=== PATIENT | female | born 1935 | race Caucasian/White ===

== ENCOUNTER 2016-05-24 08:44 | Inpatient (IN) | payer MEDICARE, BC ==
[~2016-05-24] VITALS: Ht 154.9 cm; Wt 96.0 kg
[~2016-05-24 08:44] MED LIST: ALPR0.5T PO; MAXZ25 PO; METF750T2 PO; PANT40TA3 PO; PARO10TA26 PO; POTA20TA96 PO; PRAV20TA63 PO
[2016-05-24] MEDS ORDERED: ONDANSETRON 4 MG INJ IV STA (08:47)
[2016-05-24] MEDS ORDERED: morphine 2 MG INJ IV STA (08:47)
[2016-05-24] MEDS ORDERED: SOD CHLORIDE 0.9% 1,000 ML IV STA (08:47)
--- NOTE | 2016-05-24 09:18 | ERA ---
ER Documentation Chief Complaint Date/Time DATE: 05/24/16 TIME: 09:16 Chief Complaint HPI Pleasant 80-year-old female who presents with nausea and vomiting, single episode of loose stool. She states that she was well yesterday today she woke up with nonbloody nonbilious emesis, diffuse cramping abdominal pain that is moderate with associated loose stool. No recent travel, sick contacts, antibiotics. ROS All systems reviewed and are negative except as per history of present illness. Medications Home Meds Reported Medications Valsartan-Hydrochlorothiazide (Valsartan-HCTZ) 160-25 Mg Tablet, 1 TAB PO DAILY , #30 TAB 05/24/16 Paroxetine Hcl* (Paxil*) 10 Mg Tablet, 10 MG PO DAILY, TAB 03/18/14 Potassium Chloride* (Potassium Chloride*) 20 Meq Tablet.er, 20 MEQ PO DAILY, TAB.SA 03/18/14 Metformin Hcl* (Metformin Hcl* ER) 750 Mg Tab.sr.24h, 850 MG PO BID, TAB 03/18/14 Pantoprazole* (Protonix*) 40 Mg Tablet.dr, 40 MG PO BID, TAB 03/18/14 Alprazolam* (Xanax*) 0.5 Mg Tab, 0.5 MG PO Q8H Y for ANXIETY, TAB 03/18/14 Pravastatin Sodium* (Pravastatin Sodium*) 20 Mg Tablet, 20 MG PO HS, TAB 03/18/14 Discontinued Reported Medications Triamterene/Hctz* (Maxzide (37.5-25)*) 1 Each Tablet, 1 EACH PO DAILY, TAB 03/18/14 Allergies Allergies: Coded Allergies: No Known Drug Allergies (Unverified Allergy, Unknown, 04/29/14) PMhx/Soc History of Surgery: No (R TKA 04/29/14) Anesthesia Reaction: No Hx Neurological Disorder: No Hx Respiratory Disorders: No Hx Psychiatric Problems: No Hx Miscellaneous Medical Probl: Yes (None listed in medical chart at time of OT eval.) Hx Alcohol Use: No Hx Substance Use: No Hx Tobacco Use: No FmHx Family History: No diabetes Physical Exam Vitals Vital Signs Date Time Temp Pulse Resp B/P Pulse Ox O2 Delivery O2 Flow Rate FiO2 05/24/16 12:01 95 05/24/16 10:44 98.6 78 16 159/86 99 05/24/16 09:10 98.4 110 16 151/81 99 Physical Exam General: Well developed, well nourished, no acute distress Head: Normocephalic, atraumatic. Eyes: Pupils equally reactive, EOM intact ENT: Moist mucous membranes Neck: Supple, no lymphadenopathy Respiratory: Lungs clear bilaterally, no distress Cardiovascular: RRR, no murmurs, rubs, or gallops Abdominal: Soft, mild diffuse tenderness without rebound or guarding, no pulsatile mass. : Deferred MSK: No edema, no unilateral swelling, 5/5 strength Neurologic: Alert and oriented, moving all extremities, normal speech, no focal weakness, no cerebellar signs Skin: No rash Psych: Normal mood Result Diagram: 05/24/1691405/24/16914 Results 24 hrs Laboratory Tests Test 05/24/16 09:15 05/24/16 10:05 05/24/16 11:00 Activated Partial Thromboplast Time 23.4Sec Alanine Aminotransferase (ALT/SGPT) 15IU/L Albumin 4.1g/dl Albumin/Globulin Ratio 1.28 Alkaline Phosphatase 84IU/L Anion Gap 19 Aspartate Amino Transf (AST/SGOT) 22IU/L Band Neutrophils % 5.0% Basophils # 10^3/ul Basophils % % Blood Morphology Comment Blood Urea Nitrogen 15mg/dl Calcium Level 9.1mg/dl Carbon Dioxide Level 27mmol/L Chloride Level 99mmol/L Creatinine 0.66mg/dl Differential Comment MANUAL DIFF Direct Bilirubin 0.00mg/dl Eosinophils # 10^3/ul Eosinophils % % Globulin 3.20g/dl Glucose Level 166mg/dl Hematocrit 39.8% Hemoglobin 13.3g/dl INR International Normalized Ratio 0.91 Indirect Bilirubin 0.4mg/dl Lipase 188U/L Lymphocytes # 1.810^3/ul Lymphocytes % 8.0% Mean Corpuscular Hemoglobin 28.6pg Mean Corpuscular Hemoglobin Concent 33.5g/dl Mean Corpuscular Volume 85.3fl Mean Platelet Volume 7.5fl Monocytes # 1.610^3/ul Monocytes % 7.0% Neutrophils # 18.110^3/ul Neutrophils % 80.0% Nucleated Red Blood Cells # 10^3/ul Nucleated Red Blood Cells % /100WBC Platelet Count 86130^3/UL Potassium Level 2.9mmol/L Prothrombin Time 12.2Sec Prothrombin Time Ratio 1.0 Red Blood Count 4.6610^6/ul Red Cell Distribution Width 14.7% Sodium Level 142mmol/L Total Bilirubin 0.4mg/dl Total Protein 7.3g/dl Troponin I < 0.012ng/ml White Blood Count 22.610^3/ul Lactic Acid Level 3.3mmol/L Urine Bacteria MODERATE Urine Bilirubin NEGATIVE Urine Clarity CLOUDY Urine Color LT. YELLOW Urine Epithelial Cells MODERATE Urine Glucose NEGATIVE% Urine Hemoglobin 3+ Urine Ketones NEGATIVE Urine Leukocyte Esterase 2+ Urine Microscopic RBC 5-10/HPF Urine Microscopic WBC 5-10/HPF Urine Nitrite NEGATIVE Urine Specific [place] 1.025 Urine Total Protein TRACE Urine Urobilinogen 0.2 E.U./dL Urine Yeast FEW Urine pH 5.5 Current Medications Medications (Trade) Dose Ordered Sig/Hugo Route PRN Reason Start Time Stop Time Status Last Admin Dose Admin Sodium Chloride (NS) 1,000 ml @ 1,000 mls/hr Q1H STAT IV 05/24/16 08:47 05/24/16 09:46 DC 05/24/16 09:37 Morphine Sulfate (morphine) 2 mg ONCE STAT IV 05/24/16 08:47 05/24/16 08:48 DC Ondansetron HCl (Zofran Inj) 4 mg ONCE STAT IV 05/24/16 08:47 05/24/16 08:48 DC 05/24/16 12:55 Sodium Chloride 2820 ml 2,820 ml BOLUS OVER 2 HOURS STAT IV* 05/24/16 09:53 05/24/16 09:55 DC 05/24/16 10:22 Cefepime HCl 50 ml @ 100 mls/hr ONCE STAT IVPB 05/24/16 09:53 05/24/16 10:22 DC 05/24/16 10:16 Vancomycin HCl 250 ml @ 125 mls/hr ONCE ONCE IVPB 05/24/16 10:00 05/24/16 11:59 DC 05/24/16 11:16 Potassium Chloride (KCl 10 MEQ/50 ML SW) 50 ml @ 50 mls/hr Q1H IVPB 05/24/16 11:00 05/24/16 13:59 05/24/16 12:50 Acetaminophen (Tylenol Tab) 1,000 mg ONCE STAT PO 05/24/16 11:55 2/14/17 11:56 DC Procedures/MDM EKG, MONITORS, & DIAGNOSTIC IMAGING: EKG: I reviewed and interpreted a 12-lead EKG. Rhythm: Normal sinus rhythm Ectopy: None Intervals: No abnormalities ST segments: No elevations or depressions T waves: No contiguous inversions Chest x-ray: I reviewed and interpreted a 1 view of the chest Mediastinum: No enlargement Cardiac silhouette: No cardiomegaly Airspace: Clear lung renner bilaterally without evidence of pneumothorax Bones: No evidence of fracture CT abdomen and pelvis: IMPRESSION: 1. Mild circumferential wall thickening of the distal rectum with surrounding fatty stranding suggestive of proctitis. 2. Fat containing left inguinal hernia. 3. Marked hepatomegaly. 4. Aortoiliac atherosclerosis. 5. Sequela of prior granulomatous disease in the lungs. LAB INTERPRETATION: Leukocytosis with lactic acidosis MEDICAL DECISION MAKING: The patient describes nausea vomiting diarrhea and abdominal pain. Given her age this represents a broad differential, low clinical concern for cardiac etiology. However cannot rule out acute intra-abdominal process. While this most likely is a viral process the patient will benefit from laboratory testing and diagnostic imaging to rule out more serious etiology. ER COURSE: The patient was identified to have evidence of possible sepsis. Source was identified at 9:[address] showed evidence of proctitis. The patient has been written for 30 cc/kg bolus of saline. She was given antipyretics, I avoided rectal temperature given evidence of proctitis. The patient's heart rate improved. The patient was given broad-spectrum antibiotics in the form of vancomycin and cefepime. A C. difficile toxin was sent but the patient did not have diarrhea here. She has no evidence of perforation. The patient will benefit from inpatient hospitalization but currently she does not require central line or pressors or intubation. Initially the patient's power of disability attorney did not want her admitted to this hospital. She requested transfer to [facility]. A phone call was made but they are unable to accept transfer at this time. The patient's power of disability attorney is acceptable to hospitalization at this facility. The patient's primary care physician, Dr. Chaparro would like Dr. Justin to admit the patient I kept the patient and/or family informed of laboratory and diagnostic imaging results throughout the emergency room course. DISPOSITION PLAN: Medical surgical admission is fine given stability of the patient CONSULTATION: Accepting care team and consultations: I discussed the current laboratory data, diagnostic imaging and emergency care provided. Admitting team: Dr. Justin, primary care physician requested this provider to admit Admitting team indication: Insurance directed Sepsis Documentation: Patient's infectious symptoms have not stabilized and the patient is at risk of rapid decompensation. The patient will be admitted for careful hydration, antibiotic therapy, and infectious source control. SEVERE SEPSIS CRITERIA: Infectious source: Proctitis End organ damage indicated by: [Lactate > 2.0 mmol/L SEPSIS MANAGEMENT Time of recognition of severe sepsis/septic shock: 9:59 AM 3 HOUR BUNDLE Blood cultures x 2 before broad-spectrum antibiotics: Yes 30 ml/kg NS bolus Completed Initial lactate 3.3 Repeat lactate pending SEPTIC SHOCK ASSESSMENT: No lactic acid > 4.0 No persistent hypotension (SBP < 90 or 40 mmHg drop, MAP < 65) despite 30 mL/kg IV fluid bolus VOLUME REASSESSMENT FOR SEPTIC SHOCK: Reevaluation Time: 12:15 PM Temp of 98.6, pulse is 78, respirations 16, blood pressure 159/86, pulse of 99 Heart Regular rate & rhythm Lungs No crackles Skin Warm & dry Cap Refill Less than 2 seconds Peripheral pulses Radially present PERSISTENT HYPOTENSION TREATMENT: Comfort care No Central line Not Required Vasopressor started Not required I considered further perfusion assessment with CVP measurement, SCVO2, bedside ultrasound volume assessment, passive leg raise, trial of further fluid bolus. And proceeded with 30 ml/kg fluid bolus of NSS, broad spectrum antbiotics, and admission. CRITICAL CARE Critical care time 35 minutes Emergent fluid management while maintaining close respiratory support. Provision of immediate and broad-spectrum antibiotic therapy. Simultaneous assessment for possible sources in order to direct targeted therapy. Consideration for invasive and chemical support to prevent cardiopulmonary collapse. Critical care time is independent of procedures performed. Departure Diagnosis: Primary Impression: Severe sepsis Additional Impressions: Proctitis Leukocytosis Qualified Code: D72.829 - Leukocytosis, unspecified type Lactic acidosis Condition: Stable HARMEET BOB MD May 24, 2016 09:18
--- NOTE | 2016-05-24 09:29 | RADRPT ---
PROCEDURE: XR Chest. CLINICAL INDICATION: chest pain, abdominal pain TECHNIQUE: Single frontal view of the chest was obtained COMPARISON: None FINDINGS: The heart and mediastinum are within normal limits. There are mild left lower lobe linear atelectatic changes. The lungs are otherwise clear. There is no pleural effusion or pneumothorax. RPTAT: AA IMPRESSION: Mild left lower lobe linear atelectatic changes. .Eder Wells MD, MD Date Time Electronically viewed and signed by .Eder Wells MD, MD on 05/24/2016 09:29 .S/
[2016-05-24 09:32] LABS: HEMATOCRIT 39.8 % (37.0-47.0); HEMOGLOBIN 13.3 g/dl (12.0-16.0); MEAN CORPUSCULAR HEMOGLOBIN 28.6 pg (29.0-33.0); MEAN CORPUSCULAR HGB CONC 33.5 g/dl (32.0-37.0); MEAN CORPUSCULAR VOLUME 85.3 fl (82.0-101.0); MEAN PLATELET VOLUME 7.5 fl (7.4-10.4); PLATELET COUNT 268 10^3/UL (140-440); RED BLOOD COUNT 4.66 10^6/ul (4.20-5.40); RED CELL DISTRIBUTION WIDTH 14.7 % (11.5-14.5); UNCORRECTED WBC 22.6 10^3/ul (4.8-10.8); WHITE BLOOD COUNT 22.6 10^3/ul (4.8-10.8)
[2016-05-24 09:37] LABS: CONDITION 1; LH ANALYZER COMMENTS 1; SUSPECT 1
[2016-05-24 09:48] LABS: ALBUMIN 4.1 g/dl (3.3-4.9); CHLORIDE 99 mmol/L (97-110); SODIUM 142 mmol/L (135-144)
[2016-05-24 09:49] LABS: INR 0.91; PARTIAL THROMBOPLASTIN TIME 23.4 Sec (25.0-35.0); PROTIME 12.2 Sec (12.2-14.2)
[2016-05-24 09:50] LABS: CREATININE 0.66 mg/dl (0.44-1.00)
[2016-05-24 09:51] LABS: ALBUMIN/GLOBULIN RATIO 1.28; ALKALINE PHOSPHATASE 84 IU/L (42-121); ANION GAP 19 (8-16); ASPARTATE AMINO TRANSFERASE 22 IU/L (15-46); BILIRUBIN,INDIRECT 0.4 mg/dl (0-1.1); BILIRUBIN,TOTAL 0.4 mg/dl (0.2-1.3); BLOOD UREA NITROGEN 15 mg/dl (7-20); CALCIUM 9.1 mg/dl (8.4-10.2); CARBON DIOXIDE 27 mmol/L (21-31); GLUCOSE 166 mg/dl (70-220); TOTAL PROTEIN 7.3 g/dl (6.1-8.1)
[2016-05-24 09:52] LABS: ALANINE AMINOTRANSFERASE 15 IU/L (13-69)
[2016-05-24 09:53] LABS: POTASSIUM 2.9 mmol/L (3.5-5.1)
[2016-05-24] MEDS ORDERED: SODIUM CHLORIDE 0.9% 1L BAG IV* STA (09:53)
[2016-05-24] MEDS ORDERED: CEFEPIME 2GM/50 ML (PMX) 50 ML IVPB STA (09:53)
--- NOTE | 2016-05-24 09:59 | RADRPT ---
PROCEDURE: CT Abdomen and Pelvis without contrast. CLINICAL INDICATION: Abdominal pain with nausea , vomiting and diarrhea. TECHNIQUE: CT scan of the abdomen and pelvis without contrast was performed on a multidetector hig h-resolution CT scanner. The patient was scanned without intravenous contrast. Coronal and sagittal reformatted images were obtained from the axial source images. Images were reviewed on a high-resol [employer] PACS workstation. The total exam CTDI equals 23.14 mGy and the total exam DLP equals 1388.52 m Gy-cm. One or more of the following dose reduction techniques were used: Automated exposure control. Adjustment of the mA and/or kV according to patient size. Use of iterative reconstruction technique. COMPARISON: None FINDINGS: CT abdomen: The lung bases are remarkable for mild bibasilar scarring and calcified granuloma in the posterior r ight middle lobe. Calcified right hilar and intrapulmonary lymph nodes are present. The heart size i s normal, without pericardial thickening or effusion. There is marked hepatomegaly . The spleen is normal in size and homogeneous in density. The stomac h is partially collapsed, but is grossly unremarkable. The pancreas as visualized is normal. The g allbladder and biliary tree are unremarkable and there is no evidence for biliary dilatation. The a drenal glands are symmetric and normal. The kidneys are symmetrically unremarkable as well. No loretta al calculus or obstructive uropathy or mass lesion is seen. The aorta is of normal caliber. Aortic vascular calcifications are present. There is no retroperit zuñiga lymphadenopathy. The fabien hepatis region is clear. The bowel and mesentery, as visualized, are equally unremarkable. CT pelvis: The small bowel loops situated within the pelvis are unremarkable. There is a fat-containing left i nguinal hernia. The pelvic organs are normal. The pelvic sidewalls and inguinal regions are clear. The sigmoid colon and rectum are remarkable for mild circumferential wall thickening of the distal rectum with surrounding fatty stranding suggesting proctitis. No mass, lymphadenopathy, or free fl uid is seen. No acute inflammation is seen. There is age indeterminate moderate compression fractu re of T12 approximately 50% height loss with minimal retropulsion. The surrounding osseous structure s are remarkable for degenerative spondylosis of the spine. No osteolytic or osteoblastic lesion is detected. IMPRESSION: 1. Mild circumferential wall thickening of the distal rectum with surrounding fatty stranding sugge stive of proctitis. 2. Fat containing left inguinal hernia. 3. Marked hepatomegaly. 4. Aortoiliac atherosclerosis. 5. Sequela of prior granulomatous disease in the lungs. RPTAT: BB .Alton Evans MD, MD Date Time Electronically viewed and signed by .Alton Evans MD, on 05/24/2016 09:59 .O/
[2016-05-24 10:00] LABS: TROPONIN-I < 0.012 ng/ml (0.00-0.12)
[2016-05-24] MEDS ORDERED: VANCOMYCIN 1 GM (PMX) 250 ML IVPB ONE (10:00)
[2016-05-24] MEDS ORDERED: VALS1TAB78 PO (10:09)
[2016-05-24 10:34] LABS: LYMPHOCYTES # 1.8 10^3/ul (0.8-2.9); MONOCYTE # 1.6 10^3/ul (0.3-0.9); NEUTROPHIL # 18.1 10^3/ul (1.6-7.5)
[2016-05-24 11:26] LABS: ADD UMIC YES; URINE BILIRUBIN (Dip) NEGATIVE (NEGATIVE); URINE BLOOD (Dip) 3+ (NEGATIVE); URINE COLOR LT. YELLOW (YELLOW); URINE GLUCOSE (Dip) NEGATIVE (NEGATIVE); URINE KETONES (Dip) NEGATIVE (NEGATIVE); URINE LEUKOCYTE ESTERASE (Dip) 2+ (NEGATIVE); URINE NITRITE (Dip) NEGATIVE (NEGATIVE); URINE TOTAL PROTEIN (Dip) TRACE (NEGATIVE); URINE UROBILINOGEN (Dip) 0.2 E.U./dL (0.1-1.0)
[2016-05-24 11:42] LABS: BACTERIA,URINE MODERATE
[2016-05-24] MEDS: POTASSIUM CHLORIDE 50 ML IVPB SCH ×3 (11:45→13:53)
[2016-05-24] MEDS ORDERED: ACETAMINOPHEN 500 MG TAB PO STA (11:55)
[2016-05-24] MEDS ORDERED: ACETAMINOPHEN 325 MG TAB PO PRN ×2 (13:30→21:00)
[2016-05-24] MEDS ORDERED: ONDANSETRON 4 MG INJ IV PRN ×2 (13:30→21:00)
[2016-05-24 18:07] VITALS: TEMP 96.6
[2016-05-24 20:30] VITALS: Ht 154.9 cm; Wt 96.0 kg
[2016-05-24] MEDS: INSULIN ASPART [NOVOLOG] 3 ML PEN SC SCH (21:00)
[2016-05-24] MEDS ORDERED: GLUCOSE GEL 15 GRAM TUBE BUCCAL PRN (21:30)
[2016-05-24] MEDS ORDERED: GLUCAGON 1 MG INJ IM PRN (21:30)
[2016-05-24] MEDS ORDERED: DEXTROSE 50% 50 ML SYRINGE IV PRN ×2 (21:30)
[2016-05-24] MEDS ORDERED: GLUCOSE GEL 15 GRAM TUBE PO PRN ×2 (21:30)
[2016-05-24] MEDS: LEVOFLOXACIN 500MG/D5W (PMX) 100 ML IVPB SCH (22:42)
[2016-05-24] MEDS: PANTOPRAZOLE (EC) 40 MG TAB PO SCH (22:46)
[2016-05-24] MEDS: VALSARTAN 160 MG TAB PO SCH (22:47)
[2016-05-24] MEDS: PAROXETINE 10 MG TAB PO SCH (22:48)
[2016-05-24] MEDS: HYDROCHLOROTHIAZIDE 25 MG TAB PO SCH (22:48)
[2016-05-24] MEDS: POTASSIUM CHLORIDE (SR) 20 MEQ TAB PO SCH (22:48)
[2016-05-24] MEDS: POTASSIUM CHLORIDE 30 MEQ in SOD CHLORIDE 0.45% 1,000 ML IV SCH (22:51)
[2016-05-24 22:55] VITALS: BP 142/63; RESP 16
[2016-05-24] MEDS: ATORVASTATIN 10 MG TAB PO SCH (23:18)
--- NOTE | 2016-05-24 23:58 | HP ---
DATE OF ADMISSION: 05/24/2016 CHIEF COMPLAINT: Vomiting, abdominal pain, and chills. HISTORY OF PRESENT ILLNESS: The patient is an 80-year-old female with history of hypertension, diab etes, hyperlipidemia, anxiety and depression, came to the ER with multiple episodes of nausea, vomit ing, and abdominal discomfort, mainly in the lower abdomen 1 day. The patient reported that she was in her usual state of health and developed sudden onset of chills, nausea, vomiting, and lower abdo alo discomfort. The patient did have 1 slightly loose bowel movement. No reported rectal bleed. The patient does have history of external hemorrhoids. The patient did not have any hematemesis. No history of chest pain, shortness of breath. No history of headache, dizziness, syncope. No hist ory of diaphoresis. No history of joint swelling or any acute skin rash. No history of cough, sore throat. REVIEW OF SYSTEMS: A total of 10 systems were reviewed and all pertinent positive and negative find ings have been described in HPI. The rest of review of systems unremarkable. The patient was seen in the ER and was noted to have a white count of 22.6. The patient also underw ent CT of the abdomen and pelvis which revealed mild concentric circumferential wall thickening of t he distal rectum with surrounding fatty stranding suggestive of proctitis, ____, aortoiliac atherosc lerotic, sequelae of prior granulomatous disease in the lung. Chest x-ray was clear. EKG revealed normal sinus rhythm. The patient is being admitted for further evaluation and management. PAST SURGICAL HISTORY: The patient is status post right total knee replacement done by Dr. Ruiz. ALLERGIES: NONE. SOCIAL HISTORY: No smoking, no alcohol. FAMILY HISTORY: Mother of chronic leukemia in her 70s. Father at 66 of unknown cause. PHYSICAL EXAMINATION: GENERAL: The patient is conscious, awake. VITAL SIGNS: Upon arrival, temperature 98.4, pulse 110, respirations 16, blood pressure 150/81. HEENT: Atraumatic, normocephalic. Conjunctivae and lids normal. Oropharynx clear. Nose and ears normal. NECK: Supple. No mass, no thyromegaly. LUNGS: Clear bilaterally. No use of accessory muscles. CARDIOVASCULAR: Regular rate and rhythm. No murmur, gallop, or rub. ABDOMEN: Soft. Mild lower abdominal tenderness present. No guarding or rigidity. Bowel sounds pl us. MUSCULOSKELETAL: No acute joint swelling. NEUROLOGIC: The patient is awake, alert, fairly oriented with no gross focal deficit. SKIN: Without acute rash or ulcer. PSYCHIATRIC: The patient's anxiety and depression are well controlled. Currently, the patient's mo od and affect are normal. LABORATORY DATA: This morning, WBC 22.6, hemoglobin 13.6, platelets 268. Sodium 142, potassium 2.9 , BUN 15, creatinine 0.6, glucose 166. CT of the abdomen as above. IMPRESSION: 1. Acute proctitis, etiology possibly viral versus nonspecific proctitis. 2. Dyslipidemia. 3. Hyperkalemia. 4. Hepatomegaly on CT of the abdomen, although patient's liver functions revealed normal bilirubin and normal coagulation profile with INR 0.9. Lipase of 28. The patient will be monitored as an out patient for hepatomegaly. 5. Hypertension. We will ____. 6. Anxiety/depression. Continue Xanax and Paxil. 7. Diabetes mellitus. Will continue metformin and sliding scale insulin. Further recommendations will depend on patient's course. A GI consult from Dr. Newman has been obta ined. The patient's amylase and lipase are within normal limits. Coagulation profile normal. Live r enzymes unremarkable. Albumin 4.1. The patient will be empirically started on IV Levaquin and Fl agyl. Further recommendation depends on hospital course and recommendations by Dr. Newman. We will continue her home medications. Plan of care discussed with the patient's sister. Dictated By: ANGELA DICKINSON/EVIE Conf#: [id number] DID#: [id number]
[2016-05-25] MEDS: metroNIDAZOLE 500 MG/NS (PMX) 100 ML IVPB SCH ×4 (00:17→23:55)
[2016-05-25] MEDS: ALPRAZOLAM 0.5 MG TAB PO PRN ×2 (02:00→22:24)
[2016-05-25] MEDS: ACCUCHECK XX SCH (02:00)
[2016-05-25 05:30] LABS: BASOPHILS % 0.3 % (0.0-2.0); EOSINOPHILS # 0.2 10^3/ul (0.0-0.5); EOSINOPHILS % 1.5 % (0.0-7.0); HEMATOCRIT 29.9 % (37.0-47.0); HEMOGLOBIN 10.1 g/dl (12.0-16.0); LYMPHOCYTES # 2.7 10^3/ul (0.8-2.9); MEAN CORPUSCULAR HEMOGLOBIN 29.3 pg (29.0-33.0); MEAN CORPUSCULAR HGB CONC 33.9 g/dl (32.0-37.0); MEAN CORPUSCULAR VOLUME 86.3 fl (82.0-101.0); MEAN PLATELET VOLUME 7.3 fl (7.4-10.4); MONOCYTE # 0.7 10^3/ul (0.3-0.9); MONOCYTES % 6.3 % (0.0-11.0); NEUTROPHIL # 7.7 10^3/ul (1.6-7.5); NEUTROPHILS % 67.9 % (39.0-77.0); PLATELET COUNT 207 10^3/UL (140-440); RED BLOOD COUNT 3.46 10^6/ul (4.20-5.40); RED CELL DISTRIBUTION WIDTH 14.9 % (11.5-14.5); UNCORRECTED WBC 11.3 10^3/ul (4.8-10.8); WHITE BLOOD COUNT 11.3 10^3/ul (4.8-10.8)
[2016-05-25 05:39] LABS: CONDITION 1; LH ANALYZER COMMENTS 1
[2016-05-25 06:03] LABS: ALBUMIN 2.8 g/dl (3.3-4.9); POTASSIUM 3.3 mmol/L (3.5-5.1)
[2016-05-25 06:06] LABS: ALBUMIN/GLOBULIN RATIO 1.12; BILIRUBIN,INDIRECT 0.7 mg/dl (0-1.1); BILIRUBIN,TOTAL 0.7 mg/dl (0.2-1.3); CREATININE 0.63 mg/dl (0.44-1.00); TOTAL PROTEIN 5.3 g/dl (6.1-8.1)
[2016-05-25 06:07] LABS: CALCIUM 7.7 mg/dl (8.4-10.2)
--- NOTE | 2016-05-25 06:55 | CONS ---
DATE OF ADMISSION: 05/24/2016 DATE OF CONSULTATION: 05/24/2016 TYPE OF CONSULTATION: Gastroenterology. Dear Dr. Munoz: Thank you for asking me to see Mrs. Hensley in GI consultation. HISTORY OF PRESENT ILLNESS: As you know, the patient is an 80-year-old white female who was reporte d to the emergency room because of the history of vomiting which she had yesterday and today vomitin g nonbloody material, probably food. She also had shaking chills today which lasted all day long an d hence she came to the hospital. She had loose bowel movements yesterday and today she took laxati ves in the past for a few days because of constipation. She has no history of having rectal bleedin g. She did not have any diarrhea prior to this admission. She did not have similar problems in the past. REVIEW OF SYSTEM: Positive for hypertension and diabetes. MEDICATIONS: Multiple medications are reported from the past. 1. Valsartan. 2. Paxil. 3. Potassium chloride. 4. Metformin. 5. Protonix. 6. Xanax. 7. Pravastatin. 8. Maxzide. PAST MEDICAL HISTORY: Right total knee surgery. REVIEW OF SYSTEMS: Again unremarkable other than diabetes and hypertension. SOCIAL HISTORY: The patient does not smoke or drink. 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 PHYSICAL EXAMINATION: GENERAL: The patient is an 80-year-old white female who at this time, she is alert, she is well ramirez lt. VITAL SIGNS: She is afebrile. CARDIOVASCULAR: Normal heart sounds. RESPIRATORY: Normal breath sounds. ABDOMEN: Showed evidence of a soft abdomen with no palpable masses, no tenderness, no distention. LABORATORY WORKUP: Temperature is 98.6. Laboratory workup: Potassium 2.9, sodium 142, BUN 15, cre atinine 0.6. Lactic acid 3.3, came down to 1.9, albumin 4.1, lipase is 188, alkaline phosphatase 84 . The WBC count is high at 22,600, hemoglobin 13.3. The CAT scan of the abdomen shows evidence of mild circumferential wall thickening of the distal rec lorie with surrounding fatty stranding suggesting proctitis, fat containing left inguinal hernia, cintia ed hepatomegaly. The chest x-ray shows mild left lower lobe linear atelectatic changes. CLINICAL IMPRESSION: 1. The patient presenting with history of vomiting, abdominal pain and diarrhea. It seems to be po ssible that it could be gastroenteritis on a bacterial etiology basis. 2. Mild rectal thickening, although could be suggestive of proctitis, colorectal neoplasm should be ruled out. 3. Diabetes and hypertension. PLAN: At this time, recommend colonoscopy when the patient settles down. Continue antibiotic thera py at this time, recommend stool for bacteria and other pathogens. Once again, doctor, thank you for this consultation. Dictated By: TIFFANIE MARTELL MD NC/NTS Conf#: [id number] DID#: [id number] CC: ANGELA MUNOZ MD; CONCEPCION ALVAREZ;*EndCC*
[2016-05-25] MEDS: INSULIN ASPART [NOVOLOG] 3 ML PEN SC SCH ×4 (07:51→21:00)
[2016-05-25 08:21] VITALS: BP 160/68; RESP 20
[2016-05-25] MEDS: POTASSIUM CHLORIDE (SR) 20 MEQ TAB PO SCH (08:49)
[2016-05-25] MEDS: PAROXETINE 10 MG TAB PO SCH (08:49)
[2016-05-25] MEDS: VALSARTAN 160 MG TAB PO SCH (08:50)
[2016-05-25] MEDS: PANTOPRAZOLE (EC) 40 MG TAB PO SCH ×2 (08:50→22:24)
[2016-05-25] MEDS: HYDROCHLOROTHIAZIDE 25 MG TAB PO SCH (08:50)
[2016-05-25 10:10] VITALS: BP 140/66; PULSE 80; RESP 16
[2016-05-25] MEDS: POTASSIUM CHLORIDE 30 MEQ in SOD CHLORIDE 0.45% 1,000 ML IV SCH ×2 (10:32→22:23)
[2016-05-25] MEDS ORDERED: PEG/ELECTROLYTES 4L BTL PO ONE (13:00)
--- NOTE | 2016-05-25 18:17 | PN ---
DATE: CHIEF COMPLAINT: Patient at this time is feeling a little comfortable. She has no diarrhea today. No nausea, no vomiting. No significant abdominal pain. PHYSICAL EXAMINATION: GENERAL: The patient at this time is well built, alert. She is not in distress. VITAL SIGNS: The pulse is 80, blood pressure is 140/66. CARDIOVASCULAR: Normal heart sounds. RESPIRATORY: Normal breath sounds. ABDOMEN: Shows soft abdomen with no palpable masses. LABORATORY WORKUP: WBC count is 11,300, hemoglobin is down to 10.1. Prothrombin time 12.2. Chemistry: Potassium 3.3. The CAT scan of the abdomen is reviewed with radiologist, which shows evidence of a thickening of th e rectum. CLINICAL IMPRESSION: The patient presenting with history of vomiting, abdominal pain, and diarrhea. CAT scan of the abdomen shows thickening of the rectum. The etiology for this is not very clear. In view of the fact that the patient has anemia, that means there is a drop in hemoglobin, and abno rmal rectum, one should rule out the possibility of neoplastic process. Hence, at this time I have recommended followup colonoscopy to the patient and the patient agreed. Also discussed with the pat milli's niece. Colonoscopy will be performed. Dictated By: TIFFANIE JERNIGAN/EVIE Conf#: [id number] DID#: [id number] CC: ANGELA MUNOZ MD;*EndCC*
[2016-05-25] MEDS ORDERED: POTASSIUM CHLORIDE 20 MEQ in SOD CHLORIDE 0.9% 100 ML IVPB ONE (18:30)
--- NOTE | 2016-05-25 18:47 | PN ---
Date/Time of Note Date/Time of Note DATE: 05/25/16 TIME: 18:39 Assessment/Plan VTE Prophylaxis VTE Prophylaxis Intervention: SCD's Lines/Catheters IV Catheter Type (from Nrs): Peripheral IV Urinary Cath still in place: No Assessment/Plan Assessment/Plan - Acute proctitis, etiology possibly viral versus nonspecific proctitis. Continue Levaquin and Flagyl. Dr. Rice is following in gastroenterology consultation. Pending colonoscopy tomorrow. - Possible sepsis secondary to proctitis. - UTI per UA. - Hypertension, continue hydrochlorothiazide and Diovan. - Dyslipidemia. Continue Lipitor - Diabetes mellitus. Will continue metformin and sliding scale insulin - Anxiety/depression. Continue Xanax and Paxil. - Obesity - Hypokalemia, potassium replaced, monitor electrolytes closely. Further recommendations based on clinical course. Plan of care discussed with Dr. Justin. Subjective 24 Hr Interval Summary Free Text/Dictation Patient is sitting at the bedside eating dinner, denies nausea vomiting, febrile , denies pain. Exam/Review of Systems Vital Signs Vitals Vital Signs Date Time Temp Pulse Resp B/P Pulse Ox O2 Delivery O2 Flow Rate FiO2 05/25/16 10:10 80 16 140/66 92 Room Air 05/25/16 08:21 98.3 Intake and Output 05/24/16 05/24/16 05/25/16 15:00 23:00 07:00 Intake Total 4270 ml 1450 ml Balance 4270 ml 1450 ml Exam Constitutional: alert, oriented, other (Obese) Psych: nl mood/affect, no complaints Head: normocephalic Eyes: nl conjunctiva ENMT: nl external ears & nose Neck: non-tender, supple Respiratory: clear to auscultation Cardiovascular: regular rate and rhythm Gastrointestinal: soft, tender Musculoskeletal: nl extremities to inspection Extremities: normal pulses Neurological: [employer] II-XII intact Results Result Diagram: 05/25/16 0511 05/25/16 0511 Results 24 hrs Laboratory Tests Test 05/24/16 22:41 05/25/16 05:11 05/25/16 07:46 05/25/16 11:29 Bedside Glucose 103 120 110 Alanine Aminotransferase (ALT/SGPT) 21 Albumin 2.8 #L Albumin/Globulin Ratio 1.12 Alkaline Phosphatase 47 Anion Gap 12 # Aspartate Amino Transf (AST/SGOT) 17 Basophils # 0.0 Basophils % 0.3 Blood Morphology Comment Blood Urea Nitrogen 11 Calcium Level 7.7 L Carbon Dioxide Level 28 Chloride Level 105 Creatinine 0.63 Direct Bilirubin 0.00 Eosinophils # 0.2 Eosinophils % 1.5 Globulin 2.50 Glucose Level 105 # Hematocrit 29.9 #L Hemoglobin 10.1 #L Indirect Bilirubin 0.7 Lymphocytes # 2.7 Lymphocytes % 24.0 Mean Corpuscular Hemoglobin 29.3 Mean Corpuscular Hemoglobin Concent 33.9 Mean Corpuscular Volume 86.3 Mean Platelet Volume 7.3 L Monocytes # 0.7 Monocytes % 6.3 Neutrophils # 7.7 H Neutrophils % 67.9 Nucleated Red Blood Cells # 0.0 Nucleated Red Blood Cells % 0.0 Platelet Count 207 # Potassium Level 3.3 L Red Blood Count 3.46 #L Red Cell Distribution Width 14.9 H Sodium Level 142 Total Bilirubin 0.7 Total Protein 5.3 #L White Blood Count 11.3 #H Test 05/25/16 16:44 Bedside Glucose 90 Medications Medications Current Medications Alprazolam (Xanax) 0.5 mg Q8H PRN PO ANXIETY Last administered on 05/25/16 02: 00; Admin Dose 0.5 MG; Start 05/24/16 at 21:00 Pantoprazole (Protonix Tab) 40 mg BID PO Last administered on 05/25/16 08:50; Admin Dose 40 MG; Start 05/24/16 at 21:00 Paroxetine HCl (Paxil) 10 mg DAILY PO Last administered on 05/25/16 08:49; Admin Dose 10 MG; Start 05/24/16 at 21:00 Potassium Chloride (Klor-Con 20) 20 meq DAILY PO Last administered on 08:49; Admin Dose 20 MEQ; Start 05/24/16 at 21:00 Atorvastatin Calcium (Lipitor) 10 mg DAILY@21 PO Last administered on 23:18; Admin Dose 10 MG; Start 05/24/16 at 21:22 Valsartan 160 mg 160 mg DAILY PO Last administered on 05/25/16 08:50; Admin Dose 160 MG; Start 05/24/16 at 21:30 Levofloxacin/ Dextrose 100 ml @ 100 mls/hr Q24H IVPB Last administered on 05/24 22:42; Admin Dose 100 MLS/HR; Start 05/24/16 at 21:00 Metronidazole (Flagyl 500 Mg (Pmx)) 100 ml @ 100 mls/hr Q8 IVPB Last administered on 05/25/16 14:09; Admin Dose 100 MLS/HR; Start 05/24/16 at 22:00 Acetaminophen (Tylenol Tab) 650 mg Q4H PRN PO PAIN AND OR ELEVATED TEMP; Start 05/24/16 at 21:00 Ondansetron HCl (Zofran Inj) 4 mg Q4H PRN IV NAUSEA AND/OR VOMITING; Start at 21:00 Hydralazine HCl 10 mg 10 mg Q4H PRN IV ELEVATED BLOOD PRESSURE; Start 05/24/16 at 21:00 Potassium Chloride/Sodium Chloride (KCl/1/2 NS) 1,015 ml @ 75 mls/hr [id number] IV Last administered on 05/24/16 22:51; Admin Dose 75 MLS/HR; Start 05/24/16 at 21:00 Diagnostic Test (Pha) (Accucheck) 1 ea 02 XX ; Start 05/25/16 at 02:00 Miscellaneous Information 1 ea NOTE XX ; Start 05/24/16 at 21:30 Glucose (Glutose) 15 gm Q15M PRN PO DECREASED GLUCOSE; Start 05/24/16 at 21:30 Glucose (Glutose) 22.5 gm Q15M PRN PO DECREASED GLUCOSE; Start 05/24/16 at 21: 30 Dextrose (D50w Syringe) 25 ml Q15M PRN IV DECREASED GLUCOSE; Start 05/24/16 at 21:30 Dextrose (D50w Syringe) 50 ml Q15M PRN IV DECREASED GLUCOSE; Start 05/24/16 at 21:30 Glucagon (Glucagen) 1 mg Q15M PRN IM DECREASED GLUCOSE; Start 05/24/16 at 21:30 Glucose (Glutose) 15 gm Q15M PRN BUCCAL DECREASED GLUCOSE; Start 05/24/16 at 21 :30 Hydrochlorothiazide 25 mg 25 mg DAILY PO Last administered on 05/25/16 08:50; Admin Dose 25 MG; Start 05/24/16 at 21:30 Potassium Chloride/Sodium Chloride (KCl/NS) 110 ml @ 55 mls/hr ONCE ONCE IVPB ; Start 05/25/16 at 18:30; Stop 05/25/16 at 20:29 THAI DELACRUZ May 25, 2016 18:47
[2016-05-25 20:05] VITALS: BP 146/67; RESP 19
[2016-05-25] MEDS: ATORVASTATIN 10 MG TAB PO SCH (22:24)
[2016-05-25] MEDS: LEVOFLOXACIN 500MG/D5W (PMX) 100 ML IVPB SCH (22:24)
[2016-05-26] VITALS (10 sets, daily range): BP systolic 127–171; BP diastolic 59–81; PULSE 78–91; RESP 14–18
[2016-05-26] MEDS: ACCUCHECK XX SCH (02:00)
[2016-05-26] MEDS: metroNIDAZOLE 500 MG/NS (PMX) 100 ML IVPB SCH ×3 (05:43→23:09)
[2016-05-26 06:52] LABS: BASOPHILS % 0.2 % (0.0-2.0); EOSINOPHILS # 0.2 10^3/ul (0.0-0.5); EOSINOPHILS % 2.3 % (0.0-7.0); HEMATOCRIT 31.4 % (37.0-47.0); HEMOGLOBIN 10.8 g/dl (12.0-16.0); LYMPHOCYTES # 2.2 10^3/ul (0.8-2.9); LYMPHOCYTES % 23.6 % (15.0-51.0); MEAN CORPUSCULAR HEMOGLOBIN 29.4 pg (29.0-33.0); MEAN CORPUSCULAR HGB CONC 34.3 g/dl (32.0-37.0); MEAN CORPUSCULAR VOLUME 85.7 fl (82.0-101.0); MEAN PLATELET VOLUME 7.4 fl (7.4-10.4); MONOCYTE # 0.6 10^3/ul (0.3-0.9); MONOCYTES % 6.4 % (0.0-11.0); NEUTROPHIL # 6.3 10^3/ul (1.6-7.5); NEUTROPHILS % 67.5 % (39.0-77.0); PLATELET COUNT 229 10^3/UL (140-440); RED BLOOD COUNT 3.66 10^6/ul (4.20-5.40); RED CELL DISTRIBUTION WIDTH 14.8 % (11.5-14.5); UNCORRECTED WBC 9.3 10^3/ul (4.8-10.8); WHITE BLOOD COUNT 9.3 10^3/ul (4.8-10.8)
[2016-05-26 06:59] LABS: CONDITION 1; LH ANALYZER COMMENTS 1
[2016-05-26 07:06] LABS: POTASSIUM 3.2 mmol/L (3.5-5.1)
[2016-05-26 07:08] LABS: CREATININE 0.64 mg/dl (0.44-1.00)
[2016-05-26 07:09] LABS: CALCIUM 8.4 mg/dl (8.4-10.2)
[2016-05-26] MEDS: INSULIN ASPART [NOVOLOG] 3 ML PEN SC SCH ×4 (08:00→21:00)
[2016-05-26] MEDS: VALSARTAN 160 MG TAB PO SCH (08:48)
[2016-05-26] MEDS: PANTOPRAZOLE (EC) 40 MG TAB PO SCH ×2 (08:49→20:44)
[2016-05-26] MEDS: HYDROCHLOROTHIAZIDE 25 MG TAB PO SCH (08:49)
[2016-05-26] MEDS: PAROXETINE 10 MG TAB PO SCH (08:49)
[2016-05-26] MEDS: POTASSIUM CHLORIDE (SR) 20 MEQ TAB PO SCH (08:49)
[2016-05-26] MEDS: POTASSIUM CHLORIDE 30 MEQ in SOD CHLORIDE 0.45% 1,000 ML IV SCH (13:00)
[2016-05-26] MEDS ORDERED: PROPOFOL 20 ML ONE (15:48)
--- NOTE | 2016-05-26 16:01 | PN ---
Date/Time of Note Date/Time of Note DATE: 05/26/16 TIME: 16:00 Assessment/Plan VTE Prophylaxis VTE Prophylaxis Intervention: other Lines/Catheters IV [facility] Type (from [facility]): Peripheral IV Urinary Cath still in place: No Assessment/Plan Assessment/Plan - Acute proctitis, etiology possibly viral versus nonspecific proctitis. Continue Levaquin and Flagyl. - per gastroenterology consultation. - colonoscopy today - Possible sepsis secondary to proctitis. - UTI per UA. - Hypertension, continue hydrochlorothiazide and Diovan. - Dyslipidemia. Continue Lipitor - Diabetes mellitus. - glycemic control - Anxiety/depression. Continue Xanax and Paxil. - Obesity - Hypokalemia, potassium replaced, monitor electrolytes closely. Further recommendations based on clinical course. Plan of care discussed with Dr. Justin. Subjective 24 Hr Interval Summary Constitutional: requiring IVF Eyes: no complaints ENT: no complaints Respiratory: no complaints Cardiovascular: no complaints Gastrointestinal: no complaints Genitourinary: no complaints Musculoskeletal: no complaints Skin: no complaints Neurologic: no complaints Endocrine: no complaints Lymphatic: no complaints Psychological: no complaints Immunologic: no complaints Exam/Review of Systems Vital Signs Vitals Vital Signs Date Time Temp Pulse Resp B/P Pulse Ox O2 Delivery O2 Flow Rate FiO2 05/26/16 08:16 98.1 83 16 171/71 94 05/25/16 10:10 Room Air Intake and Output 05/25/16 05/25/16 05/26/16 15:00 23:00 07:00 Intake Total 100 ml 2250 ml 680 ml Output Total 800 ml Balance 100 ml 1450 ml 680 ml Exam Constitutional: alert, obese, oriented, well developed Psych: nl mood/affect Head: atraumatic Eyes: EOMI, PERRL, nl sclera ENMT: nl external ears & nose Neck: non-tender Respiratory: clear to auscultation Cardiovascular: nl pulses Gastrointestinal: non-tender, other (obese), soft Musculoskeletal: nl extremities to inspection Extremities: normal pulses Neurological: nl mental status, nl speech Skin: nl turgor Lymph: nontender Results Result Diagram: 05/26/16 0525 05/26/16 0525 Results 24 hrs Laboratory Tests Test 05/25/16 16:44 05/25/16 20:19 05/26/16 05:25 05/26/16 07:52 Bedside Glucose 90 102 122 Anion Gap 14 Basophils # 0.0 Basophils % 0.2 Blood Morphology Comment Blood Urea Nitrogen 5 L Calcium Level 8.4 Carbon Dioxide Level 31 Chloride Level 101 Creatinine 0.64 Eosinophils # 0.2 Eosinophils % 2.3 Glucose Level 105 Hematocrit 31.4 L Hemoglobin 10.8 L Lymphocytes # 2.2 Lymphocytes % 23.6 Mean Corpuscular Hemoglobin 29.4 Mean Corpuscular Hemoglobin Concent 34.3 Mean Corpuscular Volume 85.7 Mean Platelet Volume 7.4 Monocytes # 0.6 Monocytes % 6.4 Neutrophils # 6.3 Neutrophils % 67.5 Nucleated Red Blood Cells # 0.0 Nucleated Red Blood Cells % 0.0 Platelet Count 229 Potassium Level 3.2 L Red Blood Count 3.66 L Red Cell Distribution Width 14.8 H Sodium Level 143 White Blood Count 9.3 Test 05/26/16 12:05 05/26/16 15:50 Bedside Glucose 110 98 Medications Medications Current Medications Alprazolam (Xanax) 0.5 mg Q8H PRN PO ANXIETY Last administered on 05/25/16 22: 24; Admin Dose 0.5 MG; Start 05/24/16 at 21:00 Pantoprazole (Protonix Tab) 40 mg BID PO Last administered on 05/25/16 22:24; Admin Dose 40 MG; Start 05/24/16 at 21:00 Paroxetine HCl (Paxil) 10 mg DAILY PO Last administered on 05/25/16 08:49; Admin Dose 10 MG; Start 05/24/16 at 21:00 Potassium Chloride (Klor-Con 20) 20 meq DAILY PO Last administered on 08:49; Admin Dose 20 MEQ; Start 05/24/16 at 21:00 Atorvastatin Calcium (Lipitor) 10 mg DAILY@21 PO Last administered on 22:24; Admin Dose 10 MG; Start 05/24/16 at 21:22 Valsartan 160 mg 160 mg DAILY PO Last administered on 05/25/16 08:50; Admin Dose 160 MG; Start 05/24/16 at 21:30 Levofloxacin/ Dextrose 100 ml @ 100 mls/hr Q24H IVPB Last administered on 05/25 22:24; Admin Dose 100 MLS/HR; Start 05/24/16 at 21:00 Metronidazole (Flagyl 500 Mg (Pmx)) 100 ml @ 100 mls/hr Q8 IVPB Last administered on 05/26/16 13:08; Admin Dose 100 MLS/HR; Start 05/24/16 at 22:00 Acetaminophen (Tylenol Tab) 650 mg Q4H PRN PO PAIN AND OR ELEVATED TEMP; Start 05/24/16 at 21:00 Ondansetron HCl (Zofran Inj) 4 mg Q4H PRN IV NAUSEA AND/OR VOMITING; Start at 21:00 Hydralazine HCl 10 mg 10 mg Q4H PRN IV ELEVATED BLOOD PRESSURE; Start 05/24/16 at 21:00 Potassium Chloride/Sodium Chloride (KCl/1/2 NS) 1,015 ml @ 75 mls/hr [id number] IV Last administered on 05/26/16 13:00; Admin Dose 75 MLS/HR; Start 05/24/16 at 21:00 Diagnostic Test (Pha) (Accucheck) 1 ea 02 XX ; Start 05/25/16 at 02:00 Miscellaneous Information 1 ea NOTE XX ; Start 05/24/16 at 21:30 Glucose (Glutose) 15 gm Q15M PRN PO DECREASED GLUCOSE; Start 05/24/16 at 21:30 Glucose (Glutose) 22.5 gm Q15M PRN PO DECREASED GLUCOSE; Start 05/24/16 at 21: 30 Dextrose (D50w Syringe) 25 ml Q15M PRN IV DECREASED GLUCOSE; Start 05/24/16 at 21:30 Dextrose (D50w Syringe) 50 ml Q15M PRN IV DECREASED GLUCOSE; Start 05/24/16 at 21:30 Glucagon (Glucagen) 1 mg Q15M PRN IM DECREASED GLUCOSE; Start 05/24/16 at 21:30 Glucose (Glutose) 15 gm Q15M PRN BUCCAL DECREASED GLUCOSE; Start 05/24/16 at 21 :30 Hydrochlorothiazide (Hydrochlorothiazide) 25 mg DAILY PO Last administered on 08:50; Admin Dose 25 MG; Start 05/24/16 at 21:30 AHMET BOURNE May 26, 2016 16:01
--- NOTE | 2016-05-26 17:03 | GILP ---
DATE OF PROCEDURE: 05/26/2016 PROCEDURE: Colonoscopy. PREOPERATIVE DIAGNOSIS: Patient presenting with history of diarrhea, history of CAT scan showing ab normal rectum. The patient had drop in hemoglobin to 10.1 from 13.3, rule out colorectal neoplasm a nd inflammatory bowel disease, etc. POSTOPERATIVE DIAGNOSES: Thickening of the fold noted in the rectum at about 10 cm from the anus. Biopsies were done. Rest of the colon appeared normal. Minimal internal and external hemorrhoids w ere noted. DESCRIPTION OF PROCEDURE: After informed written consent was obtained, the patient was asked to lie on the left lateral side. Intravenous anesthesia was given by anesthesiologist. When the patient became somnolent, the Olympus video colonoscope was introduced into the rectum. The folds of the re ctum showed evidence of a thickening and edema and friability. Scope at this time was advanced all the way to the cecum. The rest of the colon appeared normal with no additional abnormalities. No c olorectal neoplasm noted, however, on the way out, there are multiple folds which were biopsied to r ule out possible malignancy. I doubt amyloidosis, but certainly needs to be ruled out. Retroflexion was performed. Internal hem orrhoids as well as external hemorrhoids were noted and the procedure was terminated. PLAN: Recommend wait for the pathology report. Dictated By: TIFFANIE JERNIGAN/EVIE Conf#: [id number] DID#: [id number] CC: ANGELA MUNOZ MD;*EndCC*
[2016-05-26 18:14] LABS: BASOPHILS % 0.4 % (0.0-2.0); CONDITION 1; EOSINOPHILS # 0.2 10^3/ul (0.0-0.5); EOSINOPHILS % 1.6 % (0.0-7.0); HEMATOCRIT 34.4 % (37.0-47.0); HEMOGLOBIN 11.5 g/dl (12.0-16.0); LYMPHOCYTES # 2.2 10^3/ul (0.8-2.9); LYMPHOCYTES % 21.3 % (15.0-51.0); MEAN CORPUSCULAR HEMOGLOBIN 28.9 pg (29.0-33.0); MEAN CORPUSCULAR HGB CONC 33.5 g/dl (32.0-37.0); MEAN CORPUSCULAR VOLUME 86.2 fl (82.0-101.0); MEAN PLATELET VOLUME 7.1 fl (7.4-10.4); MONOCYTE # 0.5 10^3/ul (0.3-0.9); MONOCYTES % 4.6 % (0.0-11.0); NEUTROPHIL # 7.3 10^3/ul (1.6-7.5); NEUTROPHILS % 72.1 % (39.0-77.0); PLATELET COUNT 260 10^3/UL (140-440); RED BLOOD COUNT 3.99 10^6/ul (4.20-5.40); RED CELL DISTRIBUTION WIDTH 14.3 % (11.5-14.5); UNCORRECTED WBC 10.1 10^3/ul (4.8-10.8); WHITE BLOOD COUNT 10.1 10^3/ul (4.8-10.8)
[2016-05-26] MEDS ORDERED: POTASSIUM CHLORIDE 20 MEQ in SOD CHLORIDE 0.9% 100 ML IVPB ONE (19:00)
[2016-05-26] MEDS: LEVOFLOXACIN 500MG/D5W (PMX) 100 ML IVPB SCH (20:44)
[2016-05-26] MEDS: ATORVASTATIN 10 MG TAB PO SCH (20:44)
[2016-05-26] MEDS: hydrALAzine 20 MG INJ IV PRN (20:46)
[2016-05-26] MEDS: ALPRAZOLAM 0.5 MG TAB PO PRN (20:59)
[2016-05-27] MEDS: ACCUCHECK XX SCH (02:00)
[2016-05-27] MEDS: POTASSIUM CHLORIDE 30 MEQ in SOD CHLORIDE 0.45% 1,000 ML IV SCH ×2 (03:46→16:40)
[2016-05-27 06:12] LABS: POTASSIUM 3.5 mmol/L (3.5-5.1)
[2016-05-27 06:14] LABS: CREATININE 0.61 mg/dl (0.44-1.00)
[2016-05-27 06:15] LABS: CALCIUM 8.2 mg/dl (8.4-10.2)
[2016-05-27 07:38] VITALS: RESP 18
[2016-05-27] MEDS: INSULIN ASPART [NOVOLOG] 3 ML PEN SC SCH ×4 (08:00→21:00)
[2016-05-27] MEDS: metroNIDAZOLE 500 MG/NS (PMX) 100 ML IVPB SCH ×2 (09:04→13:25)
[2016-05-27] MEDS: PAROXETINE 10 MG TAB PO SCH (09:05)
[2016-05-27] MEDS: PANTOPRAZOLE (EC) 40 MG TAB PO SCH ×2 (09:05→20:33)
[2016-05-27] MEDS: VALSARTAN 160 MG TAB PO SCH (09:05)
[2016-05-27] MEDS: POTASSIUM CHLORIDE (SR) 20 MEQ TAB PO SCH (09:05)
[2016-05-27] MEDS: HYDROCHLOROTHIAZIDE 25 MG TAB PO SCH (09:05)
[2016-05-27] MEDS: GUAIFENESIN/DM 5ML CUP PO PRN ×2 (14:54→22:42)
--- NOTE | 2016-05-27 15:38 | PN ---
Date/Time of Note Date/Time of Note DATE: 05/27/16 TIME: 15:32 Assessment/Plan VTE Prophylaxis VTE Prophylaxis Intervention: SCD's Lines/Catheters IV [facility]ter Type (from [facility]): Peripheral IV Urinary Cath still in place: No Assessment/Plan Chief Complaint/Hosp Course Assessment/Plan - Acute proctitis, etiology possibly viral versus nonspecific proctitis. Continue Levaquin and Flagyl. Dr. Rice is following in gastroenterology consultation. S/p colonoscopy. - Possible sepsis secondary to proctitis. - UTI per UA. - Hypertension, continue hydrochlorothiazide and Diovan. - Dyslipidemia. Continue Lipitor - Diabetes mellitus. Continue metformin and sliding scale insulin - Anxiety/depression. Continue Xanax and Paxil. - Obesity - Hypokalemia, potassium replaced, monitor electrolytes closely. PT evaluation Anticipate discharge tomorrow if cleared by physical therapy, and patient has a caregiver available at home. Further recommendations based on clinical course. Plan of care discussed with Dr. Justin. Problems: Subjective 24 Hr Interval Summary Free Text/Dictation Patient denies any fever nausea and vomiting, complains of mild generalized weakness, pain is well controlled. Exam/Review of Systems Vital Signs Vitals Vital Signs Date Time Temp Pulse Resp B/P Pulse Ox O2 Delivery O2 Flow Rate FiO2 05/27/16 07:38 98.9 81 18 92 05/26/16 22:00 Room Air Intake and Output 05/26/16 05/26/16 05/27/16 15:00 23:00 07:00 Intake Total 100 ml 1325 ml 925 ml Balance 100 ml 1325 ml 925 ml Exam Constitutional: alert, oriented, other (Obese) Psych: nl mood/affect, no complaints Head: normocephalic Eyes: nl conjunctiva ENMT: nl external ears & nose Neck: non-tender, supple Respiratory: clear to auscultation Cardiovascular: regular rate and rhythm Gastrointestinal: soft, tender Musculoskeletal: nl extremities to inspection Extremities: normal pulses Neurological: [employer] II-XII intact Results Result Diagram: 05/26/16 1755 05/27/16 0454 Results 24 hrs Laboratory Tests Test 05/26/16 15:50 05/26/16 17:06 05/26/16 17:51 05/26/16 20:42 Bedside Glucose 98 93 98 Basophils # 0.0 Basophils % 0.4 Blood Morphology Comment Eosinophils # 0.2 Eosinophils % 1.6 Hematocrit 34.4 L Hemoglobin 11.5 L Lymphocytes # 2.2 Lymphocytes % 21.3 Mean Corpuscular Hemoglobin 28.9 L Mean Corpuscular Hemoglobin Concent 33.5 Mean Corpuscular Volume 86.2 Mean Platelet Volume 7.1 L Monocytes # 0.5 Monocytes % 4.6 Neutrophils # 7.3 Neutrophils % 72.1 Nucleated Red Blood Cells # 0.0 Nucleated Red Blood Cells % 0.0 Platelet Count 260 Red Blood Count 3.99 L Red Cell Distribution Width 14.3 White Blood Count 10.1 Test 05/27/16 04:54 05/27/16 07:19 05/27/16 11:25 Anion Gap 15 Blood Urea Nitrogen 6 L Calcium Level 8.2 L Carbon Dioxide Level 28 Chloride Level 104 Creatinine 0.61 Glucose Level 105 Hemoglobin A1c 6.4 H Potassium Level 3.5 Sodium Level 143 Bedside Glucose 105 97 Medications Medications Current Medications Alprazolam (Xanax) 0.5 mg Q8H PRN PO ANXIETY Last administered on 05/26/16 20: 59; Admin Dose 0.5 MG; Start 05/24/16 at 21:00 Pantoprazole (Protonix Tab) 40 mg BID PO Last administered on 05/27/16 09:05; Admin Dose 40 MG; Start 05/24/16 at 21:00 Paroxetine HCl (Paxil) 10 mg DAILY PO Last administered on 05/27/16 09:05; Admin Dose 10 MG; Start 05/24/16 at 21:00 Potassium Chloride (Klor-Con 20) 20 meq DAILY PO Last administered on 09:05; Admin Dose 20 MEQ; Start 05/24/16 at 21:00 Atorvastatin Calcium (Lipitor) 10 mg DAILY@21 PO Last administered on 20:44; Admin Dose 10 MG; Start 05/24/16 at 21:22 Valsartan 160 mg 160 mg DAILY PO Last administered on 05/27/16 09:05; Admin Dose 160 MG; Start 05/24/16 at 21:30 Levofloxacin/ Dextrose 100 ml @ 100 mls/hr Q24H IVPB Last administered on 05/26 20:44; Admin Dose 100 MLS/HR; Start 05/24/16 at 21:00 Metronidazole (Flagyl 500 Mg (Pmx)) 100 ml @ 100 mls/hr Q8 IVPB Last administered on 05/27/16 13:25; Admin Dose 100 MLS/HR; Start 05/24/16 at 22:00 Acetaminophen (Tylenol Tab) 650 mg Q4H PRN PO PAIN AND OR ELEVATED TEMP; Start 05/24/16 at 21:00 Ondansetron HCl (Zofran Inj) 4 mg Q4H PRN IV NAUSEA AND/OR VOMITING; Start at 21:00 Hydralazine HCl 10 mg 10 mg Q4H PRN IV ELEVATED BLOOD PRESSURE Last administered on 05/26/16 20:46; Admin Dose 10 MG; Start 05/24/16 at 21:00 Potassium Chloride/Sodium Chloride (KCl/1/2 NS) 1,015 ml @ 75 mls/hr [id number] IV Last administered on 05/27/16 03:46; Admin Dose 75 MLS/HR; Start 05/24/16 at 21:00 Diagnostic Test (Pha) (Accucheck) 1 ea 02 XX ; Start 05/25/16 at 02:00 Miscellaneous Information 1 ea NOTE XX ; Start 05/24/16 at 21:30 Glucose (Glutose) 15 gm Q15M PRN PO DECREASED GLUCOSE; Start 05/24/16 at 21:30 Glucose (Glutose) 22.5 gm Q15M PRN PO DECREASED GLUCOSE; Start 05/24/16 at 21: 30 Dextrose (D50w Syringe) 25 ml Q15M PRN IV DECREASED GLUCOSE; Start 05/24/16 at 21:30 Dextrose (D50w Syringe) 50 ml Q15M PRN IV DECREASED GLUCOSE; Start 05/24/16 at 21:30 Glucagon (Glucagen) 1 mg Q15M PRN IM DECREASED GLUCOSE; Start 05/24/16 at 21:30 Glucose (Glutose) 15 gm Q15M PRN BUCCAL DECREASED GLUCOSE; Start 05/24/16 at 21 :30 Hydrochlorothiazide (Hydrochlorothiazide) 25 mg DAILY PO Last administered on 09:05; Admin Dose 25 MG; Start 05/24/16 at 21:30 Guaifenesin/ Dextromethorphan (Robitussin Dm Liquid Cup) 10 ml Q6H PRN PO cough Last administered on 2/17/17at 14:54; Admin Dose 10 ML; Start 05/27/16 at 13:00 THAI DELACRUZ May 27, 2016 15:38
[2016-05-27] MEDS: LEVOFLOXACIN 500 MG TAB PO SCH (17:24)
[2016-05-27] MEDS: ATORVASTATIN 10 MG TAB PO SCH (20:33)
[2016-05-27] MEDS: metroNIDAZOLE 500 MG TAB PO SCH (20:33)
[2016-05-27 21:15] VITALS: BP 143/90; RESP 18
[2016-05-27] MEDS: ALPRAZOLAM 0.5 MG TAB PO PRN (22:42)
[2016-05-28] MEDS: POTASSIUM CHLORIDE 30 MEQ in SOD CHLORIDE 0.45% 1,000 ML IV SCH ×2 (00:45→14:42)
[2016-05-28] MEDS: ACCUCHECK XX SCH (02:00)
[2016-05-28] MEDS: LEVOFLOXACIN 500 MG TAB PO SCH (05:16)
[2016-05-28 06:26] LABS: BASOPHILS % 0.3 % (0.0-2.0); EOSINOPHILS # 0.1 10^3/ul (0.0-0.5); EOSINOPHILS % 1.7 % (0.0-7.0); HEMATOCRIT 33.6 % (37.0-47.0); HEMOGLOBIN 11.3 g/dl (12.0-16.0); LYMPHOCYTES # 2.2 10^3/ul (0.8-2.9); LYMPHOCYTES % 26.6 % (15.0-51.0); MEAN CORPUSCULAR HEMOGLOBIN 29.3 pg (29.0-33.0); MEAN CORPUSCULAR HGB CONC 33.7 g/dl (32.0-37.0); MEAN CORPUSCULAR VOLUME 86.9 fl (82.0-101.0); MEAN PLATELET VOLUME 7.3 fl (7.4-10.4); MONOCYTE # 0.8 10^3/ul (0.3-0.9); MONOCYTES % 9.3 % (0.0-11.0); NEUTROPHIL # 5.2 10^3/ul (1.6-7.5); NEUTROPHILS % 62.1 % (39.0-77.0); PLATELET COUNT 238 10^3/UL (140-440); RED BLOOD COUNT 3.86 10^6/ul (4.20-5.40); UNCORRECTED WBC 8.4 10^3/ul (4.8-10.8); WHITE BLOOD COUNT 8.4 10^3/ul (4.8-10.8)
[2016-05-28 06:33] LABS: CONDITION 1; LH ANALYZER COMMENTS 1
[2016-05-28 06:59] LABS: POTASSIUM 3.7 mmol/L (3.5-5.1)
[2016-05-28 07:02] LABS: CREATININE 0.7 mg/dl (0.44-1.00)
[2016-05-28 07:03] LABS: CALCIUM 8.7 mg/dl (8.4-10.2)
[2016-05-28 08:00] VITALS: BP 196/93; RESP 18
[2016-05-28] MEDS: INSULIN ASPART [NOVOLOG] 3 ML PEN SC SCH ×4 (08:00→20:52)
[2016-05-28] MEDS: GUAIFENESIN/DM 5ML CUP PO PRN ×2 (08:31→21:26)
[2016-05-28] MEDS: VALSARTAN 160 MG TAB PO SCH (08:32)
[2016-05-28] MEDS: POTASSIUM CHLORIDE (SR) 20 MEQ TAB PO SCH (08:33)
[2016-05-28] MEDS: HYDROCHLOROTHIAZIDE 25 MG TAB PO SCH (08:33)
[2016-05-28] MEDS: PAROXETINE 10 MG TAB PO SCH (08:33)
[2016-05-28] MEDS: PANTOPRAZOLE (EC) 40 MG TAB PO SCH ×2 (08:33→20:38)
[2016-05-28] MEDS: metroNIDAZOLE 500 MG TAB PO SCH ×3 (08:33→20:38)
--- NOTE | 2016-05-28 10:49 | PN ---
Date/Time of Note Date/Time of Note DATE: 05/28/16 TIME: 10:48 Assessment/Plan VTE Prophylaxis VTE Prophylaxis Intervention: other Lines/Catheters IV C[facility]ter Type (from [facility] Peripheral IV Urinary Cath still in place: No Assessment/Plan Chief Complaint/Hosp Course - Acute proctitis, etiology possibly viral versus nonspecific proctitis. Continue Levaquin and Flagyl. Dr. Rice is following in gastroenterology consultation. S/p colonoscopy. - Possible sepsis secondary to proctitis. - UTI per UA. - Hypertension, continue hydrochlorothiazide and Diovan. - Dyslipidemia. Continue Lipitor - Diabetes mellitus. Continue metformin and sliding scale insulin - Anxiety/depression. Continue Xanax and Paxil. - Obesity - Hypokalemia, potassium replaced, monitor electrolytes closely. Problems: Subjective 24 Hr Interval Summary Free Text/Dictation Patient is doing ok Exam/Review of Systems Vital Signs Vitals Vital Signs Date Time Temp Pulse Resp B/P Pulse Ox O2 Delivery O2 Flow Rate FiO2 05/28/16 08:00 98.3 80 18 196/93 95 05/26/16 22:00 Room Air Intake and Output 05/27/16 05/27/16 05/28/16 15:00 23:00 07:00 Intake Total 200 ml 1630 ml 690 ml Balance 200 ml 1630 ml 690 ml Exam Constitutional: well developed Head: atraumatic, normocephalic Neck: supple Respiratory: clear to auscultation Cardiovascular: regular rate and rhythm Gastrointestinal: non-tender, soft Results Result Diagram: 05/28/16 0510 05/28/16 0510 Results 24 hrs Laboratory Tests Test 05/27/16 11:25 05/27/16 16:43 05/27/16 20:30 05/28/16 05:10 Bedside Glucose 97 100 97 Anion Gap 18 H Basophils # 0.0 Basophils % 0.3 Blood Morphology Comment Blood Urea Nitrogen 8 Calcium Level 8.7 Carbon Dioxide Level 24 Chloride Level 106 Creatinine 0.70 Eosinophils # 0.1 Eosinophils % 1.7 Glucose Level 103 Hematocrit 33.6 L Hemoglobin 11.3 L Lymphocytes # 2.2 Lymphocytes % 26.6 Mean Corpuscular Hemoglobin 29.3 Mean Corpuscular Hemoglobin Concent 33.7 Mean Corpuscular Volume 86.9 Mean Platelet Volume 7.3 L Monocytes # 0.8 Monocytes % 9.3 Neutrophils # 5.2 Neutrophils % 62.1 Nucleated Red Blood Cells # 0.0 Nucleated Red Blood Cells % 0.0 Platelet Count 238 Potassium Level 3.7 Red Blood Count 3.86 L Red Cell Distribution Width 15.0 H Sodium Level 144 White Blood Count 8.4 Test 05/28/16 07:37 Bedside Glucose 104 Medications Medications Current Medications Alprazolam (Xanax) 0.5 mg Q8H PRN PO ANXIETY Last administered on 05/27/16 22: 42; Admin Dose 0.5 MG; Start 05/24/16 at 21:00 Pantoprazole (Protonix Tab) 40 mg BID PO Last administered on 05/28/16 08:33; Admin Dose 40 MG; Start 05/24/16 at 21:00 Paroxetine HCl (Paxil) 10 mg DAILY PO Last administered on 05/28/16 08:33; Admin Dose 10 MG; Start 05/24/16 at 21:00 Potassium Chloride (Klor-Con 20) 20 meq DAILY PO Last administered on 08:33; Admin Dose 20 MEQ; Start 05/24/16 at 21:00 Atorvastatin Calcium (Lipitor) 10 mg DAILY@21 PO Last administered on 20:33; Admin Dose 10 MG; Start 05/24/16 at 21:22 Valsartan (Diovan) 160 mg DAILY PO Last administered on 05/28/16 08:32; Admin Dose 160 MG; Start 05/24/16 at 21:30 Acetaminophen (Tylenol Tab) 650 mg Q4H PRN PO PAIN AND OR ELEVATED TEMP; Start 05/24/16 at 21:00 Ondansetron HCl (Zofran Inj) 4 mg Q4H PRN IV NAUSEA AND/OR VOMITING; Start at 21:00 Hydralazine HCl 10 mg 10 mg Q4H PRN IV ELEVATED BLOOD PRESSURE Last administered on 05/26/16 20:46; Admin Dose 10 MG; Start 05/24/16 at 21:00 Potassium Chloride/Sodium Chloride (KCl/1/2 NS) 1,015 ml @ 75 mls/hr [id number] IV Last administered on 05/28/16 00:45; Admin Dose 75 MLS/HR; Start 05/24/16 at 21:00 Diagnostic Test (Pha) (Accucheck) 1 ea 02 XX ; Start 05/25/16 at 02:00 Miscellaneous Information 1 ea NOTE XX ; Start 05/24/16 at 21:30 Glucose (Glutose) 15 gm Q15M PRN PO DECREASED GLUCOSE; Start 05/24/16 at 21:30 Glucose (Glutose) 22.5 gm Q15M PRN PO DECREASED GLUCOSE; Start 05/24/16 at 21: 30 Dextrose (D50w Syringe) 25 ml Q15M PRN IV DECREASED GLUCOSE; Start 05/24/16 at 21:30 Dextrose (D50w Syringe) 50 ml Q15M PRN IV DECREASED GLUCOSE; Start 05/24/16 at 21:30 Glucagon (Glucagen) 1 mg Q15M PRN IM DECREASED GLUCOSE; Start 05/24/16 at 21:30 Glucose (Glutose) 15 gm Q15M PRN BUCCAL DECREASED GLUCOSE; Start 05/24/16 at 21 :30 Hydrochlorothiazide (Hydrochlorothiazide) 25 mg DAILY PO Last administered on 08:33; Admin Dose 25 MG; Start 05/24/16 at 21:30 Guaifenesin/ Dextromethorphan (Robitussin Dm Liquid Cup) 10 ml Q6H PRN PO cough Last administered on 05/28/16 08:31; Admin Dose 10 ML; Start 05/27/16 at 13:00 Levofloxacin (Levaquin) 500 mg DAILY@06 PO Last administered on 05/28/16 05:16 ; Admin Dose 500 MG; Start 05/27/16 at 18:00 Metronidazole (Flagyl) 500 mg TID PO Last administered on 05/28/16 08:33; Admin Dose 500 MG; Start 05/27/16 at 21:00 MAHENDRA RUVALCABA May 28, 2016 10:48
[2016-05-28 20:00] VITALS: BP 200/88; PULSE 82; RESP 18
[2016-05-28] MEDS: ATORVASTATIN 10 MG TAB PO SCH (20:38)
[2016-05-28 20:47] VITALS: BP 200/88; PULSE 82; RESP 18
[2016-05-28] MEDS: ALPRAZOLAM 0.5 MG TAB PO PRN (20:47)
[2016-05-28 21:45] VITALS: BP 195/80; PULSE 86
[2016-05-28] MEDS: hydrALAzine 20 MG INJ IV PRN (21:45)
[2016-05-28 22:47] VITALS: BP 174/74
[2016-05-28 23:22] VITALS: BP 129/63; PULSE 78
[2016-05-29] MEDS: ACCUCHECK XX SCH (02:00)
[2016-05-29] MEDS: LEVOFLOXACIN 500 MG TAB PO SCH (05:14)
[2016-05-29] MEDS: POTASSIUM CHLORIDE 30 MEQ in SOD CHLORIDE 0.45% 1,000 ML IV SCH ×2 (05:17→19:56)
[2016-05-29 08:00] VITALS: BP 131/61; RESP 18
[2016-05-29] MEDS: INSULIN ASPART [NOVOLOG] 3 ML PEN SC SCH ×4 (08:00→21:00)
[2016-05-29] MEDS: PANTOPRAZOLE (EC) 40 MG TAB PO SCH ×2 (09:45→20:46)
[2016-05-29] MEDS: POTASSIUM CHLORIDE (SR) 20 MEQ TAB PO SCH (09:46)
[2016-05-29] MEDS: PAROXETINE 10 MG TAB PO SCH (09:46)
[2016-05-29] MEDS: metroNIDAZOLE 500 MG TAB PO SCH ×3 (09:46→20:46)
[2016-05-29] MEDS: VALSARTAN 160 MG TAB PO SCH (09:46)
[2016-05-29] MEDS: HYDROCHLOROTHIAZIDE 25 MG TAB PO SCH (09:47)
--- NOTE | 2016-05-29 12:17 | PN ---
Date/Time of Note Date/Time of Note DATE: 05/29/16 TIME: 12:16 Assessment/Plan VTE Prophylaxis VTE Prophylaxis Intervention: other Lines/Catheters IV C[facility]ter Type (from [facility] Peripheral IV Urinary Cath still in place: No Assessment/Plan Chief Complaint/Hosp Course - Acute proctitis, etiology possibly viral versus nonspecific proctitis. Continue Levaquin and Flagyl. Dr. Rice is following in gastroenterology consultation. S/p colonoscopy. - Possible sepsis secondary to proctitis. - UTI per UA. - Hypertension, continue hydrochlorothiazide and Diovan. - Dyslipidemia. Continue Lipitor - Diabetes mellitus. Continue metformin and sliding scale insulin - Anxiety/depression. Continue Xanax and Paxil. - Obesity - Hypokalemia, potassium replaced, monitor electrolytes closely. Problems: Subjective 24 Hr Interval Summary Free Text/Dictation Patient feels better Exam/Review of Systems Vital Signs Vitals Vital Signs Date Time Temp Pulse Resp B/P Pulse Ox O2 Delivery O2 Flow Rate FiO2 05/29/16 08:00 98.5 89 18 131/61 95 05/28/16 20:47 Room Air Intake and Output 05/28/16 05/28/16 05/29/16 15:00 23:00 07:00 Intake Total 1680 ml 1380 ml Balance 1680 ml 1380 ml Exam Constitutional: well developed Head: atraumatic, normocephalic Neck: supple Cardiovascular: regular rate and rhythm Gastrointestinal: non-tender, soft Extremities: normal pulses Results Result Diagram: 05/28/16 0510 05/28/16 0510 Results 24 hrs Laboratory Tests Test 05/28/16 16:11 05/28/16 20:51 05/29/16 08:06 05/29/16 12:06 Bedside Glucose 89 127 114 99 Medications Medications Current Medications Alprazolam (Xanax) 0.5 mg Q8H PRN PO ANXIETY Last administered on 05/28/16 20: 47; Admin Dose 0.5 MG; Start 05/24/16 at 21:00 Pantoprazole (Protonix Tab) 40 mg BID PO Last administered on 05/29/16 09:45; Admin Dose 40 MG; Start 05/24/16 at 21:00 Paroxetine HCl (Paxil) 10 mg DAILY PO Last administered on 05/29/16 09:46; Admin Dose 10 MG; Start 05/24/16 at 21:00 Potassium Chloride (Klor-Con 20) 20 meq DAILY PO Last administered on 09:46; Admin Dose 20 MEQ; Start 05/24/16 at 21:00 Atorvastatin Calcium (Lipitor) 10 mg DAILY@21 PO Last administered on 20:38; Admin Dose 10 MG; Start 05/24/16 at 21:22 Valsartan (Diovan) 160 mg DAILY PO Last administered on 05/29/16 09:46; Admin Dose 160 MG; Start 05/24/16 at 21:30 Acetaminophen (Tylenol Tab) 650 mg Q4H PRN PO PAIN AND OR ELEVATED TEMP; Start 05/24/16 at 21:00 Ondansetron HCl (Zofran Inj) 4 mg Q4H PRN IV NAUSEA AND/OR VOMITING; Start at 21:00 Hydralazine HCl 10 mg 10 mg Q4H PRN IV ELEVATED BLOOD PRESSURE Last administered on 05/28/16 21:45; Admin Dose 10 MG; Start 05/24/16 at 21:00 Potassium Chloride/Sodium Chloride (KCl/1/2 NS) 1,015 ml @ 75 mls/hr [id number] IV Last administered on 05/29/16 05:17; Admin Dose 75 MLS/HR; Start 05/24/16 at 21:00 Diagnostic Test (Pha) (Accucheck) 1 ea 02 XX ; Start 05/25/16 at 02:00 Miscellaneous Information 1 ea NOTE XX ; Start 05/24/16 at 21:30 Glucose (Glutose) 15 gm Q15M PRN PO DECREASED GLUCOSE; Start 05/24/16 at 21:30 Glucose (Glutose) 22.5 gm Q15M PRN PO DECREASED GLUCOSE; Start 05/24/16 at 21: 30 Dextrose (D50w Syringe) 25 ml Q15M PRN IV DECREASED GLUCOSE; Start 05/24/16 at 21:30 Dextrose (D50w Syringe) 50 ml Q15M PRN IV DECREASED GLUCOSE; Start 05/24/16 at 21:30 Glucagon (Glucagen) 1 mg Q15M PRN IM DECREASED GLUCOSE; Start 05/24/16 at 21:30 Glucose (Glutose) 15 gm Q15M PRN BUCCAL DECREASED GLUCOSE; Start 05/24/16 at 21 :30 Hydrochlorothiazide (Hydrochlorothiazide) 25 mg DAILY PO Last administered on 09:47; Admin Dose 25 MG; Start 05/24/16 at 21:30 Guaifenesin/ Dextromethorphan (Robitussin Dm Liquid Cup) 10 ml Q6H PRN PO cough Last administered on 05/28/16 21:26; Admin Dose 10 ML; Start 05/27/16 at 13:00 Levofloxacin (Levaquin) 500 mg DAILY@06 PO Last administered on 05/29/16 05:14 ; Admin Dose 500 MG; Start 05/27/16 at 18:00 Metronidazole (Flagyl) 500 mg TID PO Last administered on 05/29/16 09:46; Admin Dose 500 MG; Start 05/27/16 at 21:00 Clonidine (Catapres) 0.1 mg Q6H PRN PO ELEVATED BLOOD PRESSURE; Start 05/28/16 at 23:00 MAHENDRA RUVALCABA May 29, 2016 12:16
[2016-05-29] MEDS: GUAIFENESIN/DM 5ML CUP PO PRN (19:47)
[2016-05-29 20:28] VITALS: BP 146/69; RESP 20
[2016-05-29] MEDS: ATORVASTATIN 10 MG TAB PO SCH (20:46)
[2016-05-29] MEDS: ALPRAZOLAM 0.5 MG TAB PO PRN (22:34)
[2016-05-30] MEDS: ACCUCHECK XX SCH (01:28)
[2016-05-30] MEDS: LEVOFLOXACIN 500 MG TAB PO SCH (05:10)
[2016-05-30 07:43] VITALS: BP 165/69; RESP 18
[2016-05-30] MEDS: INSULIN ASPART [NOVOLOG] 3 ML PEN SC SCH ×4 (07:47→20:33)
[2016-05-30] MEDS: VALSARTAN 160 MG TAB PO SCH (08:16)
[2016-05-30] MEDS: PANTOPRAZOLE (EC) 40 MG TAB PO SCH ×2 (08:17→20:26)
[2016-05-30] MEDS: HYDROCHLOROTHIAZIDE 25 MG TAB PO SCH (08:17)
[2016-05-30] MEDS: metroNIDAZOLE 500 MG TAB PO SCH ×3 (08:17→20:26)
[2016-05-30] MEDS: PAROXETINE 10 MG TAB PO SCH (08:17)
[2016-05-30] MEDS: POTASSIUM CHLORIDE (SR) 20 MEQ TAB PO SCH (08:17)
[2016-05-30 09:00] VITALS: BP 148/84; PULSE 76
[2016-05-30] MEDS: POTASSIUM CHLORIDE 30 MEQ in SOD CHLORIDE 0.45% 1,000 ML IV SCH ×2 (12:07→14:17)
--- NOTE | 2016-05-30 14:12 | CONS ---
DATE OF ADMISSION: 05/24/2016 DATE OF CONSULTATION: CHIEF COMPLAINT: At this time, she is not complaining of any significant abdominal pain, diarrhea. She seems to be resolving, but she complains of increased micturition. The patient admitted with abdominal pain, vomiting, and diarrhea. Colonoscopy showed thickening of the rectal fold and biopsies showed lymphoid follicles which is probably unremarkable. She may have had an episode of gastroenteritis, and at this time, I also must mention the stool is negative for C difficile toxin. PHYSICAL EXAMINATION: GENERAL: The patient is an 80-year-old white female who at this time is obese. She is not in distr ess. VITAL SIGNS: The pulse is 76, blood pressure is 148/84, temperature is 98.6. LABORATORY WORKUP: The WBC count is down to 8400 from 22,600. Potassium is 3.7. She also has a marked hepatomegaly on the scan. However, the liver tests are unremarkable. This he patomegaly is probably due to fatty liver. The ALT is 21 and the alkaline phosphatase is 47. CLINICAL IMPRESSION: Recovering from the gastroenteritis, normal rectal biopsy. PLAN: Recommend continue to follow the patient from her hepatomegaly standpoint. Liver functions a re normal; however, I will order alpha fetoprotein. Dictated By: TIFFANIE JERNIGAN/EVIE Conf#: [id number] DID#: [id number]
--- NOTE | 2016-05-30 19:37 | PN ---
Date/Time of Note Date/Time of Note DATE: 05/30/16 TIME: 19:36 Assessment/Plan VTE Prophylaxis VTE Prophylaxis Intervention: SCD's Lines/Catheters IV C[facility]ter Type (from [facility]): Peripheral IV Urinary Cath still in place: No Assessment/Plan Chief Complaint/Hosp Course Assessment/Plan - Acute proctitis, etiology possibly viral versus nonspecific proctitis. Continue Levaquin and Flagyl. Dr. Rice is following in gastroenterology consultation. S/p colonoscopy. - Possible sepsis secondary to proctitis. - UTI per UA. - Hypertension, continue hydrochlorothiazide and Diovan. - Dyslipidemia. Continue Lipitor - Diabetes mellitus. Continue metformin and sliding scale insulin - Anxiety/depression. Continue Xanax and Paxil. - Obesity - Hypokalemia, potassium replaced, monitor electrolytes closely. Anticipate discharge to [facility] when arranged by case management Anticipate discharge tomorrow if cleared by physical therapy, and patient has a caregiver available at home. Further recommendations based on clinical course. Plan of care discussed with Dr. Justin. Problems: Subjective 24 Hr Interval Summary Free Text/Dictation Patient stated that she feels better, denies any pain, able to work with physical therapy. Exam/Review of Systems Vital Signs Vitals Vital Signs Date Time Temp Pulse Resp B/P Pulse Ox O2 Delivery O2 Flow Rate FiO2 05/30/16 09:00 76 148/84 05/30/16 07:43 98.6 18 92 05/28/16 20:47 Room Air Intake and Output 05/29/16 05/29/16 05/30/16 15:00 23:00 07:00 Intake Total 1415 ml 675 ml Balance 1415 ml 675 ml Exam Constitutional: alert, oriented, other (Obese) Psych: nl mood/affect, no complaints Head: normocephalic Eyes: nl conjunctiva ENMT: nl external ears & nose Neck: non-tender, supple Respiratory: clear to auscultation Cardiovascular: regular rate and rhythm Gastrointestinal: soft, tender Musculoskeletal: nl extremities to inspection Extremities: normal pulses Neurological: DIRECTOR HEALTH II-XII intact Results Result Diagram: 05/28/16 0510 05/28/16 0510 Results 24 hrs Laboratory Tests Test 05/29/16 19:45 05/30/16 07:37 05/30/16 11:18 05/30/16 12:22 Bedside Glucose 163 112 114 Alpha Fetoprotein 3.15 CA 19-9 Antigen 5.9 Test 05/30/16 16:51 Bedside Glucose 104 Medications Medications Current Medications Alprazolam (Xanax) 0.5 mg Q8H PRN PO ANXIETY Last administered on 05/29/16 22: 34; Admin Dose 0.5 MG; Start 05/24/16 at 21:00 Pantoprazole (Protonix Tab) 40 mg BID PO Last administered on 05/30/16 08:17; Admin Dose 40 MG; Start 05/24/16 at 21:00 Paroxetine HCl (Paxil) 10 mg DAILY PO Last administered on 05/30/16 08:17; Admin Dose 10 MG; Start 05/24/16 at 21:00 Potassium Chloride (Klor-Con 20) 20 meq DAILY PO Last administered on 08:17; Admin Dose 20 MEQ; Start 05/24/16 at 21:00 Atorvastatin Calcium (Lipitor) 10 mg DAILY@21 PO Last administered on 20:46; Admin Dose 10 MG; Start 05/24/16 at 21:22 Valsartan (Diovan) 160 mg DAILY PO Last administered on 05/30/16 08:16; Admin Dose 160 MG; Start 05/24/16 at 21:30 Acetaminophen (Tylenol Tab) 650 mg Q4H PRN PO PAIN AND OR ELEVATED TEMP; Start 05/24/16 at 21:00 Ondansetron HCl (Zofran Inj) 4 mg Q4H PRN IV NAUSEA AND/OR VOMITING; Start at 21:00 Hydralazine HCl (Apresoline) 10 mg Q4H PRN IV ELEVATED BLOOD PRESSURE Last administered on 05/28/16 21:45; Admin Dose 10 MG; Start 05/24/16 at 21:00 Diagnostic Test (Pha) (Accucheck) 1 ea 02 XX ; Start 05/25/16 at 02:00 Miscellaneous Information 1 ea NOTE XX ; Start 05/24/16 at 21:30 Glucose (Glutose) 15 gm Q15M PRN PO DECREASED GLUCOSE; Start 05/24/16 at 21:30 Glucose (Glutose) 22.5 gm Q15M PRN PO DECREASED GLUCOSE; Start 05/24/16 at 21: 30 Dextrose (D50w Syringe) 25 ml Q15M PRN IV DECREASED GLUCOSE; Start 05/24/16 at 21:30 Dextrose (D50w Syringe) 50 ml Q15M PRN IV DECREASED GLUCOSE; Start 05/24/16 at 21:30 Glucagon (Glucagen) 1 mg Q15M PRN IM DECREASED GLUCOSE; Start 05/24/16 at 21:30 Glucose (Glutose) 15 gm Q15M PRN BUCCAL DECREASED GLUCOSE; Start 05/24/16 at 21 :30 Hydrochlorothiazide (Hydrochlorothiazide) 25 mg DAILY PO Last administered on 08:17; Admin Dose 25 MG; Start 05/24/16 at 21:30 Guaifenesin/ Dextromethorphan (Robitussin Dm Liquid Cup) 10 ml Q6H PRN PO cough Last administered on 05/29/16 19:47; Admin Dose 10 ML; Start 05/27/16 at 13:00 Levofloxacin (Levaquin) 500 mg DAILY@06 PO Last administered on 05/30/16 05:10 ; Admin Dose 500 MG; Start 05/27/16 at 18:00 Metronidazole (Flagyl) 500 mg TID PO Last administered on 05/30/16 12:07; Admin Dose 500 MG; Start 05/27/16 at 21:00 Clonidine (Catapres) 0.1 mg Q6H PRN PO ELEVATED BLOOD PRESSURE; Start 05/28/16 at 23:00 THAI DELACRUZ May 30, 2016 19:37
[2016-05-30 20:08] VITALS: BP 174/77; RESP 16
[2016-05-30] MEDS: ALPRAZOLAM 0.5 MG TAB PO PRN (20:26)
[2016-05-30] MEDS: ATORVASTATIN 10 MG TAB PO SCH (20:26)
[2016-05-30] MEDS: GUAIFENESIN/DM 5ML CUP PO PRN (20:27)
[2016-05-30 20:30] VITALS: BP 140/68; PULSE 81
[2016-05-31] MEDS: ACCUCHECK XX SCH (01:18)
[2016-05-31] MEDS: LEVOFLOXACIN 500 MG TAB PO SCH (05:14)
[2016-05-31 07:48] VITALS: BP 134/66; RESP 18
[2016-05-31] MEDS: INSULIN ASPART [NOVOLOG] 3 ML PEN SC SCH ×3 (07:59→16:42)
[2016-05-31] MEDS: PANTOPRAZOLE (EC) 40 MG TAB PO SCH (08:33)
[2016-05-31] MEDS: metroNIDAZOLE 500 MG TAB PO SCH ×2 (08:33→12:49)
[2016-05-31] MEDS: POTASSIUM CHLORIDE (SR) 20 MEQ TAB PO SCH (08:33)
[2016-05-31] MEDS: HYDROCHLOROTHIAZIDE 25 MG TAB PO SCH (08:33)
[2016-05-31] MEDS: VALSARTAN 160 MG TAB PO SCH (08:33)
[2016-05-31] MEDS: PAROXETINE 10 MG TAB PO SCH (08:33)
--- NOTE | 2016-05-31 14:36 | DS ---
DATE OF ADMISSION: 05/24/2016 DATE OF DISCHARGE: 05/31/2016 FINAL DIAGNOSES: 1. Acute proctitis. 2. Possible sepsis secondary to acute proctitis. 3. Urinary tract infection per UA. 4. Hypertension. 5. Dyslipidemia. 6. Diabetes mellitus. 7. Anxiety and depression. 8. Obesity. 9. Hypokalemia, resolved, status post colonoscopy with no thickening of the fold, status post biops y. BRIEF HISTORY: The patient is an 80-year-old female with obesity, hypertension, diabetes, hyperlipi demia, anxiety and depression, who came to the emergency room with complaints of multiple episodes o f nausea, vomiting and abdominal discomfort. HOSPITAL COURSE: The patient underwent a CT scan of the abdomen and pelvis with notion of mild circ umferential wall thickening of the distal rectum with surrounding ____stranding suggestive of procti tis. The patient was started on antibiotics and admitted for further evaluation and management. Th e patient was given pain medication and IV fluids. The patient was evaluated by Dr. Newman in gastr oenterology consultation. The patient underwent a colonoscopy on 05/26/2016 with ____ of thickenin g of the folds in the rectum and biopsies done which came back with no significant histopathological features, showed colonic mucosa with small nodular lymphoid aggregate. Patient also had leukocytos is on admission, which resolved. The patient's condition improved. The patient did not have any na usea, vomiting with diet, progressed to 1800 ADA 2 g sodium, low fat, low cholesterol diet. The pat ient tolerated it well. Patient was evaluated by physical therapy. The patient has a risk for fall ; however, recommended acute rehabilitation. The patient for continuation of treatment and strength and balance will be discharged to [facility]. CONDITION ON DISCHARGE: Hemodynamically stable. ACTIVITY: As patient tolerates. DISCHARGE DIET: 1800 ADA diet, 2 gram sodium, low fat, low cholesterol diet. DISCHARGE MEDICATIONS: 1. Tylenol. 2. Xanax p.r.n. for anxiety. 3. Patient continued on Protonix 40 mg p.o. b.i.d. 4. Hydrochlorothiazide 25 mg p.o. daily. 5. NovoLog per moderate algorithm sliding scale. 6. Hypoglycemia protocol. 7. Levaquin 500 mg p.o. daily for 3 more days. 8. Flagyl 500 mg p.o. t.i.d. for 3 more days. 9. Paxil 10 mg p.o. daily. 10. Klor-Con 20 mEq p.o. daily. 11. Valsartan/hydrochlorothiazide 160/25 one tablet p.o. daily. 12. Metformin 850 mg p.o. b.i.d. Interdisciplinary plan of care was established for this patient. Plan of care was discussed with Dr Gurwinder Justin. Dictated By: THAI DELACRUZ CUSTOMER TRAINING SPECIALIST for ANGELA JUSTIN MD SR/NTS Conf#: [id number] DID#: [id number]
== END 2016-05-31 19:58 | DRG 872 ==
LOC: E/R 08:44 → PP2 13:08
PROVIDERS: ADMIT Internal Medicine; ATTEND Internal Medicine
PROC: 0DBP8ZX Excision of Rectum, Via Natural or Artificial Opening Endoscopic, Diagnostic (ICD-10-PCS; principal; 2016-05-26 16:30)
DX: A41.9 Sepsis, unspecified organism (principal); N39.0 Urinary tract infection, site not specified; E11.9 Type 2 diabetes mellitus without complications; Z68.41 Body mass index [BMI] 40.0-44.9, adult; I10 Essential (primary) hypertension; D64.9 Anemia, unspecified; K62.89 Other specified diseases of anus and rectum; E78.5 Hyperlipidemia, unspecified; E66.9 Obesity, unspecified; E87.6 Hypokalemia; K52.9 Noninfective gastroenteritis and colitis, unspecified; K64.4 Residual hemorrhoidal skin tags; K64.8 Other hemorrhoids; R16.0 Hepatomegaly, not elsewhere classified; F41.8 Other specified anxiety disorders
CPT/HCPCS: 36415; 71010; 74176; 80048; 80053; 81001; 81003; 82105; 82962; 83036; 83605; 83690; 84484; 85025; 85610; 85730; 86301; 87040; 87075; 88305; 88312; 88313; 93005; 96361; 96365; 96366; 96375; 97110; 97116; 97162; 97530; J0360; J1815; J1956; J2405; J3370; J3480; J7030

== ENCOUNTER 2016-08-22 14:58 | Inpatient (IN) | payer MEDICARE, BC ==
[~2016-08-22] VITALS: Ht 154.9 cm; Wt 83.9 kg
[~2016-08-22 14:58] MED LIST changes: -MAXZ25 PO; +VALS1TAB78 PO
--- NOTE | 2016-08-22 15:07 | ERA ---
ER Documentation Chief Complaint Date/Time DATE: 08/22/16 TIME: 15:07 Chief Complaint Fainted HPI The patient is a 81-year-old female, presenting to the ER because she fainted yesterday, unable to walk today. She was [facility]. She is feeling great, unable to care for herself. She normally walks but now she is unable to cooperate because of the weakness. She has frequent fall, denies headache, neck pain, chest pain, abdominal pain, vomiting, dysuria, diarrhea. She does not smoke or drink Past medical history: Hypertension, diabetes mellitus, dyslipidemia, anxiety, depression Past surgical history: Right knee replacement ROS All systems reviewed and are negative except as per history of present illness. Medications Home Meds Reported Medications Valsartan* (Diovan*) 160 Mg Tablet, 160 MG PO DAILY, TAB 08/22/16 Atorvastatin Calcium* (Atorvastatin Calcium*) 20 Mg Tablet, 20 MG PO QHS, #30 TAB 08/22/16 Hydrochlorothiazide* (Hydrochlorothiazide*) 25 Mg Tab, 25 MG PO DAILY, #30 TAB 08/22/16 Potassium Chloride* (K-Dur*) 10 Meq Tab.prt.sr, 20 MEQ PO BID, TAB 08/22/16 Metformin Hcl* (Metformin Hcl*) 850 Mg Tablet, 850 MG PO WITH BREAKFAST DINNE, # 30 TAB 08/22/16 Alprazolam* (Xanax*) 1 Mg Tab, 1 MG PO QHS Y for SLEEP, TAB 08/22/16 Paroxetine Hcl* (Paxil*) 10 Mg Tablet, 10 MG PO DAILY, TAB 03/18/14 Pantoprazole* (Protonix*) 40 Mg Tablet.dr, 40 MG PO BID, TAB 03/18/14 Discontinued Reported Medications Valsartan-Hydrochlorothiazide (Valsartan-HCTZ) 160-25 Mg Tablet, 1 TAB PO DAILY , #30 TAB 05/24/16 Potassium Chloride* (Potassium Chloride*) 20 Meq Tablet.er, 20 MEQ PO DAILY, TAB.SA 03/18/14 Metformin Hcl* (Metformin Hcl* ER) 750 Mg Tab.sr.24h, 850 MG PO BID, TAB 03/18/14 Alprazolam* (Xanax*) 0.5 Mg Tab, 0.5 MG PO Q8H Y for ANXIETY, TAB 03/18/14 Pravastatin Sodium* (Pravastatin Sodium*) 20 Mg Tablet, 20 MG PO HS, TAB 03/18/14 Allergies Allergies: Coded Allergies: No Known Drug Allergies (Unverified Allergy, Unknown, 08/22/16) PMhx/Soc History of Surgery: Yes (RIGHT KNEE REPLACEMENT) Anesthesia Reaction: No Hx Neurological Disorder: Yes Hx Respiratory Disorders: No Hx Cardiac Disorders: Yes (HTN) Hx Psychiatric Problems: Yes Hx Miscellaneous Medical Probl: Yes (htn,DM,hyperlipidemia,anxiety,depression, obesity) Hx Alcohol Use: No Hx Substance Use: No Hx Tobacco Use: No Physical Exam Vitals Vital Signs Date Time Temp Pulse Resp B/P Pulse Ox O2 Delivery O2 Flow Rate FiO2 08/22/16 17:00 98.0 87 20 122/70 98 Room Air 08/22/16 15:02 98.3 95 20 117/74 96 Physical Exam Const: No acute distress. Dehydrated Head: Atraumatic. Eyes: Normal Conjunctiva. ENT: Normal External Ears, Nose and Mouth. Neck: Full range of motion. No meningismus. Resp: Clear to auscultation bilaterally. Cardio: Regular rate and rhythm, no murmurs. Abd: Soft, non distended, normal bowel sounds, non tender. Skin: No petechiae or rashes. Back: No midline or flank tenderness. Ext: No cyanosis, or edema. Neur: Awake and alert. No focal deficit Psych: Normal Mood and Affect. Result Diagram: 08/22/16 1542 08/22/16 1542 Results 24 hrs Laboratory Tests Test 08/22/16 15:42 08/22/16 15:44 White Blood Count 10.810^3/ul Red Blood Count 4.9210^6/ul Hemoglobin 13.4g/dl Hematocrit 42.8% Mean Corpuscular Volume 87.0fl Mean Corpuscular Hemoglobin 27.2pg Mean Corpuscular Hemoglobin Concent 31.3g/dl Red Cell Distribution Width 15.3% Platelet Count 59604^3/UL Mean Platelet Volume 9.7fl Neutrophils % 55.3% Lymphocytes % 33.5% Monocytes % 7.7% Eosinophils % 2.3% Basophils % 0.6% Nucleated Red Blood Cells % 0.0/100WBC Neutrophils # 6.010^3/ul Lymphocytes # 3.610^3/ul Monocytes # 0.810^3/ul Eosinophils # 0.310^3/ul Basophils # 0.110^3/ul Nucleated Red Blood Cells # 0.010^3/ul Prothrombin Time 12.7Sec Prothrombin Time Ratio 1.0 INR International Normalized Ratio 0.95 Activated Partial Thromboplast Time 27.1Sec Sodium Level 141mmol/L Potassium Level 4.2mmol/L Chloride Level 98mmol/L Carbon Dioxide Level 29mmol/L Anion Gap 18 Blood Urea Nitrogen 18mg/dl Creatinine 0.77mg/dl Glucose Level 86mg/dl Calcium Level 9.6mg/dl Total Bilirubin 0.5mg/dl Direct Bilirubin 0.00mg/dl Indirect Bilirubin 0.5mg/dl Aspartate Amino Transf (AST/SGOT) 18IU/L Alanine Aminotransferase (ALT/SGPT) 27IU/L Alkaline Phosphatase 76IU/L Troponin I < 0.012ng/ml Total Protein 7.6g/dl Albumin 4.0g/dl Globulin 3.60g/dl Albumin/Globulin Ratio 1.11 Bedside Glucose 79mg/dL Current Medications Medications (Trade) Dose Ordered Sig/Hugo Route PRN Reason Start Time Stop Time Status Last Admin Dose Admin Sodium Chloride (NS) 500 ml @ 500 mls/hr Q1H ONCE IV 08/22/16 15:30 08/22/16 16:29 DC 08/22/16 15:42 Procedures/[place] [id number] Radiology Main Line: [phone] DIAGNOSTIC IMAGING REPORT Patient: MARU OTT : 1935 Age: 81 Sex: F [id number] DOS: 08/22/16 1522 Ordering MD: ASHLIE MANNING MD Location: E/R Room/Bed: PROCEDURE: US bilateral lower extremity veins. CLINICAL INDICATION: Bilateral leg pain and swelling. TECHNIQUE: Multiple longitudinal and transverse images of the bilateral lower extremity veins were obtained with paul scale and color Doppler imaging. The common femoral vein, femoral vein, and popliteal vein were evaluated. 2D grayscale measurements with compression sonography, color Doppler, and pulsed Doppler with augmentation. COMPARISON: No prior studies are available for comparison. FINDINGS: The bilateral common femoral, femoral and popliteal veins are normally compressible throughout. Color flow demonstrates normal filling of the vessels. Normal waveforms are visualized and there is normal response to augmentation. There is a left popliteal fossa Christian's cyst measuring 4.0 x 1.0 x 3.1 cm. IMPRESSION: 1. No evidence of deep vein thrombosis involving either lower extremity. 2. Left popliteal fossa Christian's cyst measuring 4.0 x 1.0 x 3.1 cm. RPTAT: QQ .Brenden Lehman MD, MD Date Time Electronically viewed and signed by .Brenden Lehman MD, MD on 08/22/2016 16:28 .R/ CC: ASHLIE MANNING MD [place] [id number] Radiology Main Line: [phone] DIAGNOSTIC IMAGING REPORT Patient: MARU OTT : 1935 Age: 81 Sex: F MR #: [id number] DOS: 08/22/16 1522 Ordering MD: ASHLIE MANNING MD Location: E/R Room/Bed: PROCEDURE: XR Chest. CLINICAL INDICATION: Syncope. TECHNIQUE: Single frontal view. COMPARISON: 05/24/2016. FINDINGS: There is mild linear atelectasis at the left lung base. The lungs are otherwise clear. The heart size is normal. There is no pleural effusion. There is no pneumothorax. IMPRESSION: 1. Mild linear atelectasis at the left lung base. 2. Otherwise normal chest radiograph. RPTAT: QQ .Brenden Lehman MD, MD Date Time Electronically viewed and signed by .Brenden Lehman MD, MD on 08/22/2016 16:14 .R/ CC: ASHLIE MANNING MD [place] [id number] Radiology Main Line: [phone] DIAGNOSTIC IMAGING REPORT Patient: MARU TOT : 1935 Age: 81 Sex: F MR #: [id number] DOS: 08/22/16 1721 Ordering MD: ASHLIE MANNING MD Location: E/R Room/Bed: PROCEDURE: CT Brain without contrast. CLINICAL INDICATION: Syncope TECHNIQUE: A multiplanar CT of the brain was performed on a CT scanner utilizing axial imaging from the skull base through the vertex without IV contrast. The CTDIvol is 44.95 mGy and the DLP is 630.20 mGycm. One or more of the following dose reduction techniques were utilized: Automated exposure control, adjustment of the mA and/or kV according to patient size, use of iterative reconstruction technique. COMPARISON: None FINDINGS: No evidence of intracranial hemorrhage or abnormal extra-axial fluid collection. Patchy periventricular and subcortical white matter low attenuation compatible with sequelae of chronic microvascular ischemic change. Mild prominence of the ventricles and subarachnoid spaces compatible with age- related cerebral volume loss. The basal cisterns, posterior fossa contents, brainstem, craniocervical junction , orbits, pituitary axis, paranasal sinuses, mastoid air cells, and calvarium are unremarkable. IMPRESSION: 1. No intracranial hemorrhage or acute intracranial abnormality. 2. Moderate chronic microvascular ischemic change and age related cerebral volume loss. 3. Early ischemic injury may be occult to CT imaging and diffusion weighted MRI may be considered as clinically warranted. RPTAT:AAJJ Physician Shavon Date Time Electronically viewed and signed by Physician Shavon on 08/22/2016 18:20 GURPREET/ CC: ASHLIE MANNING MD EKG: Read by emergency physician Rate/Rhythm: Normal Sinus Rhythm versus junctional rhythm at 93 beats/ min QRS, ST, T-waves: No ST elevation, no T inversion Impression: Abnormal EKG MEDICAL MAKING DECISION: The patient is a 81-year-old female, presenting with acute syncope of unclear etiology, acute dehydration. She was treated with 500 mL normal saline for acute dehydration with good response. The differential diagnoses considered include but are not limited to bradyarrhythmia, tachyarrhythmias, aortic outflow obstruction, neurogenic including subarachnoid hemorrhage, orthostatic hypotension and all of its causes , hypoglycemia, dysautonomia, medications. Departure Diagnosis: Primary Impression: Syncope Additional Impression: Dehydration Condition: Stable Comments I discussed the findings with the patient. I discussed the patient with her physician Dr. Justin who was made aware of the lab, the treatment, the patient condition. The patient is admitted to telemetry at 5:40 PM ASHLIE MANNING MD August 22, 2016 15:07
[2016-08-22] MEDS ORDERED: SOD CHLORIDE 0.9% 500 ML IV ONE (15:30)
[2016-08-22] MEDS ORDERED: ALPR1TAB2 PO (15:36)
[2016-08-22] MEDS ORDERED: METF850T PO (15:37)
[2016-08-22] MEDS ORDERED: ATOR20TA38 PO (15:38)
[2016-08-22] MEDS ORDERED: POTA10TA37 PO (15:38)
[2016-08-22] MEDS ORDERED: HYD25 PO (15:38)
[2016-08-22] MEDS ORDERED: VALS160T20 PO (15:39)
[2016-08-22 15:49] LABS: ADD SCAN DIFF NO
[2016-08-22 15:51] LABS: BASOPHIL # 0.1 10^3/ul (0.0-0.1); BASOPHILS % 0.6 % (0.0-2.0); EOSINOPHILS # 0.3 10^3/ul (0.0-0.5); EOSINOPHILS % 2.3 % (0.0-7.0); HEMATOCRIT 42.8 % (37.0-47.0); HEMOGLOBIN 13.4 g/dl (12.0-16.0); LYMPHOCYTES # 3.6 10^3/ul (0.8-2.9); LYMPHOCYTES % 33.5 % (15.0-51.0); MEAN CORPUSCULAR HEMOGLOBIN 27.2 pg (29.0-33.0); MEAN CORPUSCULAR HGB CONC 31.3 g/dl (32.0-37.0); MEAN PLATELET VOLUME 9.7 fl (7.4-10.4); MONOCYTE # 0.8 10^3/ul (0.3-0.9); MONOCYTES % 7.7 % (0.0-11.0); NEUTROPHILS % 55.3 % (39.0-77.0); PLATELET COUNT 320 10^3/UL (140-415); RED BLOOD COUNT 4.92 10^6/ul (4.20-5.40); RED CELL DISTRIBUTION WIDTH 15.3 % (11.5-14.5); WHITE BLOOD COUNT 10.8 10^3/ul (4.8-10.8)
[2016-08-22 16:10] LABS: INR 0.95; PROTIME 12.7 Sec (12.2-14.2)
[2016-08-22 16:11] LABS: PARTIAL THROMBOPLASTIN TIME 27.1 Sec (25.0-35.0)
--- NOTE | 2016-08-22 16:14 | RADRPT ---
PROCEDURE: XR Chest. CLINICAL INDICATION: Syncope. TECHNIQUE: Single frontal view. COMPARISON: 05/24/2016. FINDINGS: There is mild linear atelectasis at the left lung base. The lungs are otherwise clear. The heart size is normal. There is no pleural effusion. There is no pneumothorax. IMPRESSION: 1. Mild linear atelectasis at the left lung base. 2. Otherwise normal chest radiograph. RPTAT: QQ .Brenden Lehman MD, MD Date Time Electronically viewed and signed by .Brenden Lehman MD, on 08/22/2016 16:14 .R/
[2016-08-22 16:23] LABS: CHLORIDE 98 mmol/L (97-110); POTASSIUM 4.2 mmol/L (3.5-5.1); SODIUM 141 mmol/L (135-144)
[2016-08-22 16:25] LABS: ANION GAP 18 (8-16); ASPARTATE AMINO TRANSFERASE 18 IU/L (15-46); BILIRUBIN,INDIRECT 0.5 mg/dl (0-1.1); BILIRUBIN,TOTAL 0.5 mg/dl (0.2-1.3); CARBON DIOXIDE 29 mmol/L (21-31); CREATININE 0.77 mg/dl (0.44-1.00)
[2016-08-22 16:26] LABS: ALANINE AMINOTRANSFERASE 27 IU/L (13-69); ALBUMIN/GLOBULIN RATIO 1.11; ALKALINE PHOSPHATASE 76 IU/L (42-121); BLOOD UREA NITROGEN 18 mg/dl (7-20); CALCIUM 9.6 mg/dl (8.4-10.2); GLUCOSE 86 mg/dl (70-220); TOTAL PROTEIN 7.6 g/dl (6.1-8.1)
--- NOTE | 2016-08-22 16:28 | RADRPT ---
PROCEDURE: US bilateral lower extremity veins. CLINICAL INDICATION: Bilateral leg pain and swelling. TECHNIQUE: Multiple longitudinal and transverse images of the bilateral lower extremity veins were obtained with paul scale and color Doppler imaging. The common femoral vein, femoral vein, and popl iteal vein were evaluated. 2D grayscale measurements with compression sonography, color Doppler, and pulsed Doppler with augmentation. COMPARISON: No prior studies are available for comparison. FINDINGS: The bilateral common femoral, femoral and popliteal veins are normally compressible throughout. Col or flow demonstrates normal filling of the vessels. Normal waveforms are visualized and there is no rmal response to augmentation. There is a left popliteal fossa Christian's cyst measuring 4.0 x 1.0 x 3.1 cm. IMPRESSION: 1. No evidence of deep vein thrombosis involving either lower extremity. 2. Left popliteal fossa Christian's cyst measuring 4.0 x 1.0 x 3.1 cm. RPTAT: QQ .Brenden Lehman MD, MD Date Time Electronically viewed and signed by .Brenden Lehman MD, on 08/22/2016 16:28 .R/
[2016-08-22 16:39] LABS: TROPONIN-I < 0.012 ng/ml (0.00-0.12)
[2016-08-22 17:00] VITALS: TEMP 98
--- NOTE | 2016-08-22 18:21 | RADRPT ---
PROCEDURE: CT Brain without contrast. CLINICAL INDICATION: Syncope TECHNIQUE: A multiplanar CT of the brain was performed on a CT scanner utilizing axial imaging fro m the skull base through the vertex without IV contrast. The CTDIvol is 44.95 mGy and the DLP is 63 0.20 mGycm. One or more of the following dose reduction techniques were utilized: Automated exposu re control, adjustment of the mA and/or kV according to patient size, use of iterative reconstructio n technique. COMPARISON: None FINDINGS: No evidence of intracranial hemorrhage or abnormal extra-axial fluid collection. 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 Mild prominence of the ventricles and subarachnoid spaces compatible with age-related cerebral volum e loss. The basal cisterns, posterior fossa contents, brainstem, craniocervical junction, orbits, pituitary axis, paranasal sinuses, mastoid air cells, and calvarium are unremarkable. IMPRESSION: 1. No intracranial hemorrhage or acute intracranial abnormality. 2. Moderate chronic microvascular ischemic change and age related cerebral volume loss. 3. Early ischemic injury may be occult to CT imaging and diffusion weighted MRI may be considered a s clinically warranted. RPTAT:AAJJ Physician Shavon Date Time Electronically viewed and signed by Physician Shavon on 08/22/2016 18:20 GURPREET/
[2016-08-22 20:06] VITALS: PULSE 85
[2016-08-22 20:36] VITALS: Ht 154.9 cm; Wt 83.9 kg
[2016-08-22 21:50] VITALS: BP 100/53; RESP 17
[2016-08-22] MEDS ORDERED: ALPRAZOLAM 0.5 MG TAB PO PRN (22:30)
[2016-08-22] MEDS ORDERED: HYDROCODONE/APAP (5/325) TAB PO PRN (22:30)
[2016-08-22] MEDS ORDERED: DEXTROSE 50% 50 ML SYRINGE IV PRN ×2 (23:00)
[2016-08-22] MEDS ORDERED: GLUCOSE GEL 15 GRAM TUBE BUCCAL PRN (23:00)
[2016-08-22] MEDS ORDERED: GLUCAGON 1 MG INJ IM PRN (23:00)
[2016-08-22] MEDS ORDERED: GLUCOSE GEL 15 GRAM TUBE PO PRN ×2 (23:00)
[2016-08-22] MEDS: CEFAZOLIN 1 GM/50 ML (PMX) 50 ML IVPB SCH (23:13)
[2016-08-22] MEDS: ENOXAPARIN 40 MG/0.4 ML SYG SC SCH (23:14)
[2016-08-23] VITALS (12 sets, daily range): BP systolic 112–140; BP diastolic 54–77; PULSE 78–87; RESP 17–20
[2016-08-23] MEDS: ACCU-CHEK XX SCH (02:00)
--- NOTE | 2016-08-23 04:18 | HP ---
DATE OF ADMISSION: 08/22/2016 CHIEF COMPLAINT: Fall and left knee redness. HISTORY OF PRESENT ILLNESS: The patient is an 81-year-old female well known to me from previous adm ission. The patient has history of hypertension, diabetes, dyslipidemia, anxiety and depression and also osteoarthritis status post right total knee replacement and left total knee replacement. Jaymie ent was admitted back in May 2016 for acute proctitis and subsequently was sent to the care home [facility] from where she went home; however, the patient got sick again and was taken to [facility]. The patient subsequently got discharged to [facility] and from there she was discharged a few days ago. The patient yesterday was in the kitchen and sustained a fall leading to left knee redness. The patient did not have any syncope prior to fa ll. No reported recent fever or chills. Denies any abdominal pain. The patient does have arthriti c pain in the left knee. No history of fever or chills. No history of dysuria or hematuria. No hi story of headache or dizziness. No history of cough, sore throat, anginal chest pain. No history o f shortness of breath. The patient has been using walker for ambulation due to deconditioning and o steoarthritis. The patient also is obese. The patient was seen in the ER and was noted to have sta ble vital signs and was afebrile. Labs reviewed WBC of 10.8, hemoglobin was 13.4. Chemistry was un remarkable with normal liver enzymes. The patient underwent multiple imaging studies including CT o f the brain which revealed no evidence of intracranial hemorrhage. The patient did have chronic julio rovascular ischemic changes, otherwise unremarkable CT of the head. Chest x-ray revealed mild atele ctasis at left lung base. Venous Doppler lower extremity negative for DVT. The patient was inciden tally noted to have left popliteal fossa . The patient is being admitted for further evaluatio n and management. REVIEW OF SYSTEMS: A total of 10 systems were reviewed and all pertinent negative and positive find ings have been described in HPI. The rest of the review of systems was unremarkable. PAST MEDICAL HISTORY: As stated above, patient has history of proctitis and underwent colonoscopy [facility] in May 2016, which revealed thickening of the rectal fold. Otherwise, unremarkable colonos copy. ALLERGIES: NONE. SOCIAL HISTORY: The patient denies any history of smoking or alcohol abuse. FAMILY HISTORY: Mother of chronic leukemia in her 70s. Father at age 66 of unknown cause . PAST SURGICAL HISTORY: Patient is status post right total knee replacement done by Dr. Ruiz. PHYSICAL EXAMINATION: GENERAL: The patient is conscious, awake, alert, fairly oriented. VITAL SIGNS: In the ER, temperature 98.3, pulse 95, respirations 20, blood pressure 117/74, O2 satu ration 97% on room air. HEENT: Atraumatic, normocephalic. Conjunctivae and lids normal. Oropharynx clear. NECK: No mass, no thyromegaly. CHEST: Fairly clear. No use of accessory muscles. CARDIOVASCULAR: S1, S2 normal. No murmur, gallop, or rub. ABDOMEN: Soft, nondistended, nontender. No palpable mass. EXTREMITIES: The left knee has localized erythema and tenderness. Trace edema present in both legs . No clubbing or cyanosis. NEUROLOGIC: The patient is awake, alert, fairly oriented with no gross focal deficit. IMPRESSION: 1. Left knee cellulitis. 2. Status post fall. 3. Hypertension. 4. Diabetes mellitus. 5. Dyslipidemia. 6. Obesity. 7. Osteoarthritis. 8. Anxiety and depression. PLAN: 1. The patient was admitted on telemetry floor as the patient gave history of syncope while she was interviewed by ER physician, Dr. Beth. However, she declined any syncopal episode when I was takin g her history. The patient will be monitored on telemetry for 24 hours. We will also obtain echoca rdiogram to assess LV function and valvular function. 2. Left knee cellulitis. Will start IV Ancef 1 gram q.8. 3. Diabetes mellitus. Will continue metformin and will put patient on sliding scale insulin. 4. Hypertension. We will continue Diovan and HCTZ. 5. Dyslipidemia. Continue Lipitor. 6. Anxiety and depression. Continue Paxil and Xanax on p.r.n. basis. We will also obtain hemoglobin A1c, TSH and followup labs in the morning. We will have PT evaluatio n. If patient's telemetry reveals normal sinus rhythm and echo is unremarkable, will discontinue te le and will continue IV antibiotic for left knee cellulitis. The patient lives alone and her DPOA i s in [facility]. The patient will be kept under observation and will initiate discharge pl anning. Further recommendations will depend on patient's hospital course. We will continue Lovenox for DVT prophylaxis and Protonix for GI prophylaxis. Dictated By: ANGELA DICKINSON/EVIE Conf#: [id number] DID#: [id number]
[2016-08-23] MEDS: CEFAZOLIN 1 GM/50 ML (PMX) 50 ML IVPB SCH ×3 (06:27→22:16)
[2016-08-23] MEDS: PANTOPRAZOLE (EC) 40 MG TAB PO SCH (06:27)
[2016-08-23 06:49] LABS: ADD SCAN DIFF NO
[2016-08-23 06:56] LABS: BASOPHIL # 0.1 10^3/ul (0.0-0.1); BASOPHILS % 0.7 % (0.0-2.0); EOSINOPHILS # 0.2 10^3/ul (0.0-0.5); EOSINOPHILS % 2.5 % (0.0-7.0); HEMATOCRIT 36.9 % (37.0-47.0); LYMPHOCYTES # 3.3 10^3/ul (0.8-2.9); LYMPHOCYTES % 38.4 % (15.0-51.0); MEAN CORPUSCULAR HGB CONC 32.5 g/dl (32.0-37.0); MEAN PLATELET VOLUME 10.1 fl (7.4-10.4); MONOCYTE # 0.6 10^3/ul (0.3-0.9); NEUTROPHIL # 4.4 10^3/ul (1.6-7.5); NEUTROPHILS % 50.6 % (39.0-77.0); PLATELET COUNT 250 10^3/UL (140-415); RED BLOOD COUNT 4.29 10^6/ul (4.20-5.40); RED CELL DISTRIBUTION WIDTH 15.1 % (11.5-14.5); WHITE BLOOD COUNT 8.7 10^3/ul (4.8-10.8)
[2016-08-23 07:26] LABS: CALCIUM 8.9 mg/dl (8.4-10.2); CREATININE 0.67 mg/dl (0.44-1.00); POTASSIUM 3.2 mmol/L (3.5-5.1)
[2016-08-23] MEDS: INSULIN ASPART [NOVOLOG] 3 ML PEN SC SCH ×4 (07:46→20:25)
[2016-08-23 07:51] LABS: THYROID STIMULATING HORMONE 2.25 MIU/L (0.465-4.680)
[2016-08-23] MEDS: VALSARTAN 160 MG TAB PO SCH (08:51)
[2016-08-23] MEDS: POTASSIUM CHLORIDE (SR) 20 MEQ TAB PO SCH ×2 (08:51→20:17)
[2016-08-23] MEDS: PAROXETINE 10 MG TAB PO SCH (08:51)
[2016-08-23] MEDS: metFORMIN 850 MG TAB PO SCH ×2 (08:51→18:01)
[2016-08-23] MEDS: HYDROCHLOROTHIAZIDE 25 MG TAB PO SCH (08:51)
[2016-08-23] MEDS: ENOXAPARIN 40 MG/0.4 ML SYG SC SCH (08:57)
[2016-08-23] MEDS ORDERED: POTASSIUM CHLORIDE (SR) 10 MEQ TAB PO SCH (09:00)
[2016-08-23] MEDS: ACETAMINOPHEN 325 MG TAB PO PRN (15:35)
--- NOTE | 2016-08-23 16:33 | PN ---
Date/Time of Note Date/Time of Note DATE: 08/23/16 TIME: 16:27 Assessment/Plan VTE Prophylaxis VTE Prophylaxis Intervention: SCD's Lines/Catheters IV Catheter Type (from Nrsg): Saline Lock Assessment/Plan Assessment/Plan 1. Left knee cellulitis. Continue cefazolin. 2. Status post fall. Continue physical therapy. Pending acute rehabilitation evaluation. 3. Hypertension. Continue Diovan. 4. Diabetes mellitus with hemoglobin A1c 6. Continue metformin and NovoLog per mild algorithm sliding scale. 5. Dyslipidemia. Continue statin. 6. Obesity. 7. Osteoarthritis. 8. Anxiety and depression. Continue Paxil. Further recommendations based on clinical course. Plan of care discussed with Dr. Justin. Subjective 24 Hr Interval Summary Free Text/Dictation Patient is awake alert, was placed to the chair with physical therapy help, patient denies any shortness of breath denies chest pain, complains of the left knee pain. Exam/Review of Systems Vital Signs Vitals Vital Signs Date Time Temp Pulse Resp B/P Pulse Ox O2 Delivery O2 Flow Rate FiO2 08/23/16 16:05 81 08/23/16 15:25 97.9 17 116/56 96 08/22/16 17:00 Room Air Intake and Output 08/22/16 08/22/16 08/23/16 15:00 23:00 07:00 Intake Total 350 ml Balance 350 ml Exam Constitutional: alert, oriented Psych: no complaints Head: atraumatic, normocephalic Eyes: nl conjunctiva ENMT: nl external ears & nose Neck: non-tender, supple Respiratory: clear to auscultation Cardiovascular: nl pulses, regular rate and rhythm Gastrointestinal: non-tender, soft Musculoskeletal: other (Bilateral lower extremity with weakness) Extremities: normal pulses Skin: nl turgor Results Result Diagram: 08/23/1625 08/23/16 0625 Results 24 hrs Laboratory Tests Test 08/22/16 23:31 08/23/16 06:25 08/23/16 07:45 08/23/16 11:48 Bedside Glucose 146 105 102 White Blood Count 8.7 Red Blood Count 4.29 Hemoglobin 12.0 Hematocrit 36.9 L Mean Corpuscular Volume 86.0 Mean Corpuscular Hemoglobin 28.0 L Mean Corpuscular Hemoglobin Concent 32.5 Red Cell Distribution Width 15.1 H Platelet Count 250 # Mean Platelet Volume 10.1 Neutrophils % 50.6 Lymphocytes % 38.4 Monocytes % 7.0 Eosinophils % 2.5 Basophils % 0.7 Nucleated Red Blood Cells % 0.0 Neutrophils # 4.4 Lymphocytes # 3.3 H Monocytes # 0.6 Eosinophils # 0.2 Basophils # 0.1 Nucleated Red Blood Cells # 0.0 Sodium Level 140 Potassium Level 3.2 L Chloride Level 104 Carbon Dioxide Level 29 Anion Gap 10 # Blood Urea Nitrogen 14 Creatinine 0.67 Glucose Level 99 Hemoglobin A1c 6.0 H Calcium Level 8.9 Thyroid Stimulating Hormone (TSH) 2.250 Medications Medications Current Medications Acetaminophen 650 mg 650 mg Q6H PRN PO PAIN AND OR ELEVATED TEMP Last administered on 08/23/16 15:35; Admin Dose 650 MG; Start 08/22/16 at 22:30 Cefazolin Sodium (Ancef 1 Gm/50 ml (Pmx)) 50 ml @ 100 mls/hr Q8 IVPB Last administered on 08/23/16 14:25; Admin Dose 100 MLS/HR; Start 08/22/16 at 22:30 Acetaminophen/ Hydrocodone Bitart ([place] (5/325)) 1 tab Q4H PRN PO PAIN; Start 08/22/16 at 22:30 Enoxaparin Sodium (Lovenox) 40 mg DAILY SC Last administered on 08/23/16 08:57 ; Admin Dose 40 MG; Start 08/22/16 at 22:30 Alprazolam (Xanax) 0.5 mg Q8H PRN PO ANXIETY Last administered on 08/22/16 23: 32; Admin Dose 0.5 MG; Start 08/22/16 at 22:30 Diagnostic Test (Pha) (Accu-Chek) 1 ea 02 XX ; Start 08/23/16 at 02:00 Alprazolam (Xanax) 1 mg QHS PRN PO SLEEP; Start 08/22/16 at 22:30 Atorvastatin Calcium (Lipitor) 20 mg QHS PO ; Start 08/23/16 at 21:00 Hydrochlorothiazide (Hydrochlorothiazide) 25 mg DAILY PO Last administered on 08:51; Admin Dose 25 MG; Start 08/23/16 at 09:00 Pantoprazole (Protonix Tab) 40 mg DAILY@06 PO Last administered on 08/23/16 06 :27; Admin Dose 40 MG; Start 08/23/16 at 06:00 Paroxetine HCl (Paxil) 10 mg DAILY PO Last administered on 08/23/16 08:51; Admin Dose 10 MG; Start 08/23/16 at 09:00 Valsartan (Diovan) 160 mg DAILY PO Last administered on 08/23/16 08:51; Admin Dose 160 MG; Start 08/23/16 at 09:00 Potassium Chloride (Klor-Con 20) 20 meq BID PO Last administered on 08/23/16 08:51; Admin Dose 20 MEQ; Start 08/23/16 at 09:00 Miscellaneous Information 1 ea NOTE XX ; Start 08/22/16 at 23:00 Glucose (Glutose) 15 gm Q15M PRN PO DECREASED GLUCOSE; Start 08/22/16 at 23:00 Glucose (Glutose) 22.5 gm Q15M PRN PO DECREASED GLUCOSE; Start 08/22/16 at 23: 00 Dextrose (D50w Syringe) 25 ml Q15M PRN IV DECREASED GLUCOSE; Start 08/22/16 at 23:00 Dextrose (D50w Syringe) 50 ml Q15M PRN IV DECREASED GLUCOSE; Start 08/22/16 at 23:00 Glucagon (Glucagen) 1 mg Q15M PRN IM DECREASED GLUCOSE; Start 08/22/16 at 23:00 Glucose (Glutose) 15 gm Q15M PRN BUCCAL DECREASED GLUCOSE; Start 08/22/16 at 23 :00 Aspirin (Aspirin) 81 mg DAILY PO ; Start 08/24/16 at 09:00 THAI DELACRUZ August 23, 2016 16:33
[2016-08-23] MEDS: ATORVASTATIN 20 MG TAB PO SCH (20:17)
[2016-08-23] MEDS: ALPRAZOLAM 1 MG TAB PO PRN (22:30)
[2016-08-24] MEDS: ACCU-CHEK XX SCH (02:00)
[2016-08-24] MEDS: CEFAZOLIN 1 GM/50 ML (PMX) 50 ML IVPB SCH ×3 (05:14→21:15)
[2016-08-24] MEDS: PANTOPRAZOLE (EC) 40 MG TAB PO SCH (05:14)
[2016-08-24 05:32] LABS: ADD SCAN DIFF NO
[2016-08-24 05:37] LABS: BASOPHIL # 0.1 10^3/ul (0.0-0.1); BASOPHILS % 0.6 % (0.0-2.0); EOSINOPHILS # 0.3 10^3/ul (0.0-0.5); EOSINOPHILS % 3.7 % (0.0-7.0); HEMATOCRIT 35.4 % (37.0-47.0); HEMOGLOBIN 11.5 g/dl (12.0-16.0); LYMPHOCYTES # 3.1 10^3/ul (0.8-2.9); LYMPHOCYTES % 39.7 % (15.0-51.0); MEAN CORPUSCULAR HEMOGLOBIN 27.8 pg (29.0-33.0); MEAN CORPUSCULAR HGB CONC 32.5 g/dl (32.0-37.0); MEAN CORPUSCULAR VOLUME 85.5 fl (82.0-101.0); MEAN PLATELET VOLUME 9.7 fl (7.4-10.4); MONOCYTE # 0.7 10^3/ul (0.3-0.9); MONOCYTES % 8.4 % (0.0-11.0); NEUTROPHIL # 3.7 10^3/ul (1.6-7.5); PLATELET COUNT 250 10^3/UL (140-415); RED BLOOD COUNT 4.14 10^6/ul (4.20-5.40); RED CELL DISTRIBUTION WIDTH 14.8 % (11.5-14.5); WHITE BLOOD COUNT 7.9 10^3/ul (4.8-10.8)
[2016-08-24 06:09] LABS: POTASSIUM 3.2 mmol/L (3.5-5.1)
[2016-08-24 06:12] LABS: CREATININE 0.76 mg/dl (0.44-1.00)
[2016-08-24 06:13] LABS: CALCIUM 8.8 mg/dl (8.4-10.2)
[2016-08-24 07:51] VITALS: BP 133/64; RESP 16
[2016-08-24] MEDS: INSULIN ASPART [NOVOLOG] 3 ML PEN SC SCH ×4 (08:05→21:00)
[2016-08-24] MEDS: ASPIRIN 81 MG TAB PO SCH (08:53)
[2016-08-24] MEDS: PAROXETINE 10 MG TAB PO SCH (08:53)
[2016-08-24] MEDS: POTASSIUM CHLORIDE (SR) 20 MEQ TAB PO SCH ×2 (08:53→21:15)
[2016-08-24] MEDS: HYDROCHLOROTHIAZIDE 25 MG TAB PO SCH (08:54)
[2016-08-24] MEDS: metFORMIN 850 MG TAB PO SCH ×2 (08:54→18:26)
[2016-08-24] MEDS: VALSARTAN 160 MG TAB PO SCH (08:55)
[2016-08-24] MEDS: ENOXAPARIN 40 MG/0.4 ML SYG SC SCH (09:06)
[2016-08-24] MEDS ORDERED: POTASSIUM CHLORIDE 20 MEQ POWDER FOR ORAL SOLN PO ONE (13:30)
--- NOTE | 2016-08-24 17:23 | PN ---
Date/Time of Note Date/Time of Note DATE: 08/24/16 TIME: 17:21 Assessment/Plan VTE Prophylaxis VTE Prophylaxis Intervention: LMWH Lines/Catheters IV C[facility]ter Type (from [facility]): Saline Lock Urinary Cath still in place: No Assessment/Plan Chief Complaint/Hosp Course Assessment/Plan 1. Left knee cellulitis. Continue cefazolin. 2. Status post fall. Continue physical therapy. 3. Hypertension. Continue Diovan. 4. Diabetes mellitus with hemoglobin A1c 6. Continue metformin and NovoLog per mild algorithm sliding scale. 5. Dyslipidemia. Continue statin. 6. Obesity. 7. Osteoarthritis. 8. Anxiety and depression. Continue Paxil. 9. Hypokalemia, potassium replaced, continue to monitor electrolytes. Case management meant for DC planning Further recommendations based on clinical course. Plan of care discussed with Dr. Justin. Problems: Subjective 24 Hr Interval Summary Free Text/Dictation Patient's complains of left knee pain, left knee with some improvement in erythema and swelling, patient was able to get out of bed with physical therapy. Exam/Review of Systems Vital Signs Vitals Vital Signs Date Time Temp Pulse Resp B/P Pulse Ox O2 Delivery O2 Flow Rate FiO2 08/24/16 07:51 98.5 82 16 133/64 93 08/22/16 17:00 Room Air Intake and Output 08/23/16 08/23/16 08/24/16 15:00 23:00 07:00 Intake Total 50 ml 50 ml Balance 50 ml 50 ml Exam Constitutional: alert, oriented Psych: no complaints Head: atraumatic, normocephalic Eyes: nl conjunctiva ENMT: nl external ears & nose Neck: non-tender, supple Respiratory: clear to auscultation Cardiovascular: nl pulses, regular rate and rhythm Gastrointestinal: non-tender, soft Musculoskeletal: other (Bilateral lower extremity with weakness) Extremities: normal pulses Skin: nl turgor Results Result Diagram: 08/24/16 0510 08/24/16 0510 Results 24 hrs Laboratory Tests Test 08/23/16 20:23 08/24/16 05:10 08/24/16 08:04 08/24/16 12:03 Bedside Glucose 100 110 82 White Blood Count 7.9 Red Blood Count 4.14 L Hemoglobin 11.5 L Hematocrit 35.4 L Mean Corpuscular Volume 85.5 Mean Corpuscular Hemoglobin 27.8 L Mean Corpuscular Hemoglobin Concent 32.5 Red Cell Distribution Width 14.8 H Platelet Count 250 Mean Platelet Volume 9.7 Neutrophils % 47.0 Lymphocytes % 39.7 Monocytes % 8.4 Eosinophils % 3.7 Basophils % 0.6 Nucleated Red Blood Cells % 0.0 Neutrophils # 3.7 Lymphocytes # 3.1 H Monocytes # 0.7 Eosinophils # 0.3 Basophils # 0.1 Nucleated Red Blood Cells # 0.0 Sodium Level 141 Potassium Level 3.2 L Chloride Level 100 Carbon Dioxide Level 29 Anion Gap 15 Blood Urea Nitrogen 14 Creatinine 0.76 Glucose Level 98 Calcium Level 8.8 Medications Medications Current Medications Acetaminophen 650 mg 650 mg Q6H PRN PO PAIN AND OR ELEVATED TEMP Last administered on 08/23/16 15:35; Admin Dose 650 MG; Start 08/22/16 at 22:30 Cefazolin Sodium (Ancef 1 Gm/50 ml (Pmx)) 50 ml @ 100 mls/hr Q8 IVPB Last administered on 08/24/16 13:48; Admin Dose 100 MLS/HR; Start 08/22/16 at 22:30 Acetaminophen/ Hydrocodone Bitart ([place] (5/325)) 1 tab Q4H PRN PO PAIN; Start 08/22/16 at 22:30 Enoxaparin Sodium (Lovenox) 40 mg DAILY SC Last administered on 08/24/16 09:06 ; Admin Dose 40 MG; Start 08/22/16 at 22:30 Alprazolam (Xanax) 0.5 mg Q8H PRN PO ANXIETY Last administered on 08/22/16 23: 32; Admin Dose 0.5 MG; Start 08/22/16 at 22:30 Diagnostic Test (Pha) (Accu-Chek) 1 ea 02 XX ; Start 08/23/16 at 02:00 Alprazolam (Xanax) 1 mg QHS PRN PO SLEEP Last administered on 08/23/16 22:30; Admin Dose 1 MG; Start 08/22/16 at 22:30 Atorvastatin Calcium (Lipitor) 20 mg QHS PO Last administered on 08/23/16 20: 17; Admin Dose 20 MG; Start 08/23/16 at 21:00 Hydrochlorothiazide (Hydrochlorothiazide) 25 mg DAILY PO Last administered on 08:54; Admin Dose 25 MG; Start 08/23/16 at 09:00 Pantoprazole (Protonix Tab) 40 mg DAILY@06 PO Last administered on 08/24/16 05 :14; Admin Dose 40 MG; Start 08/23/16 at 06:00 Paroxetine HCl (Paxil) 10 mg DAILY PO Last administered on 08/24/16 08:53; Admin Dose 10 MG; Start 08/23/16 at 09:00 Valsartan (Diovan) 160 mg DAILY PO Last administered on 08/24/16 08:55; Admin Dose 160 MG; Start 08/23/16 at 09:00 Potassium Chloride (Klor-Con 20) 20 meq BID PO Last administered on 08/24/16 08:53; Admin Dose 20 MEQ; Start 08/23/16 at 09:00 Miscellaneous Information 1 ea NOTE XX ; Start 08/22/16 at 23:00 Glucose (Glutose) 15 gm Q15M PRN PO DECREASED GLUCOSE; Start 08/22/16 at 23:00 Glucose (Glutose) 22.5 gm Q15M PRN PO DECREASED GLUCOSE; Start 08/22/16 at 23: 00 Dextrose (D50w Syringe) 25 ml Q15M PRN IV DECREASED GLUCOSE; Start 08/22/16 at 23:00 Dextrose (D50w Syringe) 50 ml Q15M PRN IV DECREASED GLUCOSE; Start 08/22/16 at 23:00 Glucagon (Glucagen) 1 mg Q15M PRN IM DECREASED GLUCOSE; Start 08/22/16 at 23:00 Glucose (Glutose) 15 gm Q15M PRN BUCCAL DECREASED GLUCOSE; Start 08/22/16 at 23 :00 Aspirin (Aspirin) 81 mg DAILY PO Last administered on 08/24/16 08:53; Admin Dose 81 MG; Start 08/24/16 at 09:00 THAI DELACRUZ August 24, 2016 17:23
[2016-08-24 19:14] VITALS: BP 144/60; RESP 20
--- NOTE | 2016-08-24 20:28 | RADRPT ---
Echocardiogram Report Patient Name: MARU OTT Gender: Female Date: 1935 Study Date: 23-Aug-2016 Teacher Of The Visually Impaired: [facility] Location: [id number] Ref. Physician: ANGELA MUNOZ Quality: Technically Difficult Study Procedures: Transthoracic echocardiogram with complete 2D, M-Mode, and doppler examination. Indications: Syncope. 2D/M Mode Doppler Measurement Value Normal Ranges Measurement Value Normal Ranges LVIDd 2D 4.2 3.5 - 5.6 cm AV [place] 1.0 m/sec LVIDs 2D 2.9 2.1 - 4.1 cm AV Peak PG 3.8 mmHg LVPWd 2D 1.0 0.6 - 1.1 cm LVOT [place] 0.9 m/sec IVSd 2D 1.1 0.6 - 1.1 cm LVOT Peak PG 3.0 mmHg AoR Diam 2D 2.3 2.0 - 3.7 cm MV E [place] 0.7 m/sec EDV 2D 77.9 cm3 MV A [place] 0.9 m/sec ESV 2D 24.1 cm3 MV E/A 0.7 LA Dimen 2D 3.4 2.3 - 4.0 cm MV Decel Time 190 msec MV Decel [place] 3 MV E/A 0.7 Findings Left Ventricle: Normal left ventricular systolic function. Normal left ventricular cavity size. Normal left ventricular wall thickness. Ejection fraction is visually estimated at 55 %. Tissue Doppler/Mitral Doppler indices are consistent with impaired relaxation (Stage I diastolic dysfunction). Right Ventricle: Normal right ventricular systolic function. Left Atrium: The left atrium is normal in size. Right Atrium: There is mild enlargement of right atrium. Mitral Valve: Mild mitral annular calcification. Trace mitral regurgitation. Aortic Valve: Aortic cusps appear mildly calcified. Trace aortic valve regurgitation. Tricuspid Valve: Tricuspid valve not well visualized. There is trace tricuspid regurgitation. Pulmonic Valve: Pulmonic valve not well visualized. There is trace pulmonic regurgitation. Pericardium: Normal pericardium with no significant pericardial effusion. Aorta: Normal aortic root. IVC: Normal size and normal respiratory collapse consistent with normal right atrial pressure. Conclusions 1.Normal left ventricular systolic function. Normal left ventricular cavity size. Normal left ventricular wall thickness. Ejection fraction is visually estimated at 55 %. Tissue Doppler/Mitral Doppler indices are consistent with impaired relaxation (Stage I diastolic dysfunction). 2.Normal right ventricular systolic function. 3.There is mild enlargement of right atrium. 4.Trace mitral regurgitation. 5.Aortic cusps appear mildly calcified. Trace aortic valve regurgitation. 6.There is trace tricuspid regurgitation. 7.There is trace pulmonic regurgitation. Electronically Signed By: Ruddy Sheikh 24-Aug-2016 20:27:28 -0700 Patient Name: MARU OTT Study Date: 23-Aug-2016 [id number]
[2016-08-24] MEDS: ATORVASTATIN 20 MG TAB PO SCH (21:14)
[2016-08-24] MEDS: ALPRAZOLAM 1 MG TAB PO PRN (22:40)
[2016-08-25] MEDS: ACCU-CHEK XX SCH ×2 (01:54→21:45)
[2016-08-25] MEDS: PANTOPRAZOLE (EC) 40 MG TAB PO SCH (05:51)
[2016-08-25] MEDS: CEFAZOLIN 1 GM/50 ML (PMX) 50 ML IVPB SCH ×3 (05:51→21:39)
[2016-08-25 07:04] LABS: ADD SCAN DIFF NO
[2016-08-25 07:11] LABS: BASOPHIL # 0.1 10^3/ul (0.0-0.1); EOSINOPHILS # 0.3 10^3/ul (0.0-0.5); EOSINOPHILS % 4.1 % (0.0-7.0); HEMATOCRIT 35.5 % (37.0-47.0); HEMOGLOBIN 11.6 g/dl (12.0-16.0); LYMPHOCYTES % 40.4 % (15.0-51.0); MEAN CORPUSCULAR HGB CONC 32.7 g/dl (32.0-37.0); MEAN CORPUSCULAR VOLUME 85.5 fl (82.0-101.0); MEAN PLATELET VOLUME 10.1 fl (7.4-10.4); MONOCYTE # 0.6 10^3/ul (0.3-0.9); MONOCYTES % 7.8 % (0.0-11.0); NEUTROPHIL # 3.4 10^3/ul (1.6-7.5); PLATELET COUNT 263 10^3/UL (140-415); RED BLOOD COUNT 4.15 10^6/ul (4.20-5.40); RED CELL DISTRIBUTION WIDTH 14.6 % (11.5-14.5); WHITE BLOOD COUNT 7.4 10^3/ul (4.8-10.8)
[2016-08-25 07:39] VITALS: BP 134/72; RESP 19
[2016-08-25 07:39] LABS: CALCIUM 8.9 mg/dl (8.4-10.2); CREATININE 0.62 mg/dl (0.44-1.00); POTASSIUM 3.3 mmol/L (3.5-5.1)
[2016-08-25] MEDS: INSULIN ASPART [NOVOLOG] 3 ML PEN SC SCH ×4 (08:15→20:26)
[2016-08-25] MEDS: ASPIRIN 81 MG TAB PO SCH (08:21)
[2016-08-25] MEDS: POTASSIUM CHLORIDE (SR) 20 MEQ TAB PO SCH ×2 (08:21→20:26)
[2016-08-25] MEDS: metFORMIN 850 MG TAB PO SCH ×2 (08:21→17:39)
[2016-08-25] MEDS: PAROXETINE 10 MG TAB PO SCH (08:21)
[2016-08-25] MEDS: VALSARTAN 160 MG TAB PO SCH (08:22)
[2016-08-25] MEDS: ENOXAPARIN 40 MG/0.4 ML SYG SC SCH (08:23)
[2016-08-25] MEDS: HYDROCHLOROTHIAZIDE 25 MG TAB PO SCH (08:25)
--- NOTE | 2016-08-25 12:40 | PN ---
Date/Time of Note Date/Time of Note DATE: 08/25/16 TIME: 12:36 Assessment/Plan VTE Prophylaxis VTE Prophylaxis Intervention: other Lines/Catheters IV Catheter Type (from Nrs): Saline Lock Urinary Cath still in place: No Assessment/Plan Assessment/Plan 1. Left knee cellulitis. Continue cefazolin. 2. Status post fall. Continue physical therapy. 3. Hypertension. Continue Diovan. 4. Diabetes mellitus with hemoglobin A1c 6. Continue metformin and NovoLog per mild algorithm sliding scale. 5. Dyslipidemia. Continue statin. 6. Obesity. 7. Osteoarthritis. 8. Anxiety and depression. Continue Paxil. 9. Hypokalemia, potassium replaced, continue to monitor electrolytes. Case management meant for DC planning Further recommendations based on clinical course. Plan of care discussed with Dr. Justin. Subjective 24 Hr Interval Summary Eyes: no complaints ENT: no complaints Respiratory: no complaints Cardiovascular: no complaints Gastrointestinal: no complaints Genitourinary: no complaints Musculoskeletal: bone/joint pain Skin: erythema, other (LEFT KNEE) Endocrine: no complaints Lymphatic: no complaints Psychological: nl mood/affect Exam/Review of Systems Vital Signs Vitals Vital Signs Date Time Temp Pulse Resp B/P Pulse Ox O2 Delivery O2 Flow Rate FiO2 08/25/16 07:39 98.4 72 19 134/72 92 08/22/16 17:00 Room Air Intake and Output 08/24/16 08/24/16 08/25/16 15:00 23:00 07:00 Intake Total 770 ml 1520 ml 600 ml Balance 770 ml 1520 ml 600 ml Exam Constitutional: alert, well developed Psych: nl mood/affect Head: atraumatic Eyes: EOMI, nl sclera ENMT: nl external ears & nose Neck: non-tender Respiratory: clear to auscultation Gastrointestinal: non-tender, soft Musculoskeletal: other (Left knee cellulitis, erythema, edema noted, to need physical therapy. Family at the bedside all questions answered), swelling Extremities: normal pulses Skin: other Lymph: nontender Results Result Diagram: 08/25/16 0600 08/25/16 0600 Results 24 hrs Laboratory Tests Test 08/24/16 17:27 08/24/16 21:13 08/25/16 06:00 08/25/16 08:15 Bedside Glucose 87 108 99 White Blood Count 7.4 Red Blood Count 4.15 L Hemoglobin 11.6 L Hematocrit 35.5 L Mean Corpuscular Volume 85.5 Mean Corpuscular Hemoglobin 28.0 L Mean Corpuscular Hemoglobin Concent 32.7 Red Cell Distribution Width 14.6 H Platelet Count 263 Mean Platelet Volume 10.1 Neutrophils % 46.0 Lymphocytes % 40.4 Monocytes % 7.8 Eosinophils % 4.1 Basophils % 1.0 Nucleated Red Blood Cells % 0.0 Neutrophils # 3.4 Lymphocytes # 3.0 H Monocytes # 0.6 Eosinophils # 0.3 Basophils # 0.1 Nucleated Red Blood Cells # 0.0 Sodium Level 140 Potassium Level 3.3 L Chloride Level 103 Carbon Dioxide Level 29 Anion Gap 11 Blood Urea Nitrogen 11 Creatinine 0.62 Glucose Level 95 Calcium Level 8.9 Test 08/25/16 11:53 Bedside Glucose 117 Medications Medications Current Medications Acetaminophen 650 mg 650 mg Q6H PRN PO PAIN AND OR ELEVATED TEMP Last administered on 08/23/16 15:35; Admin Dose 650 MG; Start 08/22/16 at 22:30 Cefazolin Sodium (Ancef 1 Gm/50 ml (Pmx)) 50 ml @ 100 mls/hr Q8 IVPB Last administered on 08/25/16 05:51; Admin Dose 100 MLS/HR; Start 08/22/16 at 22:30 Acetaminophen/ Hydrocodone Bitart ([place] (5/325)) 1 tab Q4H PRN PO PAIN; Start 08/22/16 at 22:30 Enoxaparin Sodium (Lovenox) 40 mg DAILY SC Last administered on 08/25/16 08:23 ; Admin Dose 40 MG; Start 08/22/16 at 22:30 Alprazolam (Xanax) 0.5 mg Q8H PRN PO ANXIETY Last administered on 08/22/16 23: 32; Admin Dose 0.5 MG; Start 08/22/16 at 22:30 Diagnostic Test (Pha) (Accu-Chek) 1 ea 02 XX ; Start 08/23/16 at 02:00 Alprazolam (Xanax) 1 mg QHS PRN PO SLEEP Last administered on 08/24/16 22:40; Admin Dose 1 MG; Start 08/22/16 at 22:30 Atorvastatin Calcium (Lipitor) 20 mg QHS PO Last administered on 08/24/16 21: 14; Admin Dose 20 MG; Start 08/23/16 at 21:00 Hydrochlorothiazide (Hydrochlorothiazide) 25 mg DAILY PO Last administered on 08:25; Admin Dose 25 MG; Start 08/23/16 at 09:00 Pantoprazole (Protonix Tab) 40 mg DAILY@06 PO Last administered on 08/25/16 05 :51; Admin Dose 40 MG; Start 08/23/16 at 06:00 Paroxetine HCl (Paxil) 10 mg DAILY PO Last administered on 08/25/16 08:21; Admin Dose 10 MG; Start 08/23/16 at 09:00 Valsartan (Diovan) 160 mg DAILY PO Last administered on 08/25/16 08:22; Admin Dose 160 MG; Start 08/23/16 at 09:00 Potassium Chloride (Klor-Con 20) 20 meq BID PO Last administered on 08/25/16 08:21; Admin Dose 20 MEQ; Start 08/23/16 at 09:00 Miscellaneous Information 1 ea NOTE XX ; Start 08/22/16 at 23:00 Glucose (Glutose) 15 gm Q15M PRN PO DECREASED GLUCOSE; Start 08/22/16 at 23:00 Glucose (Glutose) 22.5 gm Q15M PRN PO DECREASED GLUCOSE; Start 08/22/16 at 23: 00 Dextrose (D50w Syringe) 25 ml Q15M PRN IV DECREASED GLUCOSE; Start 08/22/16 at 23:00 Dextrose (D50w Syringe) 50 ml Q15M PRN IV DECREASED GLUCOSE; Start 08/22/16 at 23:00 Glucagon (Glucagen) 1 mg Q15M PRN IM DECREASED GLUCOSE; Start 08/22/16 at 23:00 Glucose (Glutose) 15 gm Q15M PRN BUCCAL DECREASED GLUCOSE; Start 08/22/16 at 23 :00 Aspirin (Aspirin) 81 mg DAILY PO Last administered on 08/25/16 08:21; Admin Dose 81 MG; Start 08/24/16 at 09:00 AHMET BOURNE August 25, 2016 12:40
[2016-08-25 19:16] VITALS: BP 145/64; RESP 20
[2016-08-25] MEDS: ATORVASTATIN 20 MG TAB PO SCH (20:26)
[2016-08-25] MEDS: ALPRAZOLAM 1 MG TAB PO PRN (21:45)
[2016-08-26] MEDS: CEFAZOLIN 1 GM/50 ML (PMX) 50 ML IVPB SCH ×3 (06:03→22:20)
[2016-08-26] MEDS: PANTOPRAZOLE (EC) 40 MG TAB PO SCH (06:03)
[2016-08-26 06:16] LABS: ADD SCAN DIFF NO
[2016-08-26 06:40] LABS: BASOPHIL # 0.1 10^3/ul (0.0-0.1); BASOPHILS % 0.7 % (0.0-2.0); EOSINOPHILS # 0.3 10^3/ul (0.0-0.5); EOSINOPHILS % 3.5 % (0.0-7.0); HEMATOCRIT 36.4 % (37.0-47.0); HEMOGLOBIN 11.6 g/dl (12.0-16.0); LYMPHOCYTES # 3.3 10^3/ul (0.8-2.9); LYMPHOCYTES % 39.9 % (15.0-51.0); MEAN CORPUSCULAR HEMOGLOBIN 27.4 pg (29.0-33.0); MEAN CORPUSCULAR HGB CONC 31.9 g/dl (32.0-37.0); MEAN CORPUSCULAR VOLUME 85.8 fl (82.0-101.0); MEAN PLATELET VOLUME 10.2 fl (7.4-10.4); MONOCYTE # 0.6 10^3/ul (0.3-0.9); MONOCYTES % 6.9 % (0.0-11.0); NEUTROPHILS % 48.3 % (39.0-77.0); PLATELET COUNT 248 10^3/UL (140-415); RED BLOOD COUNT 4.24 10^6/ul (4.20-5.40); RED CELL DISTRIBUTION WIDTH 14.8 % (11.5-14.5); WHITE BLOOD COUNT 8.4 10^3/ul (4.8-10.8)
[2016-08-26 06:59] LABS: CALCIUM 9.1 mg/dl (8.4-10.2); CREATININE 0.6 mg/dl (0.44-1.00); POTASSIUM 3.5 mmol/L (3.5-5.1)
[2016-08-26 07:52] VITALS: BP 161/73; RESP 18
[2016-08-26] MEDS: VALSARTAN 160 MG TAB PO SCH (08:06)
[2016-08-26] MEDS: ENOXAPARIN 40 MG/0.4 ML SYG SC SCH (08:07)
[2016-08-26] MEDS: ASPIRIN 81 MG TAB PO SCH (08:07)
[2016-08-26] MEDS: POTASSIUM CHLORIDE (SR) 20 MEQ TAB PO SCH ×2 (08:08→20:24)
[2016-08-26] MEDS: PAROXETINE 10 MG TAB PO SCH (08:08)
[2016-08-26] MEDS: HYDROCHLOROTHIAZIDE 25 MG TAB PO SCH (08:08)
[2016-08-26] MEDS: metFORMIN 850 MG TAB PO SCH ×2 (08:14→17:45)
[2016-08-26] MEDS: INSULIN ASPART [NOVOLOG] 3 ML PEN SC SCH ×4 (08:15→20:24)
[2016-08-26] MEDS: ACETAMINOPHEN 325 MG TAB PO PRN (14:10)
--- NOTE | 2016-08-26 17:22 | PN ---
Date/Time of Note Date/Time of Note DATE: 08/26/16 TIME: 17:20 Assessment/Plan VTE Prophylaxis VTE Prophylaxis Intervention: SCD's Lines/Catheters IV C[facility] Type (from [facility] Saline Lock Urinary Cath still in place: No Assessment/Plan Chief Complaint/Hosp Course Assessment/Plan 1. Left knee cellulitis. Continue cefazolin. 2. Status post fall. Continue physical therapy. 3. Hypertension. Continue Diovan. 4. Diabetes mellitus with hemoglobin A1c 6. Continue metformin and NovoLog per mild algorithm sliding scale. 5. Dyslipidemia. Continue statin. 6. Obesity. 7. Osteoarthritis. 8. Anxiety and depression. Continue Paxil. 9. Hypokalemia, potassium replaced, continue to monitor electrolytes. Case management for DC planning Further recommendations based on clinical course. Plan of care discussed with Dr. Justin. Problems: Subjective 24 Hr Interval Summary Free Text/Dictation Patient remains afebrile, decrease in left knee redness. Exam/Review of Systems Vital Signs Vitals Vital Signs Date Time Temp Pulse Resp B/P Pulse Ox O2 Delivery O2 Flow Rate FiO2 08/26/16 07:52 98.7 81 18 161/73 92 08/22/16 17:00 Room Air Intake and Output 08/25/16 08/25/16 08/26/16 15:00 23:00 07:00 Intake Total 50 ml 930 ml 250 ml Balance 50 ml 930 ml 250 ml Exam Constitutional: alert, oriented Psych: no complaints Head: atraumatic, normocephalic Eyes: nl conjunctiva ENMT: nl external ears & nose Neck: non-tender, supple Respiratory: clear to auscultation Cardiovascular: nl pulses, regular rate and rhythm Gastrointestinal: non-tender, soft Musculoskeletal: other (Bilateral lower extremity with weakness) Extremities: normal pulses Skin: nl turgor Results Result Diagram: 08/26/16 0446 08/26/16 0450 Results 24 hrs Laboratory Tests Test 08/25/16 17:34 08/25/16 20:25 08/26/16 04:46 08/26/16 04:50 Bedside Glucose 99 105 White Blood Count 8.4 Red Blood Count 4.24 Hemoglobin 11.6 L Hematocrit 36.4 L Mean Corpuscular Volume 85.8 Mean Corpuscular Hemoglobin 27.4 L Mean Corpuscular Hemoglobin Concent 31.9 L Red Cell Distribution Width 14.8 H Platelet Count 248 Mean Platelet Volume 10.2 Neutrophils % 48.3 Lymphocytes % 39.9 Monocytes % 6.9 Eosinophils % 3.5 Basophils % 0.7 Nucleated Red Blood Cells % 0.0 Neutrophils # 4.0 Lymphocytes # 3.3 H Monocytes # 0.6 Eosinophils # 0.3 Basophils # 0.1 Nucleated Red Blood Cells # 0.0 Sodium Level 140 Potassium Level 3.5 Chloride Level 103 Carbon Dioxide Level 29 Anion Gap 12 Blood Urea Nitrogen 14 Creatinine 0.60 Glucose Level 95 Calcium Level 9.1 Test 08/26/16 08:12 08/26/16 11:54 Bedside Glucose 95 118 Medications Medications Current Medications Acetaminophen 650 mg 650 mg Q6H PRN PO PAIN AND OR ELEVATED TEMP Last administered on 08/26/16 14:10; Admin Dose 650 MG; Start 08/22/16 at 22:30 Cefazolin Sodium (Ancef 1 Gm/50 ml (Pmx)) 50 ml @ 100 mls/hr Q8 IVPB Last administered on 08/26/16 14:00; Admin Dose 100 MLS/HR; Start 08/22/16 at 22:30 Acetaminophen/ Hydrocodone Bitart ([place] (5/325)) 1 tab Q4H PRN PO PAIN; Start 08/22/16 at 22:30 Enoxaparin Sodium (Lovenox) 40 mg DAILY SC Last administered on 08/26/16 08:07 ; Admin Dose 40 MG; Start 08/22/16 at 22:30 Alprazolam (Xanax) 0.5 mg Q8H PRN PO ANXIETY Last administered on 08/22/16 23: 32; Admin Dose 0.5 MG; Start 08/22/16 at 22:30 Diagnostic Test (Pha) (Accu-Chek) 1 ea 02 XX ; Start 08/23/16 at 02:00 Alprazolam (Xanax) 1 mg QHS PRN PO SLEEP Last administered on 08/25/16 21:45; Admin Dose 1 MG; Start 08/22/16 at 22:30 Atorvastatin Calcium (Lipitor) 20 mg QHS PO Last administered on 08/25/16 20: 26; Admin Dose 20 MG; Start 08/23/16 at 21:00 Hydrochlorothiazide (Hydrochlorothiazide) 25 mg DAILY PO Last administered on 08:08; Admin Dose 25 MG; Start 08/23/16 at 09:00 Pantoprazole (Protonix Tab) 40 mg DAILY@06 PO Last administered on 08/26/16 06 :03; Admin Dose 40 MG; Start 08/23/16 at 06:00 Paroxetine HCl (Paxil) 10 mg DAILY PO Last administered on 08/26/16 08:08; Admin Dose 10 MG; Start 08/23/16 at 09:00 Valsartan (Diovan) 160 mg DAILY PO Last administered on 08/26/16 08:06; Admin Dose 160 MG; Start 08/23/16 at 09:00 Potassium Chloride (Klor-Con 20) 20 meq BID PO Last administered on 08/26/16 08:08; Admin Dose 20 MEQ; Start 08/23/16 at 09:00 Miscellaneous Information 1 ea NOTE XX ; Start 08/22/16 at 23:00 Glucose (Glutose) 15 gm Q15M PRN PO DECREASED GLUCOSE; Start 08/22/16 at 23:00 Glucose (Glutose) 22.5 gm Q15M PRN PO DECREASED GLUCOSE; Start 08/22/16 at 23: 00 Dextrose (D50w Syringe) 25 ml Q15M PRN IV DECREASED GLUCOSE; Start 08/22/16 at 23:00 Dextrose (D50w Syringe) 50 ml Q15M PRN IV DECREASED GLUCOSE; Start 08/22/16 at 23:00 Glucagon (Glucagen) 1 mg Q15M PRN IM DECREASED GLUCOSE; Start 08/22/16 at 23:00 Glucose (Glutose) 15 gm Q15M PRN BUCCAL DECREASED GLUCOSE; Start 08/22/16 at 23 :00 Aspirin (Aspirin) 81 mg DAILY PO Last administered on 08/26/16 08:07; Admin Dose 81 MG; Start 08/24/16 at 09:00 THAI DELACRUZ August 26, 2016 17:22
[2016-08-26] MEDS: ATORVASTATIN 20 MG TAB PO SCH (20:24)
[2016-08-26 20:26] VITALS: BP 143/68; PULSE 72; RESP 19
[2016-08-26] MEDS: ACCU-CHEK XX SCH (22:18)
[2016-08-26] MEDS: ALPRAZOLAM 1 MG TAB PO PRN (22:22)
[2016-08-27] MEDS: CEFAZOLIN 1 GM/50 ML (PMX) 50 ML IVPB SCH ×3 (05:53→22:06)
[2016-08-27] MEDS: PANTOPRAZOLE (EC) 40 MG TAB PO SCH (05:54)
[2016-08-27 06:55] LABS: ADD SCAN DIFF NO
[2016-08-27 07:01] LABS: BASOPHIL # 0.1 10^3/ul (0.0-0.1); BASOPHILS % 0.8 % (0.0-2.0); EOSINOPHILS # 0.3 10^3/ul (0.0-0.5); EOSINOPHILS % 3.9 % (0.0-7.0); HEMATOCRIT 36.5 % (37.0-47.0); HEMOGLOBIN 11.6 g/dl (12.0-16.0); LYMPHOCYTES # 2.4 10^3/ul (0.8-2.9); LYMPHOCYTES % 33.1 % (15.0-51.0); MEAN CORPUSCULAR HEMOGLOBIN 27.6 pg (29.0-33.0); MEAN CORPUSCULAR HGB CONC 31.8 g/dl (32.0-37.0); MEAN CORPUSCULAR VOLUME 86.9 fl (82.0-101.0); MONOCYTE # 0.5 10^3/ul (0.3-0.9); MONOCYTES % 6.9 % (0.0-11.0); NEUTROPHILS % 54.6 % (39.0-77.0); PLATELET COUNT 234 10^3/UL (140-415); RED CELL DISTRIBUTION WIDTH 14.7 % (11.5-14.5); WHITE BLOOD COUNT 7.4 10^3/ul (4.8-10.8)
[2016-08-27 07:36] LABS: CALCIUM 8.9 mg/dl (8.4-10.2); CREATININE 0.6 mg/dl (0.44-1.00); POTASSIUM 3.4 mmol/L (3.5-5.1)
[2016-08-27 07:50] VITALS: BP 161/72; RESP 18
[2016-08-27] MEDS: ASPIRIN 81 MG TAB PO SCH (08:04)
[2016-08-27] MEDS: PAROXETINE 10 MG TAB PO SCH (08:05)
[2016-08-27] MEDS: VALSARTAN 160 MG TAB PO SCH (08:05)
[2016-08-27] MEDS: HYDROCHLOROTHIAZIDE 25 MG TAB PO SCH (08:05)
[2016-08-27] MEDS: POTASSIUM CHLORIDE (SR) 20 MEQ TAB PO SCH ×2 (08:07→20:45)
[2016-08-27] MEDS: metFORMIN 850 MG TAB PO SCH ×2 (08:07→17:37)
[2016-08-27] MEDS: INSULIN ASPART [NOVOLOG] 3 ML PEN SC SCH ×4 (08:15→20:51)
[2016-08-27] MEDS: ENOXAPARIN 40 MG/0.4 ML SYG SC SCH (08:22)
[2016-08-27] MEDS ORDERED: POTASSIUM CHLORIDE (SR) 20 MEQ TAB PO STA (12:06)
--- NOTE | 2016-08-27 12:09 | PN ---
Date/Time of Note Date/Time of Note DATE: 08/27/16 TIME: 12:07 Assessment/Plan Lines/Catheters IV Catheter Type (from Nrs): Saline Lock Urinary Cath still in place: No Assessment/Plan Assessment/Plan 1. Left knee cellulitis. Continue cefazolin. 2. Status post fall. Continue physical therapy. 3. Hypertension. Continue Diovan. 4. Diabetes mellitus with hemoglobin A1c 6. Continue metformin and NovoLog per mild algorithm sliding scale. 5. Dyslipidemia. Continue statin. 6. Obesity. 7. Osteoarthritis. 8. Anxiety and depression. Continue Paxil. 9. Hypokalemia, potassium replaced, continue to monitor electrolytes. Case management for DC planning Further recommendations based on clinical course. Plan of care discussed with Dr. Justin. Subjective 24 Hr Interval Summary Free Text/Dictation Resting in bed, complaining of bilateral knee pain but is better than before, decrease in left knee redness, afebrile discussed with staff no new issues reported Eyes: no complaints ENT: no complaints Respiratory: no complaints Cardiovascular: no complaints Gastrointestinal: no complaints Genitourinary: no complaints Musculoskeletal: bone/joint pain Skin: no complaints Neurologic: no complaints Exam/Review of Systems Vital Signs Vitals Vital Signs Date Time Temp Pulse Resp B/P Pulse Ox O2 Delivery O2 Flow Rate FiO2 08/27/16 07:50 98.9 80 18 161/72 91 08/26/16 20:26 Room Air Intake and Output 08/26/16 08/26/16 08/27/16 15:00 23:00 07:00 Intake Total 50 ml 990 ml 220 ml Balance 50 ml 990 ml 220 ml Exam Constitutional: alert, oriented, well developed Psych: nl mood/affect Head: normocephalic Eyes: EOMI, nl sclera ENMT: nl external ears & nose Neck: non-tender Respiratory: clear to auscultation Cardiovascular: nl pulses Gastrointestinal: non-tender, soft Musculoskeletal: swelling Extremities: normal pulses Neurological: nl mental status, nl speech Skin: other Results Result Diagram: 08/27/16 0606 08/27/16 0606 Results 24 hrs Laboratory Tests Test 08/26/16 17:35 08/26/16 20:20 08/27/16 06:06 08/27/16 08:12 Bedside Glucose 91 141 93 White Blood Count 7.4 Red Blood Count 4.20 Hemoglobin 11.6 L Hematocrit 36.5 L Mean Corpuscular Volume 86.9 Mean Corpuscular Hemoglobin 27.6 L Mean Corpuscular Hemoglobin Concent 31.8 L Red Cell Distribution Width 14.7 H Platelet Count 234 Mean Platelet Volume 10.0 Neutrophils % 54.6 Lymphocytes % 33.1 Monocytes % 6.9 Eosinophils % 3.9 Basophils % 0.8 Nucleated Red Blood Cells % 0.0 Neutrophils # 4.0 Lymphocytes # 2.4 Monocytes # 0.5 Eosinophils # 0.3 Basophils # 0.1 Nucleated Red Blood Cells # 0.0 Sodium Level 141 Potassium Level 3.4 L Chloride Level 104 Carbon Dioxide Level 29 Anion Gap 11 Blood Urea Nitrogen 16 Creatinine 0.60 Glucose Level 92 Calcium Level 8.9 Test 08/27/16 12:01 Bedside Glucose 79 Medications Medications Current Medications Acetaminophen 650 mg 650 mg Q6H PRN PO PAIN AND OR ELEVATED TEMP Last administered on 08/26/16 14:10; Admin Dose 650 MG; Start 08/22/16 at 22:30 Cefazolin Sodium (Ancef 1 Gm/50 ml (Pmx)) 50 ml @ 100 mls/hr Q8 IVPB Last administered on 08/27/16 05:53; Admin Dose 100 MLS/HR; Start 08/22/16 at 22:30 Acetaminophen/ Hydrocodone Bitart ([place] (5/325)) 1 tab Q4H PRN PO PAIN; Start 08/22/16 at 22:30 Enoxaparin Sodium (Lovenox) 40 mg DAILY SC Last administered on 08/27/16 08:22 ; Admin Dose 40 MG; Start 08/22/16 at 22:30 Alprazolam (Xanax) 0.5 mg Q8H PRN PO ANXIETY Last administered on 08/22/16 23: 32; Admin Dose 0.5 MG; Start 08/22/16 at 22:30 Diagnostic Test (Pha) (Accu-Chek) 1 ea 02 XX ; Start 08/23/16 at 02:00 Alprazolam (Xanax) 1 mg QHS PRN PO SLEEP Last administered on 08/26/16 22:22; Admin Dose 1 MG; Start 08/22/16 at 22:30 Atorvastatin Calcium (Lipitor) 20 mg QHS PO Last administered on 08/26/16 20: 24; Admin Dose 20 MG; Start 08/23/16 at 21:00 Hydrochlorothiazide (Hydrochlorothiazide) 25 mg DAILY PO Last administered on 08:05; Admin Dose 25 MG; Start 08/23/16 at 09:00 Pantoprazole (Protonix Tab) 40 mg DAILY@06 PO Last administered on 08/27/16 05 :54; Admin Dose 40 MG; Start 08/23/16 at 06:00 Paroxetine HCl (Paxil) 10 mg DAILY PO Last administered on 08/27/16 08:05; Admin Dose 10 MG; Start 08/23/16 at 09:00 Valsartan (Diovan) 160 mg DAILY PO Last administered on 08/27/16 08:05; Admin Dose 160 MG; Start 08/23/16 at 09:00 Potassium Chloride (Klor-Con 20) 20 meq BID PO Last administered on 08/27/16 08:07; Admin Dose 20 MEQ; Start 08/23/16 at 09:00 Miscellaneous Information 1 ea NOTE XX ; Start 08/22/16 at 23:00 Glucose (Glutose) 15 gm Q15M PRN PO DECREASED GLUCOSE; Start 08/22/16 at 23:00 Glucose (Glutose) 22.5 gm Q15M PRN PO DECREASED GLUCOSE; Start 08/22/16 at 23: 00 Dextrose (D50w Syringe) 25 ml Q15M PRN IV DECREASED GLUCOSE; Start 08/22/16 at 23:00 Dextrose (D50w Syringe) 50 ml Q15M PRN IV DECREASED GLUCOSE; Start 08/22/16 at 23:00 Glucagon (Glucagen) 1 mg Q15M PRN IM DECREASED GLUCOSE; Start 08/22/16 at 23:00 Glucose (Glutose) 15 gm Q15M PRN BUCCAL DECREASED GLUCOSE; Start 08/22/16 at 23 :00 Aspirin (Aspirin) 81 mg DAILY PO Last administered on 08/27/16 08:04; Admin Dose 81 MG; Start 08/24/16 at 09:00 AHMET BOURNE August 27, 2016 12:09
[2016-08-27 19:27] VITALS: BP 141/61; RESP 20
[2016-08-27] MEDS: ATORVASTATIN 20 MG TAB PO SCH (20:45)
[2016-08-27] MEDS: ALPRAZOLAM 1 MG TAB PO PRN (22:06)
[2016-08-28] MEDS: ACCU-CHEK XX SCH (02:00)
[2016-08-28 05:26] LABS: ADD SCAN DIFF NO
[2016-08-28 05:35] LABS: BASOPHIL # 0.1 10^3/ul (0.0-0.1); BASOPHILS % 0.6 % (0.0-2.0); EOSINOPHILS # 0.3 10^3/ul (0.0-0.5); EOSINOPHILS % 3.3 % (0.0-7.0); HEMATOCRIT 37.2 % (37.0-47.0); HEMOGLOBIN 12.1 g/dl (12.0-16.0); LYMPHOCYTES # 2.9 10^3/ul (0.8-2.9); LYMPHOCYTES % 35.7 % (15.0-51.0); MEAN CORPUSCULAR HEMOGLOBIN 27.8 pg (29.0-33.0); MEAN CORPUSCULAR HGB CONC 32.5 g/dl (32.0-37.0); MEAN CORPUSCULAR VOLUME 85.3 fl (82.0-101.0); MEAN PLATELET VOLUME 9.9 fl (7.4-10.4); MONOCYTE # 0.6 10^3/ul (0.3-0.9); NEUTROPHIL # 4.3 10^3/ul (1.6-7.5); NEUTROPHILS % 52.5 % (39.0-77.0); PLATELET COUNT 228 10^3/UL (140-415); RED BLOOD COUNT 4.36 10^6/ul (4.20-5.40); RED CELL DISTRIBUTION WIDTH 14.6 % (11.5-14.5); WHITE BLOOD COUNT 8.1 10^3/ul (4.8-10.8)
[2016-08-28] MEDS: CEFAZOLIN 1 GM/50 ML (PMX) 50 ML IVPB SCH (05:40)
[2016-08-28] MEDS: PANTOPRAZOLE (EC) 40 MG TAB PO SCH (05:40)
[2016-08-28 05:53] LABS: CALCIUM 8.9 mg/dl (8.4-10.2); CREATININE 0.6 mg/dl (0.44-1.00); POTASSIUM 3.6 mmol/L (3.5-5.1)
[2016-08-28] MEDS: INSULIN ASPART [NOVOLOG] 3 ML PEN SC SCH ×2 (07:46→12:13)
[2016-08-28 08:02] VITALS: BP 152/70; RESP 16
[2016-08-28] MEDS: VALSARTAN 160 MG TAB PO SCH (08:35)
[2016-08-28] MEDS: ASPIRIN 81 MG TAB PO SCH (08:35)
[2016-08-28] MEDS: POTASSIUM CHLORIDE (SR) 20 MEQ TAB PO SCH (08:36)
[2016-08-28] MEDS: metFORMIN 850 MG TAB PO SCH (08:36)
[2016-08-28] MEDS: HYDROCHLOROTHIAZIDE 25 MG TAB PO SCH (08:36)
[2016-08-28] MEDS: PAROXETINE 10 MG TAB PO SCH (08:36)
[2016-08-28] MEDS: ENOXAPARIN 40 MG/0.4 ML SYG SC SCH (08:40)
[2016-08-28] MEDS ORDERED: CEPHALEXIN 500 MG CAP PO SCH (14:00)
--- NOTE | 2016-08-28 14:41 | PDOCDIS ---
Discharge Instructions CONDITION Patient Condition: Stable HOME CARE INSTRUCTIONS: Special Diet: 1800 DIMITRY ACTIVITY: Activity Restrictions: Slowly Increase Activity Rest between Activity Avoid heavy lifting Do not operate Machinery Do not operate Power Tool Avoid Heavy Housework AHMET BOURNE August 28, 2016 14:41
--- NOTE | 2016-08-28 14:42 | DS ---
Date/Time of Note Date/Time of Note DATE: 08/28/16 TIME: 14:42 Discharge Summary Admission/Discharge Info Admit Date/Time August 24, 2016 at 15:13 Discharge Date/Time Hospital Course Assessment/Plan 1. Left knee cellulitis. Continue cefazolin. 2. Status post fall. Continue physical therapy. 3. Hypertension. Continue Diovan. 4. Diabetes mellitus with hemoglobin A1c 6. Continue metformin and NovoLog per mild algorithm sliding scale. 5. Dyslipidemia. Continue statin. 6. Obesity. 7. Osteoarthritis. 8. Anxiety and depression. Continue Paxil. 9. Hypokalemia, potassium replaced, continue to monitor electrolytes. Case management for DC planning Further recommendations based on clinical course. Plan of care discussed with Dr. Justin. Home Meds Reported Medications Valsartan* (Diovan*) 160 Mg Tablet, 160 MG PO DAILY, TAB 08/22/16 Atorvastatin Calcium* (Atorvastatin Calcium*) 20 Mg Tablet, 20 MG PO QHS, #30 TAB 08/22/16 Hydrochlorothiazide* (Hydrochlorothiazide*) 25 Mg Tab, 25 MG PO DAILY, #30 TAB 08/22/16 Potassium Chloride* (K-Dur*) 10 Meq Tab.prt.sr, 20 MEQ PO BID, TAB 08/22/16 Metformin Hcl* (Metformin Hcl*) 850 Mg Tablet, 850 MG PO WITH BREAKFAST DINNE, # 30 TAB 08/22/16 Alprazolam* (Xanax*) 1 Mg Tab, 1 MG PO QHS Y for SLEEP, TAB 08/22/16 Paroxetine Hcl* (Paxil*) 10 Mg Tablet, 10 MG PO DAILY, TAB 03/18/14 Pantoprazole* (Protonix*) 40 Mg Tablet.dr, 40 MG PO BID, TAB 03/18/14 Discontinued Reported Medications Valsartan-Hydrochlorothiazide (Valsartan-HCTZ) 160-25 Mg Tablet, 1 TAB PO DAILY , #30 TAB 05/24/16 Potassium Chloride* (Potassium Chloride*) 20 Meq Tablet.er, 20 MEQ PO DAILY, TAB.SA 03/18/14 Metformin Hcl* (Metformin Hcl* ER) 750 Mg Tab.sr.24h, 850 MG PO BID, TAB 03/18/14 Alprazolam* (Xanax*) 0.5 Mg Tab, 0.5 MG PO Q8H Y for ANXIETY, TAB 03/18/14 Pravastatin Sodium* (Pravastatin Sodium*) 20 Mg Tablet, 20 MG PO HS, TAB 03/18/14 Primary Care Provider Jermaine Justin MD Pending Labs Laboratory Tests Test 08/27/16 17:36 08/27/16 20:51 08/28/16 05:15 08/28/16 07:45 Bedside Glucose 110mg/dL (70-220) 95mg/dL (70-220) 93mg/dL (70-220) White Blood Count 8.110^3/ul (4.8-10.8) Red Blood Count 4.3610^6/ul (4.20-5.40) Hemoglobin 12.1g/dl (12.0-16.0) Hematocrit 37.2% (37.0-47.0) Mean Corpuscular Volume 85.3fl (82.0-101.0) Mean Corpuscular Hemoglobin 27.8pg (29.0-33.0) Mean Corpuscular Hemoglobin Concent 32.5g/dl (32.0-37.0) Red Cell Distribution Width 14.6% (11.5-14.5) Platelet Count 22532^3/UL (140-415) Mean Platelet Volume 9.9fl (7.4-10.4) Neutrophils % 52.5% (39.0-77.0) Lymphocytes % 35.7% (15.0-51.0) Monocytes % 7.0% (0.0-11.0) Eosinophils % 3.3% (0.0-7.0) Basophils % 0.6% (0.0-2.0) Nucleated Red Blood Cells % 0.0/100WBC (0.0-0.0) Neutrophils # 4.310^3/ul (1.6-7.5) Lymphocytes # 2.910^3/ul (0.8-2.9) Monocytes # 0.610^3/ul (0.3-0.9) Eosinophils # 0.310^3/ul (0.0-0.5) Basophils # 0.110^3/ul (0.0-0.1) Nucleated Red Blood Cells # 0.010^3/ul (0.0-0.0) Sodium Level 140mmol/L (135-144) Potassium Level 3.6mmol/L (3.5-5.1) Chloride Level 104mmol/L (97-110) Carbon Dioxide Level 30mmol/L (21-31) Anion Gap 10 (8-16) Blood Urea Nitrogen 17mg/dl (7-20) Creatinine 0.60mg/dl (0.44-1.00) Glucose Level 96mg/dl (70-220) Calcium Level 8.9mg/dl (8.4-10.2) Test 08/28/16 11:58 Bedside Glucose 78mg/dL (70-220) AHMET BOURNE August 28, 2016 14:42
== END 2016-08-28 16:35 | DRG 603 ==
LOC: E/R 14:58 → UNDOADMOB 18:58 → TEL 18:58 → UNDOADMOB 19:50 → TEL 08-23 16:50 → MS2 08-23 16:50 → OBSVTOIN 08-24 15:13
PROVIDERS: ADMIT Internal Medicine; ATTEND Internal Medicine
DX: L03.116 Cellulitis of left lower limb (principal); E11.9 Type 2 diabetes mellitus without complications; I10 Essential (primary) hypertension; E78.5 Hyperlipidemia, unspecified; E66.9 Obesity, unspecified; Z68.34 Body mass index [BMI] 34.0-34.9, adult; F41.9 Anxiety disorder, unspecified; F32.9 Major depressive disorder, single episode, unspecified; E87.6 Hypokalemia; M19.90 Unspecified osteoarthritis, unspecified site; Z96.651 Presence of right artificial knee joint
CPT/HCPCS: 36415; 70450; 71010; 80048; 80053; 82962; 83036; 84443; 84484; 85025; 85610; 85730; 87081; 93005; 93306; 93970; 97110; 97116; 97162; 97530; G0378; J0690; J1650; J1815; J7040

== ENCOUNTER 2016-11-13 18:23 | Emergency (ER) | payer MEDICARE, BC ==
[~2016-11-13] VITALS: Ht 154.9 cm; Wt 83.2 kg
[~2016-11-13 18:23] MED LIST changes: -ALPR0.5T PO; +ALPR1TAB2 PO; +ATOR20TA38 PO; +HYD25 PO; -METF750T2 PO; +METF850T PO; +POTA10TA37 PO; -POTA20TA96 PO; -PRAV20TA63 PO; +VALS160T20 PO; -VALS1TAB78 PO
[2016-11-13 18:28] VITALS: Ht 154.9 cm; Wt 83.2 kg
[2016-11-13] MEDS ORDERED: SOD CHLORIDE 0.9% 1,000 ML IV STA (18:29)
[2016-11-13 19:05] LABS: BASOPHIL # 0.1 10^3/ul (0.0-0.1); BASOPHILS % 0.4 % (0.0-2.0); EOSINOPHILS # 0.2 10^3/ul (0.0-0.5); EOSINOPHILS % 1.5 % (0.0-7.0); HEMATOCRIT 37.7 % (37.0-47.0); HEMOGLOBIN 12.6 g/dl (12.0-16.0); LYMPHOCYTES # 3.3 10^3/ul (0.8-2.9); LYMPHOCYTES % 23.1 % (15.0-51.0); MEAN CORPUSCULAR HEMOGLOBIN 27.9 pg (29.0-33.0); MEAN CORPUSCULAR HGB CONC 33.4 g/dl (32.0-37.0); MEAN CORPUSCULAR VOLUME 83.4 fl (82.0-101.0); MEAN PLATELET VOLUME 9.4 fl (7.4-10.4); MONOCYTE # 0.8 10^3/ul (0.3-0.9); MONOCYTES % 5.5 % (0.0-11.0); NEUTROPHIL # 9.7 10^3/ul (1.6-7.5); NEUTROPHILS % 68.8 % (39.0-77.0); PLATELET COUNT 296 10^3/UL (140-415); RED BLOOD COUNT 4.52 10^6/ul (4.20-5.40); RED CELL DISTRIBUTION WIDTH 14.2 % (11.5-14.5); WHITE BLOOD COUNT 14.1 10^3/ul (4.8-10.8)
[2016-11-13 19:23] LABS: ANION GAP 17 (8-16); BLOOD UREA NITROGEN 18 mg/dl (7-20); CALCIUM 9.4 mg/dl (8.4-10.2); CARBON DIOXIDE 31 mmol/L (21-31); CHLORIDE 98 mmol/L (97-110); CREATININE 0.71 mg/dl (0.44-1.00); GLUCOSE 90 mg/dl (70-220); POTASSIUM 4.1 mmol/L (3.5-5.1); SODIUM 142 mmol/L (135-144)
[2016-11-13 19:33] LABS: INR 0.91; PROTIME 12.2 Sec (12.2-14.2)
[2016-11-13 19:34] LABS: PARTIAL THROMBOPLASTIN TIME 25.4 Sec (25.0-35.0)
[2016-11-13 19:40] LABS: TROPONIN-I < 0.012 ng/ml (0.00-0.12)
--- NOTE | 2016-11-13 19:45 | RADRPT ---
PROCEDURE: CT Brain without contrast. CLINICAL INDICATION: Neurologic deficits. Possible stroke. TECHNIQUE: A CT of the brain was performed on a multidetector CT scanner utilizing axial sections from the skull base through the vertex without contrast. Images were reviewed on a high-resolution [employer] workstation. Exam CTDI = 44.46 mGy and the DLP = 630.20 mGy-cm. One or more of the following dose reduction techniques were used: Automated exposure control Adjustment of the mA and/or kV according to patient size. Use of iterative reconstruction technique. COMPARISON: Head CT 08/22/2016 FINDINGS: Mild to moderate diffuse cerebral and cerebellar atrophy is present. There is proportionate dilatat ion of the ventricular system and sulci in a symmetric fashion. There is prominence of the extraaxia l spaces secondary to atrophy. There is no evidence of intracranial hemorrhage, mass effect or midli ne shift. No abnormal intra-axial or extra-axial fluid collections are seen. The density of the br ain is normal and the paul/white matter differentiation is well preserved. Mild to moderate patchy diffuse deep white matter microangiopathic ischemic change is seen. there is thinning of the lens es. The osseous structures are unremarkable. Paranasal sinuses are clear. Vascular calcifications a re identified. There are metallic radiopacity is around the right TMJ joint. IMPRESSION: 1. No intracranial hemorrhage, mass effect or midline shift. 2. Mild to moderate generalized atrophy. Mild to moderate microangiopathic ischemic change. 3. Intracranial atherosclerosis. RPTAT: [facility] .Alton Evans MD, MD Date Time Electronically viewed and signed by .Alton Evans MD, on 11/13/2016 19:44 .O/
--- NOTE | 2016-11-13 19:47 | RADRPT ---
PROCEDURE: XR Chest. CLINICAL INDICATION: Possible stroke. TECHNIQUE: Single frontal view of the chest was obtained COMPARISON: 05/24/2016. FINDINGS: Cardiomegaly. Left lung base atelectasis versus airspace disease is new over interval. Hypoinflated lungs accentu ate pulmonary vascular markings. There is no pleural effusion or pneumothorax. IMPRESSION: Mild left lung base atelectasis versus airspace disease is new over the interval. RPTAT: [facility] Physician Sachin Date Time Electronically viewed and signed by Physician Sachin on 11/13/2016 19:46 RS/
--- NOTE | 2016-11-13 19:49 | RADRPT ---
PROCEDURE: Left knee x-ray CLINICAL INDICATION: Multiple falls. TECHNIQUE: AP, lateral and oblique views of the left knee were obtained. COMPARISON: Right knee plain film series dated 09/29/2014. FINDINGS: Right knee arthroplasty without evident hardware complication. Likely bone on bone or near bone on bone articulation in the left knee compatible with degenerative changes. This is greater in the late ral joint compartment. No acute fracture dislocation. No evident soft tissue swelling. IMPRESSION: 1. No evident hardware complication or acute fracture. 2. Degenerative changes in the left knee with bone on bone versus near bone on bone articulation. RPTAT: [facility] Physician Sachin Date Time Electronically viewed and signed by Physician Sachin on 11/13/2016 19:49 RS/
[2016-11-13] MEDS ORDERED: IBUP-1542 PO (20:04)
--- NOTE | 2016-11-13 20:07 | ERD ---
ER Documentation Chief Complaint Date/Time DATE: 11/13/16 TIME: 20:07 Chief Complaint DIZZINESS WITH FALL X 2 TODAY. HIT HEAD WITH NO LOC ROS All systems reviewed and are negative except as per history of present illness. Medications Home Meds Active Scripts Ibuprofen* (Motrin*) 600 Mg Tab, 600 MG PO Q8, #30 TAB Prov:FLORECITA FOSTER MD 11/13/16 Reported Medications Valsartan* (Diovan*) 160 Mg Tablet, 160 MG PO DAILY, TAB 08/22/16 Atorvastatin Calcium* (Atorvastatin Calcium*) 20 Mg Tablet, 20 MG PO QHS, #30 TAB 08/22/16 Hydrochlorothiazide* (Hydrochlorothiazide*) 25 Mg Tab, 25 MG PO DAILY, #30 TAB 08/22/16 Potassium Chloride* (K-Dur*) 10 Meq Tab.prt.sr, 20 MEQ PO BID, TAB 08/22/16 Metformin Hcl* (Metformin Hcl*) 850 Mg Tablet, 850 MG PO WITH BREAKFAST DINNE, # 30 TAB 08/22/16 Alprazolam* (Xanax*) 1 Mg Tab, 1 MG PO QHS Y for SLEEP, TAB 08/22/16 Paroxetine Hcl* (Paxil*) 10 Mg Tablet, 10 MG PO DAILY, TAB 03/18/14 Pantoprazole* (Protonix*) 40 Mg Tablet.dr, 40 MG PO BID, TAB 03/18/14 Allergies Allergies: Coded Allergies: No Known Drug Allergies (Unverified Allergy, Unknown, 08/22/16) PMhx/Soc History of Surgery: Yes (R Knee) Anesthesia Reaction: No Hx Neurological Disorder: No Hx Respiratory Disorders: No Hx Cardiac Disorders: Yes (HTN) Hx Psychiatric Problems: No Hx Miscellaneous Medical Probl: Yes (DM) Hx Alcohol Use: No Hx Substance Use: No Hx Tobacco Use: No Smoking Status: Never smoker Physical Exam Vitals Vital Signs Date Time Temp Pulse Resp B/P Pulse Ox O2 Delivery O2 Flow Rate FiO2 11/13/16 19:53 81 20 138/71 97 Room Air 11/13/16 18:57 84 17 126/63 96 Room Air 11/13/16 18:28 98.2 87 18 151/80 96 Physical Exam Const: [] Head: Atraumatic Eyes: Normal Conjunctiva ENT: Normal External Ears, Nose and Mouth. Neck: Full range of motion..~ No meningismus. Resp: Clear to auscultation bilaterally Cardio: Regular rate and rhythm, no murmurs Abd: Soft, non tender, non distended. Normal bowel sounds Skin: No petechiae or rashes Back: No midline or flank tenderness Ext: No cyanosis, or edema Neur: Awake and alert Psych: Normal Mood and Affect Result Diagram: 11/13/162 11/13/16 1852 Results 24 hrs Laboratory Tests Test 11/13/16 18:47 11/13/16 18:52 Bedside Glucose 91mg/dL White Blood Count 14.110^3/ul Red Blood Count 4.5210^6/ul Hemoglobin 12.6g/dl Hematocrit 37.7% Mean Corpuscular Volume 83.4fl Mean Corpuscular Hemoglobin 27.9pg Mean Corpuscular Hemoglobin Concent 33.4g/dl Red Cell Distribution Width 14.2% Platelet Count 32822^3/UL Mean Platelet Volume 9.4fl Neutrophils % 68.8% Lymphocytes % 23.1% Monocytes % 5.5% Eosinophils % 1.5% Basophils % 0.4% Nucleated Red Blood Cells % 0.0/100WBC Neutrophils # 9.710^3/ul Lymphocytes # 3.310^3/ul Monocytes # 0.810^3/ul Eosinophils # 0.210^3/ul Basophils # 0.110^3/ul Nucleated Red Blood Cells # 0.010^3/ul Prothrombin Time 12.2Sec Prothrombin Time Ratio 1.0 INR International Normalized Ratio 0.91 Activated Partial Thromboplast Time 25.4Sec Sodium Level 142mmol/L Potassium Level 4.1mmol/L Chloride Level 98mmol/L Carbon Dioxide Level 31mmol/L Anion Gap 17 Blood Urea Nitrogen 18mg/dl Creatinine 0.71mg/dl Glucose Level 90mg/dl Hemoglobin A1c 5.6% Calcium Level 9.4mg/dl Troponin I < 0.012ng/ml Current Medications Medications (Trade) Dose Ordered Sig/Hugo Route PRN Reason Start Time Stop Time Status Last Admin Dose Admin Sodium Chloride (NS) 1,000 ml @ 1,000 mls/hr Q1H STAT IV 11/13/16 18:29 11/13/16 19:28 DC 11/13/16 18:57 Procedures/MDM EKG read by me: Rate/Rhythm: Regular rate and rhythm at a rate of 85 Intervals: Normal Impression: No evidence of ischemia or arrhythmia Departure Diagnosis: Primary Impression: Concussion Encounter type: initial encounter Loss of consciousness presence/duration: without LOC Qualified Code: S06.0X0A - Concussion, without LOC, initial encounter Additional Impression: Fall Encounter type: initial encounter Qualified Code: W19.XXXA - Fall, initial encounter Condition: Fair Patient Instructions: After a Concussion, Fall, Uncertain Cause Additional Instructions: Call your primary care doctor TOMORROW for an appointment during the next 1-2 days.See the doctor sooner or return here if your condition worsens before your appointment time. FLORECITA FOSTER MD Nov 13, 2016 20:07
[2016-11-13 20:21] LABS: URINE BLOOD (Dip) POC Trace-intact (NEGATIVE)
[2016-11-13 20:54] LABS: ADD UMIC NO; UR ASCORBIC ACID NEGATIVE (NEGATIVE); UR BILIRUBIN (Dip) NEGATIVE (NEGATIVE); UR BLOOD (Dip) NEGATIVE (NEGATIVE); UR CLARITY CLEAR (CLEAR); UR COLOR YELLOW (YELLOW); UR GLUCOSE (Dip) NEGATIVE (NEGATIVE); UR KETONES (Dip) NEGATIVE (NEGATIVE); UR LEUKOCYTE ESTERASE (Dip) NEGATIVE Leu/ul (NEGATIVE); UR NITRITE (Dip) NEGATIVE (NEGATIVE); UR SPECIFIC GRAVITY (Dip) 1.014 (1.003-1.030); UR TOTAL PROTEIN (Dip) NEGATIVE (NEGATIVE); UR UROBILINOGEN (Dip) NEGATIVE (NEGATIVE)
[2016-11-13 21:10] LABS: BARBITURATES Negative (NEGATIVE); COCAINE Negative (NEGATIVE); OPIATES Negative (NEGATIVE)
[2016-11-13 21:19] VITALS: BP 144/98; PULSE 86; RESP 21
[2016-11-13 21:37] LABS: BENZODIAZEPINES POSITIVE (NEGATIVE); CANNABINOIDS NEGATIVE (NEGATIVE)
== END 2016-11-13 21:10 | disposition home or self-care (01) ==
LOC: E/R 18:23
DX: S06.0X0A Concussion without loss of consciousness, initial encounter (principal); I10 Essential (primary) hypertension; E11.9 Type 2 diabetes mellitus without complications; R07.9 Chest pain, unspecified; W18.09XA Striking against other object with subsequent fall, initial encounter; Y92.9 Unspecified place or not applicable; Z79.84 Long term (current) use of oral hypoglycemic drugs
CPT/HCPCS: 36415; 70450; 71010; 73562; 80048; 80307; 81003; 82962; 83036; 84484; 85025; 85610; 85730; 93005; 99285; J7030

== ENCOUNTER 2016-11-15 10:39 | Inpatient (IN) | payer MEDICARE, BC ==
[~2016-11-15] VITALS: Ht 154.9 cm; Wt 85.3 kg
[~2016-11-15 10:39] MED LIST changes: +IBUP-1542 PO
[2016-11-15] MEDS ORDERED: ACETAMINOPHEN 325 MG TAB PO PRN (11:00)
[2016-11-15] MEDS ORDERED: LORAZEPAM 2 MG INJ IV ONE (11:00)
[2016-11-15] MEDS ORDERED: ONDANSETRON 4 MG INJ IV PRN (11:00)
[2016-11-15] MEDS ORDERED: ASPI81TA3 PO (11:24)
--- NOTE | 2016-11-15 11:38 | RADRPT ---
PROCEDURE: Chest x-ray CLINICAL INDICATION: Stroke TECHNIQUE: Chest single view COMPARISON: 11/13/2016 FINDINGS: There is mild cardiomegaly and an sclerotic aortic calcification. The pulmonary vessels are normal in caliber. There is mild persistent left lower lobe atelectasis. Lungs otherwise clear. No new in filtrates are seen. Costophrenic angles are sharp. IMPRESSION: No acute cardiopulmonary disease. Stable left lower lobe atelectasis RPTAT: HH .Chepe Llamas MD, Date Time Electronically viewed and signed by .Chepe Llamas MD, on 11/15/2016 11:37 .W/
--- NOTE | 2016-11-15 12:04 | RADRPT ---
PROCEDURE: CT Brain without. CLINICAL INDICATION: Possible stroke. Severe dizziness. TECHNIQUE: A CT of the brain was performed on multidetector high-resolution CT scanner utilizing a xial sections from the skull base through the vertex without contrast. The scan was reviewed in sof t tissue brain and high frequency resolution bone algorithm windows. Images were reviewed on a high -resolution PACS workstation. One or more the following does reduction techniques were utilized: Aut omated exposure control, adjustment of the mA/ or kV according to patient's size, or use of iterativ e reconstruction technique. The exam CTDI = 44.26 mGy and the DLP = 630.2 mGy-cm. COMPARISON: Brain CT 11/13/2016. FINDINGS: The ventricles and sulci are mildly to moderately prominent indicative of volume loss. There is no i ntracranial hemorrhage, mass effect or midline shift. No abnormal intra-axial or extra-axial fluid collections are seen. The paul/white matter differentiation is preserved. There are mild to moderate scattered foci of hypoattenuation in the white matter, which are nonspeci fic in etiology but likely reflect chronic small vessel ischemic changes. There are mild to moderat e intracranial vascular calcifications consistent with atherosclerosis. The visualized paranasal sin uses are essentially clear. IMPRESSION: 1. No acute intracranial hemorrhage, transcortical infarction or mass effect. Please note MRI is mo re sensitive for detection of acute ischemia and can be obtained as clinically warranted. 2. Mild to moderate intracranial atherosclerosis and chronic small vessel ischemic changes. 3. Mild to moderate generalized cerebral volume loss. RPTAT: AA .Adri Sheets MD, MD Date Time Electronically viewed and signed by .Adri Sheets MD, MD on 11/15/2016 12:04 .N/
[2016-11-15 12:28] LABS: INR 0.91; PROTIME 12.2 Sec (12.2-14.2)
[2016-11-15 12:29] LABS: PARTIAL THROMBOPLASTIN TIME 22.4 Sec (25.0-35.0)
[2016-11-15 12:33] LABS: ANION GAP 18 (8-16); BLOOD UREA NITROGEN 16 mg/dl (7-20); CALCIUM 9.2 mg/dl (8.4-10.2); CARBON DIOXIDE 29 mmol/L (21-31); CHLORIDE 101 mmol/L (97-110); CREATININE 0.67 mg/dl (0.44-1.00); GLUCOSE 91 mg/dl (70-220); POTASSIUM 4.1 mmol/L (3.5-5.1); SODIUM 144 mmol/L (135-144)
[2016-11-15 12:43] LABS: TROPONIN-I < 0.012 ng/ml (0.00-0.12)
[2016-11-15 12:51] LABS: BASOPHIL # 0.1 10^3/ul (0.0-0.1); BASOPHILS % 0.7 % (0.0-2.0); EOSINOPHILS # 0.1 10^3/ul (0.0-0.5); EOSINOPHILS % 1.6 % (0.0-7.0); HEMATOCRIT 35.7 % (37.0-47.0); HEMOGLOBIN 11.8 g/dl (12.0-16.0); LYMPHOCYTES # 2.6 10^3/ul (0.8-2.9); LYMPHOCYTES % 29.1 % (15.0-51.0); MEAN CORPUSCULAR HEMOGLOBIN 27.5 pg (29.0-33.0); MEAN CORPUSCULAR HGB CONC 33.1 g/dl (32.0-37.0); MEAN CORPUSCULAR VOLUME 83.2 fl (82.0-101.0); MEAN PLATELET VOLUME 9.2 fl (7.4-10.4); MONOCYTE # 0.6 10^3/ul (0.3-0.9); MONOCYTES % 6.6 % (0.0-11.0); NEUTROPHIL # 5.4 10^3/ul (1.6-7.5); NEUTROPHILS % 61.2 % (39.0-77.0); PLATELET COUNT 259 10^3/UL (140-415); RED BLOOD COUNT 4.29 10^6/ul (4.20-5.40); RED CELL DISTRIBUTION WIDTH 14.2 % (11.5-14.5); WHITE BLOOD COUNT 8.8 10^3/ul (4.8-10.8)
[2016-11-15 13:25] VITALS: Ht 154.9 cm; Wt 85.3 kg
--- NOTE | 2016-11-15 13:25 | ERA ---
ER Documentation Chief Complaint Date/Time DATE: 11/15/16 TIME: 13:23 Chief Complaint DIZZINESS, HEADACHE SINCE MONDAY HPI Patient is an 81-year-old female with hypertension and diabetes who presents with dizziness. The dizziness started this morning. She says "I could not get off by bed". She was here for similar symptoms on Monday and she had 2 falls prior to that visit. She was sent to the ER by Dr. Justin her primary doctor for admission. She admits to a mild headache as well. She has had no treatment as of yet. ROS All systems reviewed and are negative except as per history of present illness. Medications Home Meds Active Scripts Ibuprofen* (Motrin*) 600 Mg Tab, 600 MG PO Q8, #30 TAB Prov:FLORECITA FOSTER MD 11/13/16 Reported Medications Aspirin* (Aspirin* Chew) 81 Mg Tab.chew, 81 MG PO DAILY, TAB.CHEW 11/15/16 Valsartan* (Diovan*) 160 Mg Tablet, 160 MG PO DAILY, TAB 08/22/16 Atorvastatin Calcium* (Atorvastatin Calcium*) 20 Mg Tablet, 20 MG PO QHS, #30 TAB 08/22/16 Hydrochlorothiazide* (Hydrochlorothiazide*) 25 Mg Tab, 25 MG PO DAILY, #30 TAB 08/22/16 Potassium Chloride* (K-Dur*) 10 Meq Tab.prt.sr, 20 MEQ PO BID, TAB 08/22/16 Metformin Hcl* (Metformin Hcl*) 850 Mg Tablet, 850 MG PO WITH BREAKFAST DINNE, # 30 TAB 08/22/16 Alprazolam* (Xanax*) 1 Mg Tab, 1 MG PO QHS Y for SLEEP, TAB 08/22/16 Paroxetine Hcl* (Paxil*) 10 Mg Tablet, 10 MG PO DAILY, TAB 03/18/14 Pantoprazole* (Protonix*) 40 Mg Tablet.dr, 40 MG PO BID, TAB 03/18/14 Allergies Allergies: Coded Allergies: No Known Drug Allergies (Unverified Allergy, Unknown, 08/22/16) PMhx/Soc History of Surgery: Yes (R Knee) Anesthesia Reaction: No Hx Neurological Disorder: No Hx Respiratory Disorders: No Hx Cardiac Disorders: Yes (HTN) Hx Psychiatric Problems: No Hx Miscellaneous Medical Probl: Yes (DM) Hx Alcohol Use: No Hx Substance Use: No Hx Tobacco Use: No Smoking Status: Never smoker FmHx Family History: No diabetes Physical Exam Vitals Vital Signs Date Time Temp Pulse Resp B/P Pulse Ox O2 Delivery O2 Flow Rate FiO2 11/15/16 10:42 97.7 79 18 148/87 99 Physical Exam Const: Mild distress secondary to dizziness Head: Atraumatic Eyes: Normal Conjunctiva ENT: Normal External Ears, Nose and Mouth. Neck: Full range of motion..~ No meningismus. Resp: Clear to auscultation bilaterally Cardio: Regular rate and rhythm, no murmurs Abd: Soft, non tender, non distended. Normal bowel sounds Skin: No petechiae or rashes Back: No midline or flank tenderness Ext: No cyanosis, or edema Neur: Awake and alert, no slurred speech, no weakness of the upper or lower extremities, cranial nerves II through XII are intact Psych: Normal Mood and Affect Result Diagram: 11/15/16 1235 11/15/16 1145 Procedures/MDM EKG read by me: Rate/Rhythm: Regular rate and rhythm at a normal rate Intervals: Normal Impression: No evidence of ischemia or arrhythmia CT brain shows no acute hemorrhage or mass per radiology. Chest x-ray shows no pneumonia or pneumothorax per radiology. Patient is an 81-year-old female presents with dizziness. She has hypertension and diabetes. Her symptoms are consistent with vertigo however there is potential for posterior circulation stroke. She is outside the window for TPA at this time and I do believe that admission to the hospital here at [facility] would be appropriate. I spoke with Dr. Justin who will admit the patient to a telemetry bed. Initial CT scan shows no signs of hemorrhage or mass. I am going to hold off on aspirin at this time until MRI would confirm stroke. Departure Diagnosis: Primary Impression: Dizziness Additional Impression: Anemia Qualified Code: D64.9 - Anemia, unspecified type Condition: FLORECITA Batres MD Nov 15, 2016 13:25
[2016-11-15 13:27] VITALS: PULSE 73
[2016-11-15 16:11] VITALS: PULSE 77
[2016-11-15 16:13] VITALS: BP 168/72; RESP 18
[2016-11-15 16:16] LABS: ADD UMIC NO; UR ASCORBIC ACID NEGATIVE (NEGATIVE); UR BILIRUBIN (Dip) NEGATIVE (NEGATIVE); UR BLOOD (Dip) NEGATIVE (NEGATIVE); UR CLARITY CLEAR (CLEAR); UR COLOR YELLOW (YELLOW); UR GLUCOSE (Dip) NEGATIVE (NEGATIVE); UR KETONES (Dip) NEGATIVE (NEGATIVE); UR LEUKOCYTE ESTERASE (Dip) NEGATIVE Leu/ul (NEGATIVE); UR NITRITE (Dip) NEGATIVE (NEGATIVE); UR TOTAL PROTEIN (Dip) NEGATIVE (NEGATIVE); UR UROBILINOGEN (Dip) NEGATIVE (NEGATIVE)
[2016-11-15] MEDS ORDERED: GLUCOSE GEL 15 GRAM TUBE PO PRN ×2 (16:30)
[2016-11-15] MEDS ORDERED: DEXTROSE 50% 50 ML SYRINGE IV PRN ×2 (16:30)
[2016-11-15] MEDS ORDERED: GLUCOSE GEL 15 GRAM TUBE BUCCAL PRN (16:30)
[2016-11-15] MEDS ORDERED: GLUCAGON 1 MG INJ IM PRN (16:30)
[2016-11-15 16:44] LABS: BARBITURATES Negative (NEGATIVE); BENZODIAZEPINES Positive (NEGATIVE); CANNABINOIDS Negative (NEGATIVE); COCAINE Negative (NEGATIVE); OPIATES Negative (NEGATIVE)
[2016-11-15] MEDS: INSULIN ASPART [NOVOLOG] 3 ML PEN SC SCH ×2 (17:30→21:00)
--- NOTE | 2016-11-15 17:44 | HP ---
Date/Time of Note Date/Time of Note DATE: 11/15/16 TIME: 17:26 Assessment/Plan VTE Prophylaxis VTE Prophylaxis Intervention: SCD's Lines/Catheters IV [facility] Saline Lock Assessment/Plan Assessment/Plan -Rule out stroke, CT of the head is negative, will obtain MRI of the head -Possible vertigo, start meclizine as needed. -Rule out acute coronary syndrome, cardiac enzymes every 8 hours 3. -Hypertension, continue hydrochlorothiazide and Diovan -Diabetes mellitus, continue metformin and NovoLog per mild algorithm sliding scale. -Osteoarthritis, patient was able to ambulate using walker -Obesity with BMI of 35.5. Further recommendations based on clinical course. Plan of care discussed with Dr. Justin HPI/ROS Admit Date/Time Admit Date/Time Nov 15, 2016 at 10:53 Hx of Present Illness The patient is an 81-year-old female with history of hypertension, diabetes, obesity, history of proctitis, osteoarthritis, status post bilateral total knee replacement, as well as anxiety and depression. Patient presented to the emergency room with complaints of dizziness. Patient's complains of headache and elevated blood pressure. Patient was sent to emergency room by primary care physician. Patient denies any fever chills denies any vomiting however stated that she feels nauseous. Patient underwent CT of the head in the emergency room which was negative for any acute intracranial hemorrhage, transcortical infarction or mass effect. Patient also underwent chest x-ray which was unremarkable. Patient will be admitted for further evaluation and management to telemetry floor. ROS 12 point review of system is negative unless for mentioned in HPI PMH/Family/Social Past Medical History obesity, history of proctitis, osteoarthritis, anxiety and depression. Medical History: diabetes, hypertension Past Surgical History S/p colonoscopy back in May 2016, which revealed thickening of the rectal fold. Status post bilateral knee replacement Social History Mother of chronic leukemia in her 70s. Father at age 66 of unknown cause. Alcohol Use: none Smoking Status: Never smoker Drug Use: none Exam/Review of Systems Vital Signs Vitals Vital Signs Date Time Temp Pulse Resp B/P Pulse Ox O2 Delivery O2 Flow Rate FiO2 11/15/16 16:13 98.8 74 18 168/72 93 Exam Constitutional: alert, oriented Head: atraumatic, normocephalic Eyes: nl conjunctiva Neck: non-tender, supple Respiratory: normal air movement Cardiovascular: nl pulses Gastrointestinal: non-tender, soft Musculoskeletal: nl extremities to inspection Extremities: normal pulses Neurological: nl mental status Skin: nl turgor Labs Result Diagram: 11/15/16 1235 11/15/16 1145 Medications Medications Current Medications Acetaminophen (Tylenol Tab) 650 mg Q4H PRN PO PAIN AND OR ELEVATED TEMP; Start 11/15/16 at 16:00 Paroxetine HCl (Paxil) 30 mg DAILY PO ; Start 11/16/16 at 09:00 Enoxaparin Sodium (Lovenox) 40 mg DAILY SC ; Start 11/15/16 at 16:00 Diagnostic Test (Pha) (Accu-Chek) 1 ea 02 XX ; Start 11/16/16 at 02:00 Meclizine HCl (Antivert) 25 mg BID PO ; Start 11/15/16 at 21:00 Miscellaneous Information 1 ea NOTE XX ; Start 11/15/16 at 16:30 Glucose (Glutose) 15 gm Q15M PRN PO DECREASED GLUCOSE; Start 11/15/16 at 16:30 Glucose (Glutose) 22.5 gm Q15M PRN PO DECREASED GLUCOSE; Start 11/15/16 at 16:30 Dextrose (D50w Syringe) 25 ml Q15M PRN IV DECREASED GLUCOSE; Start 11/15/16 at 16:30 Dextrose (D50w Syringe) 50 ml Q15M PRN IV DECREASED GLUCOSE; Start 11/15/16 at 16:30 Glucagon (Glucagen) 1 mg Q15M PRN IM DECREASED GLUCOSE; Start 11/15/16 at 16:30 Glucose (Glutose) 15 gm Q15M PRN BUCCAL DECREASED GLUCOSE; Start 11/15/16 at 16: 30 THAI DELACRUZ Nov 15, 2016 17:37
[2016-11-15] MEDS: ENOXAPARIN 40 MG/0.4 ML SYG SC SCH (17:47)
[2016-11-15] MEDS: PANTOPRAZOLE (EC) 40 MG TAB PO SCH (17:53)
[2016-11-15] MEDS: metFORMIN 850 MG TAB PO SCH ×2 (17:53→21:27)
[2016-11-15] MEDS ORDERED: INSULIN ASPART [NOVOLOG] 3 ML PEN SC SCH (18:05)
[2016-11-15 19:22] LABS: CREATINE KINASE 37 IU/L (23-200)
[2016-11-15 19:38] LABS: CK-MB < 0.22 ng/ml (0.0-2.4); TROPONIN-I < 0.012 ng/ml (0.00-0.12)
[2016-11-15 19:56] VITALS: BP 143/77; RESP 18
[2016-11-15 20:05] VITALS: PULSE 80
[2016-11-15] MEDS: MECLIZINE 25 MG TAB PO SCH (21:25)
[2016-11-15] MEDS: ATORVASTATIN 20 MG TAB PO SCH (21:25)
[2016-11-15] MEDS: IBUPROFEN 600 MG TAB PO SCH (21:26)
[2016-11-15 23:50] VITALS: BP 149/67; RESP 18
[2016-11-16] VITALS (11 sets, daily range): BP systolic 133–166; BP diastolic 65–77; PULSE 70–82; RESP 18
[2016-11-16 01:19] LABS: CREATINE KINASE 32 IU/L (23-200)
[2016-11-16 01:31] LABS: CK-MB 0.23 ng/ml (0.0-2.4)
[2016-11-16 01:32] LABS: TROPONIN-I < 0.012 ng/ml (0.00-0.12)
[2016-11-16] MEDS: ACCU-CHEK XX SCH (02:00)
[2016-11-16] MEDS ORDERED: ACCU-CHEK XX SCH ×2 (02:00)
[2016-11-16] MEDS: IBUPROFEN 600 MG TAB PO SCH ×2 (06:01→13:27)
[2016-11-16] MEDS: PANTOPRAZOLE (EC) 40 MG TAB PO SCH ×2 (06:01→17:52)
[2016-11-16 07:50] LABS: BASOPHIL # 0.1 10^3/ul (0.0-0.1); BASOPHILS % 0.6 % (0.0-2.0); EOSINOPHILS # 0.2 10^3/ul (0.0-0.5); EOSINOPHILS % 2.1 % (0.0-7.0); HEMATOCRIT 34.1 % (37.0-47.0); HEMOGLOBIN 11.2 g/dl (12.0-16.0); MEAN CORPUSCULAR HEMOGLOBIN 27.6 pg (29.0-33.0); MEAN CORPUSCULAR HGB CONC 32.8 g/dl (32.0-37.0); MEAN PLATELET VOLUME 9.1 fl (7.4-10.4); MONOCYTE # 0.6 10^3/ul (0.3-0.9); MONOCYTES % 7.8 % (0.0-11.0); NEUTROPHIL # 4.3 10^3/ul (1.6-7.5); NEUTROPHILS % 52.9 % (39.0-77.0); PLATELET COUNT 228 10^3/UL (140-415); RED BLOOD COUNT 4.06 10^6/ul (4.20-5.40); RED CELL DISTRIBUTION WIDTH 14.1 % (11.5-14.5); WHITE BLOOD COUNT 8.2 10^3/ul (4.8-10.8)
[2016-11-16] MEDS: INSULIN ASPART [NOVOLOG] 3 ML PEN SC SCH ×4 (08:00→21:00)
[2016-11-16 08:22] LABS: CREATINE KINASE 29 IU/L (23-200)
[2016-11-16 08:32] LABS: CK-MB < 0.22 ng/ml (0.0-2.4); TROPONIN-I < 0.012 ng/ml (0.00-0.12)
[2016-11-16] MEDS ORDERED: VALSARTAN 160 MG TAB PO SCH (09:00)
[2016-11-16] MEDS ORDERED: PAROXETINE 10 MG TAB PO SCH (09:00)
[2016-11-16] MEDS: ONDANSETRON 4 MG INJ IV PRN (09:40)
[2016-11-16] MEDS: MECLIZINE 25 MG TAB PO SCH ×2 (09:42→21:17)
[2016-11-16] MEDS: HYDROCHLOROTHIAZIDE 25 MG TAB PO SCH (09:43)
[2016-11-16] MEDS: ASPIRIN 81 MG TAB PO SCH (09:44)
[2016-11-16] MEDS: PAROXETINE 10 MG TAB PO SCH (09:45)
[2016-11-16] MEDS: ENOXAPARIN 40 MG/0.4 ML SYG SC SCH (09:46)
[2016-11-16 13:38] LABS: CREATINE KINASE 29 IU/L (23-200)
[2016-11-16 13:57] LABS: CK-MB < 0.22 ng/ml (0.0-2.4); TROPONIN-I < 0.012 ng/ml (0.00-0.12)
--- NOTE | 2016-11-16 15:32 | PN ---
Date/Time of Note Date/Time of Note DATE: 11/16/16 TIME: 15:24 Assessment/Plan VTE Prophylaxis VTE Prophylaxis Intervention: SCD's Lines/Catheters [facility] Saline Lock Assessment/Plan Chief Complaint/Hosp Course Patient's continues to complain of dizziness, and generalized weakness denies any chest pain denies shortness of breath, still pending MRI of the head. Assessment/Plan -Rule out stroke, CT of the head is negative, pending MRI of the head -Possible vertigo, continue meclizine as needed. -Rule out acute coronary syndrome, cardiac enzymes every 8 hours 3. -Hypertension, continue hydrochlorothiazide and Diovan -Diabetes mellitus, continue metformin and NovoLog per mild algorithm sliding scale. -Osteoarthritis, patient was able to ambulate using walker -Obesity with BMI of 35.5. Further recommendations based on clinical course. Plan of care discussed with Dr. Justin Problems: Exam/Review of Systems Vital Signs Vitals Vital Signs Date Time Temp Pulse Resp B/P Pulse Ox O2 Delivery O2 Flow Rate FiO2 11/16/16 12:32 78 11/16/16 12:01 99.1 18 164/77 92 Intake and Output 11/15/16 11/15/16 11/16/16 15:00 23:00 07:00 Intake Total 50 ml 400 ml Balance 50 ml 400 ml Exam Constitutional: alert, oriented Respiratory: normal air movement Cardiovascular: nl pulses Gastrointestinal: non-tender, soft Extremities: normal pulses Neurological: nl mental status Results Result Diagram: 11/16/16 0737 11/15/16 1145 Results 24 hrs Laboratory Tests Test 11/15/16 15:40 11/15/16 17:29 11/15/16 18:37 11/15/16 21:21 Urine Color YELLOW Urine Clarity CLEAR Urine pH 5.0 Urine Specific [place] 1.020 Urine Ketones NEGATIVE Urine Nitrite NEGATIVE Urine Bilirubin NEGATIVE Urine Urobilinogen NEGATIVE Urine Leukocyte Esterase NEGATIVE Urine Hemoglobin NEGATIVE Urine Glucose NEGATIVE Urine Total Protein NEGATIVE Urine Opiates Screen Negative Urine Barbiturates Negative Urine Amphetamines Screen Negative Urine Benzodiazepines Screen Positive Urine Cocaine Screen Negative Urine Cannabinoids Negative Bedside Glucose 93 103 Creatine Kinase 37 Creatine Kinase Index 0.6 Creatinine Kinase MB (Mass) < 0.22 Troponin I < 0.012 Test 11/16/16 00:32 11/16/16 07:37 11/16/16 08:16 11/16/16 12:15 Creatine Kinase 32 29 Creatine Kinase Index 0.7 0.8 Creatinine Kinase MB (Mass) 0.23 < 0.22 Troponin I < 0.012 < 0.012 White Blood Count 8.2 Red Blood Count 4.06 L Hemoglobin 11.2 L Hematocrit 34.1 L Mean Corpuscular Volume 84.0 Mean Corpuscular Hemoglobin 27.6 L Mean Corpuscular Hemoglobin Concent 32.8 Red Cell Distribution Width 14.1 Platelet Count 228 Mean Platelet Volume 9.1 Neutrophils % 52.9 Lymphocytes % 36.0 Monocytes % 7.8 Eosinophils % 2.1 Basophils % 0.6 Nucleated Red Blood Cells % 0.0 Neutrophils # 4.3 Lymphocytes # 3.0 H Monocytes # 0.6 Eosinophils # 0.2 Basophils # 0.1 Nucleated Red Blood Cells # 0.0 Bedside Glucose 97 104 Test 11/16/16 12:18 Creatine Kinase 29 Creatine Kinase Index 0.8 Creatinine Kinase MB (Mass) < 0.22 Troponin I < 0.012 Medications Medications Current Medications Acetaminophen (Tylenol Tab) 650 mg Q4H PRN PO PAIN AND OR ELEVATED TEMP; Start 11/15/16 at 16:00 Paroxetine HCl (Paxil) 30 mg DAILY PO Last administered on 11/16/16 09:45; Admin Dose 30 MG; Start 11/16/16 at 09:00 Enoxaparin Sodium (Lovenox) 40 mg DAILY SC Last administered on 11/16/16 09:46 ; Admin Dose 40 MG; Start 11/15/16 at 16:00 Diagnostic Test (Pha) (Accu-Chek) 1 ea 02 XX ; Start 11/16/16 at 02:00 Meclizine HCl (Antivert) 25 mg BID PO Last administered on 11/16/16 09:42; Admin Dose 25 MG; Start 11/15/16 at 21:00 Miscellaneous Information 1 ea NOTE XX ; Start 11/15/16 at 16:30 Glucose (Glutose) 15 gm Q15M PRN PO DECREASED GLUCOSE; Start 11/15/16 at 16:30 Glucose (Glutose) 22.5 gm Q15M PRN PO DECREASED GLUCOSE; Start 11/15/16 at 16:30 Dextrose (D50w Syringe) 25 ml Q15M PRN IV DECREASED GLUCOSE; Start 11/15/16 at 16:30 Dextrose (D50w Syringe) 50 ml Q15M PRN IV DECREASED GLUCOSE; Start 11/15/16 at 16:30 Glucagon (Glucagen) 1 mg Q15M PRN IM DECREASED GLUCOSE; Start 11/15/16 at 16:30 Glucose (Glutose) 15 gm Q15M PRN BUCCAL DECREASED GLUCOSE; Start 11/15/16 at 16: 30 Aspirin (Aspirin) 81 mg DAILY PO Last administered on 11/16/16 09:44; Admin Dose 81 MG; Start 11/16/16 at 09:00 Atorvastatin Calcium (Lipitor) 20 mg QHS PO Last administered on 11/15/16 21:25 ; Admin Dose 20 MG; Start 11/15/16 at 21:00 Hydrochlorothiazide (Hydrochlorothiazide) 25 mg DAILY PO Last administered on 09:43; Admin Dose 25 MG; Start 11/16/16 at 09:00 Ibuprofen (Motrin) 600 mg Q8 PO Last administered on 11/16/16 06:01; Admin Dose 600 MG; Start 11/15/16 at 22:00 Pantoprazole (Protonix Tab) 40 mg BID@06,18 PO Last administered on 11/16/16 06 :01; Admin Dose 40 MG; Start 11/15/16 at 18:00 Valsartan (Diovan) 160 mg DAILY PO Last administered on 11/16/16 09:44; Admin Dose 160 MG; Start 11/16/16 at 09:00 Ondansetron HCl (Zofran Inj) 4 mg Q6H PRN IV NAUSEA AND/OR VOMITING Last administered on 11/16/16 09:40; Admin Dose 4 MG; Start 11/16/16 at 09:30 THAI DELACRUZ Nov 16, 2016 15:32
--- NOTE | 2016-11-16 17:31 | RADRPT ---
PROCEDURE: MR Brain without contrast. CLINICAL INDICATION: Dizziness, vertigo TECHNIQUE: An MRI of the brain was performed utilizing the following sequences: Axial T1, axial T 2, axial FLAIR, coronal gradient echo, sagittal T1 FLAIR, diffusion weighted imaging, and ADC map. COMPARISON: CT head 11/13/2016 FINDINGS: There is moderate diffuse cerebral volume loss. The ventricles are symmetric and normal in configur ation. There is no mass, mass effect, or midline shift. There is no abnormal intra-axial or extra- axial fluid collection. There is small focal susceptibility artifact in the right posterior fronta l subcortical white matter, likely reflecting old blood products. There is no evidence of acute inf arct There are scattered areas of high T2 / FLAIR signal in the periventricular white matter, consistent with moderate small vessel ischemic changes. The sella and suprasellar cistern appear within normal limits. The brainstem and posterior fossa ar e normal in configuration. The orbital soft tissue contents display bilateral optic lens thinning. There is small foamy debris in the right maxillary sinus. IMPRESSION: 1. Moderate diffuse cerebral volume loss. Moderate small vessel ischemic changes. 2. Focal susceptibility artifact in the posterior right frontal lobe, most likely reflecting old bl ood products. This may relate to prior traumatic or hypertensive micro bleed, or underlying small c avernous malformation. 3. Small foamy appearing debris in the right maxillary sinus, which may reflect minimal acute sinus itis involvement. RPTAT: HBST .Cnadelario Singer MD, Date Time Electronically viewed and signed by .Candelario Singer MD, on 11/16/2016 17:31 .T/
[2016-11-16] MEDS: metFORMIN 850 MG TAB PO SCH (17:52)
[2016-11-16 18:41] LABS: CREATINE KINASE 32 IU/L (23-200)
[2016-11-16 18:42] LABS: CALCIUM 9.3 mg/dl (8.4-10.2); CREATININE 0.87 mg/dl (0.44-1.00); POTASSIUM 3.5 mmol/L (3.5-5.1)
[2016-11-16 18:52] LABS: CK-MB 0.27 ng/ml (0.0-2.4)
[2016-11-16 18:54] LABS: TROPONIN-I < 0.012 ng/ml (0.00-0.12)
[2016-11-16] MEDS ORDERED: IBUPROFEN 600 MG TAB PO PRN (19:00)
[2016-11-16] MEDS: ATORVASTATIN 20 MG TAB PO SCH (21:16)
[2016-11-16] MEDS: VALSARTAN 160 MG TAB PO SCH (21:17)
[2016-11-17] VITALS (11 sets, daily range): BP systolic 127–186; BP diastolic 60–76; PULSE 72–87; RESP 18–19
[2016-11-17 02:13] LABS: CREATINE KINASE 28 IU/L (23-200)
[2016-11-17 02:24] LABS: CK-MB 0.26 ng/ml (0.0-2.4)
[2016-11-17 02:26] LABS: TROPONIN-I < 0.012 ng/ml (0.00-0.12)
[2016-11-17] MEDS: ACCU-CHEK XX SCH (04:32)
[2016-11-17] MEDS: PANTOPRAZOLE (EC) 40 MG TAB PO SCH ×2 (06:22→19:00)
[2016-11-17 07:50] LABS: BASOPHILS % 0.5 % (0.0-2.0); EOSINOPHILS # 0.2 10^3/ul (0.0-0.5); HEMATOCRIT 34.9 % (37.0-47.0); HEMOGLOBIN 11.7 g/dl (12.0-16.0); LYMPHOCYTES # 2.7 10^3/ul (0.8-2.9); LYMPHOCYTES % 32.3 % (15.0-51.0); MEAN CORPUSCULAR HEMOGLOBIN 27.7 pg (29.0-33.0); MEAN CORPUSCULAR HGB CONC 33.5 g/dl (32.0-37.0); MEAN CORPUSCULAR VOLUME 82.5 fl (82.0-101.0); MONOCYTE # 0.6 10^3/ul (0.3-0.9); MONOCYTES % 7.3 % (0.0-11.0); NEUTROPHIL # 4.8 10^3/ul (1.6-7.5); NEUTROPHILS % 57.3 % (39.0-77.0); PLATELET COUNT 236 10^3/UL (140-415); RED BLOOD COUNT 4.23 10^6/ul (4.20-5.40); RED CELL DISTRIBUTION WIDTH 14.1 % (11.5-14.5); WHITE BLOOD COUNT 8.3 10^3/ul (4.8-10.8)
[2016-11-17] MEDS: INSULIN ASPART [NOVOLOG] 3 ML PEN SC SCH ×4 (08:00→21:00)
[2016-11-17 08:12] LABS: CALCIUM 9.1 mg/dl (8.4-10.2); CREATININE 0.79 mg/dl (0.44-1.00); POTASSIUM 3.2 mmol/L (3.5-5.1)
[2016-11-17] MEDS: VALSARTAN 160 MG TAB PO SCH ×2 (08:41→22:06)
[2016-11-17] MEDS: ASPIRIN 81 MG TAB PO SCH (08:42)
[2016-11-17] MEDS: PAROXETINE 10 MG TAB PO SCH (08:42)
[2016-11-17] MEDS: metFORMIN 850 MG TAB PO SCH ×2 (08:43→19:01)
[2016-11-17] MEDS: HYDROCHLOROTHIAZIDE 25 MG TAB PO SCH (08:43)
[2016-11-17] MEDS: MECLIZINE 25 MG TAB PO SCH ×2 (08:46→22:06)
--- NOTE | 2016-11-17 17:01 | RADRPT ---
PROCEDURE: MRA Brain. CLINICAL INDICATION: Dizziness, vertigo TECHNIQUE: An MRA of the brain was performed with and without intravenous contrast utilizing the f ollowing sequences: 3-D [id number] images through the intracranial vasculature with post process ed maximal intensity projections in multiple planes. Following the uneventful administration of 10 c c Magnevist. Post processed and maximal intensity projections were obtained and all images were rev iewed on a [employer] PACS system. COMPARISON: Brain MRI 11/16/2016. FINDINGS: The petrous, cavernous, and supraclinoid internal carotid artery segments are normal in caliber with out evidence of significant stenosis. The proximal anterior cerebral and middle cerebral arteries a re patent without significant stenosis. The intradural vertebral arteries, basilar artery and poste rior cerebral arteries are patent without evidence of significant focal stenosis. No aneurysms are i dentified. The area of previously noted focal susceptibility artifact in the posterior right frontal lobe is no t included in the study for evaluation. IMPRESSION: 1. Patent major intracranial arteries. 2. The area of previously noted focal susceptibility artifact in the posterior right frontal lobe i s not included in the study for evaluation. 3. Otherwise no MRA evidence of aneurysm or vascular malformation. RPTAT: HH .Adri Sheets MD, MD Date Time Electronically viewed and signed by .Adri Sheets MD, MD on 11/17/2016 17:01 .N/
[2016-11-17] MEDS ORDERED: POTASSIUM CHLORIDE (SR) 20 MEQ TAB PO STA (17:54)
--- NOTE | 2016-11-17 17:58 | PN ---
Date/Time of Note Date/Time of Note DATE: 11/17/16 TIME: 16:46 Assessment/Plan VTE Prophylaxis VTE Prophylaxis Intervention: other Lines/Catheters IV Catheter Type (from [facility]): Saline Lock Urinary Cath still in place: No Assessment/Plan Assessment/Plan -Hypokalemia- replet K, am BMP -Rule out stroke, CT of the head is negative, MRI of the head -Neurology consult-Dr. Stewart's notified -Possible vertigo, continue meclizine as needed. -Rule out acute coronary syndrome, cardiac enzymes every 8 hours 3. -Low-cholesterol low-sodium diet -Hypertension, continue hydrochlorothiazide and Diovan -Diabetes mellitus, continue metformin and NovoLog per mild algorithm sliding scale. -Osteoarthritis, patient was able to ambulate using walker -Obesity with BMI of 35.5. -Weight management - cONSTIPATION - bowel regimen Further recommendations based on clinical course. Plan of care discussed with Dr. Justin Subjective 24 Hr Interval Summary Free Text/Dictation NAD, alert/oriented, Dr Knowles in neurology notified , afebrile,denies any headache, nausea.vomitting dw staff. Eyes: no complaints ENT: no complaints Respiratory: no complaints Cardiovascular: no complaints Gastrointestinal: constipation Genitourinary: no complaints Musculoskeletal: no complaints Neurologic: headache Exam/Review of Systems Vital Signs Vitals Vital Signs Date Time Temp Pulse Resp B/P Pulse Ox O2 Delivery O2 Flow Rate FiO2 11/17/16 15:51 98.0 80 19 134/66 96 Intake and Output 11/16/16 11/16/16 11/17/16 15:00 23:00 07:00 Intake Total 600 ml 350 ml Output Total 1000 ml Balance 600 ml -650 ml Exam Constitutional: alert, oriented, well developed Psych: nl mood/affect Respiratory: clear to auscultation, normal air movement Cardiovascular: nl pulses, regular rate and rhythm Gastrointestinal: non-tender, soft Musculoskeletal: nl extremities to inspection Extremities: normal pulses Neurological: nl mental status, nl speech Results Result Diagram: 11/17/16 0721 11/17/16 0724 Results 24 hrs Laboratory Tests Test 11/16/16 17:51 11/16/16 18:11 11/16/16 21:14 11/17/16 00:54 Bedside Glucose 101 98 Sodium Level 143 Potassium Level 3.5 Chloride Level 101 Carbon Dioxide Level 27 Anion Gap 19 H Blood Urea Nitrogen 16 Creatinine 0.87 Glucose Level 142 # Calcium Level 9.3 Creatine Kinase 32 28 Creatine Kinase Index 0.8 0.9 Creatinine Kinase MB (Mass) 0.27 0.26 Troponin I < 0.012 < 0.012 Test 11/17/16 07:21 11/17/16 07:24 11/17/16 08:40 11/17/16 11:37 White Blood Count 8.3 Red Blood Count 4.23 Hemoglobin 11.7 L Hematocrit 34.9 L Mean Corpuscular Volume 82.5 Mean Corpuscular Hemoglobin 27.7 L Mean Corpuscular Hemoglobin Concent 33.5 Red Cell Distribution Width 14.1 Platelet Count 236 Mean Platelet Volume 9.0 Neutrophils % 57.3 Lymphocytes % 32.3 Monocytes % 7.3 Eosinophils % 2.0 Basophils % 0.5 Nucleated Red Blood Cells % 0.0 Neutrophils # 4.8 Lymphocytes # 2.7 Monocytes # 0.6 Eosinophils # 0.2 Basophils # 0.0 Nucleated Red Blood Cells # 0.0 Sodium Level 145 H Potassium Level 3.2 L Chloride Level 100 Carbon Dioxide Level 30 Anion Gap 18 H Blood Urea Nitrogen 14 Creatinine 0.79 Glucose Level 97 # Calcium Level 9.1 Bedside Glucose 104 87 Medications Medications Current Medications Acetaminophen (Tylenol Tab) 650 mg Q4H PRN PO PAIN AND OR ELEVATED TEMP; Start 11/15/16 at 16:00 Paroxetine HCl (Paxil) 30 mg DAILY PO Last administered on 11/17/16 08:42; Admin Dose 30 MG; Start 11/16/16 at 09:00 Diagnostic Test (Pha) (Accu-Chek) 1 ea 02 XX ; Start 11/16/16 at 02:00 Meclizine HCl (Antivert) 25 mg BID PO Last administered on 11/17/16 08:46; Admin Dose 25 MG; Start 11/15/16 at 21:00 Miscellaneous Information 1 ea NOTE XX ; Start 11/15/16 at 16:30 Glucose (Glutose) 15 gm Q15M PRN PO DECREASED GLUCOSE; Start 11/15/16 at 16:30 Glucose (Glutose) 22.5 gm Q15M PRN PO DECREASED GLUCOSE; Start 11/15/16 at 16:30 Dextrose (D50w Syringe) 25 ml Q15M PRN IV DECREASED GLUCOSE; Start 11/15/16 at 16:30 Dextrose (D50w Syringe) 50 ml Q15M PRN IV DECREASED GLUCOSE; Start 11/15/16 at 16:30 Glucagon (Glucagen) 1 mg Q15M PRN IM DECREASED GLUCOSE; Start 11/15/16 at 16:30 Glucose (Glutose) 15 gm Q15M PRN BUCCAL DECREASED GLUCOSE; Start 11/15/16 at 16: 30 Aspirin (Aspirin) 81 mg DAILY PO Last administered on 11/17/16 08:42; Admin Dose 81 MG; Start 11/16/16 at 09:00 Atorvastatin Calcium (Lipitor) 20 mg QHS PO Last administered on 11/16/16 21:16 ; Admin Dose 20 MG; Start 11/15/16 at 21:00 Hydrochlorothiazide (Hydrochlorothiazide) 25 mg DAILY PO Last administered on 08:43; Admin Dose 25 MG; Start 11/16/16 at 09:00 Pantoprazole (Protonix Tab) 40 mg BID@,18 PO Last administered on 11/17/16 06:22; Admin Dose 40 MG; Start 11/15/16 at 18:00 Ondansetron HCl (Zofran Inj) 4 mg Q6H PRN IV NAUSEA AND/OR VOMITING Last administered on 11/16/16 09:40; Admin Dose 4 MG; Start 11/16/16 at 09:30 Ibuprofen (Motrin) 600 mg Q8H PRN PO PAIN LEVEL 4-7; Start 11/16/16 at 19:00 Valsartan (Diovan) 160 mg BID PO Last administered on 11/17/16 08:41; Admin Dose 160 MG; Start 11/16/16 at 21:00 AHMET BOURNE Nov 17, 2016 16:57
[2016-11-17] MEDS: DOCUSATE SODIUM 100 MG CAP PO SCH (19:00)
[2016-11-17] MEDS: ATORVASTATIN 20 MG TAB PO SCH (22:06)
[2016-11-18] VITALS (12 sets, daily range): BP systolic 123–144; BP diastolic 58–70; PULSE 71–90; RESP 17–19
[2016-11-18] MEDS: ACCU-CHEK XX SCH (02:00)
[2016-11-18] MEDS: PANTOPRAZOLE (EC) 40 MG TAB PO SCH ×2 (06:04→17:10)
[2016-11-18] MEDS: INSULIN ASPART [NOVOLOG] 3 ML PEN SC SCH ×4 (08:00→21:00)
[2016-11-18 08:11] LABS: BASOPHIL # 0.1 10^3/ul (0.0-0.1); BASOPHILS % 0.5 % (0.0-2.0); EOSINOPHILS # 0.2 10^3/ul (0.0-0.5); EOSINOPHILS % 2.2 % (0.0-7.0); HEMATOCRIT 35.6 % (37.0-47.0); HEMOGLOBIN 11.7 g/dl (12.0-16.0); LYMPHOCYTES # 2.7 10^3/ul (0.8-2.9); LYMPHOCYTES % 27.7 % (15.0-51.0); MEAN CORPUSCULAR HEMOGLOBIN 27.3 pg (29.0-33.0); MEAN CORPUSCULAR HGB CONC 32.9 g/dl (32.0-37.0); MEAN PLATELET VOLUME 9.3 fl (7.4-10.4); MONOCYTE # 0.8 10^3/ul (0.3-0.9); MONOCYTES % 7.8 % (0.0-11.0); NEUTROPHILS % 61.3 % (39.0-77.0); PLATELET COUNT 256 10^3/UL (140-415); RED BLOOD COUNT 4.29 10^6/ul (4.20-5.40); RED CELL DISTRIBUTION WIDTH 14.4 % (11.5-14.5); WHITE BLOOD COUNT 9.9 10^3/ul (4.8-10.8)
[2016-11-18] MEDS: PAROXETINE 10 MG TAB PO SCH (08:28)
[2016-11-18] MEDS: ASPIRIN 81 MG TAB PO SCH (08:28)
[2016-11-18] MEDS: metFORMIN 850 MG TAB PO SCH ×2 (08:28→17:20)
[2016-11-18] MEDS: MECLIZINE 25 MG TAB PO SCH ×2 (08:28→21:01)
[2016-11-18] MEDS: DOCUSATE SODIUM 100 MG CAP PO SCH (08:28)
[2016-11-18] MEDS: VALSARTAN 160 MG TAB PO SCH ×2 (08:29→21:02)
[2016-11-18] MEDS: HYDROCHLOROTHIAZIDE 25 MG TAB PO SCH (08:29)
[2016-11-18 08:45] LABS: CALCIUM 9.1 mg/dl (8.4-10.2); CREATININE 0.78 mg/dl (0.44-1.00); POTASSIUM 3.6 mmol/L (3.5-5.1)
[2016-11-18] MEDS ORDERED: DIPYRIDAMOLE/ASPIRIN (SR) CAP PO SCH (09:00)
[2016-11-18] MEDS: ALPRAZOLAM 0.25 MG TAB PO PRN (10:52)
[2016-11-18] MEDS ORDERED: ALPRAZOLAM 0.5 MG TAB PO PRN (11:00)
--- NOTE | 2016-11-18 11:26 | CONS ---
DATE OF ADMISSION: 11/15/2016 DATE OF CONSULTATION: 11/18/2016 HISTORY OF PRESENT ILLNESS: The patient is an 81-year-old lady who has a past medical history of hypertension, diabetes, obesity, proctitis, osteoarthritis, post bilateral total knee replacements, and anxiety and depression. The patient was admitted with acute dizzy spells, elevated blood pressure. We got a call about her for more evaluation and treatment. PAST MEDICAL HISTORY: Obesity. Proctitis. Osteoarthritis. Anxiety/depression. Diabetes. Hypertension. SOCIAL HISTORY: The patient does not smoke, does not drink, does not do any illicit drugs. PHYSICAL EXAMINATION: GENERAL APPEARANCE: The patient is awake, alert, oriented, following simple commands. HEART: Regular rate and rhythm. LUNGS: Equal breath sounds. ABDOMEN: Soft. Nondistended. Nontender. NEUROLOGIC: Cranial nerves II: Pupils equal on both sides, reactive to light. III, IV, XI: Extraocular muscles intact. VII: Symmetrical sensation to face. . VIII: Decreased hearing bilaterally. Cranial nerves IX, X: Elevated palate. Can elevate shoulders. XII: tongue. 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 Sensation: . [id number] is intact. ASSESSMENT AND PLAN:: 1. The patient is an 81-year-old with underlying stroke. I am going to change aspirin to Aggrenox twice a day for stroke prophylaxis. 2. Dyslipidemia. Follow up the patient's lipid panel. Maximize her statin. Begin Lipitor 20 mg once a day. 3. Follow up the patient with carotid Doppler and 2D echocardiogram. 4. Follow up the patient with fall precautions, physical therapy and rehab. 5. Hypertension. Keep the patient on valsartan 160 twice a day. 6. Depression. Keep the patient on Paxil 30 mg once a day. 7. History of diabetes. Follow up the patient with sliding scale insulin and Accu-Chek twice a day. Dictated By: Jude Louise MD /[email or web address]/[email or web address] /Document#: [id number]
[2016-11-18] MEDS: ACETAMINOPHEN 325 MG TAB PO PRN ×2 (12:10→15:36)
[2016-11-18] MEDS: BISACODYL (EC) 5 MG TAB PO PRN (17:20)
--- NOTE | 2016-11-18 18:21 | PN ---
Date/Time of Note Date/Time of Note DATE: 11/18/16 TIME: 18:19 Assessment/Plan VTE Prophylaxis VTE Prophylaxis Intervention: SCD's Lines/Catheters IV [facility] ([facility] Peripheral IV Urinary Cath still in place: No Assessment/Plan Chief Complaint/Hosp Course Patient's complains of headache earlier, continues to have intermittent dizziness. Patient lives alone and remains at high risk for fall, and safe for discharge. Continue PT. Assessment/Plan -Acute stroke ruled out. -Possible vertigo, continue meclizine as needed. -Rule out acute coronary syndrome, cardiac enzymes every 8 hours 3. -Hypertension, continue hydrochlorothiazide and Diovan -Diabetes mellitus, continue metformin and NovoLog per mild algorithm sliding scale. -Osteoarthritis, patient was able to ambulate using walker -Obesity with BMI of 35.5. Further recommendations based on clinical course. Plan of care discussed with Dr. Justin Problems: Exam/Review of Systems Vital Signs Vitals Vital Signs Date Time Temp Pulse Resp B/P Pulse Ox O2 Delivery O2 Flow Rate FiO2 11/18/16 16:54 77 11/18/16 15:48 98.2 17 144/70 93 Intake and Output 11/17/16 11/17/16 11/18/16 15:00 23:00 07:00 Intake Total 1100 ml 400 ml Output Total 1050 ml Balance 1100 ml -650 ml Exam Constitutional: alert, oriented Respiratory: normal air movement Cardiovascular: nl pulses Gastrointestinal: non-tender, soft Extremities: normal pulses Neurological: nl mental status Results Result Diagram: 11/18/16 0740 11/18/16 0740 Results 24 hrs Laboratory Tests Test 11/17/16 22:04 11/18/16 07:40 11/18/16 07:47 11/18/16 10:08 Bedside Glucose 91 108 116 White Blood Count 9.9 Red Blood Count 4.29 Hemoglobin 11.7 L Hematocrit 35.6 L Mean Corpuscular Volume 83.0 Mean Corpuscular Hemoglobin 27.3 L Mean Corpuscular Hemoglobin Concent 32.9 Red Cell Distribution Width 14.4 Platelet Count 256 Mean Platelet Volume 9.3 Neutrophils % 61.3 Lymphocytes % 27.7 Monocytes % 7.8 Eosinophils % 2.2 Basophils % 0.5 Nucleated Red Blood Cells % 0.0 Neutrophils # 6.0 Lymphocytes # 2.7 Monocytes # 0.8 Eosinophils # 0.2 Basophils # 0.1 Nucleated Red Blood Cells # 0.0 Sodium Level 144 Potassium Level 3.6 Chloride Level 96 L Carbon Dioxide Level 33 H Anion Gap 19 H Blood Urea Nitrogen 15 Creatinine 0.78 Glucose Level 104 Calcium Level 9.1 Test 11/18/16 12:11 11/18/16 16:48 Bedside Glucose 137 86 Medications Medications Current Medications Acetaminophen (Tylenol Tab) 650 mg Q4H PRN PO PAIN AND OR ELEVATED TEMP Last administered on 11/18/16 15:36; Admin Dose 650 MG; Start 11/15/16 at 16:00 Paroxetine HCl (Paxil) 30 mg DAILY PO Last administered on 11/18/16 08:28; Admin Dose 30 MG; Start 11/16/16 at 09:00 Diagnostic Test (Pha) (Accu-Chek) 1 ea 02 XX ; Start 11/16/16 at 02:00 Miscellaneous Information 1 ea NOTE XX ; Start 11/15/16 at 16:30 Glucose (Glutose) 15 gm Q15M PRN PO DECREASED GLUCOSE; Start 11/15/16 at 16:30 Glucose (Glutose) 22.5 gm Q15M PRN PO DECREASED GLUCOSE; Start 11/15/16 at 16:30 Dextrose (D50w Syringe) 25 ml Q15M PRN IV DECREASED GLUCOSE; Start 11/15/16 at 16:30 Dextrose (D50w Syringe) 50 ml Q15M PRN IV DECREASED GLUCOSE; Start 11/15/16 at 16:30 Glucagon (Glucagen) 1 mg Q15M PRN IM DECREASED GLUCOSE; Start 11/15/16 at 16:30 Glucose (Glutose) 15 gm Q15M PRN BUCCAL DECREASED GLUCOSE; Start 11/15/16 at 16: 30 Aspirin (Aspirin) 81 mg DAILY PO Last administered on 11/18/16 08:28; Admin Dose 81 MG; Start 11/16/16 at 09:00 Atorvastatin Calcium (Lipitor) 20 mg QHS PO Last administered on 11/17/16 22: 06; Admin Dose 20 MG; Start 11/15/16 at 21:00 Hydrochlorothiazide (Hydrochlorothiazide) 25 mg DAILY PO Last administered on 08:29; Admin Dose 25 MG; Start 11/16/16 at 09:00 Pantoprazole (Protonix Tab) 40 mg BID@06,18 PO Last administered on 11/18/16 17:10; Admin Dose 40 MG; Start 11/15/16 at 18:00 Ondansetron HCl (Zofran Inj) 4 mg Q6H PRN IV NAUSEA AND/OR VOMITING Last administered on 11/16/16 09:40; Admin Dose 4 MG; Start 11/16/16 at 09:30 Ibuprofen (Motrin) 600 mg Q8H PRN PO PAIN LEVEL 4-7; Start 11/16/16 at 19:00 Valsartan (Diovan) 160 mg BID PO Last administered on 11/18/16 08:29; Admin Dose 160 MG; Start 11/16/16 at 21:00 Docusate Sodium (Colace) 100 mg DAILY PO Last administered on 11/18/16 08:28; Admin Dose 100 MG; Start 11/17/16 at 18:00 Bisacodyl (Dulcolax) 5 mg DAILY PRN PO CONSTIPATION Last administered on 17:20; Admin Dose 5 MG; Start 11/17/16 at 18:00 Alprazolam (Xanax) 0.5 mg Q6H PRN PO ANXIETY Last administered on 11/18/16 10: 52; Admin Dose 0.5 MG; Start 11/18/16 at 11:00 Meclizine HCl (Antivert) 25 mg TID PO ; Start 11/18/16 at 21:00 THAI DELACRUZ Nov 18, 2016 18:21
[2016-11-18] MEDS: ATORVASTATIN 20 MG TAB PO SCH (21:01)
[2016-11-19] VITALS (10 sets, daily range): BP systolic 121–158; BP diastolic 59–75; PULSE 71–93; RESP 16–19
[2016-11-19] MEDS: ACCU-CHEK XX SCH (02:00)
[2016-11-19] MEDS: PANTOPRAZOLE (EC) 40 MG TAB PO SCH ×2 (05:53→18:00)
[2016-11-19] MEDS: INSULIN ASPART [NOVOLOG] 3 ML PEN SC SCH ×4 (07:59→20:03)
[2016-11-19 08:25] LABS: CHOL/HDL RATIO 7.1 RATIO
[2016-11-19] MEDS: BISACODYL (EC) 5 MG TAB PO PRN (08:25)
[2016-11-19] MEDS: metFORMIN 850 MG TAB PO SCH ×2 (08:25→18:03)
[2016-11-19] MEDS: ASPIRIN 81 MG TAB PO SCH (08:25)
[2016-11-19] MEDS: DOCUSATE SODIUM 100 MG CAP PO SCH (08:25)
[2016-11-19] MEDS: PAROXETINE 10 MG TAB PO SCH (08:25)
[2016-11-19] MEDS: MECLIZINE 25 MG TAB PO SCH ×3 (08:26→20:00)
[2016-11-19] MEDS: VALSARTAN 160 MG TAB PO SCH ×2 (08:26→20:00)
[2016-11-19] MEDS: HYDROCHLOROTHIAZIDE 25 MG TAB PO SCH (08:26)
[2016-11-19] MEDS ORDERED: NA PHOSPHATE/BIPHOS 133 ML ENEMA PR PRN (14:30)
[2016-11-19] MEDS ORDERED: BISACODYL 10 MG SUPP PR PRN (14:30)
--- NOTE | 2016-11-19 16:52 | RADRPT ---
PROCEDURE: Carotid ultrasound CLINICAL INDICATION: Dizziness, carotid bruits TECHNIQUE: Cannon scale, color doppler, spectral doppler ultrasound of the bilateral carotid and reilly tebral arteries. This study indirectly references the measurement of the distal ICA diameter as the denominator for s tenosis measurement. Validated velocity measurements with angiographic measurements, velocity criter ia are extrapolated from diameter data as defined by: *Cartoid artery stenosis: cannon-scale and Doppl er US diagnosis. Society of Radiologists in Ultrasound Consensus Conference. Radiology 2003; 229: 34 0-346. SRU Consensus Conference Criteria for the Diagnosis of Carotid Artery Stenosis* Degree of Stenosis, % ICA PSV, cm/sec Plaque Estimate, % ICA/CCA PSV Ratio Normal <125 None <2.0 <50 <125 <50 <2.0 50 69 125-230 >50 2.0-4.0 >70 but less than near occlusion >230 >50 <4.0 Near occlusion High, low, or undetectable Visible Variable Total occlusion Undetectable Visible, no detectable lumen Not applicable COMPARISON: No prior studies are available for comparison. FINDINGS: Location Right CCA78 cm/sec Prox ICA 69 cm/sec Mid ICA78 cm/sec Dist ICA73 cm/sec ECA94 cm/sec ICA/CCA1.1 Left CCA79 cm/sec Prox ICA 45 cm/sec Mid ICA63 cm/sec Dist ICA67 cm/sec ECA83 cm/sec ICA/CCA0.9 Plaque burden: Minimal plaques are present involving the bilateral common and internal carotid arter ies without evidence of significant stenosis. Antegrade flow is seen within the vertebral arteries bilaterally. IMPRESSION: No evidence of a hemodynamically significant carotid stenosis. RPTAT: AADD .Sadiq Jain MD, Date Time Electronically viewed and signed by .Sadiq Jain MD, on 11/19/2016 16:51 .B/
[2016-11-19] MEDS: ONDANSETRON 4 MG INJ IV PRN (17:47)
[2016-11-19] MEDS: ATORVASTATIN 40 MG TAB PO SCH (20:03)
[2016-11-19] MEDS: ACETAMINOPHEN 325 MG TAB PO PRN (20:06)
--- NOTE | 2016-11-19 21:33 | PN ---
Date/Time of Note Date/Time of Note DATE: 11/19/16 TIME: 21:28 Assessment/Plan VTE Prophylaxis VTE Prophylaxis Intervention: other Lines/Catheters IV Catheter Type (from [facility]): Peripheral IV Urinary Cath still in place: No Assessment/Plan Assessment/Plan -Acute stroke ruled out. -Possible vertigo, continue meclizine as needed.- none at present -Rule out acute coronary syndrome, cardiac enzymes every 8 hours 3.- no chest pain at present -Hypertension, continue hydrochlorothiazide and Diovan -Diabetes mellitus, continue metformin and NovoLog per mild algorithm sliding scale. -Osteoarthritis, patient was able to ambulate using walker -Obesity with BMI of 35.5. - weight management - per dietary Further recommendations based on clinical course. Plan of care discussed with Dr. Justin Subjective 24 Hr Interval Summary Free Text/Dictation Patient's denies headache, dizziness. Continue PT. dw staff- Bp was elevated- better now. Respiratory: no complaints Cardiovascular: no complaints Gastrointestinal: no complaints Genitourinary: no complaints Musculoskeletal: no complaints Exam/Review of Systems Vital Signs Vitals Vital Signs Date Time Temp Pulse Resp B/P Pulse Ox O2 Delivery O2 Flow Rate FiO2 11/19/16 16:10 93 11/19/16 11:46 99.0 16 121/65 94 Intake and Output 11/18/16 11/18/16 11/19/16 15:00 23:00 07:00 Intake Total 600 ml 240 ml 300 ml Output Total 700 ml 300 ml Balance -100 ml -60 ml 300 ml Exam Constitutional: alert, oriented, well developed Respiratory: clear to auscultation, normal air movement Cardiovascular: regular rate and rhythm Gastrointestinal: non-tender, soft Musculoskeletal: nl extremities to inspection Extremities: normal pulses Neurological: nl mental status, nl speech Results Result Diagram: 11/18/16 0740 11/18/16 0740 Results 24 hrs Laboratory Tests Test 11/19/16 07:05 11/19/16 07:33 11/19/16 12:02 11/19/16 17:59 Erythrocyte Sedimentation Rate 19 Triglycerides Level 191 H Cholesterol Level 230 H LDL Cholesterol, Calculated 160 HDL Cholesterol 32 L Cholesterol/HDL Ratio 7.1 Bedside Glucose 102 104 115 Test 11/19/16 19:59 Bedside Glucose 112 Medications Medications Current Medications Acetaminophen (Tylenol Tab) 650 mg Q4H PRN PO PAIN AND OR ELEVATED TEMP Last administered on 11/19/16 20:06; Admin Dose 650 MG; Start 11/15/16 at 16:00 Paroxetine HCl (Paxil) 30 mg DAILY PO Last administered on 11/19/16 08:25; Admin Dose 30 MG; Start 11/16/16 at 09:00 Diagnostic Test (Pha) (Accu-Chek) 1 ea 02 XX ; Start 11/16/16 at 02:00 Miscellaneous Information 1 ea NOTE XX ; Start 11/15/16 at 16:30 Glucose (Glutose) 15 gm Q15M PRN PO DECREASED GLUCOSE; Start 11/15/16 at 16:30 Glucose (Glutose) 22.5 gm Q15M PRN PO DECREASED GLUCOSE; Start 11/15/16 at 16:30 Dextrose (D50w Syringe) 25 ml Q15M PRN IV DECREASED GLUCOSE; Start 11/15/16 at 16:30 Dextrose (D50w Syringe) 50 ml Q15M PRN IV DECREASED GLUCOSE; Start 11/15/16 at 16:30 Glucagon (Glucagen) 1 mg Q15M PRN IM DECREASED GLUCOSE; Start 11/15/16 at 16:30 Glucose (Glutose) 15 gm Q15M PRN BUCCAL DECREASED GLUCOSE; Start 11/15/16 at 16: 30 Aspirin (Aspirin) 81 mg DAILY PO Last administered on 11/19/16 08:25; Admin Dose 81 MG; Start 11/16/16 at 09:00 Hydrochlorothiazide (Hydrochlorothiazide) 25 mg DAILY PO Last administered on 08:26; Admin Dose 25 MG; Start 11/16/16 at 09:00 Pantoprazole (Protonix Tab) 40 mg BID@06,18 PO Last administered on 11/19/16 05:53; Admin Dose 40 MG; Start 11/15/16 at 18:00 Ondansetron HCl (Zofran Inj) 4 mg Q6H PRN IV NAUSEA AND/OR VOMITING Last administered on 11/19/16 17:47; Admin Dose 4 MG; Start 11/16/16 at 09:30 Ibuprofen (Motrin) 600 mg Q8H PRN PO PAIN LEVEL 4-7; Start 11/16/16 at 19:00 Valsartan (Diovan) 160 mg BID PO Last administered on 11/19/16 20:00; Admin Dose 160 MG; Start 11/16/16 at 21:00 Docusate Sodium (Colace) 100 mg DAILY PO Last administered on 11/19/16 08:25; Admin Dose 100 MG; Start 11/17/16 at 18:00 Bisacodyl (Dulcolax) 5 mg DAILY PRN PO CONSTIPATION Last administered on 08:25; Admin Dose 5 MG; Start 11/17/16 at 18:00 Alprazolam (Xanax) 0.5 mg Q6H PRN PO ANXIETY Last administered on 11/18/16 10: 52; Admin Dose 0.5 MG; Start 11/18/16 at 11:00 Meclizine HCl (Antivert) 25 mg TID PO Last administered on 11/19/16 20:00; Admin Dose 25 MG; Start 11/18/16 at 21:00 Atorvastatin Calcium (Lipitor) 40 mg HS PO Last administered on 11/19/16 20:03 ; Admin Dose 40 MG; Start 11/19/16 at 21:00 Bisacodyl (Dulcolax Supp) 10 mg DAILY PRN MD CONSTIPATION Last administered on 11/19/16 14:32; Admin Dose 10 MG; Start 11/19/16 at 14:30 Sodium Biphosphate/ Sodium Phosphate (Fleet Enema) 133 ml DAILY PRN MD CONSTIPATION; Start 11/19/16 at 14:30 AHMET BOURNE Nov 19, 2016 21:33
[2016-11-20] MEDS: ACCU-CHEK XX SCH (01:34)
[2016-11-20 02:00] VITALS: BP 151/82; RESP 20
[2016-11-20] MEDS: ACETAMINOPHEN 325 MG TAB PO PRN ×2 (02:06→08:54)
[2016-11-20] MEDS: PANTOPRAZOLE (EC) 40 MG TAB PO SCH ×2 (05:20→17:23)
[2016-11-20] MEDS: ONDANSETRON 4 MG INJ IV PRN (07:33)
[2016-11-20] MEDS: INSULIN ASPART [NOVOLOG] 3 ML PEN SC SCH ×4 (08:00→20:34)
[2016-11-20 08:24] VITALS: BP 125/58; RESP 18
[2016-11-20] MEDS: metFORMIN 850 MG TAB PO SCH ×2 (08:53→17:24)
[2016-11-20] MEDS: ASPIRIN 81 MG TAB PO SCH (08:53)
[2016-11-20] MEDS: PAROXETINE 10 MG TAB PO SCH (08:53)
[2016-11-20] MEDS: MECLIZINE 25 MG TAB PO SCH ×3 (08:53→20:53)
[2016-11-20] MEDS: HYDROCHLOROTHIAZIDE 25 MG TAB PO SCH (08:54)
[2016-11-20] MEDS: VALSARTAN 160 MG TAB PO SCH ×2 (08:55→20:53)
[2016-11-20] MEDS: DOCUSATE SODIUM 100 MG CAP PO SCH (08:57)
[2016-11-20] MEDS: PE/SHARK OIL/MO/PETROL 30 GM OINT PR SCH ×2 (14:34→20:55)
[2016-11-20 14:51] VITALS: BP 136/66; RESP 18
--- NOTE | 2016-11-20 16:32 | RADRPT ---
PROCEDURE: MR Neck noncontrast CLINICAL INDICATION: Occipital headache. TECHNIQUE: Multiaxial multisequence noncontrast MRI of the neck was performed. COMPARISON: There are no similar studies submitted for comparison. FINDINGS: Evaluation is limited without intravenous contrast. SKULL: Please refer to recent MRI of the brain from November 16, 2016. The orbits are within normal li mits. There is minimal right maxillary sinus mucosal thickening. The bilateral mastoid air cells are with in normal limits. PAROTID GLANDS: Unremarkable. SUBMANDIBULAR GLANDS: Unremarkable. THYROID GLAND: Unremarkable. LYMPH NODES: Multiple small lymph nodes are identified in the neck in levels I-V which are not patho logically enlarged. The lymph nodes are relatively bilateral and symmetric in distribution. AERODIGESTIVE TRACT: No primary aerodigestive tract lesion is identified given limitations of contra st. THORAX: The lung apices are unremarkable. OSSEOUS STRUCTURES: No destructive osseous lesion is identified. There are mild to moderate degenera tive changes within the cervical spine. IMPRESSION: Evaluation is limited without intravenous contrast. 1. No mass or fluid collection. 2. No adenopathy. Further findings as detailed above. RPTAT: HVF .Michael Wolf MD, Date Time Electronically viewed and signed by .Michael Wolf MD, on 11/20/2016 16:32 .F/
[2016-11-20 17:00] LABS: CALCIUM 9.4 mg/dl (8.4-10.2); CREATININE 0.76 mg/dl (0.44-1.00); POTASSIUM 3.2 mmol/L (3.5-5.1)
[2016-11-20 20:38] VITALS: BP 156/71; RESP 20
[2016-11-20] MEDS: ATORVASTATIN 40 MG TAB PO SCH (20:53)
[2016-11-20] MEDS: ALPRAZOLAM 0.25 MG TAB PO PRN (21:07)
[2016-11-21] MEDS: ACCU-CHEK XX SCH (01:36)
[2016-11-21] MEDS: ACETAMINOPHEN 325 MG TAB PO PRN ×2 (03:03→11:15)
[2016-11-21 03:13] VITALS: BP 121/59; RESP 20
[2016-11-21] MEDS: PANTOPRAZOLE (EC) 40 MG TAB PO SCH ×2 (06:08→17:50)
[2016-11-21 07:10] LABS: ABNORMAL IP MESSAGE 1; HEMATOCRIT 35.2 % (37.0-47.0); HEMOGLOBIN 11.5 g/dl (12.0-16.0); MEAN CORPUSCULAR HEMOGLOBIN 27.1 pg (29.0-33.0); MEAN CORPUSCULAR HGB CONC 32.7 g/dl (32.0-37.0); MEAN CORPUSCULAR VOLUME 82.8 fl (82.0-101.0); MEAN PLATELET VOLUME 10.3 fl (7.4-10.4); PLATELET COUNT 318 10^3/UL (140-415); RED BLOOD COUNT 4.25 10^6/ul (4.20-5.40); RED CELL DISTRIBUTION WIDTH 15.4 % (11.5-14.5); WHITE BLOOD COUNT 25.1 10^3/ul (4.8-10.8)
[2016-11-21 07:15] LABS: POSITIVE DIFF @See below
[2016-11-21] MEDS: INSULIN ASPART [NOVOLOG] 3 ML PEN SC SCH ×4 (08:00→21:00)
[2016-11-21] MEDS: metFORMIN 850 MG TAB PO SCH ×4 (08:00→18:50)
[2016-11-21 09:01] LABS: LYMPHOCYTES # 5.5 10^3/ul (0.8-2.9); MONOCYTES % (M) 8 % (0-11); NEUTROPHIL # 17.6 10^3/ul (1.6-7.5)
[2016-11-21 09:05] VITALS: BP 135/63; RESP 18
[2016-11-21] MEDS: ASPIRIN 81 MG TAB PO SCH (09:12)
[2016-11-21] MEDS: VALSARTAN 160 MG TAB PO SCH ×2 (09:12→21:46)
[2016-11-21] MEDS: HYDROCHLOROTHIAZIDE 25 MG TAB PO SCH (09:13)
[2016-11-21] MEDS: MECLIZINE 25 MG TAB PO SCH ×3 (09:13→21:46)
[2016-11-21] MEDS: PAROXETINE 10 MG TAB PO SCH (09:13)
[2016-11-21] MEDS: PE/SHARK OIL/MO/PETROL 30 GM OINT PR SCH ×2 (09:16→21:50)
[2016-11-21 09:17] LABS: CALCIUM 8.8 mg/dl (8.4-10.2); CREATININE 0.87 mg/dl (0.44-1.00)
[2016-11-21 09:26] LABS: POTASSIUM 2.7 mmol/L (3.5-5.1)
[2016-11-21] MEDS: ONDANSETRON 4 MG INJ IV PRN (10:07)
[2016-11-21] MEDS ORDERED: POTASSIUM CHLORIDE 20 MEQ POWDER FOR ORAL SOLN PO SCH (10:30)
[2016-11-21] MEDS: metroNIDAZOLE 500 MG TAB PO SCH ×3 (11:22→23:41)
[2016-11-21] MEDS ORDERED: POTASSIUM CHLORIDE 30 MEQ in SOD CHLORIDE 0.9% 150 ML IVPB ONE (11:30)
--- NOTE | 2016-11-21 11:50 | RADRPT ---
PROCEDURE: XR Chest 1 View. CLINICAL INDICATION: Shortness of breath, elevated white blood cells. TECHNIQUE: AP view of the chest was obtained. COMPARISON: November 13, 2016 FINDINGS: The cardiomediastinal silhouette is within normal limits. The lungs are hypoinflated. Elevated righ t hemidiaphragm is identified. No consolidations are identified. No pneumothorax is seen. Osseous structures are intact. IMPRESSION: Elevated right hemidiaphragm. Hypoinflated, clear lungs. RPTAT: AA .Jayson Murdock MD, MD Date Time Electronically viewed and signed by .Jayson Murdock MD, MD on 11/21/2016 11:50 .P/
[2016-11-21] MEDS: VANCOMYCIN HCL 250 MG/5ML POSYG PO SCH ×2 (12:58→18:49)
[2016-11-21 14:56] VITALS: BP 113/60; RESP 18
--- NOTE | 2016-11-21 18:12 | PN ---
Date/Time of Note Date/Time of Note DATE: 11/21/16 TIME: 18:10 Assessment/Plan VTE Prophylaxis VTE Prophylaxis Intervention: SCD's Lines/Catheters IV C[facility]ter Type [facility]from [facility] Saline Lock Urinary Cath still in place: No Assessment/Plan Chief Complaint/Hosp Course Patient patient was giving medication for constipation, had diarrhea yesterday, leukocytosis, will obtain stool for C. difficile to rule out colitis. Patient also with hyponatremia potassium was replaced, continue to monitor electrolytes. Patient continues to complain of dizziness. We will asked Dr. Billings to reassess patient from neurology standpoint. Assessment/Plan -Acute stroke ruled out. -Possible vertigo, continue meclizine as needed. -Rule out acute coronary syndrome, cardiac enzymes every 8 hours 3. -Hypertension, continue hydrochlorothiazide and Diovan -Diabetes mellitus, continue metformin and NovoLog per mild algorithm sliding scale. -Osteoarthritis, patient was able to ambulate using walker -Obesity with BMI of 35.5. Further recommendations based on clinical course. Plan of care discussed with Dr. Justin Problems: Exam/Review of Systems Vital Signs Vitals Vital Signs Date Time Temp Pulse Resp B/P Pulse Ox O2 Delivery O2 Flow Rate FiO2 11/21/16 14:56 98.3 78 18 113/60 96 11/20/16 03:08 Room Air Intake and Output 11/20/16 11/20/16 11/21/16 15:00 23:00 07:00 Intake Total 500 ml 400 ml Balance 500 ml 400 ml Exam Constitutional: alert, oriented Respiratory: normal air movement Cardiovascular: nl pulses Gastrointestinal: non-tender, soft Extremities: normal pulses Neurological: nl mental status Results Result Diagram: 11/21/16 0543 11/21/16 0810 Results 24 hrs Laboratory Tests Test 11/20/16 20:32 11/21/16 05:43 11/21/16 08:10 11/21/16 11:24 Bedside Glucose 112 97 126 White Blood Count 25.1 #H Red Blood Count 4.25 Hemoglobin 11.5 L Hematocrit 35.2 L Mean Corpuscular Volume 82.8 Mean Corpuscular Hemoglobin 27.1 L Mean Corpuscular Hemoglobin Concent 32.7 Red Cell Distribution Width 15.4 H Platelet Count 318 # Mean Platelet Volume 10.3 Neutrophils % Segmented Neutrophils % (Manual) 70 Lymphocytes % Lymphocytes % (Manual) 22 Monocytes % Monocytes % (Manual) 8 Eosinophils % Basophils % Nucleated Red Blood Cells % 0.0 Neutrophils # 17.6 H Absolute Lymphocytes (Manual) 5.5 H Lymphocytes # 5.5 H Monocytes # 2.0 H Absolute Monocytes (Manual) 2.0 H Eosinophils # Basophils # Nucleated Red Blood Cells # Sodium Level 137 Potassium Level 2.7 *L Chloride Level 95 L Carbon Dioxide Level 33 H Anion Gap 12 # Blood Urea Nitrogen 21 H Creatinine 0.87 Glucose Level 100 Calcium Level 8.8 Test 11/21/16 17:45 Bedside Glucose 123 Medications Medications Current Medications Acetaminophen (Tylenol Tab) 650 mg Q4H PRN PO PAIN AND OR ELEVATED TEMP Last administered on 11/21/16 11:15; Admin Dose 650 MG; Start 11/15/16 at 16:00 Paroxetine HCl (Paxil) 30 mg DAILY PO Last administered on 11/21/16 09:13; Admin Dose 30 MG; Start 11/16/16 at 09:00 Diagnostic Test (Pha) (Accu-Chek) 1 ea 02 XX ; Start 11/16/16 at 02:00 Miscellaneous Information 1 ea NOTE XX ; Start 11/15/16 at 16:30 Glucose (Glutose) 15 gm Q15M PRN PO DECREASED GLUCOSE; Start 11/15/16 at 16:30 Glucose (Glutose) 22.5 gm Q15M PRN PO DECREASED GLUCOSE; Start 11/15/16 at 16:30 Dextrose (D50w Syringe) 25 ml Q15M PRN IV DECREASED GLUCOSE; Start 11/15/16 at 16:30 Dextrose (D50w Syringe) 50 ml Q15M PRN IV DECREASED GLUCOSE; Start 11/15/16 at 16:30 Glucagon (Glucagen) 1 mg Q15M PRN IM DECREASED GLUCOSE; Start 11/15/16 at 16:30 Glucose (Glutose) 15 gm Q15M PRN BUCCAL DECREASED GLUCOSE; Start 11/15/16 at 16: 30 Aspirin (Aspirin) 81 mg DAILY PO Last administered on 11/21/16 09:12; Admin Dose 81 MG; Start 11/16/16 at 09:00 Hydrochlorothiazide (Hydrochlorothiazide) 25 mg DAILY PO Last administered on 09:13; Admin Dose 25 MG; Start 11/16/16 at 09:00 Pantoprazole (Protonix Tab) 40 mg BID@06,18 PO Last administered on 11/21/16 17:50; Admin Dose 40 MG; Start 11/15/16 at 18:00 Ondansetron HCl (Zofran Inj) 4 mg Q6H PRN IV NAUSEA AND/OR VOMITING Last administered on 11/21/16 10:07; Admin Dose 4 MG; Start 11/16/16 at 09:30 Ibuprofen (Motrin) 600 mg Q8H PRN PO PAIN LEVEL 4-7; Start 11/16/16 at 19:00 Valsartan (Diovan) 160 mg BID PO Last administered on 11/21/16 09:12; Admin Dose 160 MG; Start 11/16/16 at 21:00 Alprazolam (Xanax) 0.5 mg Q6H PRN PO ANXIETY Last administered on 11/20/16 21: 07; Admin Dose 0.5 MG; Start 11/18/16 at 11:00 Meclizine HCl (Antivert) 25 mg TID PO Last administered on 11/21/16 12:58; Admin Dose 25 MG; Start 11/18/16 at 21:00 Atorvastatin Calcium (Lipitor) 40 mg HS PO Last administered on 11/20/16 20:53 ; Admin Dose 40 MG; Start 11/19/16 at 21:00 Phenyleph/Shark Oil/Min Oil/Petrol (Formulation R Oint) 1 applic BID [place] Last administered on 11/21/16 09:16; Admin Dose 1 APPLIC; Start 11/20/16 at 13:30 Metronidazole (Flagyl) 500 mg Q6 PO Last administered on 11/21/16 17:50; Admin Dose 500 MG; Start 11/21/16 at 12:00 Vancomycin HCl (Vancomycin Oral Syringe) 250 mg Q6 PO Last administered on 11/21 12:58; Admin Dose 250 MG; Start 11/21/16 at 12:00 THAI DELACRUZ Nov 21, 2016 18:12 THAI DELACRUZ Nov 21, 2016 18:12
[2016-11-21 21:45] VITALS: BP 121/63; RESP 18
[2016-11-21] MEDS: ATORVASTATIN 40 MG TAB PO SCH (21:46)
[2016-11-22] MEDS: VANCOMYCIN HCL 250 MG/5ML POSYG PO SCH ×5 (00:52→23:40)
[2016-11-22] MEDS: ALPRAZOLAM 0.25 MG TAB PO PRN ×2 (00:56→22:34)
[2016-11-22] MEDS: ACCU-CHEK XX SCH (02:00)
[2016-11-22 04:00] VITALS: BP 123/60; RESP 18
[2016-11-22] MEDS: metroNIDAZOLE 500 MG TAB PO SCH ×4 (05:51→23:40)
[2016-11-22] MEDS: PANTOPRAZOLE (EC) 40 MG TAB PO SCH ×2 (05:51→17:33)
[2016-11-22 06:09] LABS: BASOPHIL # 0.1 10^3/ul (0.0-0.1); BASOPHILS % 0.7 % (0.0-2.0); EOSINOPHILS # 0.5 10^3/ul (0.0-0.5); EOSINOPHILS % 2.7 % (0.0-7.0); HEMATOCRIT 34.8 % (37.0-47.0); HEMOGLOBIN 11.2 g/dl (12.0-16.0); LYMPHOCYTES % 22.3 % (15.0-51.0); MEAN CORPUSCULAR HGB CONC 32.2 g/dl (32.0-37.0); MEAN CORPUSCULAR VOLUME 83.9 fl (82.0-101.0); MONOCYTE # 1.1 10^3/ul (0.3-0.9); MONOCYTES % 6.4 % (0.0-11.0); NEUTROPHILS % 67.1 % (39.0-77.0); PLATELET COUNT 305 10^3/UL (140-415); RED BLOOD COUNT 4.15 10^6/ul (4.20-5.40); RED CELL DISTRIBUTION WIDTH 15.4 % (11.5-14.5); WHITE BLOOD COUNT 17.8 10^3/ul (4.8-10.8)
[2016-11-22 06:27] LABS: CREATININE 0.88 mg/dl (0.44-1.00); POTASSIUM 3.5 mmol/L (3.5-5.1)
[2016-11-22 07:45] VITALS: BP 122/58; RESP 18
[2016-11-22] MEDS: INSULIN ASPART [NOVOLOG] 3 ML PEN SC SCH ×4 (07:56→20:19)
[2016-11-22] MEDS: HYDROCHLOROTHIAZIDE 25 MG TAB PO SCH (08:49)
[2016-11-22] MEDS: ASPIRIN 81 MG TAB PO SCH (08:49)
[2016-11-22] MEDS: MECLIZINE 25 MG TAB PO SCH ×3 (08:49→20:19)
[2016-11-22] MEDS: PAROXETINE 10 MG TAB PO SCH (08:49)
[2016-11-22] MEDS: metFORMIN 850 MG TAB PO SCH ×2 (08:49→17:33)
[2016-11-22] MEDS: VALSARTAN 160 MG TAB PO SCH ×2 (08:50→20:19)
[2016-11-22] MEDS: PE/SHARK OIL/MO/PETROL 30 GM OINT PR SCH ×2 (08:53→20:21)
--- NOTE | 2016-11-22 11:10 | CONS ---
Date/Time of Note Date/Time of Note DATE: 11/22/16 TIME: 11:04 Assessment/Plan Assessment/Plan Chief Complaint/Hosp Course 81 yo female with hx of HTN, HLD,obesity, OA s/p bilaterally knee replacement with occipital neuralgia and worsening headaches with dizziness, being tx for C. Diff with elevated WBC. -continue to trend WBC if remains elevated despite C. Diff treatment she may require LP to r/o meningitis given persistent headaches -suspect occipital neuralgia would benefit from trigger point injections may be done by pain management/anesthesia if unable to obtain as inpatient would recommend as outpatient -MRI C Spine w/o contrast -trial of low dose Flexeril -will follow Problems: Consultation Date/Type/Reason Admit Date/Time Nov 15, 2016 at 10:53 Date of Consultation: Nov 22, 2016 Type of Consultation: Neurology Reason for Consultation headache Referring Provider: THAI DELACRUZ Hx of Present Illness 81 yo female with hx of HTN, DM, obesity, arthritis s/p bilateral knee replacement, anxiety, depression admitted on 11/15 w c/o dizziness and headaches with elevated blood pressures. She states headaches have been on going for weeks was previously told BARTHOLOMEW are secondary to her arthritis. CTH shows no acute process, MRI Brain with susceptibility artifact posterior right frontal lobe prior blood products, no acute ischemic changes. MRA unrevealing. WBC was 25 range yesterday, had loose stools, sent cultures for C. Diff returned positive and she is now on vanc/flagyl with WBC trending down to 17. She is receiving meclizine for vertigo with minimal improvement. Eyes: no complaints ENT: no complaints Respiratory: no complaints Cardiovascular: no complaints Gastrointestinal: no complaints Genitourinary: no complaints Musculoskeletal: no complaints Neurologic: headache Psychological: nl mood/affect Past Medical History Medical History: diabetes, hypertension Social History Alcohol Use: none Smoking Status: Never smoker Drug Use: none Exam/Review of Systems Vital Signs Vitals Vital Signs Date Time Temp Pulse Resp B/P Pulse Ox O2 Delivery O2 Flow Rate FiO2 11/22/16 07:45 98.5 81 18 122/58 92 11/20/16 03:08 Room Air Intake and Output 11/21/16 11/21/16 11/22/16 15:00 23:00 07:00 Intake Total 1365 ml 600 ml Output Total 800 ml Balance 565 ml 600 ml Exam awake alert oriented x3 no aphasia no neglect follows commands well neck stiffness and occipital neuralgia present bilaterally to palpation CN: II-XII intact Motor intact 5/5 strength Reflexes 1+ throughout toes down Results Result Diagram: 11/22/16 0529 11/22/16 0529 Results 24 hrs Laboratory Tests Test 11/21/16 11:24 11/21/16 17:45 11/21/16 21:49 11/22/16 05:29 Bedside Glucose 126 123 94 White Blood Count 17.8 #H Red Blood Count 4.15 L Hemoglobin 11.2 L Hematocrit 34.8 L Mean Corpuscular Volume 83.9 Mean Corpuscular Hemoglobin 27.0 L Mean Corpuscular Hemoglobin Concent 32.2 Red Cell Distribution Width 15.4 H Platelet Count 305 Mean Platelet Volume 10.0 Neutrophils % 67.1 Lymphocytes % 22.3 Monocytes % 6.4 Eosinophils % 2.7 Basophils % 0.7 Nucleated Red Blood Cells % 0.0 Neutrophils # (Manual) 11.9 H Lymphocytes # 4.0 H Monocytes # 1.1 H Eosinophils # 0.5 Basophils # 0.1 Nucleated Red Blood Cells # 0.0 Sodium Level 138 Potassium Level 3.5 Chloride Level 98 Carbon Dioxide Level 32 H Anion Gap 12 Blood Urea Nitrogen 22 H Creatinine 0.88 Glucose Level 101 Calcium Level 9.0 Test 11/22/16 07:46 Bedside Glucose 108 Medications Medications Current Medications Acetaminophen (Tylenol Tab) 650 mg Q4H PRN PO PAIN AND OR ELEVATED TEMP Last administered on 11/21/16 11:15; Admin Dose 650 MG; Start 11/15/16 at 16:00 Paroxetine HCl (Paxil) 30 mg DAILY PO Last administered on 11/22/16 08:49; Admin Dose 30 MG; Start 11/16/16 at 09:00 Diagnostic Test (Pha) (Accu-Chek) 1 ea 02 XX ; Start 11/16/16 at 02:00 Miscellaneous Information 1 ea NOTE XX ; Start 11/15/16 at 16:30 Glucose (Glutose) 15 gm Q15M PRN PO DECREASED GLUCOSE; Start 11/15/16 at 16:30 Glucose (Glutose) 22.5 gm Q15M PRN PO DECREASED GLUCOSE; Start 11/15/16 at 16:30 Dextrose (D50w Syringe) 25 ml Q15M PRN IV DECREASED GLUCOSE; Start 11/15/16 at 16:30 Dextrose (D50w Syringe) 50 ml Q15M PRN IV DECREASED GLUCOSE; Start 11/15/16 at 16:30 Glucagon (Glucagen) 1 mg Q15M PRN IM DECREASED GLUCOSE; Start 11/15/16 at 16:30 Glucose (Glutose) 15 gm Q15M PRN BUCCAL DECREASED GLUCOSE; Start 11/15/16 at 16: 30 Aspirin (Aspirin) 81 mg DAILY PO Last administered on 11/22/16 08:49; Admin Dose 81 MG; Start 11/16/16 at 09:00 Hydrochlorothiazide (Hydrochlorothiazide) 25 mg DAILY PO Last administered on 08:49; Admin Dose 25 MG; Start 11/16/16 at 09:00 Pantoprazole (Protonix Tab) 40 mg BID@06,18 PO Last administered on 11/22/16 05:51; Admin Dose 40 MG; Start 11/15/16 at 18:00 Ondansetron HCl (Zofran Inj) 4 mg Q6H PRN IV NAUSEA AND/OR VOMITING Last administered on 11/21/16 10:07; Admin Dose 4 MG; Start 11/16/16 at 09:30 Ibuprofen (Motrin) 600 mg Q8H PRN PO PAIN LEVEL 4-7; Start 11/16/16 at 19:00 Valsartan (Diovan) 160 mg BID PO Last administered on 11/22/16 08:50; Admin Dose 160 MG; Start 11/16/16 at 21:00 Alprazolam (Xanax) 0.5 mg Q6H PRN PO ANXIETY Last administered on 11/22/16 00: 56; Admin Dose 0.5 MG; Start 11/18/16 at 11:00 Meclizine HCl (Antivert) 25 mg TID PO Last administered on 11/22/16 08:49; Admin Dose 25 MG; Start 11/18/16 at 21:00 Atorvastatin Calcium (Lipitor) 40 mg HS PO Last administered on 11/21/16 21:46 ; Admin Dose 40 MG; Start 11/19/16 at 21:00 Phenyleph/Shark Oil/Min Oil/Petrol (Formulation R Oint) 1 applic BID [place] Last administered on 11/22/16 08:53; Admin Dose 1 APPLIC; Start 11/20/16 at 13:30 Metronidazole (Flagyl) 500 mg Q6 PO Last administered on 11/22/16 05:51; Admin Dose 500 MG; Start 11/21/16 at 12:00 Vancomycin HCl (Vancomycin Oral Syringe) 250 mg Q6 PO Last administered on 11/22 05:51; Admin Dose 250 MG; Start 11/21/16 at 12:00 AVA DE JESUS MD Nov 22, 2016 11:10
[2016-11-22] MEDS: CYCLOBENZAPRINE 10 MG TAB PO SCH ×2 (12:38→20:18)
--- NOTE | 2016-11-22 12:38 | CONS ---
Date/Time of Note Date/Time of Note DATE: 11/22/16 TIME: 12:37 Consultation Date/Type/Reason Admit Date/Time Nov 15, 2016 at 10:53 Date of Consultation: Nov 22, 2016 Type of Consultation: ID Reason for Consultation Antibiotic management Eyes: no complaints ENT: no complaints Respiratory: no complaints Cardiovascular: no complaints Gastrointestinal: no complaints Genitourinary: no complaints Musculoskeletal: no complaints Neurologic: headache Psychological: nl mood/affect Past Medical History Medical History: diabetes, hypertension Social History Alcohol Use: none Smoking Status: Never smoker Drug Use: none Exam/Review of Systems Vital Signs Vitals Vital Signs Date Time Temp Pulse Resp B/P Pulse Ox O2 Delivery O2 Flow Rate FiO2 11/22/16 07:45 98.5 81 18 122/58 92 11/20/16 03:08 Room Air Intake and Output 11/21/16 11/21/16 11/22/16 15:00 23:00 07:00 Intake Total 1365 ml 600 ml Output Total 800 ml Balance 565 ml 600 ml Results Result Diagram: 11/22/16 0529 11/22/16 0529 Results 24 hrs Laboratory Tests Test 11/21/16 17:45 11/21/16 21:49 11/22/16 05:29 11/22/16 07:46 Bedside Glucose 123 94 108 White Blood Count 17.8 #H Red Blood Count 4.15 L Hemoglobin 11.2 L Hematocrit 34.8 L Mean Corpuscular Volume 83.9 Mean Corpuscular Hemoglobin 27.0 L Mean Corpuscular Hemoglobin Concent 32.2 Red Cell Distribution Width 15.4 H Platelet Count 305 Mean Platelet Volume 10.0 Neutrophils % 67.1 Lymphocytes % 22.3 Monocytes % 6.4 Eosinophils % 2.7 Basophils % 0.7 Nucleated Red Blood Cells % 0.0 Neutrophils # (Manual) 11.9 H Lymphocytes # 4.0 H Monocytes # 1.1 H Eosinophils # 0.5 Basophils # 0.1 Nucleated Red Blood Cells # 0.0 Sodium Level 138 Potassium Level 3.5 Chloride Level 98 Carbon Dioxide Level 32 H Anion Gap 12 Blood Urea Nitrogen 22 H Creatinine 0.88 Glucose Level 101 Calcium Level 9.0 Test 11/22/16 12:01 Bedside Glucose 101 Medications Medications Current Medications Acetaminophen (Tylenol Tab) 650 mg Q4H PRN PO PAIN AND OR ELEVATED TEMP Last administered on 11/21/16 11:15; Admin Dose 650 MG; Start 11/15/16 at 16:00 Paroxetine HCl (Paxil) 30 mg DAILY PO Last administered on 11/22/16 08:49; Admin Dose 30 MG; Start 11/16/16 at 09:00 Diagnostic Test (Pha) (Accu-Chek) 1 ea 02 XX ; Start 11/16/16 at 02:00 Miscellaneous Information 1 ea NOTE XX ; Start 11/15/16 at 16:30 Glucose (Glutose) 15 gm Q15M PRN PO DECREASED GLUCOSE; Start 11/15/16 at 16:30 Glucose (Glutose) 22.5 gm Q15M PRN PO DECREASED GLUCOSE; Start 11/15/16 at 16:30 Dextrose (D50w Syringe) 25 ml Q15M PRN IV DECREASED GLUCOSE; Start 11/15/16 at 16:30 Dextrose (D50w Syringe) 50 ml Q15M PRN IV DECREASED GLUCOSE; Start 11/15/16 at 16:30 Glucagon (Glucagen) 1 mg Q15M PRN IM DECREASED GLUCOSE; Start 11/15/16 at 16:30 Glucose (Glutose) 15 gm Q15M PRN BUCCAL DECREASED GLUCOSE; Start 11/15/16 at 16: 30 Aspirin (Aspirin) 81 mg DAILY PO Last administered on 11/22/16 08:49; Admin Dose 81 MG; Start 11/16/16 at 09:00 Hydrochlorothiazide (Hydrochlorothiazide) 25 mg DAILY PO Last administered on 08:49; Admin Dose 25 MG; Start 11/16/16 at 09:00 Pantoprazole (Protonix Tab) 40 mg BID@06,18 PO Last administered on 11/22/16 05:51; Admin Dose 40 MG; Start 11/15/16 at 18:00 Ondansetron HCl (Zofran Inj) 4 mg Q6H PRN IV NAUSEA AND/OR VOMITING Last administered on 11/21/16 10:07; Admin Dose 4 MG; Start 11/16/16 at 09:30 Ibuprofen (Motrin) 600 mg Q8H PRN PO PAIN LEVEL 4-7; Start 11/16/16 at 19:00 Valsartan (Diovan) 160 mg BID PO Last administered on 11/22/16 08:50; Admin Dose 160 MG; Start 11/16/16 at 21:00 Alprazolam (Xanax) 0.5 mg Q6H PRN PO ANXIETY Last administered on 11/22/16 00: 56; Admin Dose 0.5 MG; Start 11/18/16 at 11:00 Meclizine HCl (Antivert) 25 mg TID PO Last administered on 11/22/16 08:49; Admin Dose 25 MG; Start 11/18/16 at 21:00 Atorvastatin Calcium (Lipitor) 40 mg HS PO Last administered on 11/21/16 21:46 ; Admin Dose 40 MG; Start 11/19/16 at 21:00 Phenyleph/Shark Oil/Min Oil/Petrol (Formulation R Oint) 1 applic BID MD Last administered on 11/22/16 08:53; Admin Dose 1 APPLIC; Start 11/20/16 at 13:30 Metronidazole (Flagyl) 500 mg Q6 PO Last administered on 11/22/16 05:51; Admin Dose 500 MG; Start 11/21/16 at 12:00 Vancomycin HCl (Vancomycin Oral Syringe) 250 mg Q6 PO Last administered on 11/22 05:51; Admin Dose 250 MG; Start 11/21/16 at 12:00 Cyclobenzaprine HCl (Flexeril) 5 mg BID PO ; Start 11/22/16 at 11:30 ADORE ALVARES MD Nov 22, 2016 12:38
[2016-11-22 14:36] VITALS: BP 102/55; RESP 16
--- NOTE | 2016-11-22 17:10 | PN ---
Date/Time of Note Date/Time of Note DATE: 11/22/16 TIME: 17:07 Assessment/Plan VTE Prophylaxis VTE Prophylaxis Intervention: SCD's Lines/Catheters [facility]from [facility] Urinary Cath still in place: No Assessment/Plan Chief Complaint/Hosp Course Patient's continues to complain of dizziness and headache, remains hemodynamically stable. Assessment/Plan -Acute stroke ruled out. -Dizziness and headache, Dr. Billings, neurology consult is appreciated -Possible vertigo, continue meclizine as needed. -Diarrhea with C. difficile colitis, continue p.o. vancomycin, Dr. Rosales is following infection disease. -Rule out acute coronary syndrome, cardiac enzymes every 8 hours 3. -Hypertension, continue hydrochlorothiazide and Diovan -Diabetes mellitus, continue metformin and NovoLog per mild algorithm sliding scale. -Osteoarthritis, patient was able to ambulate using walker -Obesity with BMI of 35.5. Further recommendations based on clinical course. Plan of care discussed with Dr. Justin Problems: Exam/Review of Systems Vital Signs Vitals Vital Signs Date Time Temp Pulse Resp B/P Pulse Ox O2 Delivery O2 Flow Rate FiO2 11/22/16 14:36 98.4 85 16 102/55 95 11/20/16 03:08 Room Air Intake and Output 11/21/16 11/21/16 11/22/16 15:00 23:00 07:00 Intake Total 1365 ml 600 ml Output Total 800 ml Balance 565 ml 600 ml Exam Constitutional: alert, oriented Respiratory: normal air movement Cardiovascular: nl pulses Gastrointestinal: non-tender, soft Extremities: normal pulses Neurological: nl mental status Results Result Diagram: 11/22/16 0529 11/22/16 0529 Results 24 hrs Laboratory Tests Test 11/21/16 17:45 11/21/16 21:49 11/22/16 05:29 11/22/16 07:46 Bedside Glucose 123 94 108 White Blood Count 17.8 #H Red Blood Count 4.15 L Hemoglobin 11.2 L Hematocrit 34.8 L Mean Corpuscular Volume 83.9 Mean Corpuscular Hemoglobin 27.0 L Mean Corpuscular Hemoglobin Concent 32.2 Red Cell Distribution Width 15.4 H Platelet Count 305 Mean Platelet Volume 10.0 Neutrophils % 67.1 Lymphocytes % 22.3 Monocytes % 6.4 Eosinophils % 2.7 Basophils % 0.7 Nucleated Red Blood Cells % 0.0 Neutrophils # (Manual) 11.9 H Lymphocytes # 4.0 H Monocytes # 1.1 H Eosinophils # 0.5 Basophils # 0.1 Nucleated Red Blood Cells # 0.0 Sodium Level 138 Potassium Level 3.5 Chloride Level 98 Carbon Dioxide Level 32 H Anion Gap 12 Blood Urea Nitrogen 22 H Creatinine 0.88 Glucose Level 101 Calcium Level 9.0 Test 11/22/16 12:01 Bedside Glucose 101 Medications Medications Current Medications Acetaminophen (Tylenol Tab) 650 mg Q4H PRN PO PAIN AND OR ELEVATED TEMP Last administered on 11/21/16 11:15; Admin Dose 650 MG; Start 11/15/16 at 16:00 Paroxetine HCl (Paxil) 30 mg DAILY PO Last administered on 11/22/16 08:49; Admin Dose 30 MG; Start 11/16/16 at 09:00 Diagnostic Test (Pha) (Accu-Chek) 1 ea 02 XX ; Start 11/16/16 at 02:00 Miscellaneous Information 1 ea NOTE XX ; Start 11/15/16 at 16:30 Glucose (Glutose) 15 gm Q15M PRN PO DECREASED GLUCOSE; Start 11/15/16 at 16:30 Glucose (Glutose) 22.5 gm Q15M PRN PO DECREASED GLUCOSE; Start 11/15/16 at 16:30 Dextrose (D50w Syringe) 25 ml Q15M PRN IV DECREASED GLUCOSE; Start 11/15/16 at 16:30 Dextrose (D50w Syringe) 50 ml Q15M PRN IV DECREASED GLUCOSE; Start 11/15/16 at 16:30 Glucagon (Glucagen) 1 mg Q15M PRN IM DECREASED GLUCOSE; Start 11/15/16 at 16:30 Glucose (Glutose) 15 gm Q15M PRN BUCCAL DECREASED GLUCOSE; Start 11/15/16 at 16: 30 Aspirin (Aspirin) 81 mg DAILY PO Last administered on 11/22/16 08:49; Admin Dose 81 MG; Start 11/16/16 at 09:00 Hydrochlorothiazide (Hydrochlorothiazide) 25 mg DAILY PO Last administered on 08:49; Admin Dose 25 MG; Start 11/16/16 at 09:00 Pantoprazole (Protonix Tab) 40 mg BID@06,18 PO Last administered on 11/22/16 05:51; Admin Dose 40 MG; Start 11/15/16 at 18:00 Ondansetron HCl (Zofran Inj) 4 mg Q6H PRN IV NAUSEA AND/OR VOMITING Last administered on 11/21/16 10:07; Admin Dose 4 MG; Start 11/16/16 at 09:30 Ibuprofen (Motrin) 600 mg Q8H PRN PO PAIN LEVEL 4-7; Start 11/16/16 at 19:00 Valsartan (Diovan) 160 mg BID PO Last administered on 11/22/16 08:50; Admin Dose 160 MG; Start 11/16/16 at 21:00 Alprazolam (Xanax) 0.5 mg Q6H PRN PO ANXIETY Last administered on 11/22/16 00: 56; Admin Dose 0.5 MG; Start 11/18/16 at 11:00 Meclizine HCl (Antivert) 25 mg TID PO Last administered on 11/22/16 12:38; Admin Dose 25 MG; Start 11/18/16 at 21:00 Atorvastatin Calcium (Lipitor) 40 mg HS PO Last administered on 11/21/16 21:46 ; Admin Dose 40 MG; Start 11/19/16 at 21:00 Phenyleph/Shark Oil/Min Oil/Petrol (Formulation R Oint) 1 applic BID [place] Last administered on 11/22/16 08:53; Admin Dose 1 APPLIC; Start 11/20/16 at 13:30 Metronidazole (Flagyl) 500 mg Q6 PO Last administered on 11/22/16 12:37; Admin Dose 500 MG; Start 11/21/16 at 12:00 Vancomycin HCl (Vancomycin Oral Syringe) 250 mg Q6 PO Last administered on 11/22 12:37; Admin Dose 250 MG; Start 11/21/16 at 12:00 Cyclobenzaprine HCl (Flexeril) 5 mg BID PO Last administered on 11/22/16 12:38 ; Admin Dose 5 MG; Start 11/22/16 at 11:30 THAI DELACRUZ Nov 22, 2016 17:10
[2016-11-22] MEDS: ATORVASTATIN 40 MG TAB PO SCH (20:18)
[2016-11-22 21:07] VITALS: BP 128/60; RESP 19
--- NOTE | 2016-11-22 21:14 | CONS ---
DATE OF ADMISSION: 11/15/2016 DATE OF CONSULTATION: 11/22/2016 REASON FOR CONSULTATION: Antibiotic management. HISTORY OF PRESENT ILLNESS: Mei Hensley is an 81-year-old female with numerous problems, who comes in with altered level of consciousness and dizziness is being seen for antibiotic management. PROBLEMS: 1. Hypertension. 2. Adult-onset diabetes mellitus. 3. Obesity. 4. History of proctitis. 5. Osteoarthritis. 6. Status post bilateral total knee replacement. 7. Anxiety and depression. REVIEW OF SYSTEMS: Patient comes in complaining of dizziness, headaches and elevated blood pressure. She denies fever, chills, but she does feel nauseous so she has not vomited. LABORATORY: CT scan of the head was negative for any acute intracranial hemorrhage or transcortical infarction. No mass effect. Chest x-ray was unremarkable. She was admitted. On admission, her white count was 8.8, H and H of 11.8 and 35.7, and platelet count 259,000. BUN and creatinine 16/0.7. C. difficile on the is positive. IMPRESSION AND PLAN: The patient was placed on vancomycin and Flagyl. Infectious Disease consult was called. In addition, the patient was felt to have vertigo. It was unlikely that she had acute coronary syndrome. At this point we will continue her on the oral vancomycin and Flagyl. Her white count is up to 17.8, which is consistent with the C difficile. I will dictate my findings to Dr. Justin and the various consultants. Dictated By: Stefan Rosales MD JD/[email or web address] /Document#: [id number]
[2016-11-22 21:45] VITALS: BP 123/59; PULSE 84; RESP 18
--- NOTE | 2016-11-22 22:33 | RADRPT ---
PROCEDURE: MRI Brain without contrast. CLINICAL INDICATION: 81-year-old female with dizziness. TECHNIQUE: An MRI of the brain was performed without contrast utilizing the following sequences: Sagittal T1 weighted, sagittal FLAIR, axial T1, axial FLAIR, axial T2 weighted, axial diffusion weig hted (EPI technique [id number]), axial ADC mapping. The images were reviewed on a high-resolution PACS workstation. COMPARISON: 11/16/2016 CT head 11/12/2016, 08/22/2016 FINDINGS: Diffusion weighted sequences demonstrate no evidence of acute lacunar or lobar infarction. There is redemonstration of small focus of susceptibility artifact involving the right centrum semiovale whi te matter, likely related to hemosiderin/remote blood products. There is no intracranial hemorrhage , extra-axial fluid collection, mass lesion, midline shift or hydrocephalous. There is a baseline m oderate prominence of the cerebral sulci, lateral and third ventricles. There are moderate patchy a nd confluent periventricular and subcortical T2 / FLAIR signal hyperintensities. No additional area s of abnormal susceptibility hypointensity are seen in the cerebral hemispheres. The brainstem and cerebellum are normal in appearance. Normal flow voids are visible the proximal intracranial arteri es and dural sinuses, indicating patency. The midline structures are intact. There is mild mucosal thickening of the right maxillary sinus, improved compared to prior exam. The remaining paranasal sinuses are normally aerated. The mastoid air cells and middle ear cavities ar e normally aerated. The orbits, calvarium and extracranial soft tissues are normal in appearance. IMPRESSION: 1. No significant interval change compared to 11/16/2016. No acute intracranial abnormality. No i ntracranial hemorrhage, mass lesion, infarction or hydrocephalous. 2. Stable moderate peripheral and central cerebral volume loss. 3. Stable moderate patchy and confluent periventricular and subcortical white matter lesions, likel y related to chronic. 4. Stable appearance of susceptibility involving the right centrum semiovale white matter, likely r elated to chronic blood products, which may be related to remote prior hemorrhage versus underlying cavernoma. RPTAT: HGAS .Chad Baum MD, MD Date Time Electronically viewed and signed by .Chad Baum MD, on 11/22/2016 22:32 .S/
[2016-11-23] MEDS: ACCU-CHEK XX SCH (01:27)
[2016-11-23 02:21] VITALS: BP 117/55; RESP 18
[2016-11-23] MEDS: PANTOPRAZOLE (EC) 40 MG TAB PO SCH ×2 (05:41→17:46)
[2016-11-23] MEDS: VANCOMYCIN HCL 250 MG/5ML POSYG PO SCH ×4 (05:41→23:51)
[2016-11-23] MEDS: metroNIDAZOLE 500 MG TAB PO SCH ×4 (05:41→23:51)
[2016-11-23 06:05] LABS: BASOPHIL # 0.1 10^3/ul (0.0-0.1); BASOPHILS % 0.8 % (0.0-2.0); EOSINOPHILS # 0.4 10^3/ul (0.0-0.5); EOSINOPHILS % 3.3 % (0.0-7.0); HEMATOCRIT 35.4 % (37.0-47.0); HEMOGLOBIN 11.2 g/dl (12.0-16.0); LYMPHOCYTES # 3.6 10^3/ul (0.8-2.9); LYMPHOCYTES % 27.2 % (15.0-51.0); MEAN CORPUSCULAR HEMOGLOBIN 26.5 pg (29.0-33.0); MEAN CORPUSCULAR HGB CONC 31.6 g/dl (32.0-37.0); MEAN CORPUSCULAR VOLUME 83.7 fl (82.0-101.0); MEAN PLATELET VOLUME 10.2 fl (7.4-10.4); MONOCYTES % 7.5 % (0.0-11.0); NEUTROPHILS % 59.8 % (39.0-77.0); PLATELET COUNT 316 10^3/UL (140-415); RED BLOOD COUNT 4.23 10^6/ul (4.20-5.40); RED CELL DISTRIBUTION WIDTH 15.3 % (11.5-14.5); WHITE BLOOD COUNT 13.2 10^3/ul (4.8-10.8)
[2016-11-23 06:35] LABS: CREATININE 0.83 mg/dl (0.44-1.00)
[2016-11-23 08:00] VITALS: BP 141/64; RESP 19
[2016-11-23] MEDS: INSULIN ASPART [NOVOLOG] 3 ML PEN SC SCH ×4 (08:00→20:27)
[2016-11-23] MEDS: ASPIRIN 81 MG TAB PO SCH (10:02)
[2016-11-23] MEDS: metFORMIN 850 MG TAB PO SCH ×2 (10:02→17:56)
[2016-11-23] MEDS: PAROXETINE 10 MG TAB PO SCH (10:03)
[2016-11-23] MEDS: VALSARTAN 160 MG TAB PO SCH ×2 (10:04→20:26)
[2016-11-23] MEDS: MECLIZINE 25 MG TAB PO SCH ×3 (10:04→20:27)
[2016-11-23] MEDS: HYDROCHLOROTHIAZIDE 25 MG TAB PO SCH (10:04)
[2016-11-23] MEDS: CYCLOBENZAPRINE 10 MG TAB PO SCH ×2 (10:04→20:26)
[2016-11-23] MEDS: PE/SHARK OIL/MO/PETROL 30 GM OINT PR SCH ×2 (10:07→20:27)
[2016-11-23 14:00] VITALS: BP 102/54; RESP 21
[2016-11-23] MEDS: ONDANSETRON 4 MG INJ IV PRN (15:11)
--- NOTE | 2016-11-23 17:25 | PN ---
Date/Time of Note Date/Time of Note DATE: 11/23/16 TIME: 17:22 Assessment/Plan VTE Prophylaxis VTE Prophylaxis Intervention: SCD's Lines/Catheters IV [facility] Type [facility]from [facility] Saline [facility] Urinary Cath still in place: No Assessment/Plan Chief Complaint/Hosp Course Patient's continues to complains of generalized weakness stated that she does not feel well. Denies diarrhea. White blood cells are trending down. Hypokalemia we will replace potassium. Assessment/Plan -Acute stroke ruled out. -Dizziness and headache, Dr. Billings, neurology consult is appreciated -Possible vertigo, continue meclizine as needed. -Diarrhea with C. difficile colitis, continue p.o. vancomycin, Dr. Rosales is following infection disease. -Rule out acute coronary syndrome, cardiac enzymes every 8 hours 3. -Hypertension, continue hydrochlorothiazide and Diovan -Diabetes mellitus, continue metformin and NovoLog per mild algorithm sliding scale. -Osteoarthritis, patient was able to ambulate using walker -Obesity with BMI of 35.5. Further recommendations based on clinical course. Plan of care discussed with Dr. Justin Problems: Exam/Review of Systems Vital Signs Vitals Vital Signs Date Time Temp Pulse Resp B/P Pulse Ox O2 Delivery O2 Flow Rate FiO2 11/23/16 08:00 98.6 84 19 141/64 92 11/22/16 21:45 Room Air Intake and Output 11/22/16 11/22/16 11/23/16 15:00 23:00 07:00 Intake Total 770 ml 480 ml Balance 770 ml 480 ml Exam Constitutional: alert, oriented Respiratory: normal air movement Cardiovascular: nl pulses Gastrointestinal: non-tender, soft Extremities: normal pulses Neurological: nl mental status Results Result Diagram: 11/23/16 0458 11/23/16 0458 Results 24 hrs Laboratory Tests Test 11/22/16 17:31 11/22/16 20:17 11/23/16 04:58 11/23/16 08:24 Bedside Glucose 99 108 117 White Blood Count 13.2 #H Red Blood Count 4.23 Hemoglobin 11.2 L Hematocrit 35.4 L Mean Corpuscular Volume 83.7 Mean Corpuscular Hemoglobin 26.5 L Mean Corpuscular Hemoglobin Concent 31.6 L Red Cell Distribution Width 15.3 H Platelet Count 316 Mean Platelet Volume 10.2 Neutrophils % 59.8 Lymphocytes % 27.2 Monocytes % 7.5 Eosinophils % 3.3 Basophils % 0.8 Nucleated Red Blood Cells % 0.0 Neutrophils # (Manual) 7.9 H Lymphocytes # 3.6 H Monocytes # 1.0 H Eosinophils # 0.4 Basophils # 0.1 Nucleated Red Blood Cells # 0.0 Sodium Level 139 Potassium Level 3.0 L Chloride Level 98 Carbon Dioxide Level 32 H Anion Gap 12 Blood Urea Nitrogen 22 H Creatinine 0.83 Glucose Level 98 Calcium Level 9.0 Test 11/23/16 12:34 Bedside Glucose 121 Medications Medications Current Medications Acetaminophen (Tylenol Tab) 650 mg Q4H PRN PO PAIN AND OR ELEVATED TEMP Last administered on 11/21/16 11:15; Admin Dose 650 MG; Start 11/15/16 at 16:00 Paroxetine HCl (Paxil) 30 mg DAILY PO Last administered on 11/23/16 10:03; Admin Dose 30 MG; Start 11/16/16 at 09:00 Diagnostic Test (Pha) (Accu-Chek) 1 ea 02 XX ; Start 11/16/16 at 02:00 Miscellaneous Information 1 ea NOTE XX ; Start 11/15/16 at 16:30 Glucose (Glutose) 15 gm Q15M PRN PO DECREASED GLUCOSE; Start 11/15/16 at 16:30 Glucose (Glutose) 22.5 gm Q15M PRN PO DECREASED GLUCOSE; Start 11/15/16 at 16:30 Dextrose (D50w Syringe) 25 ml Q15M PRN IV DECREASED GLUCOSE; Start 11/15/16 at 16:30 Dextrose (D50w Syringe) 50 ml Q15M PRN IV DECREASED GLUCOSE; Start 11/15/16 at 16:30 Glucagon (Glucagen) 1 mg Q15M PRN IM DECREASED GLUCOSE; Start 11/15/16 at 16:30 Glucose (Glutose) 15 gm Q15M PRN BUCCAL DECREASED GLUCOSE; Start 11/15/16 at 16: 30 Aspirin (Aspirin) 81 mg DAILY PO Last administered on 11/23/16 10:02; Admin Dose 81 MG; Start 11/16/16 at 09:00 Hydrochlorothiazide (Hydrochlorothiazide) 25 mg DAILY PO Last administered on 10:04; Admin Dose 25 MG; Start 11/16/16 at 09:00 Pantoprazole (Protonix Tab) 40 mg BID@06,18 PO Last administered on 11/23/16 05:41; Admin Dose 40 MG; Start 11/15/16 at 18:00 Ondansetron HCl (Zofran Inj) 4 mg Q6H PRN IV NAUSEA AND/OR VOMITING Last administered on 11/23/16 15:11; Admin Dose 4 MG; Start 11/16/16 at 09:30 Ibuprofen (Motrin) 600 mg Q8H PRN PO PAIN LEVEL 4-7; Start 11/16/16 at 19:00 Valsartan (Diovan) 160 mg BID PO Last administered on 11/23/16 10:04; Admin Dose 160 MG; Start 11/16/16 at 21:00 Alprazolam (Xanax) 0.5 mg Q6H PRN PO ANXIETY Last administered on 11/22/16 22: 34; Admin Dose 0.5 MG; Start 11/18/16 at 11:00 Meclizine HCl (Antivert) 25 mg TID PO Last administered on 11/23/16 12:32; Admin Dose 25 MG; Start 11/18/16 at 21:00 Atorvastatin Calcium (Lipitor) 40 mg HS PO Last administered on 11/22/16 20:18 ; Admin Dose 40 MG; Start 11/19/16 at 21:00 Phenyleph/Shark Oil/Min Oil/Petrol (Formulation R Oint) 1 applic BID [place] Last administered on 11/23/16 10:07; Admin Dose 1 APPLIC; Start 11/20/16 at 13:30 Metronidazole (Flagyl) 500 mg Q6 PO Last administered on 11/23/16 12:32; Admin Dose 500 MG; Start 11/21/16 at 12:00 Vancomycin HCl (Vancomycin Oral Syringe) 250 mg Q6 PO Last administered on 11/23 12:32; Admin Dose 250 MG; Start 11/21/16 at 12:00 Cyclobenzaprine HCl (Flexeril) 5 mg BID PO Last administered on 11/23/16 10:04 ; Admin Dose 5 MG; Start 11/22/16 at 11:30 THAI DELACRUZ Nov 23, 2016 17:25
[2016-11-23] MEDS ORDERED: POTASSIUM CHLORIDE 20 MEQ POWDER FOR ORAL SOLN PO ONE (17:30)
[2016-11-23] MEDS: NS + KCL 20 MEQ 1,000 ML IV SCH (17:44)
[2016-11-23 20:19] VITALS: BP 116/59; RESP 19
[2016-11-23] MEDS: ATORVASTATIN 40 MG TAB PO SCH (20:26)
[2016-11-23] MEDS: ACETAMINOPHEN 325 MG TAB PO PRN (20:26)
[2016-11-23] MEDS: ALPRAZOLAM 0.25 MG TAB PO PRN (22:20)
[2016-11-24] MEDS: ACCU-CHEK XX SCH (01:54)
[2016-11-24 02:11] VITALS: BP 135/55; RESP 18
[2016-11-24] MEDS: PANTOPRAZOLE (EC) 40 MG TAB PO SCH ×2 (05:14→18:14)
[2016-11-24] MEDS: metroNIDAZOLE 500 MG TAB PO SCH ×3 (05:14→18:14)
[2016-11-24] MEDS: VANCOMYCIN HCL 250 MG/5ML POSYG PO SCH ×3 (05:14→18:14)
[2016-11-24] MEDS: INSULIN ASPART [NOVOLOG] 3 ML PEN SC SCH ×4 (07:58→21:00)
[2016-11-24 08:00] VITALS: BP 162/72; RESP 18
[2016-11-24] MEDS: HYDROCHLOROTHIAZIDE 25 MG TAB PO SCH (08:35)
[2016-11-24] MEDS: MECLIZINE 25 MG TAB PO SCH ×3 (08:35→20:55)
[2016-11-24] MEDS: CYCLOBENZAPRINE 10 MG TAB PO SCH (08:35)
[2016-11-24] MEDS: ASPIRIN 81 MG TAB PO SCH (08:35)
[2016-11-24] MEDS: VALSARTAN 160 MG TAB PO SCH ×2 (08:35→20:54)
[2016-11-24] MEDS: PAROXETINE 10 MG TAB PO SCH (08:36)
[2016-11-24] MEDS: PE/SHARK OIL/MO/PETROL 30 GM OINT PR SCH ×2 (08:36→20:59)
[2016-11-24] MEDS: ACETAMINOPHEN 325 MG TAB PO PRN (09:53)
[2016-11-24] MEDS: metFORMIN 850 MG TAB PO SCH ×2 (09:54→18:16)
--- NOTE | 2016-11-24 09:58 | PN ---
DATE: 11/23/2016 SUBJECTIVE: No events overnight. Patient is awake, lying comfortably in bed. Complaining of watery stool. No fevers. Temperature 98.6, pulse 84, respirations 19, blood pressure 141/64, saturation 92 to 95 percent on room air. LABORATORY STUDIES: WBC 13.2, H and H 11.2 and 35.4, platelets 316, no shift, no bands. BUN 22, creatinine 0.83. ANTIMICROBIALS: Patient is on oral vancomycin and Flagyl. PHYSICAL EXAMINATION: GENERAL: This is a fragile, well-developed, elderly woman who is awake, in no distress. HEENT: Head atraumatic, normocephalic. Sclerae anicteric. Buccal mucosa dry. NECK: Supple. CHEST: Rise symmetrical. Breath sounds clear bilaterally. HEART: S1, S2. ABDOMEN: Soft. Mild tenderness on palpation. Bowel sounds present. EXTREMITIES: Without cyanosis. ASSESSMENT: 1. Systemic inflammatory response syndrome. 2. Clostridium difficile colitis. 3. Diabetes and hypertension. 4. History of bilateral total knee replacement. PLAN: Patient remains clinically stable. WBC tracing down. Continue present care, antibiotics. Follow Neurology recommendations. Patient is being followed by Neurology secondary to worsening headaches and dizziness. No radiographic evidence of acute intracranial pathology. Dictated By: Priscilla Wood NP /bebeto/joseph /Document#: [id number]
[2016-11-24] MEDS: NS + KCL 20 MEQ 1,000 ML IV SCH (10:10)
--- NOTE | 2016-11-24 11:14 | CONS ---
Date/Time of Note Date/Time of Note DATE: 11/24/16 TIME: 11:13 Consult Date/Type/Reason Admit Date/Time Nov 15, 2016 at 11:01 Initial Consult Date 11/22/16 Type of Consultation: Neurology Reason for Consultation [email or web address] Ordering Provider: THAI DELACRUZ Subjective headache persistent neck pain for over 2 months per patient no improvement w flexeril Objective Vital Signs Date Time Temp Pulse Resp B/P Pulse Ox O2 Delivery O2 Flow Rate FiO2 11/24/16 08:00 98.6 84 18 162/72 96 11/22/16 21:45 Room Air Intake and Output 11/23/16 11/23/16 11/24/16 15:00 23:00 07:00 Intake Total 1300 ml 640 ml Balance 1300 ml 640 ml Exam awake alert oriented x3 no aphasia no neglect follows commands well neck stiffness and occipital neuralgia present bilaterally to palpation CN: II-XII intact Motor intact 5/5 strength Reflexes 1+ throughout toes down Results/Medications Result Diagram: 11/23/16 0458 11/23/16 0458 Results 24 hrs Laboratory Tests Test 11/23/16 12:34 11/23/16 17:45 11/23/16 20:25 11/24/16 07:53 Bedside Glucose 121 99 118 89 Medications Current Medications Acetaminophen (Tylenol Tab) 650 mg Q4H PRN PO PAIN AND OR ELEVATED TEMP Last administered on 11/24/16 09:53; Admin Dose 650 MG; Start 11/15/16 at 16:00 Paroxetine HCl (Paxil) 30 mg DAILY PO Last administered on 11/24/16 08:36; Admin Dose 30 MG; Start 11/16/16 at 09:00 Diagnostic Test (Pha) (Accu-Chek) 1 ea 02 XX ; Start 11/16/16 at 02:00 Miscellaneous Information 1 ea NOTE XX ; Start 11/15/16 at 16:30 Glucose (Glutose) 15 gm Q15M PRN PO DECREASED GLUCOSE; Start 11/15/16 at 16:30 Glucose (Glutose) 22.5 gm Q15M PRN PO DECREASED GLUCOSE; Start 11/15/16 at 16:30 Dextrose (D50w Syringe) 25 ml Q15M PRN IV DECREASED GLUCOSE; Start 11/15/16 at 16:30 Dextrose (D50w Syringe) 50 ml Q15M PRN IV DECREASED GLUCOSE; Start 11/15/16 at 16:30 Glucagon (Glucagen) 1 mg Q15M PRN IM DECREASED GLUCOSE; Start 11/15/16 at 16:30 Glucose (Glutose) 15 gm Q15M PRN BUCCAL DECREASED GLUCOSE; Start 11/15/16 at 16: 30 Aspirin (Aspirin) 81 mg DAILY PO Last administered on 11/24/16 08:35; Admin Dose 81 MG; Start 11/16/16 at 09:00 Hydrochlorothiazide (Hydrochlorothiazide) 25 mg DAILY PO Last administered on 08:35; Admin Dose 25 MG; Start 11/16/16 at 09:00 Pantoprazole (Protonix Tab) 40 mg BID@,18 PO Last administered on 11/24/16 05:14; Admin Dose 40 MG; Start 11/15/16 at 18:00 Ondansetron HCl (Zofran Inj) 4 mg Q6H PRN IV NAUSEA AND/OR VOMITING Last administered on 11/23/16 15:11; Admin Dose 4 MG; Start 11/16/16 at 09:30 Ibuprofen (Motrin) 600 mg Q8H PRN PO PAIN LEVEL 4-7; Start 11/16/16 at 19:00 Valsartan (Diovan) 160 mg BID PO Last administered on 11/24/16 08:35; Admin Dose 160 MG; Start 11/16/16 at 21:00 Alprazolam (Xanax) 0.5 mg Q6H PRN PO ANXIETY Last administered on 11/23/16 22: 20; Admin Dose 0.5 MG; Start 11/18/16 at 11:00 Meclizine HCl (Antivert) 25 mg TID PO Last administered on 11/24/16 08:35; Admin Dose 25 MG; Start 11/18/16 at 21:00 Atorvastatin Calcium (Lipitor) 40 mg HS PO Last administered on 11/23/16 20:26 ; Admin Dose 40 MG; Start 11/19/16 at 21:00 Phenyleph/Shark Oil/Min Oil/Petrol (Formulation R Oint) 1 applic BID [place] Last administered on 11/24/16 08:36; Admin Dose 1 APPLIC; Start 11/20/16 at 13:30 Metronidazole (Flagyl) 500 mg Q6 PO Last administered on 11/24/16 05:14; Admin Dose 500 MG; Start 11/21/16 at 12:00 Vancomycin HCl (Vancomycin Oral Syringe) 250 mg Q6 PO Last administered on 11/24 05:14; Admin Dose 250 MG; Start 11/21/16 at 12:00 Cyclobenzaprine HCl 5 mg 5 mg BID PO Last administered on 11/24/16 08:35; Admin Dose 5 MG; Start 11/22/16 at 11:30 Potassium Chloride/Sodium Chloride (NS-KCl 20 Meq) 1,000 ml @ 60 mls/hr [id number] IV Last administered on 11/23/16 17:44; Admin Dose 60 MLS/HR; Start at 17:30; Stop 11/24/16 at 20:00 Assessment/Plan Chief Complaint/Hosp Course 81 yo female with hx of HTN, HLD,obesity, OA s/p bilaterally knee replacement with occipital neuralgia and worsening headaches with dizziness, being tx for C. Diff with elevated WBC. -continue to trend WBC, ID following for c. diff -suspect occipital neuralgia would benefit from trigger point injections may be done by pain management/anesthesia if unable to obtain as inpatient would recommend as outpatient -MRI C Spine w/o contrast -dc Flexeril -outpatient neurology follow up for management of chronic occipital neuralgia Problems: AVA DE JESUS MD Nov 24, 2016 11:14
--- NOTE | 2016-11-24 12:29 | PN ---
Date/Time of Note Date/Time of Note DATE: 11/24/16 TIME: 12:25 Assessment/Plan VTE Prophylaxis VTE Prophylaxis Intervention: SCD's Lines/Catheters IV Catheter Type (from Nrs): Peripheral IV Urinary Cath still in place: No Assessment/Plan Assessment/Plan -Acute stroke ruled out. -Dizziness and headache, Dr. Billings, neurology consult is appreciated -Possible vertigo, continue meclizine as needed. -Diarrhea with C. difficile colitis, continue p.o. vancomycin, Dr. Rosales is following infection disease. -Rule out acute coronary syndrome, cardiac enzymes every 8 hours 3. -Hypertension, continue hydrochlorothiazide and Diovan -Diabetes mellitus, continue metformin and NovoLog per mild algorithm sliding scale. -Osteoarthritis, patient was able to ambulate using walker -Obesity with BMI of 35.5. Further recommendations based on clinical course. Plan of care discussed with Dr. Justin Subjective 24 Hr Interval Summary Free Text/Dictation complains of generalized weakness but somewhat better today, Denies diarrhea. Hemorrhoid pain has improved white blood cells are trending down. Hypokalemia we will replace potassium. Discussed with staff no new events reported last night Respiratory: no complaints Cardiovascular: no complaints Gastrointestinal: no complaints Genitourinary: no complaints Musculoskeletal: no complaints Skin: no complaints Exam/Review of Systems Vital Signs Vitals Vital Signs Date Time Temp Pulse Resp B/P Pulse Ox O2 Delivery O2 Flow Rate FiO2 11/24/16 08:00 98.6 84 18 162/72 96 11/22/16 21:45 Room Air Intake and Output 11/23/16 11/23/16 11/24/16 15:00 23:00 07:00 Intake Total 1300 ml 640 ml Balance 1300 ml 640 ml Results Result Diagram: 11/23/16 0458 11/23/16 0458 Results 24 hrs Laboratory Tests Test 11/23/16 12:34 11/23/16 17:45 11/23/16 20:25 11/24/16 07:53 Bedside Glucose 121 99 118 89 Test 11/24/16 12:09 Bedside Glucose 63 L Medications Medications Current Medications Acetaminophen (Tylenol Tab) 650 mg Q4H PRN PO PAIN AND OR ELEVATED TEMP Last administered on 11/24/16t 09:53; Admin Dose 650 MG; Start 11/15/16 at 16:00 Paroxetine HCl (Paxil) 30 mg DAILY PO Last administered on 11/24/16 08:36; Admin Dose 30 MG; Start 11/16/16 at 09:00 Diagnostic Test (Pha) (Accu-Chek) 1 ea 02 XX ; Start 11/16/16 at 02:00 Miscellaneous Information 1 ea NOTE XX ; Start 11/15/16 at 16:30 Glucose (Glutose) 15 gm Q15M PRN PO DECREASED GLUCOSE; Start 11/15/16 at 16:30 Glucose (Glutose) 22.5 gm Q15M PRN PO DECREASED GLUCOSE; Start 11/15/16 at 16:30 Dextrose (D50w Syringe) 25 ml Q15M PRN IV DECREASED GLUCOSE; Start 11/15/16 at 16:30 Dextrose (D50w Syringe) 50 ml Q15M PRN IV DECREASED GLUCOSE; Start 11/15/16 at 16:30 Glucagon (Glucagen) 1 mg Q15M PRN IM DECREASED GLUCOSE; Start 11/15/16 at 16:30 Glucose (Glutose) 15 gm Q15M PRN BUCCAL DECREASED GLUCOSE; Start 11/15/16 at 16: 30 Aspirin (Aspirin) 81 mg DAILY PO Last administered on 11/24/16 08:35; Admin Dose 81 MG; Start 11/16/16 at 09:00 Hydrochlorothiazide (Hydrochlorothiazide) 25 mg DAILY PO Last administered on 08:35; Admin Dose 25 MG; Start 11/16/16 at 09:00 Pantoprazole (Protonix Tab) 40 mg BID@06,18 PO Last administered on 11/24/16 05:14; Admin Dose 40 MG; Start 11/15/16 at 18:00 Ondansetron HCl (Zofran Inj) 4 mg Q6H PRN IV NAUSEA AND/OR VOMITING Last administered on 11/23/16 15:11; Admin Dose 4 MG; Start 11/16/16 at 09:30 Ibuprofen (Motrin) 600 mg Q8H PRN PO PAIN LEVEL 4-7; Start 11/16/16 at 19:00 Valsartan (Diovan) 160 mg BID PO Last administered on 11/24/16 08:35; Admin Dose 160 MG; Start 11/16/16 at 21:00 Alprazolam (Xanax) 0.5 mg Q6H PRN PO ANXIETY Last administered on 11/23/16 22: 20; Admin Dose 0.5 MG; Start 11/18/16 at 11:00 Meclizine HCl (Antivert) 25 mg TID PO Last administered on 11/24/16 08:35; Admin Dose 25 MG; Start 11/18/16 at 21:00 Atorvastatin Calcium (Lipitor) 40 mg HS PO Last administered on 11/23/16 20:26 ; Admin Dose 40 MG; Start 11/19/16 at 21:00 Phenyleph/Shark Oil/Min Oil/Petrol (Formulation R Oint) 1 applic BID [place] Last administered on 11/24/16 08:36; Admin Dose 1 APPLIC; Start 11/20/16 at 13:30 Metronidazole (Flagyl) 500 mg Q6 PO Last administered on 11/24/16 05:14; Admin Dose 500 MG; Start 11/21/16 at 12:00 Vancomycin HCl 250 mg 250 mg Q6 PO Last administered on 11/24/16 05:14; Admin Dose 250 MG; Start 11/21/16 at 12:00 Potassium Chloride/Sodium Chloride (NS-KCl 20 Meq) 1,000 ml @ 60 mls/hr [id number] IV Last administered on 11/23/16 17:44; Admin Dose 60 MLS/HR; Start at 17:30; Stop 11/24/16 at 20:00 AHMET BOURNE Nov 24, 2016 12:29
[2016-11-24 14:00] VITALS: BP 119/71; RESP 20
[2016-11-24 14:11] LABS: BASOPHIL # 0.1 10^3/ul (0.0-0.1); BASOPHILS % 0.9 % (0.0-2.0); EOSINOPHILS # 0.3 10^3/ul (0.0-0.5); EOSINOPHILS % 2.6 % (0.0-7.0); HEMATOCRIT 37.1 % (37.0-47.0); HEMOGLOBIN 11.9 g/dl (12.0-16.0); LYMPHOCYTES # 2.7 10^3/ul (0.8-2.9); LYMPHOCYTES % 20.8 % (15.0-51.0); MEAN CORPUSCULAR HEMOGLOBIN 27.2 pg (29.0-33.0); MEAN CORPUSCULAR HGB CONC 32.1 g/dl (32.0-37.0); MEAN CORPUSCULAR VOLUME 84.7 fl (82.0-101.0); MEAN PLATELET VOLUME 9.9 fl (7.4-10.4); MONOCYTE # 1.1 10^3/ul (0.3-0.9); MONOCYTES % 8.2 % (0.0-11.0); NEUTROPHILS % 65.5 % (39.0-77.0); PLATELET COUNT 324 10^3/UL (140-415); RED BLOOD COUNT 4.38 10^6/ul (4.20-5.40); RED CELL DISTRIBUTION WIDTH 14.8 % (11.5-14.5); WHITE BLOOD COUNT 12.9 10^3/ul (4.8-10.8)
[2016-11-24 14:33] LABS: CREATININE 0.79 mg/dl (0.44-1.00); POTASSIUM 3.4 mmol/L (3.5-5.1)
--- NOTE | 2016-11-24 14:44 | CONS ---
Date/Time of Note Date/Time of Note DATE: 11/24/16 TIME: 14:43 Assessment/Plan Assessment/Plan Chief Complaint/Hosp Course SUBJECTIVE: No events overnight. Alert, feels better, diarrhea resolving, no fevers ANTIMICROBIALS: Patient is on oral vancomycin and Flagyl. PHYSICAL EXAMINATION: GENERAL: This is a fragile, well-developed, elderly woman who is awake, in no distress. HEENT: Head atraumatic, normocephalic. Sclerae anicteric. Buccal mucosa dry. NECK: Supple. CHEST: Rise symmetrical. Breath sounds clear bilaterally. HEART: S1, S2. ABDOMEN: Soft. Mild tenderness on palpation. Bowel sounds present. EXTREMITIES: Without cyanosis. ASSESSMENT: 1. Systemic inflammatory response syndrome. 2. Clostridium difficile colitis. 3. Diabetes and hypertension. 4. History of bilateral total knee replacement. PLAN: Patient remains clinically stable. Diarrhea improved, continue abx pt Problems: Consultation Date/Type/Reason Admit Date/Time Nov 15, 2016 at 11:01 Initial Consult Date 11/22/16 Type of Consultation: ID Referring Provider: THAI DELACRUZ Exam/Review of Systems Vital Signs Vitals Vital Signs Date Time Temp Pulse Resp B/P Pulse Ox O2 Delivery O2 Flow Rate FiO2 11/24/16 08:00 98.6 84 18 162/72 96 11/22/16 21:45 Room Air Intake and Output 11/23/16 11/23/16 11/24/16 15:00 23:00 07:00 Intake Total 1300 ml 640 ml Balance 1300 ml 640 ml Results Result Diagram: 11/24/16 1400 11/23/16 0458 Results 24 hrs Laboratory Tests Test 11/23/16 17:45 11/23/16 20:25 11/24/16 07:53 11/24/16 12:09 Bedside Glucose 99 118 89 63 L Test 11/24/16 12:25 11/24/16 12:44 11/24/16 14:00 Bedside Glucose 123 120 White Blood Count 12.9 H Red Blood Count 4.38 Hemoglobin 11.9 L Hematocrit 37.1 Mean Corpuscular Volume 84.7 Mean Corpuscular Hemoglobin 27.2 L Mean Corpuscular Hemoglobin Concent 32.1 Red Cell Distribution Width 14.8 H Platelet Count 324 Mean Platelet Volume 9.9 Neutrophils % 65.5 Lymphocytes % 20.8 Monocytes % 8.2 Eosinophils % 2.6 Basophils % 0.9 Nucleated Red Blood Cells % 0.0 Neutrophils # (Manual) 8 H Lymphocytes # 2.7 Monocytes # 1.1 H Eosinophils # 0.3 Basophils # 0.1 Nucleated Red Blood Cells # 0.0 Medications Medications Current Medications Acetaminophen (Tylenol Tab) 650 mg Q4H PRN PO PAIN AND OR ELEVATED TEMP Last administered on 11/24/16 09:53; Admin Dose 650 MG; Start 11/15/16 at 16:00 Paroxetine HCl (Paxil) 30 mg DAILY PO Last administered on 11/24/16 08:36; Admin Dose 30 MG; Start 11/16/16 at 09:00 Diagnostic Test (Pha) (Accu-Chek) 1 ea 02 XX ; Start 11/16/16 at 02:00 Miscellaneous Information 1 ea NOTE XX ; Start 11/15/16 at 16:30 Glucose (Glutose) 15 gm Q15M PRN PO DECREASED GLUCOSE; Start 11/15/16 at 16:30 Glucose (Glutose) 22.5 gm Q15M PRN PO DECREASED GLUCOSE; Start 11/15/16 at 16:30 Dextrose (D50w Syringe) 25 ml Q15M PRN IV DECREASED GLUCOSE; Start 11/15/16 at 16:30 Dextrose (D50w Syringe) 50 ml Q15M PRN IV DECREASED GLUCOSE; Start 11/15/16 at 16:30 Glucagon (Glucagen) 1 mg Q15M PRN IM DECREASED GLUCOSE; Start 11/15/16 at 16:30 Glucose (Glutose) 15 gm Q15M PRN BUCCAL DECREASED GLUCOSE; Start 11/15/16 at 16: 30 Aspirin (Aspirin) 81 mg DAILY PO Last administered on 11/24/16 08:35; Admin Dose 81 MG; Start 11/16/16 at 09:00 Hydrochlorothiazide (Hydrochlorothiazide) 25 mg DAILY PO Last administered on 08:35; Admin Dose 25 MG; Start 11/16/16 at 09:00 Pantoprazole (Protonix Tab) 40 mg BID@06,18 PO Last administered on 11/24/16 05:14; Admin Dose 40 MG; Start 11/15/16 at 18:00 Ondansetron HCl (Zofran Inj) 4 mg Q6H PRN IV NAUSEA AND/OR VOMITING Last administered on 11/23/16 15:11; Admin Dose 4 MG; Start 11/16/16 at 09:30 Ibuprofen (Motrin) 600 mg Q8H PRN PO PAIN LEVEL 4-7; Start 11/16/16 at 19:00 Valsartan (Diovan) 160 mg BID PO Last administered on 11/24/16 08:35; Admin Dose 160 MG; Start 11/16/16 at 21:00 Alprazolam (Xanax) 0.5 mg Q6H PRN PO ANXIETY Last administered on 11/23/16 22: 20; Admin Dose 0.5 MG; Start 11/18/16 at 11:00 Meclizine HCl (Antivert) 25 mg TID PO Last administered on 11/24/16 12:47; Admin Dose 25 MG; Start 11/18/16 at 21:00 Atorvastatin Calcium (Lipitor) 40 mg HS PO Last administered on 11/23/16 20:26 ; Admin Dose 40 MG; Start 11/19/16 at 21:00 Phenyleph/Shark Oil/Min Oil/Petrol (Formulation R Oint) 1 applic BID [place] Last administered on 11/24/16 08:36; Admin Dose 1 APPLIC; Start 11/20/16 at 13:30 Metronidazole (Flagyl) 500 mg Q6 PO Last administered on 11/24/16 12:47; Admin Dose 500 MG; Start 11/21/16 at 12:00 Vancomycin HCl 250 mg 250 mg Q6 PO Last administered on 11/24/16 12:47; Admin Dose 250 MG; Start 11/21/16 at 12:00 Potassium Chloride/Sodium Chloride (NS-KCl 20 Meq) 1,000 ml @ 60 mls/hr [id number] IV Last administered on 11/23/16 17:44; Admin Dose 60 MLS/HR; Start at 17:30; Stop 11/24/16 at 20:00 EDILMA LIMA NP Nov 24, 2016 14:44
[2016-11-24] MEDS ORDERED: POTASSIUM CHLORIDE (SR) 20 MEQ TAB PO STA (15:20)
[2016-11-24] MEDS: ATORVASTATIN 40 MG TAB PO SCH (20:54)
[2016-11-24] MEDS: ALPRAZOLAM 0.25 MG TAB PO PRN (21:30)
[2016-11-24 23:00] VITALS: BP 136/60; RESP 18
[2016-11-25] MEDS: metroNIDAZOLE 500 MG TAB PO SCH ×4 (00:53→17:48)
[2016-11-25] MEDS: VANCOMYCIN HCL 250 MG/5ML POSYG PO SCH ×4 (00:53→17:49)
[2016-11-25] MEDS: ACCU-CHEK XX SCH (02:00)
[2016-11-25 04:51] VITALS: BP 124/59; RESP 18
[2016-11-25] MEDS: PANTOPRAZOLE (EC) 40 MG TAB PO SCH ×2 (05:13→17:48)
[2016-11-25 05:29] LABS: WHITE BLOOD COUNT 12.8 10^3/ul (4.8-10.8)
[2016-11-25 05:30] LABS: BASOPHIL # 0.1 10^3/ul (0.0-0.1); BASOPHILS % 0.7 % (0.0-2.0); EOSINOPHILS # 0.3 10^3/ul (0.0-0.5); EOSINOPHILS % 2.3 % (0.0-7.0); HEMATOCRIT 34.5 % (37.0-47.0); HEMOGLOBIN 11.1 g/dl (12.0-16.0); LYMPHOCYTES # 3.4 10^3/ul (0.8-2.9); LYMPHOCYTES % 26.4 % (15.0-51.0); MEAN CORPUSCULAR HEMOGLOBIN 26.8 pg (29.0-33.0); MEAN CORPUSCULAR HGB CONC 32.2 g/dl (32.0-37.0); MEAN CORPUSCULAR VOLUME 83.3 fl (82.0-101.0); MEAN PLATELET VOLUME 10.3 fl (7.4-10.4); MONOCYTE # 1.1 10^3/ul (0.3-0.9); MONOCYTES % 8.2 % (0.0-11.0); NEUTROPHILS % 59.6 % (39.0-77.0); PLATELET COUNT 318 10^3/UL (140-415); RED BLOOD COUNT 4.14 10^6/ul (4.20-5.40); RED CELL DISTRIBUTION WIDTH 15.2 % (11.5-14.5)
[2016-11-25 05:52] LABS: CREATININE 0.72 mg/dl (0.44-1.00); POTASSIUM 3.2 mmol/L (3.5-5.1)
[2016-11-25 05:53] LABS: CALCIUM 8.6 mg/dl (8.4-10.2)
[2016-11-25 08:00] VITALS: BP 136/78; RESP 18
[2016-11-25] MEDS: INSULIN ASPART [NOVOLOG] 3 ML PEN SC SCH ×4 (08:00→20:34)
[2016-11-25] MEDS: MECLIZINE 25 MG TAB PO SCH ×3 (09:17→20:33)
[2016-11-25] MEDS: ASPIRIN 81 MG TAB PO SCH (09:17)
[2016-11-25] MEDS: PAROXETINE 10 MG TAB PO SCH (09:18)
[2016-11-25] MEDS: VALSARTAN 160 MG TAB PO SCH ×2 (09:18→20:33)
[2016-11-25] MEDS: metFORMIN 850 MG TAB PO SCH ×2 (09:18→17:04)
[2016-11-25] MEDS: HYDROCHLOROTHIAZIDE 25 MG TAB PO SCH (09:18)
[2016-11-25] MEDS: PE/SHARK OIL/MO/PETROL 30 GM OINT PR SCH ×2 (12:16→20:35)
[2016-11-25 14:00] VITALS: BP 134/62; RESP 18
--- NOTE | 2016-11-25 14:30 | CONS ---
Date/Time of Note Date/Time of Note DATE: 11/25/16 TIME: 14:29 Assessment/Plan Assessment/Plan Chief Complaint/Hosp Course SUBJECTIVE: No events overnight. Alert, feels ok, no fevers,nad WBC 12.8 H&H 11.1 and 34.5 platelets 318 BUN 15 creatinine 0.72 ANTIMICROBIALS: Oral vancomycin and Flagyl. PHYSICAL EXAMINATION: GENERAL: This is a fragile, well-developed, elderly woman who is awake, in no distress. HEENT: Head atraumatic, normocephalic. Sclerae anicteric. Buccal mucosa dry. NECK: Supple. CHEST: Rise symmetrical. Breath sounds clear bilaterally. HEART: S1, S2. ABDOMEN: Soft. Mild tenderness on palpation. Bowel sounds present. EXTREMITIES: Without cyanosis. ASSESSMENT: 1. Systemic inflammatory response syndrome. 2. Clostridium difficile colitis. 3. Diabetes and hypertension. 4. History of bilateral total knee replacement. PLAN: Patient remains stable, continue abx pt Problems: Consultation Date/Type/Reason Admit Date/Time Nov 15, 2016 at 11:01 Initial Consult Date 11/22/16 Type of Consultation: ID Referring Provider: THAI DELACRUZ Exam/Review of Systems Vital Signs Vitals Vital Signs Date Time Temp Pulse Resp B/P Pulse Ox O2 Delivery O2 Flow Rate FiO2 11/25/16 08:50 95 Room Air 11/25/16 08:00 98.8 80 18 136/78 Intake and Output 11/24/16 11/24/16 11/25/16 15:00 23:00 07:00 Intake Total 1040 ml 240 ml Balance 1040 ml 240 ml Results Result Diagram: 11/25/16 0452 11/25/16 0452 Results 24 hrs Laboratory Tests Test 11/24/16 17:46 11/24/16 20:56 11/25/16 04:52 11/25/16 08:03 Bedside Glucose 102 106 109 White Blood Count 12.8 H Red Blood Count 4.14 L Hemoglobin 11.1 L Hematocrit 34.5 L Mean Corpuscular Volume 83.3 Mean Corpuscular Hemoglobin 26.8 L Mean Corpuscular Hemoglobin Concent 32.2 Red Cell Distribution Width 15.2 H Platelet Count 318 Mean Platelet Volume 10.3 Neutrophils % 59.6 Lymphocytes % 26.4 Monocytes % 8.2 Eosinophils % 2.3 Basophils % 0.7 Nucleated Red Blood Cells % 0.0 Neutrophils # (Manual) 8 H Lymphocytes # 3.4 H Monocytes # 1.1 H Eosinophils # 0.3 Basophils # 0.1 Nucleated Red Blood Cells # 0.0 Sodium Level 137 Potassium Level 3.2 L Chloride Level 99 Carbon Dioxide Level 28 Anion Gap 13 Blood Urea Nitrogen 15 Creatinine 0.72 Glucose Level 93 Calcium Level 8.6 Test 11/25/16 12:11 Bedside Glucose 100 Medications Medications Current Medications Acetaminophen (Tylenol Tab) 650 mg Q4H PRN PO PAIN AND OR ELEVATED TEMP Last administered on 11/24/16 09:53; Admin Dose 650 MG; Start 11/15/16 at 16:00 Paroxetine HCl (Paxil) 30 mg DAILY PO Last administered on 11/25/16 09:18; Admin Dose 30 MG; Start 11/16/16 at 09:00 Diagnostic Test (Pha) (Accu-Chek) 1 ea 02 XX ; Start 11/16/16 at 02:00 Miscellaneous Information 1 ea NOTE XX ; Start 11/15/16 at 16:30 Glucose (Glutose) 15 gm Q15M PRN PO DECREASED GLUCOSE; Start 11/15/16 at 16:30 Glucose (Glutose) 22.5 gm Q15M PRN PO DECREASED GLUCOSE; Start 11/15/16 at 16:30 Dextrose (D50w Syringe) 25 ml Q15M PRN IV DECREASED GLUCOSE; Start 11/15/16 at 16:30 Dextrose (D50w Syringe) 50 ml Q15M PRN IV DECREASED GLUCOSE; Start 11/15/16 at 16:30 Glucagon (Glucagen) 1 mg Q15M PRN IM DECREASED GLUCOSE; Start 11/15/16 at 16:30 Glucose (Glutose) 15 gm Q15M PRN BUCCAL DECREASED GLUCOSE; Start 11/15/16 at 16: 30 Aspirin (Aspirin) 81 mg DAILY PO Last administered on 11/25/16 09:17; Admin Dose 81 MG; Start 11/16/16 at 09:00 Hydrochlorothiazide (Hydrochlorothiazide) 25 mg DAILY PO Last administered on 09:18; Admin Dose 25 MG; Start 11/16/16 at 09:00 Pantoprazole (Protonix Tab) 40 mg BID@18 PO Last administered on 11/25/16 05:13; Admin Dose 40 MG; Start 11/15/16 at 18:00 Ondansetron HCl (Zofran Inj) 4 mg Q6H PRN IV NAUSEA AND/OR VOMITING Last administered on 11/23/16 15:11; Admin Dose 4 MG; Start 11/16/16 at 09:30 Ibuprofen (Motrin) 600 mg Q8H PRN PO PAIN LEVEL 4-7; Start 11/16/16 at 19:00 Valsartan (Diovan) 160 mg BID PO Last administered on 11/25/16 09:18; Admin Dose 160 MG; Start 11/16/16 at 21:00 Alprazolam (Xanax) 0.5 mg Q6H PRN PO ANXIETY Last administered on 11/24/16 21: 30; Admin Dose 0.5 MG; Start 11/18/16 at 11:00 Meclizine HCl (Antivert) 25 mg TID PO Last administered on 11/25/16 13:16; Admin Dose 25 MG; Start 11/18/16 at 21:00 Atorvastatin Calcium (Lipitor) 40 mg HS PO Last administered on 11/24/16 20:54 ; Admin Dose 40 MG; Start 11/19/16 at 21:00 Phenyleph/Shark Oil/Min Oil/Petrol (Formulation R Oint) 1 applic BID [place] Last administered on 11/25/16 12:16; Admin Dose 1 APPLIC; Start 11/20/16 at 13:30 Metronidazole (Flagyl) 500 mg Q6 PO Last administered on 11/25/16 12:12; Admin Dose 500 MG; Start 11/21/16 at 12:00 Vancomycin HCl (Vancomycin Oral Syringe) 250 mg Q6 PO Last administered on 11/25 12:13; Admin Dose 250 MG; Start 11/21/16 at 12:00 EDILMA LIMA NP Nov 25, 2016 14:30
[2016-11-25] MEDS ORDERED: METHYLPREDNISOLONE ACET 40 MG/ML 1 ML IM ONE (15:00)
[2016-11-25] MEDS ORDERED: LIDOCAINE 1% (MPF) 30 ML INJ INJ ONE (15:00)
[2016-11-25] MEDS ORDERED: LIDOCAINE 1% (MDV) 20 ML INJ ONE (15:14)
[2016-11-25] MEDS ORDERED: POTASSIUM CHLORIDE (SR) 20 MEQ TAB PO STA (16:17)
--- NOTE | 2016-11-25 19:37 | PN ---
Date/Time of Note Date/Time of Note DATE: 11/25/16 TIME: 19:34 Assessment/Plan VTE Prophylaxis VTE Prophylaxis Intervention: SCD's Lines/Catheters IV Catheter Type (from [facility]): Sal[facility] Urinary Cath still in place: No Assessment/Plan Chief Complaint/Hosp Course Patient had episode of diarrhea last night however no diarrhea per RN today. 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 -Dizziness and headache due to occipital neuralgia, Dr. Billings, neurology consult is appreciated -Diarrhea with C. difficile colitis, continue p.o. vancomycin, Dr. Rosales is following infection disease. -Rule out acute coronary syndrome, cardiac enzymes every 8 hours 3. -Hypertension, continue hydrochlorothiazide and Diovan -Diabetes mellitus, continue metformin and NovoLog per mild algorithm sliding scale. -Osteoarthritis, patient was able to ambulate using walker -Obesity with BMI of 35.5. Further recommendations based on clinical course. Plan of care discussed with Dr. Justin Problems: Exam/Review of Systems Vital Signs Vitals Vital Signs Date Time Temp Pulse Resp B/P Pulse Ox O2 Delivery O2 Flow Rate FiO2 11/25/16 14:00 98.6 76 18 134/62 96 11/25/16 08:50 Room Air Intake and Output 11/24/16 11/24/16 11/25/16 15:00 23:00 07:00 Intake Total 1040 ml 240 ml Balance 1040 ml 240 ml Exam Constitutional: alert, oriented Respiratory: normal air movement Cardiovascular: nl pulses Gastrointestinal: non-tender, soft Extremities: normal pulses Neurological: nl mental status Results Result Diagram: 11/25/16 0452 11/25/16 0452 Results 24 hrs Laboratory Tests Test 11/24/16 20:56 11/25/16 04:52 11/25/16 08:03 11/25/16 12:11 Bedside Glucose 106 109 100 White Blood Count 12.8 H Red Blood Count 4.14 L Hemoglobin 11.1 L Hematocrit 34.5 L Mean Corpuscular Volume 83.3 Mean Corpuscular Hemoglobin 26.8 L Mean Corpuscular Hemoglobin Concent 32.2 Red Cell Distribution Width 15.2 H Platelet Count 318 Mean Platelet Volume 10.3 Neutrophils % 59.6 Lymphocytes % 26.4 Monocytes % 8.2 Eosinophils % 2.3 Basophils % 0.7 Nucleated Red Blood Cells % 0.0 Neutrophils # (Manual) 8 H Lymphocytes # 3.4 H Monocytes # 1.1 H Eosinophils # 0.3 Basophils # 0.1 Nucleated Red Blood Cells # 0.0 Sodium Level 137 Potassium Level 3.2 L Chloride Level 99 Carbon Dioxide Level 28 Anion Gap 13 Blood Urea Nitrogen 15 Creatinine 0.72 Glucose Level 93 Calcium Level 8.6 Test 11/25/16 17:06 Bedside Glucose 103 Medications Medications Current Medications Acetaminophen (Tylenol Tab) 650 mg Q4H PRN PO PAIN AND OR ELEVATED TEMP Last administered on 11/24/16 09:53; Admin Dose 650 MG; Start 11/15/16 at 16:00 Paroxetine HCl (Paxil) 30 mg DAILY PO Last administered on 11/25/16 09:18; Admin Dose 30 MG; Start 11/16/16 at 09:00 Diagnostic Test (Pha) (Accu-Chek) 1 ea 02 XX ; Start 11/16/16 at 02:00 Miscellaneous Information 1 ea NOTE XX ; Start 11/15/16 at 16:30 Glucose (Glutose) 15 gm Q15M PRN PO DECREASED GLUCOSE; Start 11/15/16 at 16:30 Glucose (Glutose) 22.5 gm Q15M PRN PO DECREASED GLUCOSE; Start 11/15/16 at 16:30 Dextrose (D50w Syringe) 25 ml Q15M PRN IV DECREASED GLUCOSE; Start 11/15/16 at 16:30 Dextrose (D50w Syringe) 50 ml Q15M PRN IV DECREASED GLUCOSE; Start 11/15/16 at 16:30 Glucagon (Glucagen) 1 mg Q15M PRN IM DECREASED GLUCOSE; Start 11/15/16 at 16:30 Glucose (Glutose) 15 gm Q15M PRN BUCCAL DECREASED GLUCOSE; Start 11/15/16 at 16: 30 Aspirin (Aspirin) 81 mg DAILY PO Last administered on 11/25/16 09:17; Admin Dose 81 MG; Start 11/16/16 at 09:00 Hydrochlorothiazide (Hydrochlorothiazide) 25 mg DAILY PO Last administered on 09:18; Admin Dose 25 MG; Start 11/16/16 at 09:00 Pantoprazole (Protonix Tab) 40 mg BID@ PO Last administered on 11/25/16 17:48; Admin Dose 40 MG; Start 11/15/16 at 18:00 Ondansetron HCl (Zofran Inj) 4 mg Q6H PRN IV NAUSEA AND/OR VOMITING Last administered on 11/23/16 15:11; Admin Dose 4 MG; Start 11/16/16 at 09:30 Ibuprofen (Motrin) 600 mg Q8H PRN PO PAIN LEVEL 4-7; Start 11/16/16 at 19:00 Valsartan (Diovan) 160 mg BID PO Last administered on 11/25/16 09:18; Admin Dose 160 MG; Start 11/16/16 at 21:00 Alprazolam (Xanax) 0.5 mg Q6H PRN PO ANXIETY Last administered on 11/24/16 21: 30; Admin Dose 0.5 MG; Start 11/18/16 at 11:00 Meclizine HCl (Antivert) 25 mg TID PO Last administered on 11/25/16 13:16; Admin Dose 25 MG; Start 11/18/16 at 21:00 Atorvastatin Calcium (Lipitor) 40 mg HS PO Last administered on 11/24/16 20:54 ; Admin Dose 40 MG; Start 11/19/16 at 21:00 Phenyleph/Shark Oil/Min Oil/Petrol (Formulation R Oint) 1 applic BID [place] Last administered on 11/25/16 12:16; Admin Dose 1 APPLIC; Start 11/20/16 at 13:30 Metronidazole (Flagyl) 500 mg Q6 PO Last administered on 11/25/16 17:48; Admin Dose 500 MG; Start 11/21/16 at 12:00 Vancomycin HCl (Vancomycin Oral Syringe) 250 mg Q6 PO Last administered on 11/25 17:49; Admin Dose 250 MG; Start 11/21/16 at 12:00 THAI DELACRUZ Nov 25, 2016 19:37
[2016-11-25 20:00] VITALS: BP 120/78; RESP 20
[2016-11-25] MEDS: ATORVASTATIN 40 MG TAB PO SCH (20:33)
[2016-11-25] MEDS: ALPRAZOLAM 0.25 MG TAB PO PRN (21:50)
--- NOTE | 2016-11-25 22:54 | CONS ---
DATE OF ADMISSION: 11/15/2016 DATE OF CONSULTATION: 11/25/2016 Rheumatology consultation HISTORY OF PRESENT ILLNESS: The patient is an 81-year-old, woman who 2 months ago developed upper back and neck pain. This has been mostly constant with some exacerbations with use of the neck. She has some dizziness particularly when she bends her neck forward. She has been treated with various medications including Flexeril without benefit. She has had extensive imaging studies including brain MRI and MRA, CT scans, etc., without significant abnormalities. The patient denies numbness at the hands. Denies through radiation of the pain into the arms. She does have some left shoulder pain chronically but relatively good range of motion. She does describe also chronic low back pains as well as the left knee aches and she has had a right total knee replacement in the past for osteoarthritis. She denies other arthralgias or joint swellings. REVIEW OF SYSTEMS: Is negative for other headaches, rashes, fevers. She denies jaw claudication symptoms or visual changes. She denies shortness of breath or chest pains. Denies palpitations. Denies significant abdominal pain. She may have had some diarrhea in the past and has been diagnosed with C difficile colitis, or at least C difficile was grown from the stool. PAST MEDICAL HISTORY: Positive for diabetes, hypertension, osteoarthritis of the knees, history of some depression but denies suicidal ideation, obesity. PAST SURGICAL HISTORY: Includes right total knee replacement. FAMILY HISTORY: Positive for leukemia in mother. SOCIAL HISTORY: Patient denies alcohol use or smoking. ALLERGIES: NO KNOWN ALLERGIES TO MEDICATIONS. MEDICATION: See chart. PHYSICAL EXAMINATION: VITAL SIGNS: Afebrile. Blood pressure 136/78, pulse 80, respirations 18. Oxygen saturation 98 on room air. GENERAL: Well developed, slightly obese, woman, in no acute distress. Alert, oriented x3. SKIN: Without acute lesions. HEENT: Without acute oral or ocular lesions. No temporal artery tenderness noted. NECK: Without lymphadenopathy. CHEST: Clear to auscultation. HEART: Regular rhythm. ABDOMEN: Soft, without masses or tenderness. MUSCULOSKELETAL EXAM: Neck with slight decreased range of motion to all directions. There are tender trigger points at the upper back bilaterally at the upper medial angle of the scapula and milder tenderness throughout the neck and there are tender trigger points in the lower back bilaterally. Mild tenderness in the left lateral shoulder but the shoulders with good range of motion. Right knee with scar from previous surgery. Left knee with crepitus. Minimal tenderness. Other joints good range of motion without synovitis. NEUROLOGIC EXAM: Grossly intact. Chart reviewed. LABORATORY: Noted including leukocytosis on 11/21 and 11/22, which has improved. Her white count was only 8,000 on admission. Borderline anemia with hemoglobin 11.1, sedimentation rate of 19 on November 19. The patient's hemoglobin A1c on admission was 5.6. ASSESSMENT: 1. Neck and upper back pain. There may be some degenerative joint disease. But I believe that most of the pain appears to be myofascial with upper back trigger points. She also has low back trigger point tenderness. She is not particularly tender at the occiput to my exam, so I am not clear about the diagnosis of occipital neuralgia at this point. 2. Osteoarthritis. 3. Diabetes. 4. Hypertension. 5. C difficile colitis recently on treatment. PLAN: I discussed my impressions with the patient in detail including the possible benefit and potential side effects of cortisone steroid trigger point injections to the upper back and the patient is agreeable. PROCEDURE NOTE: After obtaining verbal consent, under aseptic technique, 2 upper back trigger points were injected with 10 mg Depo-Medrol and 1 percent lidocaine each without complications. Thank you for having me see the patient rheumatologically, will follow. Sincerely, Dictated By: Baldev Herrera MD /[email or web address] /Document#: [id number] LIA
[2016-11-26] MEDS: metroNIDAZOLE 500 MG TAB PO SCH ×5 (01:00→23:30)
[2016-11-26] MEDS: VANCOMYCIN HCL 250 MG/5ML POSYG PO SCH ×5 (01:00→23:30)
[2016-11-26 02:00] VITALS: BP 131/70; RESP 19
[2016-11-26] MEDS: ACCU-CHEK XX SCH (02:00)
[2016-11-26] MEDS: PANTOPRAZOLE (EC) 40 MG TAB PO SCH ×2 (06:07→17:32)
[2016-11-26 06:37] LABS: ABNORMAL IP MESSAGE 1; BASOPHIL # 0.1 10^3/ul (0.0-0.1); BASOPHILS % 0.4 % (0.0-2.0); EOSINOPHILS # 0.1 10^3/ul (0.0-0.5); EOSINOPHILS % 0.3 % (0.0-7.0); HEMOGLOBIN 11.8 g/dl (12.0-16.0); LYMPHOCYTES # 2.2 10^3/ul (0.8-2.9); LYMPHOCYTES % 13.7 % (15.0-51.0); MEAN CORPUSCULAR HEMOGLOBIN 27.1 pg (29.0-33.0); MEAN CORPUSCULAR HGB CONC 32.8 g/dl (32.0-37.0); MEAN CORPUSCULAR VOLUME 82.6 fl (82.0-101.0); MEAN PLATELET VOLUME 10.3 fl (7.4-10.4); MONOCYTES % 5.9 % (0.0-11.0); PLATELET COUNT 363 10^3/UL (140-415); RED BLOOD COUNT 4.36 10^6/ul (4.20-5.40); RED CELL DISTRIBUTION WIDTH 14.6 % (11.5-14.5); WHITE BLOOD COUNT 16.2 10^3/ul (4.8-10.8)
[2016-11-26 06:51] LABS: POSITIVE DIFF @See below
[2016-11-26 07:03] LABS: CALCIUM 9.2 mg/dl (8.4-10.2); CREATININE 0.65 mg/dl (0.44-1.00); POTASSIUM 3.6 mmol/L (3.5-5.1)
[2016-11-26 07:50] VITALS: BP 135/64; RESP 18
[2016-11-26] MEDS: INSULIN ASPART [NOVOLOG] 3 ML PEN SC SCH ×4 (08:00→20:55)
[2016-11-26] MEDS: metFORMIN 850 MG TAB PO SCH ×2 (08:00→17:37)
[2016-11-26] MEDS: PE/SHARK OIL/MO/PETROL 30 GM OINT PR SCH ×2 (09:00→20:53)
[2016-11-26] MEDS: MECLIZINE 25 MG TAB PO SCH ×3 (09:57→20:52)
[2016-11-26] MEDS: PAROXETINE 10 MG TAB PO SCH (09:57)
[2016-11-26] MEDS: VALSARTAN 160 MG TAB PO SCH ×2 (09:57→20:52)
[2016-11-26] MEDS: HYDROCHLOROTHIAZIDE 25 MG TAB PO SCH (09:57)
[2016-11-26] MEDS: ASPIRIN 81 MG TAB PO SCH (09:57)
[2016-11-26] MEDS: ACETAMINOPHEN 325 MG TAB PO PRN (10:25)
--- NOTE | 2016-11-26 10:32 | PN ---
Date/Time of Note Date/Time of Note DATE: 11/26/16 TIME: 10:31 Assessment/Plan VTE Prophylaxis VTE Prophylaxis Intervention: other Lines/Catheters [facility] Saline [facility] Urinary Cath still in place: No Assessment/Plan Chief Complaint/Hosp Course -Acute stroke ruled out. -Dizziness and headache due to occipital neuralgia, Dr. Billings, neurology consult is appreciated -Diarrhea with C. difficile colitis, continue p.o. vancomycin, Dr. Rosales is following infection disease. -Rule out acute coronary syndrome, cardiac enzymes every 8 hours 3. -Hypertension, continue hydrochlorothiazide and Diovan -Diabetes mellitus, continue metformin and NovoLog per mild algorithm sliding scale. -Osteoarthritis, patient was able to ambulate using walker -Obesity with BMI of 35.5. Problems: Subjective 24 Hr Interval Summary Free Text/Dictation Patient complain of headache Exam/Review of Systems Vital Signs Vitals Vital Signs Date Time Temp Pulse Resp B/P Pulse Ox O2 Delivery O2 Flow Rate FiO2 11/26/16 07:50 98.4 79 18 135/64 92 11/25/16 08:50 Room Air Intake and Output 11/25/16 11/25/16 11/26/16 15:00 23:00 07:00 Intake Total 720 ml 520 ml Balance 720 ml 520 ml Exam Constitutional: well developed Head: atraumatic, normocephalic Neck: supple Respiratory: clear to auscultation Cardiovascular: regular rate and rhythm Gastrointestinal: non-tender, soft Extremities: normal pulses Results Result Diagram: 11/26/16 0504 11/26/16 0504 Results 24 hrs Laboratory Tests Test 11/25/16 12:11 11/25/16 17:06 11/25/16 20:25 11/26/16 05:04 Bedside Glucose 100 103 108 White Blood Count 16.2 #H Red Blood Count 4.36 Hemoglobin 11.8 L Hematocrit 36.0 L Mean Corpuscular Volume 82.6 Mean Corpuscular Hemoglobin 27.1 L Mean Corpuscular Hemoglobin Concent 32.8 Red Cell Distribution Width 14.6 H Platelet Count 363 Mean Platelet Volume 10.3 Neutrophils % 76.0 Lymphocytes % 13.7 L Monocytes % 5.9 Eosinophils % 0.3 Basophils % 0.4 Nucleated Red Blood Cells % 0.0 Neutrophils # (Manual) 12 H Lymphocytes # 2.2 Monocytes # 1.0 H Eosinophils # 0.1 Basophils # 0.1 Nucleated Red Blood Cells # 0.0 Sodium Level 142 Potassium Level 3.6 Chloride Level 96 L Carbon Dioxide Level 30 Anion Gap 20 #H Blood Urea Nitrogen 14 Creatinine 0.65 Glucose Level 114 Calcium Level 9.2 Test 11/26/16 08:01 Bedside Glucose 118 Medications Medications Current Medications Acetaminophen (Tylenol Tab) 650 mg Q4H PRN PO PAIN AND OR ELEVATED TEMP Last administered on 11/26/16 10:25; Admin Dose 650 MG; Start 11/15/16 at 16:00 Paroxetine HCl (Paxil) 30 mg DAILY PO Last administered on 11/26/16 09:57; Admin Dose 30 MG; Start 11/16/16 at 09:00 Diagnostic Test (Pha) (Accu-Chek) 1 ea 02 XX ; Start 11/16/16 at 02:00 Miscellaneous Information 1 ea NOTE XX ; Start 11/15/16 at 16:30 Glucose (Glutose) 15 gm Q15M PRN PO DECREASED GLUCOSE; Start 11/15/16 at 16:30 Glucose (Glutose) 22.5 gm Q15M PRN PO DECREASED GLUCOSE; Start 11/15/16 at 16:30 Dextrose (D50w Syringe) 25 ml Q15M PRN IV DECREASED GLUCOSE; Start 11/15/16 at 16:30 Dextrose (D50w Syringe) 50 ml Q15M PRN IV DECREASED GLUCOSE; Start 11/15/16 at 16:30 Glucagon (Glucagen) 1 mg Q15M PRN IM DECREASED GLUCOSE; Start 11/15/16 at 16:30 Glucose (Glutose) 15 gm Q15M PRN BUCCAL DECREASED GLUCOSE; Start 11/15/16 at 16: 30 Aspirin (Aspirin) 81 mg DAILY PO Last administered on 11/26/16 09:57; Admin Dose 81 MG; Start 11/16/16 at 09:00 Hydrochlorothiazide (Hydrochlorothiazide) 25 mg DAILY PO Last administered on 09:57; Admin Dose 25 MG; Start 11/16/16 at 09:00 Pantoprazole (Protonix Tab) 40 mg BID@06,18 PO Last administered on 11/26/16 06:07; Admin Dose 40 MG; Start 11/15/16 at 18:00 Ondansetron HCl (Zofran Inj) 4 mg Q6H PRN IV NAUSEA AND/OR VOMITING Last administered on 11/23/16 15:11; Admin Dose 4 MG; Start 11/16/16 at 09:30 Ibuprofen (Motrin) 600 mg Q8H PRN PO PAIN LEVEL 4-7; Start 11/16/16 at 19:00 Valsartan (Diovan) 160 mg BID PO Last administered on 11/26/16 09:57; Admin Dose 160 MG; Start 11/16/16 at 21:00 Alprazolam (Xanax) 0.5 mg Q6H PRN PO ANXIETY Last administered on 11/25/16 21: 50; Admin Dose 0.5 MG; Start 11/18/16 at 11:00 Meclizine HCl (Antivert) 25 mg TID PO Last administered on 11/26/16 09:57; Admin Dose 25 MG; Start 11/18/16 at 21:00 Atorvastatin Calcium (Lipitor) 40 mg HS PO Last administered on 11/25/16 20:33 ; Admin Dose 40 MG; Start 11/19/16 at 21:00 Phenyleph/Shark Oil/Min Oil/Petrol (Formulation R Oint) 1 applic BID [place] Last administered on 11/25/16 20:35; Admin Dose 1 APPLIC; Start 11/20/16 at 13:30 Metronidazole (Flagyl) 500 mg Q6 PO Last administered on 11/26/16 06:07; Admin Dose 500 MG; Start 11/21/16 at 12:00 Vancomycin HCl (Vancomycin Oral Syringe) 250 mg Q6 PO Last administered on 11/26 06:07; Admin Dose 250 MG; Start 11/21/16 at 12:00 MAHENDRA RUVALCABA Nov 26, 2016 10:32
--- NOTE | 2016-11-26 12:57 | CONS ---
Date/Time of Note Date/Time of Note DATE: 11/26/16 TIME: 12:41 Consult Date/Type/Reason Admit Date/Time Nov 15, 2016 at 11:01 Initial Consult Date 11/22/16 Type of Consultation: Rheum Ordering Provider: THAI DELACRUZ Subjective Yesterday received upper back trigger point injections. Right upper back and neck feel much better. Left upper back still with some pain. No new other complaints. Objective Vital Signs Date Time Temp Pulse Resp B/P Pulse Ox O2 Delivery O2 Flow Rate FiO2 11/26/16 07:50 98.4 79 18 135/64 92 11/25/16 08:50 Room Air Intake and Output 11/25/16 11/25/16 11/26/16 15:00 23:00 07:00 Intake Total 720 ml 520 ml Balance 720 ml 520 ml Exam GENERAL: Well developed, slightly obese, woman, in no acute distress. Alert, oriented x3. SKIN: Without acute lesions. HEENT: Without acute oral or ocular lesions. No temporal artery tenderness noted. NECK: Without lymphadenopathy. CHEST: Clear to auscultation. HEART: Regular rhythm. ABDOMEN: Soft, without masses or tenderness. MUSCULOSKELETAL EXAM: Right upper back with minimal tenderness. Left upper back with some tenderness still. Rest without change. NEUROLOGIC EXAM: Grossly intact. Results/Medications Result Diagram: 11/26/16 0504 11/26/16 0504 Results 24 hrs Laboratory Tests Test 11/25/16 17:06 11/25/16 20:25 11/26/16 05:04 11/26/16 08:01 Bedside Glucose 103 108 118 White Blood Count 16.2 #H Red Blood Count 4.36 Hemoglobin 11.8 L Hematocrit 36.0 L Mean Corpuscular Volume 82.6 Mean Corpuscular Hemoglobin 27.1 L Mean Corpuscular Hemoglobin Concent 32.8 Red Cell Distribution Width 14.6 H Platelet Count 363 Mean Platelet Volume 10.3 Neutrophils % 76.0 Lymphocytes % 13.7 L Monocytes % 5.9 Eosinophils % 0.3 Basophils % 0.4 Nucleated Red Blood Cells % 0.0 Neutrophils # (Manual) 12 H Lymphocytes # 2.2 Monocytes # 1.0 H Eosinophils # 0.1 Basophils # 0.1 Nucleated Red Blood Cells # 0.0 Sodium Level 142 Potassium Level 3.6 Chloride Level 96 L Carbon Dioxide Level 30 Anion Gap 20 #H Blood Urea Nitrogen 14 Creatinine 0.65 Glucose Level 114 Calcium Level 9.2 Test 11/26/16 12:04 Bedside Glucose 137 Medications Current Medications Acetaminophen (Tylenol Tab) 650 mg Q4H PRN PO PAIN AND OR ELEVATED TEMP Last administered on 11/26/16 10:25; Admin Dose 650 MG; Start 11/15/16 at 16:00 Paroxetine HCl (Paxil) 30 mg DAILY PO Last administered on 11/26/16 09:57; Admin Dose 30 MG; Start 11/16/16 at 09:00 Diagnostic Test (Pha) (Accu-Chek) 1 ea 02 XX ; Start 11/16/16 at 02:00 Miscellaneous Information 1 ea NOTE XX ; Start 11/15/16 at 16:30 Glucose (Glutose) 15 gm Q15M PRN PO DECREASED GLUCOSE; Start 11/15/16 at 16:30 Glucose (Glutose) 22.5 gm Q15M PRN PO DECREASED GLUCOSE; Start 11/15/16 at 16:30 Dextrose (D50w Syringe) 25 ml Q15M PRN IV DECREASED GLUCOSE; Start 11/15/16 at 16:30 Dextrose (D50w Syringe) 50 ml Q15M PRN IV DECREASED GLUCOSE; Start 11/15/16 at 16:30 Glucagon (Glucagen) 1 mg Q15M PRN IM DECREASED GLUCOSE; Start 11/15/16 at 16:30 Glucose (Glutose) 15 gm Q15M PRN BUCCAL DECREASED GLUCOSE; Start 11/15/16 at 16: 30 Aspirin (Aspirin) 81 mg DAILY PO Last administered on 11/26/16 09:57; Admin Dose 81 MG; Start 11/16/16 at 09:00 Hydrochlorothiazide (Hydrochlorothiazide) 25 mg DAILY PO Last administered on 09:57; Admin Dose 25 MG; Start 11/16/16 at 09:00 Pantoprazole (Protonix Tab) 40 mg BID@,18 PO Last administered on 11/26/16 06:07; Admin Dose 40 MG; Start 11/15/16 at 18:00 Ondansetron HCl (Zofran Inj) 4 mg Q6H PRN IV NAUSEA AND/OR VOMITING Last administered on 11/23/16 15:11; Admin Dose 4 MG; Start 11/16/16 at 09:30 Ibuprofen (Motrin) 600 mg Q8H PRN PO PAIN LEVEL 4-7; Start 11/16/16 at 19:00 Valsartan (Diovan) 160 mg BID PO Last administered on 11/26/16 09:57; Admin Dose 160 MG; Start 11/16/16 at 21:00 Alprazolam (Xanax) 0.5 mg Q6H PRN PO ANXIETY Last administered on 11/25/16 21: 50; Admin Dose 0.5 MG; Start 11/18/16 at 11:00 Meclizine HCl (Antivert) 25 mg TID PO Last administered on 11/26/16 12:10; Admin Dose 25 MG; Start 11/18/16 at 21:00 Atorvastatin Calcium (Lipitor) 40 mg HS PO Last administered on 11/25/16 20:33 ; Admin Dose 40 MG; Start 11/19/16 at 21:00 Phenyleph/Shark Oil/Min Oil/Petrol (Formulation R Oint) 1 applic BID [place] Last administered on 11/25/16 20:35; Admin Dose 1 APPLIC; Start 11/20/16 at 13:30 Metronidazole (Flagyl) 500 mg Q6 PO Last administered on 11/26/16 12:10; Admin Dose 500 MG; Start 11/21/16 at 12:00 Vancomycin HCl (Vancomycin Oral Syringe) 250 mg Q6 PO Last administered on 11/26 12:11; Admin Dose 250 MG; Start 11/21/16 at 12:00 Assessment/Plan Chief Complaint/Hosp Course ASSESSMENT: 1. Neck and upper back pain. There may be some degenerative joint disease. Mostly myofascial with upper back trigger points. Seems to be improving with local upper back trigger point injections. She is not particularly tender at the occiput to my exam, so I am not clear about the diagnosis of occipital neuralgia at this point. 2. Osteoarthritis. 3. Diabetes. 4. Hypertension. 5. C difficile colitis recently on treatment. PLAN: 1. Continue present plan. 2. Ice pack to upper back PRN. Problems: HAILEY NINO MD Nov 26, 2016 12:52
[2016-11-26 14:35] VITALS: BP 120/63; RESP 18
--- NOTE | 2016-11-26 16:24 | CONS ---
Date/Time of Note Date/Time of Note DATE: 11/26/16 TIME: 16:23 Assessment/Plan Assessment/Plan Chief Complaint/Hosp Course SUBJECTIVE: No events overnight. Alert, feels ok, no fevers,nad ANTIMICROBIALS: Oral vancomycin and Flagyl. PHYSICAL EXAMINATION: GENERAL: This is a fragile, well-developed, elderly woman who is awake, in no distress. HEENT: Head atraumatic, normocephalic. Sclerae anicteric. Buccal mucosa dry. NECK: Supple. CHEST: Rise symmetrical. Breath sounds clear bilaterally. HEART: S1, S2. ABDOMEN: Soft. Mild tenderness on palpation. Bowel sounds present. EXTREMITIES: Without cyanosis. ASSESSMENT: 1. Systemic inflammatory response syndrome. 2. Clostridium difficile colitis. 3. Diabetes and hypertension. 4. History of bilateral total knee replacement. PLAN: Patient remains stable, diarrhea is better, continue abx and probiotics, rheumatology rec-s noted [facility] staff Problems: Consultation Date/Type/Reason Admit Date/Time Nov 15, 2016 at 11:01 Initial Consult Date 11/22/16 Type of Consultation: id Referring Provider: THAI DELACRUZ Exam/Review of Systems Vital Signs Vitals Vital Signs Date Time Temp Pulse Resp B/P Pulse Ox O2 Delivery O2 Flow Rate FiO2 11/26/16 14:35 99.0 85 18 120/63 93 11/25/16 08:50 Room Air Intake and Output 11/25/16 11/25/16 11/26/16 15:00 23:00 07:00 Intake Total 720 ml 520 ml Balance 720 ml 520 ml Results Result Diagram: 11/26/16 0504 11/26/16 0504 Results 24 hrs Laboratory Tests Test 11/25/16 17:06 11/25/16 20:25 11/26/16 05:04 11/26/16 08:01 Bedside Glucose 103 108 118 White Blood Count 16.2 #H Red Blood Count 4.36 Hemoglobin 11.8 L Hematocrit 36.0 L Mean Corpuscular Volume 82.6 Mean Corpuscular Hemoglobin 27.1 L Mean Corpuscular Hemoglobin Concent 32.8 Red Cell Distribution Width 14.6 H Platelet Count 363 Mean Platelet Volume 10.3 Neutrophils % 76.0 Lymphocytes % 13.7 L Monocytes % 5.9 Eosinophils % 0.3 Basophils % 0.4 Nucleated Red Blood Cells % 0.0 Neutrophils # (Manual) 12 H Lymphocytes # 2.2 Monocytes # 1.0 H Eosinophils # 0.1 Basophils # 0.1 Nucleated Red Blood Cells # 0.0 Sodium Level 142 Potassium Level 3.6 Chloride Level 96 L Carbon Dioxide Level 30 Anion Gap 20 #H Blood Urea Nitrogen 14 Creatinine 0.65 Glucose Level 114 Calcium Level 9.2 Test 11/26/16 12:04 Bedside Glucose 137 Medications Medications Current Medications Acetaminophen (Tylenol Tab) 650 mg Q4H PRN PO PAIN AND OR ELEVATED TEMP Last administered on 11/26/16 10:25; Admin Dose 650 MG; Start 11/15/16 at 16:00 Paroxetine HCl (Paxil) 30 mg DAILY PO Last administered on 11/26/16 09:57; Admin Dose 30 MG; Start 11/16/16 at 09:00 Diagnostic Test (Pha) (Accu-Chek) 1 ea 02 XX ; Start 11/16/16 at 02:00 Miscellaneous Information 1 ea NOTE XX ; Start 11/15/16 at 16:30 Glucose (Glutose) 15 gm Q15M PRN PO DECREASED GLUCOSE; Start 11/15/16 at 16:30 Glucose (Glutose) 22.5 gm Q15M PRN PO DECREASED GLUCOSE; Start 11/15/16 at 16:30 Dextrose (D50w Syringe) 25 ml Q15M PRN IV DECREASED GLUCOSE; Start 11/15/16 at 16:30 Dextrose (D50w Syringe) 50 ml Q15M PRN IV DECREASED GLUCOSE; Start 11/15/16 at 16:30 Glucagon (Glucagen) 1 mg Q15M PRN IM DECREASED GLUCOSE; Start 11/15/16 at 16:30 Glucose (Glutose) 15 gm Q15M PRN BUCCAL DECREASED GLUCOSE; Start 11/15/16 at 16: 30 Aspirin (Aspirin) 81 mg DAILY PO Last administered on 11/26/16 09:57; Admin Dose 81 MG; Start 11/16/16 at 09:00 Hydrochlorothiazide (Hydrochlorothiazide) 25 mg DAILY PO Last administered on 09:57; Admin Dose 25 MG; Start 11/16/16 at 09:00 Pantoprazole (Protonix Tab) 40 mg BID@,18 PO Last administered on 11/26/16 06:07; Admin Dose 40 MG; Start 11/15/16 at 18:00 Ondansetron HCl (Zofran Inj) 4 mg Q6H PRN IV NAUSEA AND/OR VOMITING Last administered on 11/23/16 15:11; Admin Dose 4 MG; Start 11/16/16 at 09:30 Ibuprofen (Motrin) 600 mg Q8H PRN PO PAIN LEVEL 4-7; Start 11/16/16 at 19:00 Valsartan (Diovan) 160 mg BID PO Last administered on 11/26/16 09:57; Admin Dose 160 MG; Start 11/16/16 at 21:00 Alprazolam (Xanax) 0.5 mg Q6H PRN PO ANXIETY Last administered on 11/25/16 21: 50; Admin Dose 0.5 MG; Start 11/18/16 at 11:00 Meclizine HCl (Antivert) 25 mg TID PO Last administered on 11/26/16 12:10; Admin Dose 25 MG; Start 11/18/16 at 21:00 Atorvastatin Calcium (Lipitor) 40 mg HS PO Last administered on 11/25/16 20:33 ; Admin Dose 40 MG; Start 11/19/16 at 21:00 Phenyleph/Shark Oil/Min Oil/Petrol (Formulation R Oint) 1 applic BID [place] Last administered on 11/25/16 20:35; Admin Dose 1 APPLIC; Start 11/20/16 at 13:30 Metronidazole (Flagyl) 500 mg Q6 PO Last administered on 11/26/16 12:10; Admin Dose 500 MG; Start 11/21/16 at 12:00 Vancomycin HCl (Vancomycin Oral Syringe) 250 mg Q6 PO Last administered on 11/26 12:11; Admin Dose 250 MG; Start 11/21/16 at 12:00 EDILMA LIMA NP Nov 26, 2016 16:24
[2016-11-26 20:45] VITALS: BP 128/60; RESP 16
[2016-11-26] MEDS: ATORVASTATIN 40 MG TAB PO SCH (20:52)
[2016-11-26] MEDS: ALPRAZOLAM 0.25 MG TAB PO PRN (21:10)
[2016-11-27] MEDS: ACCU-CHEK XX SCH (02:00)
[2016-11-27 03:05] VITALS: BP 137/67; RESP 16
[2016-11-27] MEDS: PANTOPRAZOLE (EC) 40 MG TAB PO SCH ×2 (05:50→17:54)
[2016-11-27] MEDS: VANCOMYCIN HCL 250 MG/5ML POSYG PO SCH ×4 (05:50→23:26)
[2016-11-27] MEDS: metroNIDAZOLE 500 MG TAB PO SCH ×2 (05:50→12:03)
[2016-11-27 08:00] VITALS: BP 155/64; RESP 20
[2016-11-27] MEDS: INSULIN ASPART [NOVOLOG] 3 ML PEN SC SCH ×4 (08:00→20:36)
[2016-11-27] MEDS: metFORMIN 850 MG TAB PO SCH ×2 (08:30→17:54)
[2016-11-27 09:00] VITALS: BP 128/59
[2016-11-27] MEDS: HYDROCHLOROTHIAZIDE 25 MG TAB PO SCH (09:17)
[2016-11-27] MEDS: ASPIRIN 81 MG TAB PO SCH (09:17)
[2016-11-27] MEDS: PAROXETINE 10 MG TAB PO SCH (09:17)
[2016-11-27] MEDS: VALSARTAN 160 MG TAB PO SCH ×2 (09:17→20:38)
[2016-11-27] MEDS: MECLIZINE 25 MG TAB PO SCH ×3 (09:17→20:37)
[2016-11-27] MEDS: PE/SHARK OIL/MO/PETROL 30 GM OINT PR SCH ×2 (09:21→20:38)
[2016-11-27] MEDS: ONDANSETRON 4 MG INJ IV PRN (12:00)
[2016-11-27 12:10] VITALS: BP 126/59; PULSE 84; RESP 18
--- NOTE | 2016-11-27 12:25 | PN ---
Date/Time of Note Date/Time of Note DATE: 11/27/16 TIME: 12:24 Assessment/Plan VTE Prophylaxis VTE Prophylaxis Intervention: other Lines/Catheters IV Catheter Type (from Nrs): [facility] Urinary Cath still in place: No Assessment/Plan Chief Complaint/Hosp Course -Acute stroke ruled out. -Dizziness and headache due to occipital neuralgia, Dr. Billings, neurology consult is appreciated -Diarrhea with C. difficile colitis, continue p.o. vancomycin, Dr. Rosales is following infection disease. -Rule out acute coronary syndrome, cardiac enzymes every 8 hours 3. -Hypertension, continue hydrochlorothiazide and Diovan -Diabetes mellitus, continue metformin and NovoLog per mild algorithm sliding scale. -Osteoarthritis, patient was able to ambulate using walker -Obesity with BMI of 35.5. Problems: Subjective 24 Hr Interval Summary Free Text/Dictation Patient continues to have nausea, headache Exam/Review of Systems Vital Signs Vitals Vital Signs Date Time Temp Pulse Resp B/P Pulse Ox O2 Delivery O2 Flow Rate FiO2 11/27/16 12:10 84 18 126/59 94 Room Air 11/27/16 08:00 98.6 Intake and Output 11/26/16 11/26/16 11/27/16 15:00 23:00 07:00 Intake Total 690 ml 850 ml Balance 690 ml 850 ml Exam Constitutional: well developed Head: atraumatic, normocephalic Neck: supple Respiratory: diminished breath sounds Cardiovascular: regular rate and rhythm Gastrointestinal: non-tender, soft Extremities: normal pulses Results Result Diagram: 11/26/16 0504 11/26/16 0504 Results 24 hrs Laboratory Tests Test 11/26/16 17:27 11/26/16 20:54 11/27/16 08:28 Bedside Glucose 126 173 97 Medications Medications Current Medications Acetaminophen (Tylenol Tab) 650 mg Q4H PRN PO PAIN AND OR ELEVATED TEMP Last administered on 11/26/16 10:25; Admin Dose 650 MG; Start 11/15/16 at 16:00 Paroxetine HCl (Paxil) 30 mg DAILY PO Last administered on 11/27/16 09:17; Admin Dose 30 MG; Start 11/16/16 at 09:00 Diagnostic Test (Pha) (Accu-Chek) 1 ea 02 XX ; Start 11/16/16 at 02:00 Miscellaneous Information 1 ea NOTE XX ; Start 11/15/16 at 16:30 Glucose (Glutose) 15 gm Q15M PRN PO DECREASED GLUCOSE; Start 11/15/16 at 16:30 Glucose (Glutose) 22.5 gm Q15M PRN PO DECREASED GLUCOSE; Start 11/15/16 at 16:30 Dextrose (D50w Syringe) 25 ml Q15M PRN IV DECREASED GLUCOSE; Start 11/15/16 at 16:30 Dextrose (D50w Syringe) 50 ml Q15M PRN IV DECREASED GLUCOSE; Start 11/15/16 at 16:30 Glucagon (Glucagen) 1 mg Q15M PRN IM DECREASED GLUCOSE; Start 11/15/16 at 16:30 Glucose (Glutose) 15 gm Q15M PRN BUCCAL DECREASED GLUCOSE; Start 11/15/16 at 16: 30 Aspirin (Aspirin) 81 mg DAILY PO Last administered on 11/27/16 09:17; Admin Dose 81 MG; Start 11/16/16 at 09:00 Hydrochlorothiazide (Hydrochlorothiazide) 25 mg DAILY PO Last administered on 09:17; Admin Dose 25 MG; Start 11/16/16 at 09:00 Pantoprazole (Protonix Tab) 40 mg BID@06,18 PO Last administered on 11/27/16 05:50; Admin Dose 40 MG; Start 11/15/16 at 18:00 Ondansetron HCl (Zofran Inj) 4 mg Q6H PRN IV NAUSEA AND/OR VOMITING Last administered on 11/27/16 12:00; Admin Dose 4 MG; Start 11/16/16 at 09:30 Ibuprofen (Motrin) 600 mg Q8H PRN PO PAIN LEVEL 4-7; Start 11/16/16 at 19:00 Valsartan (Diovan) 160 mg BID PO Last administered on 11/27/16 09:17; Admin Dose 160 MG; Start 11/16/16 at 21:00 Alprazolam (Xanax) 0.5 mg Q6H PRN PO ANXIETY Last administered on 11/26/16 21: 10; Admin Dose 0.5 MG; Start 11/18/16 at 11:00 Meclizine HCl (Antivert) 25 mg TID PO Last administered on 11/27/16 09:17; Admin Dose 25 MG; Start 11/18/16 at 21:00 Atorvastatin Calcium (Lipitor) 40 mg HS PO Last administered on 11/26/16 20:52 ; Admin Dose 40 MG; Start 11/19/16 at 21:00 Phenyleph/Shark Oil/Min Oil/Petrol (Formulation R Oint) 1 applic BID [place] Last administered on 11/27/16 09:21; Admin Dose 1 APPLIC; Start 11/20/16 at 13:30 Metronidazole (Flagyl) 500 mg Q6 PO Last administered on 11/27/16 12:03; Admin Dose 500 MG; Start 11/21/16 at 12:00 Vancomycin HCl (Vancomycin Oral Syringe) 250 mg Q6 PO Last administered on 11/27 12:03; Admin Dose 250 MG; Start 11/21/16 at 12:00 MAHENDRA RUVALCABA Nov 27, 2016 12:25
--- NOTE | 2016-11-27 13:39 | CONS ---
Date/Time of Note Date/Time of Note DATE: 11/27/16 TIME: 13:35 Consult Date/Type/Reason Admit Date/Time Nov 15, 2016 at 11:01 Initial Consult Date 11/22/16 Type of Consultation: Rheum Ordering Provider: THAI DELACRUZ Subjective Still with left upper back and some neck ache. No new complaints. Minimal dizziness per patient. Objective Vital Signs Date Time Temp Pulse Resp B/P Pulse Ox O2 Delivery O2 Flow Rate FiO2 11/27/16 12:10 84 18 126/59 94 Room Air 11/27/16 08:00 98.6 Intake and Output 11/26/16 11/26/16 11/27/16 15:00 23:00 07:00 Intake Total 690 ml 850 ml Balance 690 ml 850 ml Exam Exam GENERAL: No acute distress. Alert, oriented x3. SKIN: Without acute lesions. HEENT: Without acute oral or ocular lesions. No temporal artery tenderness noted. NECK: Without lymphadenopathy. CHEST: Clear to auscultation. HEART: Regular rhythm. ABDOMEN: Soft, without masses or tenderness. MUSCULOSKELETAL EXAM: Right upper back with minimal tenderness. Left upper back with some tenderness still. Rest without change. NEUROLOGIC EXAM: Grossly intact. Results/Medications Result Diagram: 11/26/16 0504 11/26/16 0504 Results 24 hrs Laboratory Tests Test 11/26/16 17:27 11/26/16 20:54 11/27/16 08:28 11/27/16 12:02 Bedside Glucose 126 173 97 99 Medications Current Medications Acetaminophen (Tylenol Tab) 650 mg Q4H PRN PO PAIN AND OR ELEVATED TEMP Last administered on 11/26/16 10:25; Admin Dose 650 MG; Start 11/15/16 at 16:00 Paroxetine HCl (Paxil) 30 mg DAILY PO Last administered on 11/27/16 09:17; Admin Dose 30 MG; Start 11/16/16 at 09:00 Diagnostic Test (Pha) (Accu-Chek) 1 ea 02 XX ; Start 11/16/16 at 02:00 Miscellaneous Information 1 ea NOTE XX ; Start 11/15/16 at 16:30 Glucose (Glutose) 15 gm Q15M PRN PO DECREASED GLUCOSE; Start 11/15/16 at 16:30 Glucose (Glutose) 22.5 gm Q15M PRN PO DECREASED GLUCOSE; Start 11/15/16 at 16:30 Dextrose (D50w Syringe) 25 ml Q15M PRN IV DECREASED GLUCOSE; Start 11/15/16 at 16:30 Dextrose (D50w Syringe) 50 ml Q15M PRN IV DECREASED GLUCOSE; Start 11/15/16 at 16:30 Glucagon (Glucagen) 1 mg Q15M PRN IM DECREASED GLUCOSE; Start 11/15/16 at 16:30 Glucose (Glutose) 15 gm Q15M PRN BUCCAL DECREASED GLUCOSE; Start 11/15/16 at 16: 30 Aspirin (Aspirin) 81 mg DAILY PO Last administered on 11/27/16 09:17; Admin Dose 81 MG; Start 11/16/16 at 09:00 Hydrochlorothiazide (Hydrochlorothiazide) 25 mg DAILY PO Last administered on 09:17; Admin Dose 25 MG; Start 11/16/16 at 09:00 Pantoprazole (Protonix Tab) 40 mg BID@,18 PO Last administered on 11/27/16 05:50; Admin Dose 40 MG; Start 11/15/16 at 18:00 Ondansetron HCl (Zofran Inj) 4 mg Q6H PRN IV NAUSEA AND/OR VOMITING Last administered on 11/27/16 12:00; Admin Dose 4 MG; Start 11/16/16 at 09:30 Ibuprofen (Motrin) 600 mg Q8H PRN PO PAIN LEVEL 4-7; Start 11/16/16 at 19:00 Valsartan (Diovan) 160 mg BID PO Last administered on 11/27/16 09:17; Admin Dose 160 MG; Start 11/16/16 at 21:00 Alprazolam (Xanax) 0.5 mg Q6H PRN PO ANXIETY Last administered on 11/26/16 21: 10; Admin Dose 0.5 MG; Start 11/18/16 at 11:00 Meclizine HCl (Antivert) 25 mg TID PO Last administered on 11/27/16 12:56; Admin Dose 25 MG; Start 11/18/16 at 21:00 Atorvastatin Calcium (Lipitor) 40 mg HS PO Last administered on 11/26/16 20:52 ; Admin Dose 40 MG; Start 11/19/16 at 21:00 Phenyleph/Shark Oil/Min Oil/Petrol (Formulation R Oint) 1 applic BID [place] Last administered on 11/27/16 09:21; Admin Dose 1 APPLIC; Start 11/20/16 at 13:30 Metronidazole (Flagyl) 500 mg Q6 PO Last administered on 11/27/16 12:03; Admin Dose 500 MG; Start 11/21/16 at 12:00 Vancomycin HCl (Vancomycin Oral Syringe) 250 mg Q6 PO Last administered on 11/27 12:03; Admin Dose 250 MG; Start 11/21/16 at 12:00 Assessment/Plan Chief Complaint/Hosp Course ASSESSMENT: 1. Neck and upper back pain. Mostly myofascial with upper back trigger points. There may be some degenerative joint disease. 2. Osteoarthritis. 3. Diabetes. 4. Hypertension. 5. C difficile colitis recently on treatment. PLAN: 1. Continue present plan. 2. Ice pack to upper back PRN. Has not been getting ice packs. Problems: HAILEY NINO MD Nov 27, 2016 13:38
--- NOTE | 2016-11-27 14:07 | CONS ---
Date/Time of Note Date/Time of Note DATE: 11/27/16 TIME: 14:04 Assessment/Plan Assessment/Plan Chief Complaint/Hosp Course SUBJECTIVE: No events overnight. Alert, feels ok, no fevers, nad ANTIMICROBIALS: Oral vancomycin and Flagyl. PHYSICAL EXAMINATION: GENERAL: This is a fragile, well-developed, elderly woman who is awake, in no distress. HEENT: Head atraumatic, normocephalic. Sclerae anicteric. Buccal mucosa dry. NECK: Supple. CHEST: Rise symmetrical. Breath sounds clear bilaterally. HEART: S1, S2. ABDOMEN: Soft. Mild tenderness on palpation. Bowel sounds present. EXTREMITIES: Without cyanosis. ASSESSMENT: 1. Systemic inflammatory response syndrome. 2. Clostridium difficile colitis. 3. Diabetes and hypertension. 4. History of bilateral total knee replacement. PLAN: Patient remains stable, with increased wbc, likely 2 to steroid injection , dc Flagyl, continue PO Vanco, f/u rheumatology rec-s [facility] staff Problems: Consultation Date/Type/Reason Admit Date/Time Nov 15, 2016 at 11:01 Initial Consult Date 11/22/16 Type of Consultation: id Referring Provider: THAI DELACRUZ Exam/Review of Systems Vital Signs Vitals Vital Signs Date Time Temp Pulse Resp B/P Pulse Ox O2 Delivery O2 Flow Rate FiO2 11/27/16 12:10 84 18 126/59 94 Room Air 11/27/16 08:00 98.6 Intake and Output 11/26/16 11/26/16 11/27/16 14:59 22:59 06:59 Intake Total 690 ml 850 ml Balance 690 ml 850 ml Results Result Diagram: 11/26/16 0504 11/26/16 0504 Results 24 hrs Laboratory Tests Test 11/26/16 17:27 11/26/16 20:54 11/27/16 08:28 11/27/16 12:02 Bedside Glucose 126 173 97 99 Medications Medications Current Medications Acetaminophen (Tylenol Tab) 650 mg Q4H PRN PO PAIN AND OR ELEVATED TEMP Last administered on 11/26/16 10:25; Admin Dose 650 MG; Start 11/15/16 at 16:00 Paroxetine HCl (Paxil) 30 mg DAILY PO Last administered on 11/27/16 09:17; Admin Dose 30 MG; Start 11/16/16 at 09:00 Diagnostic Test (Pha) (Accu-Chek) 1 ea 02 XX ; Start 11/16/16 at 02:00 Miscellaneous Information 1 ea NOTE XX ; Start 11/15/16 at 16:30 Glucose (Glutose) 15 gm Q15M PRN PO DECREASED GLUCOSE; Start 11/15/16 at 16:30 Glucose (Glutose) 22.5 gm Q15M PRN PO DECREASED GLUCOSE; Start 11/15/16 at 16:30 Dextrose (D50w Syringe) 25 ml Q15M PRN IV DECREASED GLUCOSE; Start 11/15/16 at 16:30 Dextrose (D50w Syringe) 50 ml Q15M PRN IV DECREASED GLUCOSE; Start 11/15/16 at 16:30 Glucagon (Glucagen) 1 mg Q15M PRN IM DECREASED GLUCOSE; Start 11/15/16 at 16:30 Glucose (Glutose) 15 gm Q15M PRN BUCCAL DECREASED GLUCOSE; Start 11/15/16 at 16: 30 Aspirin (Aspirin) 81 mg DAILY PO Last administered on 11/27/16 09:17; Admin Dose 81 MG; Start 11/16/16 at 09:00 Hydrochlorothiazide (Hydrochlorothiazide) 25 mg DAILY PO Last administered on 09:17; Admin Dose 25 MG; Start 11/16/16 at 09:00 Pantoprazole (Protonix Tab) 40 mg BID@,18 PO Last administered on 11/27/16 05:50; Admin Dose 40 MG; Start 11/15/16 at 18:00 Ondansetron HCl (Zofran Inj) 4 mg Q6H PRN IV NAUSEA AND/OR VOMITING Last administered on 11/27/16 12:00; Admin Dose 4 MG; Start 11/16/16 at 09:30 Ibuprofen (Motrin) 600 mg Q8H PRN PO PAIN LEVEL 4-7; Start 11/16/16 at 19:00 Valsartan (Diovan) 160 mg BID PO Last administered on 11/27/16 09:17; Admin Dose 160 MG; Start 11/16/16 at 21:00 Alprazolam (Xanax) 0.5 mg Q6H PRN PO ANXIETY Last administered on 11/26/16 21: 10; Admin Dose 0.5 MG; Start 11/18/16 at 11:00 Meclizine HCl (Antivert) 25 mg TID PO Last administered on 11/27/16 12:56; Admin Dose 25 MG; Start 11/18/16 at 21:00 Atorvastatin Calcium (Lipitor) 40 mg HS PO Last administered on 11/26/16 20:52 ; Admin Dose 40 MG; Start 11/19/16 at 21:00 Phenyleph/Shark Oil/Min Oil/Petrol (Formulation R Oint) 1 applic BID [place] Last administered on 11/27/16 09:21; Admin Dose 1 APPLIC; Start 11/20/16 at 13:30 Metronidazole (Flagyl) 500 mg Q6 PO Last administered on 11/27/16 12:03; Admin Dose 500 MG; Start 11/21/16 at 12:00 Vancomycin HCl (Vancomycin Oral Syringe) 250 mg Q6 PO Last administered on 11/27 12:03; Admin Dose 250 MG; Start 11/21/16 at 12:00 EDILMA LIMA NP Nov 27, 2016 14:07
[2016-11-27 14:30] VITALS: BP 125/58; RESP 16
[2016-11-27] MEDS: ATORVASTATIN 40 MG TAB PO SCH (20:37)
[2016-11-27 20:57] VITALS: BP 118/59; RESP 21
[2016-11-27] MEDS: ALPRAZOLAM 0.25 MG TAB PO PRN (21:50)
[2016-11-28] MEDS: ACCU-CHEK XX SCH (02:00)
[2016-11-28 03:05] VITALS: BP 131/63; RESP 18
[2016-11-28 05:40] LABS: ABNORMAL IP MESSAGE 1; BASOPHIL # 0.1 10^3/ul (0.0-0.1); BASOPHILS % 0.3 % (0.0-2.0); EOSINOPHILS # 0.2 10^3/ul (0.0-0.5); EOSINOPHILS % 1.6 % (0.0-7.0); HEMATOCRIT 37.4 % (37.0-47.0); HEMOGLOBIN 11.8 g/dl (12.0-16.0); LYMPHOCYTES # 3.9 10^3/ul (0.8-2.9); MEAN CORPUSCULAR HEMOGLOBIN 26.4 pg (29.0-33.0); MEAN CORPUSCULAR HGB CONC 31.6 g/dl (32.0-37.0); MEAN CORPUSCULAR VOLUME 83.7 fl (82.0-101.0); MONOCYTES % 6.9 % (0.0-11.0); NEUTROPHILS % 60.1 % (39.0-77.0); PLATELET COUNT 380 10^3/UL (140-415); RED BLOOD COUNT 4.47 10^6/ul (4.20-5.40); RED CELL DISTRIBUTION WIDTH 15.2 % (11.5-14.5)
[2016-11-28] MEDS: PANTOPRAZOLE (EC) 40 MG TAB PO SCH ×2 (05:45→17:48)
[2016-11-28] MEDS: VANCOMYCIN HCL 250 MG/5ML POSYG PO SCH ×4 (05:45→23:01)
[2016-11-28 06:09] LABS: POSITIVE DIFF @See below
[2016-11-28 06:11] LABS: CREATININE 0.67 mg/dl (0.44-1.00); POTASSIUM 3.3 mmol/L (3.5-5.1)
[2016-11-28] MEDS ORDERED: POTASSIUM CHLORIDE (SR) 20 MEQ TAB PO STA (06:29)
[2016-11-28] MEDS: INSULIN ASPART [NOVOLOG] 3 ML PEN SC SCH ×4 (08:00→20:26)
[2016-11-28] MEDS: metFORMIN 850 MG TAB PO SCH ×2 (08:10→17:48)
[2016-11-28] MEDS: ASPIRIN 81 MG TAB PO SCH (08:11)
[2016-11-28] MEDS: MECLIZINE 25 MG TAB PO SCH ×3 (08:11→20:28)
[2016-11-28] MEDS: VALSARTAN 160 MG TAB PO SCH ×2 (08:11→20:28)
[2016-11-28] MEDS: PAROXETINE 10 MG TAB PO SCH (08:11)
[2016-11-28] MEDS: HYDROCHLOROTHIAZIDE 25 MG TAB PO SCH (08:11)
[2016-11-28] MEDS: PE/SHARK OIL/MO/PETROL 30 GM OINT PR SCH ×2 (08:13→20:27)
[2016-11-28 10:59] VITALS: BP 178/84; RESP 20
[2016-11-28] MEDS ORDERED: LIDOCAINE 1%/EPI 30 ML INJ INJ STA (13:44)
[2016-11-28 14:00] VITALS: BP 127/65; PULSE 84; RESP 20
[2016-11-28] MEDS ORDERED: METHYLPREDNISOLONE ACET 40 MG/ML 1 ML IM ONE (14:00)
[2016-11-28] MEDS ORDERED: LIDOCAINE 1% (MDV) 50 ML INJ INJ SCH (15:00)
--- NOTE | 2016-11-28 15:09 | CONS ---
Date/Time of Note Date/Time of Note DATE: 11/28/16 TIME: 15:09 Assessment/Plan Assessment/Plan Chief Complaint/Hosp Course SUBJECTIVE: No events overnight. Alert, feels ok, no fevers, nad Temperature 98.6 pulse 69 respirations 20 blood pressure 178/84 saturation 95% WBC 15 platelets 380 no shift BUN 19 creatinine 0.67 ANTIMICROBIALS: Oral vancomycin PHYSICAL EXAMINATION: GENERAL: This is a fragile, well-developed, elderly woman who is awake, in no distress. HEENT: Head atraumatic, normocephalic. Sclerae anicteric. Buccal mucosa dry. NECK: Supple. CHEST: Rise symmetrical. Breath sounds clear bilaterally. HEART: S1, S2. ABDOMEN: Soft. Mild tenderness on palpation. Bowel sounds present. EXTREMITIES: Without cyanosis. ASSESSMENT: 1. Systemic inflammatory response syndrome. 2. Clostridium difficile colitis. 3. Diabetes and hypertension. 4. History of bilateral total knee replacement. PLAN: Patient remains stable, with increased wbc, likely 2 to steroid injection , continue PO Demetrioo, f/u rheumatology rec-s [facility] staff Problems: Consultation Date/Type/Reason Admit Date/Time Nov 15, 2016 at 11:01 Initial Consult Date 11/22/16 Type of Consultation: id Referring Provider: THAI DELACRUZ Exam/Review of Systems Vital Signs Vitals Vital Signs Date Time Temp Pulse Resp B/P Pulse Ox O2 Delivery O2 Flow Rate FiO2 11/28/16 10:59 98.6 69 20 178/84 95 11/27/16 12:10 Room Air Intake and Output 11/27/16 11/27/16 11/28/16 15:00 23:00 07:00 Intake Total 1440 ml 360 ml Output Total 1100 ml 420 ml Balance 340 ml -60 ml Results Result Diagram: 11/28/16 0501 11/28/16 0501 Results 24 hrs Laboratory Tests Test 11/27/16 17:44 11/27/16 20:36 11/28/16 05:01 11/28/16 08:08 Bedside Glucose 95 154 89 White Blood Count 15.0 H Red Blood Count 4.47 Hemoglobin 11.8 L Hematocrit 37.4 Mean Corpuscular Volume 83.7 Mean Corpuscular Hemoglobin 26.4 L Mean Corpuscular Hemoglobin Concent 31.6 L Red Cell Distribution Width 15.2 H Platelet Count 380 Mean Platelet Volume 10.0 Neutrophils % 60.1 Lymphocytes % 26.0 Monocytes % 6.9 Eosinophils % 1.6 Basophils % 0.3 Nucleated Red Blood Cells % 0.0 Neutrophils # (Manual) 9 H Lymphocytes # 3.9 H Monocytes # 1.0 H Eosinophils # 0.2 Basophils # 0.1 Nucleated Red Blood Cells # 0.0 Sodium Level 143 Potassium Level 3.3 L Chloride Level 96 L Carbon Dioxide Level 30 Anion Gap 20 H Blood Urea Nitrogen 19 Creatinine 0.67 Glucose Level 97 Calcium Level 9.0 Test 11/28/16 12:14 11/28/16 14:28 Bedside Glucose 87 99 Medications Medications Current Medications Acetaminophen (Tylenol Tab) 650 mg Q4H PRN PO PAIN AND OR ELEVATED TEMP Last administered on 11/26/16 10:25; Admin Dose 650 MG; Start 11/15/16 at 16:00 Paroxetine HCl (Paxil) 30 mg DAILY PO Last administered on 11/28/16 08:11; Admin Dose 30 MG; Start 11/16/16 at 09:00 Diagnostic Test (Pha) (Accu-Chek) 1 ea 02 XX ; Start 11/16/16 at 02:00 Miscellaneous Information 1 ea NOTE XX ; Start 11/15/16 at 16:30 Glucose (Glutose) 15 gm Q15M PRN PO DECREASED GLUCOSE; Start 11/15/16 at 16:30 Glucose (Glutose) 22.5 gm Q15M PRN PO DECREASED GLUCOSE; Start 11/15/16 at 16:30 Dextrose (D50w Syringe) 25 ml Q15M PRN IV DECREASED GLUCOSE; Start 11/15/16 at 16:30 Dextrose (D50w Syringe) 50 ml Q15M PRN IV DECREASED GLUCOSE; Start 11/15/16 at 16:30 Glucagon (Glucagen) 1 mg Q15M PRN IM DECREASED GLUCOSE; Start 11/15/16 at 16:30 Glucose (Glutose) 15 gm Q15M PRN BUCCAL DECREASED GLUCOSE; Start 11/15/16 at 16: 30 Aspirin (Aspirin) 81 mg DAILY PO Last administered on 11/28/16 08:11; Admin Dose 81 MG; Start 11/16/16 at 09:00 Hydrochlorothiazide (Hydrochlorothiazide) 25 mg DAILY PO Last administered on 08:11; Admin Dose 25 MG; Start 11/16/16 at 09:00 Pantoprazole (Protonix Tab) 40 mg BID@06,18 PO Last administered on 11/28/16 05:45; Admin Dose 40 MG; Start 11/15/16 at 18:00 Ondansetron HCl (Zofran Inj) 4 mg Q6H PRN IV NAUSEA AND/OR VOMITING Last administered on 11/27/16 12:00; Admin Dose 4 MG; Start 11/16/16 at 09:30 Ibuprofen (Motrin) 600 mg Q8H PRN PO PAIN LEVEL 4-7; Start 11/16/16 at 19:00 Valsartan (Diovan) 160 mg BID PO Last administered on 11/28/16 08:11; Admin Dose 160 MG; Start 11/16/16 at 21:00 Alprazolam (Xanax) 0.5 mg Q6H PRN PO ANXIETY Last administered on 11/27/16 21: 50; Admin Dose 0.5 MG; Start 11/18/16 at 11:00 Meclizine HCl (Antivert) 25 mg TID PO Last administered on 11/28/16 12:18; Admin Dose 25 MG; Start 11/18/16 at 21:00 Atorvastatin Calcium (Lipitor) 40 mg HS PO Last administered on 11/27/16 20:37 ; Admin Dose 40 MG; Start 11/19/16 at 21:00 Phenyleph/Shark Oil/Min Oil/Petrol (Formulation R Oint) 1 applic BID [place] Last administered on 11/28/16 08:13; Admin Dose 1 APPLIC; Start 11/20/16 at 13:30 Vancomycin HCl (Vancomycin Oral Syringe) 250 mg Q6 PO Last administered on 11/28 12:18; Admin Dose 250 MG; Start 11/21/16 at 12:00 Lidocaine (Xylocaine 1% (Mdv)) 50 ml ONCE INJ ; Start 11/28/16 at 15:00; Stop at 20:00 EDILMA LIMA NP Nov 28, 2016 15:09
--- NOTE | 2016-11-28 17:32 | CONS ---
Date/Time of Note Date/Time of Note DATE: 11/28/16 TIME: 17:09 Consult Date/Type/Reason Admit Date/Time Nov 15, 2016 at 11:01 Initial Consult Date 11/22/16 Type of Consultation: Rheum Ordering Provider: THAI DELACRUZ Subjective Still with left neck and upper back pain. Right side much improved. No new other complaints Objective Vital Signs Date Time Temp Pulse Resp B/P Pulse Ox O2 Delivery O2 Flow Rate FiO2 11/28/16 14:00 98.6 84 20 127/65 94 Room Air Intake and Output 11/27/16 11/27/16 11/28/16 15:00 23:00 07:00 Intake Total 1440 ml 360 ml Output Total 1100 ml 420 ml Balance 340 ml -60 ml Exam GENERAL: No acute distress. Alert, oriented x3. SKIN: Without acute lesions. HEENT: Without acute oral or ocular lesions. No temporal artery tenderness noted. NECK: Without lymphadenopathy. CHEST: Clear to auscultation. HEART: Regular rhythm. ABDOMEN: Soft, without masses or tenderness. MUSCULOSKELETAL EXAM: Right upper back with minimal tenderness. Left upper back with some tenderness still. Rest without change. NEUROLOGIC EXAM: Grossly intact. Results/Medications Result Diagram: 11/28/16 0501 11/28/16 0501 Results 24 hrs Laboratory Tests Test 11/27/16 17:44 11/27/16 20:36 11/28/16 05:01 11/28/16 08:08 Bedside Glucose 95 154 89 White Blood Count 15.0 H Red Blood Count 4.47 Hemoglobin 11.8 L Hematocrit 37.4 Mean Corpuscular Volume 83.7 Mean Corpuscular Hemoglobin 26.4 L Mean Corpuscular Hemoglobin Concent 31.6 L Red Cell Distribution Width 15.2 H Platelet Count 380 Mean Platelet Volume 10.0 Neutrophils % 60.1 Lymphocytes % 26.0 Monocytes % 6.9 Eosinophils % 1.6 Basophils % 0.3 Nucleated Red Blood Cells % 0.0 Neutrophils # (Manual) 9 H Lymphocytes # 3.9 H Monocytes # 1.0 H Eosinophils # 0.2 Basophils # 0.1 Nucleated Red Blood Cells # 0.0 Sodium Level 143 Potassium Level 3.3 L Chloride Level 96 L Carbon Dioxide Level 30 Anion Gap 20 H Blood Urea Nitrogen 19 Creatinine 0.67 Glucose Level 97 Calcium Level 9.0 Test 11/28/16 12:14 8/21/17 14:28 Bedside Glucose 87 99 Medications Current Medications Acetaminophen (Tylenol Tab) 650 mg Q4H PRN PO PAIN AND OR ELEVATED TEMP Last administered on 11/26/16 10:25; Admin Dose 650 MG; Start 11/15/16 at 16:00 Paroxetine HCl (Paxil) 30 mg DAILY PO Last administered on 11/28/16 08:11; Admin Dose 30 MG; Start 11/16/16 at 09:00 Diagnostic Test (Pha) (Accu-Chek) 1 ea 02 XX ; Start 11/16/16 at 02:00 Miscellaneous Information 1 ea NOTE XX ; Start 11/15/16 at 16:30 Glucose (Glutose) 15 gm Q15M PRN PO DECREASED GLUCOSE; Start 11/15/16 at 16:30 Glucose (Glutose) 22.5 gm Q15M PRN PO DECREASED GLUCOSE; Start 11/15/16 at 16:30 Dextrose (D50w Syringe) 25 ml Q15M PRN IV DECREASED GLUCOSE; Start 11/15/16 at 16:30 Dextrose (D50w Syringe) 50 ml Q15M PRN IV DECREASED GLUCOSE; Start 11/15/16 at 16:30 Glucagon (Glucagen) 1 mg Q15M PRN IM DECREASED GLUCOSE; Start 11/15/16 at 16:30 Glucose (Glutose) 15 gm Q15M PRN BUCCAL DECREASED GLUCOSE; Start 11/15/16 at 16: 30 Aspirin (Aspirin) 81 mg DAILY PO Last administered on 11/28/16 08:11; Admin Dose 81 MG; Start 11/16/16 at 09:00 Hydrochlorothiazide (Hydrochlorothiazide) 25 mg DAILY PO Last administered on 08:11; Admin Dose 25 MG; Start 11/16/16 at 09:00 Pantoprazole (Protonix Tab) 40 mg BID@,18 PO Last administered on 11/28/16 05:45; Admin Dose 40 MG; Start 11/15/16 at 18:00 Ondansetron HCl (Zofran Inj) 4 mg Q6H PRN IV NAUSEA AND/OR VOMITING Last administered on 11/27/16 12:00; Admin Dose 4 MG; Start 11/16/16 at 09:30 Ibuprofen (Motrin) 600 mg Q8H PRN PO PAIN LEVEL 4-7; Start 11/16/16 at 19:00 Valsartan (Diovan) 160 mg BID PO Last administered on 11/28/16 08:11; Admin Dose 160 MG; Start 11/16/16 at 21:00 Alprazolam (Xanax) 0.5 mg Q6H PRN PO ANXIETY Last administered on 11/27/16 21: 50; Admin Dose 0.5 MG; Start 11/18/16 at 11:00 Meclizine HCl (Antivert) 25 mg TID PO Last administered on 11/28/16 12:18; Admin Dose 25 MG; Start 11/18/16 at 21:00 Atorvastatin Calcium (Lipitor) 40 mg HS PO Last administered on 11/27/16 20:37 ; Admin Dose 40 MG; Start 11/19/16 at 21:00 Phenyleph/Shark Oil/Min Oil/Petrol (Formulation R Oint) 1 applic BID [place] Last administered on 11/28/16 08:13; Admin Dose 1 APPLIC; Start 11/20/16 at 13:30 Vancomycin HCl (Vancomycin Oral Syringe) 250 mg Q6 PO Last administered on 11/28 12:18; Admin Dose 250 MG; Start 11/21/16 at 12:00 Lidocaine (Xylocaine 1% (Mdv)) 50 ml ONCE INJ ; Start 11/28/16 at 15:00; Stop at 20:00 Assessment/Plan Chief Complaint/Hosp Course ASSESSMENT: 1. Neck and upper back pain. Mostly myofascial with upper back trigger points. There may be some degenerative joint disease. 2. Osteoarthritis. 3. Diabetes. 4. Hypertension. 5. C difficile colitis recently on treatment. PLAN: 1. Procedure note: After obtaining verbal consent, two left upper and occiput trigger points injected with 5mg Depomedrol and 1% Xylocaine each, without complications. 2. Ice pack to upper back PRN. Problems: HAILEY NINO MD Nov 28, 2016 17:19
--- NOTE | 2016-11-28 19:17 | PN ---
Date/Time of Note Date/Time of Note DATE: 11/28/16 TIME: 19:15 Assessment/Plan VTE Prophylaxis VTE Prophylaxis Intervention: SCD's Lines/Catheters IV C[facility]ter Type (from [facility]): [facility] Urinary Cath still in place: No Assessment/Plan Chief Complaint/Hosp Course Patient's continues to have a loose BM, denies any nausea vomiting. Assessment/Plan -Acute stroke ruled out. -Neck pain, Dr. Gutierrez is following in rheumatology consultation -Dizziness and headache due to occipital neuralgia, Dr. Billings, neurology consult is appreciated -Diarrhea with C. difficile colitis, continue p.o. vancomycin, Dr. Rosales is following infection disease. -Rule out acute coronary syndrome, cardiac enzymes every 8 hours 3. -Hypertension, continue hydrochlorothiazide and Diovan -Diabetes mellitus, continue metformin and NovoLog per mild algorithm sliding scale. -Osteoarthritis, patient was able to ambulate using walker -Obesity with BMI of 35.5. Further recommendations based on clinical course. Plan of care discussed with Dr. Justin Problems: Exam/Review of Systems Vital Signs Vitals Vital Signs Date Time Temp Pulse Resp B/P Pulse Ox O2 Delivery O2 Flow Rate FiO2 11/28/16 14:00 98.6 84 20 127/65 94 Room Air Intake and Output 11/27/16 11/27/16 11/28/16 15:00 23:00 07:00 Intake Total 1440 ml 360 ml Output Total 1100 ml 420 ml Balance 340 ml -60 ml Exam Constitutional: alert, oriented Respiratory: normal air movement Cardiovascular: nl pulses Gastrointestinal: non-tender, soft Extremities: normal pulses Neurological: nl mental status Results Result Diagram: 11/28/16 0501 11/28/16 0501 Results 24 hrs Laboratory Tests Test 11/27/16 20:36 11/28/16 05:01 11/28/16 08:08 11/28/16 12:14 Bedside Glucose 154 89 87 White Blood Count 15.0 H Red Blood Count 4.47 Hemoglobin 11.8 L Hematocrit 37.4 Mean Corpuscular Volume 83.7 Mean Corpuscular Hemoglobin 26.4 L Mean Corpuscular Hemoglobin Concent 31.6 L Red Cell Distribution Width 15.2 H Platelet Count 380 Mean Platelet Volume 10.0 Neutrophils % 60.1 Lymphocytes % 26.0 Monocytes % 6.9 Eosinophils % 1.6 Basophils % 0.3 Nucleated Red Blood Cells % 0.0 Neutrophils # (Manual) 9 H Lymphocytes # 3.9 H Monocytes # 1.0 H Eosinophils # 0.2 Basophils # 0.1 Nucleated Red Blood Cells # 0.0 Sodium Level 143 Potassium Level 3.3 L Chloride Level 96 L Carbon Dioxide Level 30 Anion Gap 20 H Blood Urea Nitrogen 19 Creatinine 0.67 Glucose Level 97 Calcium Level 9.0 Test 11/28/16 14:28 11/28/16 17:44 Bedside Glucose 99 96 Medications Medications Current Medications Acetaminophen (Tylenol Tab) 650 mg Q4H PRN PO PAIN AND OR ELEVATED TEMP Last administered on 11/26/16 10:25; Admin Dose 650 MG; Start 11/15/16 at 16:00 Paroxetine HCl (Paxil) 30 mg DAILY PO Last administered on 11/28/16 08:11; Admin Dose 30 MG; Start 11/16/16 at 09:00 Diagnostic Test (Pha) (Accu-Chek) 1 ea 02 XX ; Start 11/16/16 at 02:00 Miscellaneous Information 1 ea NOTE XX ; Start 11/15/16 at 16:30 Glucose (Glutose) 15 gm Q15M PRN PO DECREASED GLUCOSE; Start 11/15/16 at 16:30 Glucose (Glutose) 22.5 gm Q15M PRN PO DECREASED GLUCOSE; Start 11/15/16 at 16:30 Dextrose (D50w Syringe) 25 ml Q15M PRN IV DECREASED GLUCOSE; Start 11/15/16 at 16:30 Dextrose (D50w Syringe) 50 ml Q15M PRN IV DECREASED GLUCOSE; Start 11/15/16 at 16:30 Glucagon (Glucagen) 1 mg Q15M PRN IM DECREASED GLUCOSE; Start 11/15/16 at 16:30 Glucose (Glutose) 15 gm Q15M PRN BUCCAL DECREASED GLUCOSE; Start 11/15/16 at 16: 30 Aspirin (Aspirin) 81 mg DAILY PO Last administered on 11/28/16 08:11; Admin Dose 81 MG; Start 11/16/16 at 09:00 Hydrochlorothiazide (Hydrochlorothiazide) 25 mg DAILY PO Last administered on 08:11; Admin Dose 25 MG; Start 11/16/16 at 09:00 Pantoprazole (Protonix Tab) 40 mg BID@,18 PO Last administered on 11/28/16 17:48; Admin Dose 40 MG; Start 11/15/16 at 18:00 Ondansetron HCl (Zofran Inj) 4 mg Q6H PRN IV NAUSEA AND/OR VOMITING Last administered on 11/27/16 12:00; Admin Dose 4 MG; Start 11/16/16 at 09:30 Ibuprofen (Motrin) 600 mg Q8H PRN PO PAIN LEVEL 4-7; Start 11/16/16 at 19:00 Valsartan (Diovan) 160 mg BID PO Last administered on 11/28/16 08:11; Admin Dose 160 MG; Start 11/16/16 at 21:00 Alprazolam (Xanax) 0.5 mg Q6H PRN PO ANXIETY Last administered on 11/27/16 21: 50; Admin Dose 0.5 MG; Start 11/18/16 at 11:00 Meclizine HCl (Antivert) 25 mg TID PO Last administered on 11/28/16 12:18; Admin Dose 25 MG; Start 11/18/16 at 21:00 Atorvastatin Calcium (Lipitor) 40 mg HS PO Last administered on 11/27/16 20:37 ; Admin Dose 40 MG; Start 11/19/16 at 21:00 Phenyleph/Shark Oil/Min Oil/Petrol (Formulation R Oint) 1 applic BID [place] Last administered on 11/28/16 08:13; Admin Dose 1 APPLIC; Start 11/20/16 at 13:30 Vancomycin HCl (Vancomycin Oral Syringe) 250 mg Q6 PO Last administered on 11/28 17:48; Admin Dose 250 MG; Start 11/21/16 at 12:00 Lidocaine (Xylocaine 1% (Mdv)) 50 ml ONCE INJ ; Start 11/28/16 at 15:00; Stop at 20:00 THAI DELACRUZ Nov 28, 2016 19:17
[2016-11-28] MEDS ORDERED: POTASSIUM CHLORIDE 20 MEQ POWDER FOR ORAL SOLN PO ONE (19:30)
[2016-11-28 20:23] VITALS: BP 119/59; RESP 16
[2016-11-28] MEDS: ATORVASTATIN 40 MG TAB PO SCH (20:27)
[2016-11-28] MEDS: ALPRAZOLAM 0.25 MG TAB PO PRN (22:00)
[2016-11-29] MEDS: ACCU-CHEK XX SCH (01:13)
[2016-11-29 02:24] VITALS: BP 127/58; RESP 16
[2016-11-29] MEDS: PANTOPRAZOLE (EC) 40 MG TAB PO SCH ×2 (05:18→17:43)
[2016-11-29] MEDS: VANCOMYCIN HCL 250 MG/5ML POSYG PO SCH ×4 (05:18→21:57)
[2016-11-29 05:31] LABS: BASOPHIL # 0.2 10^3/ul (0.0-0.1); EOSINOPHILS # 0.2 10^3/ul (0.0-0.5); EOSINOPHILS % 1.4 % (0.0-7.0); HEMATOCRIT 37.1 % (37.0-47.0); LYMPHOCYTES # 3.6 10^3/ul (0.8-2.9); LYMPHOCYTES % 22.7 % (15.0-51.0); MEAN CORPUSCULAR HGB CONC 32.3 g/dl (32.0-37.0); MEAN CORPUSCULAR VOLUME 83.6 fl (82.0-101.0); MONOCYTE # 1.1 10^3/ul (0.3-0.9); NEUTROPHILS % 64.1 % (39.0-77.0); PLATELET COUNT 393 10^3/UL (140-415); RED BLOOD COUNT 4.44 10^6/ul (4.20-5.40); WHITE BLOOD COUNT 15.8 10^3/ul (4.8-10.8)
[2016-11-29 05:57] LABS: CALCIUM 8.9 mg/dl (8.4-10.2); CREATININE 0.73 mg/dl (0.44-1.00); POTASSIUM 3.6 mmol/L (3.5-5.1)
[2016-11-29 08:00] VITALS: BP 149/59; RESP 20
[2016-11-29] MEDS: INSULIN ASPART [NOVOLOG] 3 ML PEN SC SCH ×4 (08:00→21:00)
[2016-11-29] MEDS: metFORMIN 850 MG TAB PO SCH ×2 (08:06→17:43)
[2016-11-29] MEDS: MECLIZINE 25 MG TAB PO SCH ×3 (09:17→21:56)
[2016-11-29] MEDS: HYDROCHLOROTHIAZIDE 25 MG TAB PO SCH (09:18)
[2016-11-29] MEDS: PAROXETINE 10 MG TAB PO SCH (09:18)
[2016-11-29] MEDS: VALSARTAN 160 MG TAB PO SCH ×2 (09:18→21:57)
[2016-11-29] MEDS: ASPIRIN 81 MG TAB PO SCH (09:18)
[2016-11-29] MEDS: PE/SHARK OIL/MO/PETROL 30 GM OINT PR SCH ×2 (09:24→21:58)
--- NOTE | 2016-11-29 12:47 | PN ---
Date/Time of Note Date/Time of Note DATE: 11/29/16 TIME: 12:45 Assessment/Plan VTE Prophylaxis VTE Prophylaxis Intervention: SCD's Lines/Catheters IV Catheter Type (from Nrs): Saline Lock Urinary Cath still in place: No Assessment/Plan Chief Complaint/Hosp Course Patient with some improvement in diarrhea frequency and consistency, denies any nausea vomiting, continue physical therapy. Assessment/Plan -Acute stroke ruled out. -Neck pain and upper back pain, Dr. Gutierrez is following in rheumatology consultation, status post trigger point injection. -Dizziness and headache due to occipital neuralgia, Dr. Billings, neurology consult is appreciated -Diarrhea with C. difficile colitis, continue p.o. vancomycin, Dr. Rosales is following infection disease. -Rule out acute coronary syndrome, cardiac enzymes every 8 hours 3. -Hypertension, continue hydrochlorothiazide and Diovan -Diabetes mellitus, continue metformin and NovoLog per mild algorithm sliding scale. -Osteoarthritis, patient was able to ambulate using walker -Obesity with BMI of 35.5. Further recommendations based on clinical course. Plan of care discussed with Dr. Justin Problems: Exam/Review of Systems Vital Signs Vitals Vital Signs Date Time Temp Pulse Resp B/P Pulse Ox O2 Delivery O2 Flow Rate FiO2 11/29/16 08:00 98.1 77 20 149/59 97 11/28/16 14:00 Room Air Intake and Output 11/28/16 11/28/16 11/29/16 15:00 23:00 07:00 Intake Total 620 ml Balance 620 ml Exam Constitutional: alert, oriented Respiratory: normal air movement Cardiovascular: nl pulses Gastrointestinal: non-tender, soft Extremities: normal pulses Neurological: nl mental status Results Result Diagram: 11/29/16 0440 11/29/160 Results 24 hrs Laboratory Tests Test 11/28/16 14:28 11/28/16 17:44 11/28/16 20:25 11/29/16 04:40 Bedside Glucose 99 96 122 White Blood Count 15.8 H Red Blood Count 4.44 Hemoglobin 12.0 Hematocrit 37.1 Mean Corpuscular Volume 83.6 Mean Corpuscular Hemoglobin 27.0 L Mean Corpuscular Hemoglobin Concent 32.3 Red Cell Distribution Width 15.0 H Platelet Count 393 Mean Platelet Volume 10.0 Neutrophils % 64.1 Lymphocytes % 22.7 Monocytes % 7.0 Eosinophils % 1.4 Basophils % 1.0 Nucleated Red Blood Cells % 0.0 Neutrophils # (Manual) 10 H Lymphocytes # 3.6 H Monocytes # 1.1 H Eosinophils # 0.2 Basophils # 0.2 H Nucleated Red Blood Cells # 0.0 Sodium Level 138 Potassium Level 3.6 Chloride Level 98 Carbon Dioxide Level 31 Anion Gap 13 # Blood Urea Nitrogen 20 Creatinine 0.73 Glucose Level 100 Calcium Level 8.9 Test 11/29/16 08:05 11/29/16 12:18 Bedside Glucose 103 118 Medications Medications Current Medications Acetaminophen (Tylenol Tab) 650 mg Q4H PRN PO PAIN AND OR ELEVATED TEMP Last administered on 11/26/16 10:25; Admin Dose 650 MG; Start 11/15/16 at 16:00 Paroxetine HCl (Paxil) 30 mg DAILY PO Last administered on 11/29/16 09:18; Admin Dose 30 MG; Start 11/16/16 at 09:00 Diagnostic Test (Pha) (Accu-Chek) 1 ea 02 XX ; Start 11/16/16 at 02:00 Miscellaneous Information 1 ea NOTE XX ; Start 11/15/16 at 16:30 Glucose (Glutose) 15 gm Q15M PRN PO DECREASED GLUCOSE; Start 11/15/16 at 16:30 Glucose (Glutose) 22.5 gm Q15M PRN PO DECREASED GLUCOSE; Start 11/15/16 at 16:30 Dextrose (D50w Syringe) 25 ml Q15M PRN IV DECREASED GLUCOSE; Start 11/15/16 at 16:30 Dextrose (D50w Syringe) 50 ml Q15M PRN IV DECREASED GLUCOSE; Start 11/15/16 at 16:30 Glucagon (Glucagen) 1 mg Q15M PRN IM DECREASED GLUCOSE; Start 11/15/16 at 16:30 Glucose (Glutose) 15 gm Q15M PRN BUCCAL DECREASED GLUCOSE; Start 11/15/16 at 16: 30 Aspirin (Aspirin) 81 mg DAILY PO Last administered on 11/29/16 09:18; Admin Dose 81 MG; Start 11/16/16 at 09:00 Hydrochlorothiazide (Hydrochlorothiazide) 25 mg DAILY PO Last administered on 09:18; Admin Dose 25 MG; Start 11/16/16 at 09:00 Pantoprazole (Protonix Tab) 40 mg BID@,18 PO Last administered on 11/29/16 05:18; Admin Dose 40 MG; Start 11/15/16 at 18:00 Ondansetron HCl (Zofran Inj) 4 mg Q6H PRN IV NAUSEA AND/OR VOMITING Last administered on 11/27/16 12:00; Admin Dose 4 MG; Start 11/16/16 at 09:30 Ibuprofen (Motrin) 600 mg Q8H PRN PO PAIN LEVEL 4-7; Start 11/16/16 at 19:00 Valsartan (Diovan) 160 mg BID PO Last administered on 11/29/16 09:18; Admin Dose 160 MG; Start 11/16/16 at 21:00 Alprazolam (Xanax) 0.5 mg Q6H PRN PO ANXIETY Last administered on 11/28/16 22: 00; Admin Dose 0.5 MG; Start 11/18/16 at 11:00 Meclizine HCl (Antivert) 25 mg TID PO Last administered on 11/29/16 09:17; Admin Dose 25 MG; Start 11/18/16 at 21:00 Atorvastatin Calcium (Lipitor) 40 mg HS PO Last administered on 11/28/16 20:27 ; Admin Dose 40 MG; Start 11/19/16 at 21:00 Phenyleph/Shark Oil/Min Oil/Petrol (Formulation R Oint) 1 applic BID [place] Last administered on 11/29/16 09:24; Admin Dose 1 APPLIC; Start 11/20/16 at 13:30 Vancomycin HCl (Vancomycin Oral Syringe) 250 mg Q6 PO Last administered on 11/29 05:18; Admin Dose 250 MG; Start 11/21/16 at 12:00 THAI DELACRUZ Nov 29, 2016 12:47
[2016-11-29] MEDS: ONDANSETRON 4 MG INJ IV PRN (12:59)
--- NOTE | 2016-11-29 13:15 | CONS ---
Date/Time of Note Date/Time of Note DATE: 11/29/16 TIME: 13:11 Consult Date/Type/Reason Admit Date/Time Nov 15, 2016 at 11:01 Initial Consult Date 11/22/16 Type of Consultation: Rheum Ordering Provider: THAI DELACRUZ Subjective Less left upper back and neck ache. Having another episode of malaise with head feeling "cold" and rest of body "hot." Has had this intermittently for weeks, per patient. Objective Vital Signs Date Time Temp Pulse Resp B/P Pulse Ox O2 Delivery O2 Flow Rate FiO2 11/29/16 08:00 98.1 77 20 149/59 97 11/28/16 14:00 Room Air Intake and Output 11/28/16 11/28/16 11/29/16 15:00 23:00 07:00 Intake Total 620 ml Balance 620 ml Exam GENERAL: No acute distress. Alert, oriented x3. SKIN: Without acute lesions. HEENT: Without acute oral or ocular lesions. No temporal artery tenderness noted. NECK: Without lymphadenopathy. CHEST: Clear to auscultation. HEART: Regular rhythm. ABDOMEN: Soft, without masses or tenderness. MUSCULOSKELETAL EXAM: Less tenderness at upper back. Rest without change. NEUROLOGIC EXAM: Grossly intact. Results/Medications Result Diagram: 11/29/16 0440 11/29/16 0440 Results 24 hrs Laboratory Tests Test 11/28/16 14:28 11/28/16 17:44 11/28/16 20:25 11/29/16 04:40 Bedside Glucose 99 96 122 White Blood Count 15.8 H Red Blood Count 4.44 Hemoglobin 12.0 Hematocrit 37.1 Mean Corpuscular Volume 83.6 Mean Corpuscular Hemoglobin 27.0 L Mean Corpuscular Hemoglobin Concent 32.3 Red Cell Distribution Width 15.0 H Platelet Count 393 Mean Platelet Volume 10.0 Neutrophils % 64.1 Lymphocytes % 22.7 Monocytes % 7.0 Eosinophils % 1.4 Basophils % 1.0 Nucleated Red Blood Cells % 0.0 Neutrophils # (Manual) 10 H Lymphocytes # 3.6 H Monocytes # 1.1 H Eosinophils # 0.2 Basophils # 0.2 H Nucleated Red Blood Cells # 0.0 Sodium Level 138 Potassium Level 3.6 Chloride Level 98 Carbon Dioxide Level 31 Anion Gap 13 # Blood Urea Nitrogen 20 Creatinine 0.73 Glucose Level 100 Calcium Level 8.9 Test 11/29/16 08:05 11/29/16 12:18 Bedside Glucose 103 118 Medications Current Medications Acetaminophen (Tylenol Tab) 650 mg Q4H PRN PO PAIN AND OR ELEVATED TEMP Last administered on 11/26/16 10:25; Admin Dose 650 MG; Start 11/15/16 at 16:00 Paroxetine HCl (Paxil) 30 mg DAILY PO Last administered on 11/29/16 09:18; Admin Dose 30 MG; Start 11/16/16 at 09:00 Diagnostic Test (Pha) (Accu-Chek) 1 ea 02 XX ; Start 11/16/16 at 02:00 Miscellaneous Information 1 ea NOTE XX ; Start 11/15/16 at 16:30 Glucose (Glutose) 15 gm Q15M PRN PO DECREASED GLUCOSE; Start 11/15/16 at 16:30 Glucose (Glutose) 22.5 gm Q15M PRN PO DECREASED GLUCOSE; Start 11/15/16 at 16:30 Dextrose (D50w Syringe) 25 ml Q15M PRN IV DECREASED GLUCOSE; Start 11/15/16 at 16:30 Dextrose (D50w Syringe) 50 ml Q15M PRN IV DECREASED GLUCOSE; Start 11/15/16 at 16:30 Glucagon (Glucagen) 1 mg Q15M PRN IM DECREASED GLUCOSE; Start 11/15/16 at 16:30 Glucose (Glutose) 15 gm Q15M PRN BUCCAL DECREASED GLUCOSE; Start 11/15/16 at 16: 30 Aspirin (Aspirin) 81 mg DAILY PO Last administered on 11/29/16 09:18; Admin Dose 81 MG; Start 11/16/16 at 09:00 Hydrochlorothiazide (Hydrochlorothiazide) 25 mg DAILY PO Last administered on 09:18; Admin Dose 25 MG; Start 11/16/16 at 09:00 Pantoprazole (Protonix Tab) 40 mg BID@18 PO Last administered on 11/29/16 05:18; Admin Dose 40 MG; Start 11/15/16 at 18:00 Ondansetron HCl (Zofran Inj) 4 mg Q6H PRN IV NAUSEA AND/OR VOMITING Last administered on 11/29/16 12:59; Admin Dose 4 MG; Start 11/16/16 at 09:30 Ibuprofen (Motrin) 600 mg Q8H PRN PO PAIN LEVEL 4-7; Start 11/16/16 at 19:00 Valsartan (Diovan) 160 mg BID PO Last administered on 11/29/16 09:18; Admin Dose 160 MG; Start 11/16/16 at 21:00 Alprazolam (Xanax) 0.5 mg Q6H PRN PO ANXIETY Last administered on 11/28/16 22: 00; Admin Dose 0.5 MG; Start 11/18/16 at 11:00 Meclizine HCl (Antivert) 25 mg TID PO Last administered on 11/29/16 12:59; Admin Dose 25 MG; Start 11/18/16 at 21:00 Atorvastatin Calcium (Lipitor) 40 mg HS PO Last administered on 11/28/16 20:27 ; Admin Dose 40 MG; Start 11/19/16 at 21:00 Phenyleph/Shark Oil/Min Oil/Petrol (Formulation R Oint) 1 applic BID [place] Last administered on 11/29/16 09:24; Admin Dose 1 APPLIC; Start 11/20/16 at 13:30 Vancomycin HCl (Vancomycin Oral Syringe) 250 mg Q6 PO Last administered on 11/29 12:59; Admin Dose 250 MG; Start 11/21/16 at 12:00 Assessment/Plan Chief Complaint/Hosp Course ASSESSMENT: 1. Neck and upper back pain. Mostly myofascial with upper back trigger points. There may be some degenerative joint disease. Imporoved with trigger point injections. 2. Osteoarthritis. 3. Diabetes. 4. Hypertension. 5. C difficile colitis recently on treatment. 6. Malaise. Unclear etiology. PLAN: Continue present plan. Problems: HAILEY NINO MD Nov 29, 2016 13:15
[2016-11-29 14:10] VITALS: BP 118/66; RESP 18
--- NOTE | 2016-11-29 14:47 | CONS ---
Date/Time of Note Date/Time of Note DATE: 11/29/16 TIME: 14:46 Assessment/Plan Assessment/Plan Chief Complaint/Hosp Course SUBJECTIVE: No events overnight. Alert, no fevers, no diarrhea, nad ANTIMICROBIALS: Oral vancomycin PHYSICAL EXAMINATION: GENERAL: This is a fragile, well-developed, elderly woman who is awake, in no distress. HEENT: Head atraumatic, normocephalic. Sclerae anicteric. Buccal mucosa dry. NECK: Supple. CHEST: Rise symmetrical. Breath sounds clear bilaterally. HEART: S1, S2. ABDOMEN: Soft. Mild tenderness on palpation. Bowel sounds present. EXTREMITIES: Without cyanosis. ASSESSMENT: 1. Systemic inflammatory response syndrome. 2. Clostridium difficile colitis. 3. Diabetes and hypertension. 4. History of bilateral total knee replacement. PLAN: Patient remains stable, continue PO [facility] staff Problems: Consultation Date/Type/Reason Admit Date/Time Nov 15, 2016 at 11:01 Initial Consult Date 11/22/16 Type of Consultation: id Referring Provider: THAI DELACRUZ Exam/Review of Systems Vital Signs Vitals Vital Signs Date Time Temp Pulse Resp B/P Pulse Ox O2 Delivery O2 Flow Rate FiO2 11/29/16 14:10 98.2 80 18 118/66 97 11/28/16 14:00 Room Air Intake and Output 11/28/16 11/28/16 11/29/16 15:00 23:00 07:00 Intake Total 620 ml Balance 620 ml Results Result Diagram: 11/29/16 0440 11/29/16 0440 Results 24 hrs Laboratory Tests Test 11/28/16 17:44 11/28/16 20:25 11/29/16 04:40 11/29/16 08:05 Bedside Glucose 96 122 103 White Blood Count 15.8 H Red Blood Count 4.44 Hemoglobin 12.0 Hematocrit 37.1 Mean Corpuscular Volume 83.6 Mean Corpuscular Hemoglobin 27.0 L Mean Corpuscular Hemoglobin Concent 32.3 Red Cell Distribution Width 15.0 H Platelet Count 393 Mean Platelet Volume 10.0 Neutrophils % 64.1 Lymphocytes % 22.7 Monocytes % 7.0 Eosinophils % 1.4 Basophils % 1.0 Nucleated Red Blood Cells % 0.0 Neutrophils # (Manual) 10 H Lymphocytes # 3.6 H Monocytes # 1.1 H Eosinophils # 0.2 Basophils # 0.2 H Nucleated Red Blood Cells # 0.0 Sodium Level 138 Potassium Level 3.6 Chloride Level 98 Carbon Dioxide Level 31 Anion Gap 13 # Blood Urea Nitrogen 20 Creatinine 0.73 Glucose Level 100 Calcium Level 8.9 Test 11/29/16 12:18 Bedside Glucose 118 Medications Medications Current Medications Acetaminophen (Tylenol Tab) 650 mg Q4H PRN PO PAIN AND OR ELEVATED TEMP Last administered on 11/26/16 10:25; Admin Dose 650 MG; Start 11/15/16 at 16:00 Paroxetine HCl (Paxil) 30 mg DAILY PO Last administered on 11/29/16 09:18; Admin Dose 30 MG; Start 11/16/16 at 09:00 Diagnostic Test (Pha) (Accu-Chek) 1 ea 02 XX ; Start 11/16/16 at 02:00 Miscellaneous Information 1 ea NOTE XX ; Start 11/15/16 at 16:30 Glucose (Glutose) 15 gm Q15M PRN PO DECREASED GLUCOSE; Start 11/15/16 at 16:30 Glucose (Glutose) 22.5 gm Q15M PRN PO DECREASED GLUCOSE; Start 11/15/16 at 16:30 Dextrose (D50w Syringe) 25 ml Q15M PRN IV DECREASED GLUCOSE; Start 11/15/16 at 16:30 Dextrose (D50w Syringe) 50 ml Q15M PRN IV DECREASED GLUCOSE; Start 11/15/16 at 16:30 Glucagon (Glucagen) 1 mg Q15M PRN IM DECREASED GLUCOSE; Start 11/15/16 at 16:30 Glucose (Glutose) 15 gm Q15M PRN BUCCAL DECREASED GLUCOSE; Start 11/15/16 at 16: 30 Aspirin (Aspirin) 81 mg DAILY PO Last administered on 11/29/16 09:18; Admin Dose 81 MG; Start 11/16/16 at 09:00 Hydrochlorothiazide (Hydrochlorothiazide) 25 mg DAILY PO Last administered on 09:18; Admin Dose 25 MG; Start 11/16/16 at 09:00 Pantoprazole (Protonix Tab) 40 mg BID@,18 PO Last administered on 11/29/16 05:18; Admin Dose 40 MG; Start 11/15/16 at 18:00 Ondansetron HCl (Zofran Inj) 4 mg Q6H PRN IV NAUSEA AND/OR VOMITING Last administered on 11/29/16 12:59; Admin Dose 4 MG; Start 11/16/16 at 09:30 Ibuprofen (Motrin) 600 mg Q8H PRN PO PAIN LEVEL 4-7; Start 11/16/16 at 19:00 Valsartan (Diovan) 160 mg BID PO Last administered on 11/29/16 09:18; Admin Dose 160 MG; Start 11/16/16 at 21:00 Alprazolam (Xanax) 0.5 mg Q6H PRN PO ANXIETY Last administered on 11/28/16 22: 00; Admin Dose 0.5 MG; Start 11/18/16 at 11:00 Meclizine HCl (Antivert) 25 mg TID PO Last administered on 11/29/16 12:59; Admin Dose 25 MG; Start 11/18/16 at 21:00 Atorvastatin Calcium (Lipitor) 40 mg HS PO Last administered on 11/28/16 20:27 ; Admin Dose 40 MG; Start 11/19/16 at 21:00 Phenyleph/Shark Oil/Min Oil/Petrol (Formulation R Oint) 1 applic BID [place] Last administered on 11/29/16 09:24; Admin Dose 1 APPLIC; Start 11/20/16 at 13:30 Vancomycin HCl (Vancomycin Oral Syringe) 250 mg Q6 PO Last administered on 11/29 12:59; Admin Dose 250 MG; Start 11/21/16 at 12:00 EDILMA LIMA NP Nov 29, 2016 14:47
[2016-11-29 20:05] VITALS: BP 119/60; RESP 16
[2016-11-29] MEDS: ATORVASTATIN 40 MG TAB PO SCH (21:56)
[2016-11-29] MEDS: ALPRAZOLAM 0.25 MG TAB PO PRN (21:57)
[2016-11-30] MEDS: ACCU-CHEK XX SCH (01:12)
[2016-11-30 02:46] VITALS: BP 149/63; RESP 16
[2016-11-30 05:55] LABS: BASOPHIL # 0.1 10^3/ul (0.0-0.1); BASOPHILS % 0.8 % (0.0-2.0); EOSINOPHILS # 0.2 10^3/ul (0.0-0.5); EOSINOPHILS % 1.2 % (0.0-7.0); HEMATOCRIT 38.1 % (37.0-47.0); HEMOGLOBIN 12.3 g/dl (12.0-16.0); LYMPHOCYTES # 3.9 10^3/ul (0.8-2.9); MEAN CORPUSCULAR HGB CONC 32.3 g/dl (32.0-37.0); MEAN CORPUSCULAR VOLUME 83.7 fl (82.0-101.0); MEAN PLATELET VOLUME 9.9 fl (7.4-10.4); MONOCYTES % 5.3 % (0.0-11.0); NEUTROPHILS % 67.7 % (39.0-77.0); PLATELET COUNT 392 10^3/UL (140-415); RED BLOOD COUNT 4.55 10^6/ul (4.20-5.40); RED CELL DISTRIBUTION WIDTH 15.4 % (11.5-14.5); WHITE BLOOD COUNT 17.8 10^3/ul (4.8-10.8)
[2016-11-30] MEDS: PANTOPRAZOLE (EC) 40 MG TAB PO SCH ×2 (06:00→17:26)
[2016-11-30] MEDS: VANCOMYCIN HCL 250 MG/5ML POSYG PO SCH ×3 (06:00→17:26)
[2016-11-30 06:44] LABS: CALCIUM 8.9 mg/dl (8.4-10.2); CREATININE 0.69 mg/dl (0.44-1.00); POTASSIUM 3.4 mmol/L (3.5-5.1)
[2016-11-30] MEDS: INSULIN ASPART [NOVOLOG] 3 ML PEN SC SCH ×4 (08:00→20:29)
[2016-11-30] MEDS: ASPIRIN 81 MG TAB PO SCH (08:01)
[2016-11-30] MEDS: PAROXETINE 10 MG TAB PO SCH (08:01)
[2016-11-30] MEDS: VALSARTAN 160 MG TAB PO SCH ×2 (08:01→20:28)
[2016-11-30] MEDS: metFORMIN 850 MG TAB PO SCH ×2 (08:01→17:26)
[2016-11-30] MEDS: MECLIZINE 25 MG TAB PO SCH ×3 (08:01→20:27)
[2016-11-30] MEDS: PE/SHARK OIL/MO/PETROL 30 GM OINT PR SCH ×2 (08:02→20:28)
[2016-11-30] MEDS: HYDROCHLOROTHIAZIDE 25 MG TAB PO SCH (08:02)
--- NOTE | 2016-11-30 13:36 | CONS ---
Date/Time of Note Date/Time of Note DATE: 11/30/16 TIME: 13:30 Consult Date/Type/Reason Admit Date/Time Nov 15, 2016 at 11:01 Initial Consult Date 11/22/16 Type of Consultation: Rheum Ordering Provider: THAI DELACRUZ Subjective Some return of left neck and upper back pain. Malaise improved. Objective Vital Signs Date Time Temp Pulse Resp B/P Pulse Ox O2 Delivery O2 Flow Rate FiO2 11/30/16 02:46 97.5 83 16 149/63 93 11/28/16 14:00 Room Air Intake and Output 11/29/16 11/29/16 11/30/16 15:00 23:00 07:00 Intake Total 1020 ml 0 ml Output Total 1100 ml Balance -80 ml 0 ml Exam GENERAL: No acute distress. Alert, oriented x3. SKIN: Without acute lesions. HEENT: Without acute oral or ocular lesions. No temporal artery tenderness noted. NECK: Without lymphadenopathy. CHEST: Clear to auscultation. HEART: Regular rhythm. ABDOMEN: Soft, without masses or tenderness. MUSCULOSKELETAL EXAM: Less tenderness at upper back and neck but stil present.. Rest without change. NEUROLOGIC EXAM: Grossly intact. Results/Medications Result Diagram: 11/30/16 0522 11/30/16 0523 Results 24 hrs Laboratory Tests Test 11/29/16 15:04 11/29/16 17:40 11/29/16 22:02 11/30/16 05:22 Bedside Glucose 91 118 123 White Blood Count 17.8 H Red Blood Count 4.55 Hemoglobin 12.3 Hematocrit 38.1 Mean Corpuscular Volume 83.7 Mean Corpuscular Hemoglobin 27.0 L Mean Corpuscular Hemoglobin Concent 32.3 Red Cell Distribution Width 15.4 H Platelet Count 392 Mean Platelet Volume 9.9 Neutrophils % 67.7 Lymphocytes % 22.0 Monocytes % 5.3 Eosinophils % 1.2 Basophils % 0.8 Nucleated Red Blood Cells % 0.0 Neutrophils # (Manual) 12 H Lymphocytes # 3.9 H Monocytes # 1.0 H Eosinophils # 0.2 Basophils # 0.1 Nucleated Red Blood Cells # 0.0 Test 11/30/16 05:23 11/30/16 07:59 11/30/16 11:55 Sodium Level 139 Potassium Level 3.4 L Chloride Level 98 Carbon Dioxide Level 30 Anion Gap 14 Blood Urea Nitrogen 19 Creatinine 0.69 Glucose Level 101 Calcium Level 8.9 Bedside Glucose 95 120 Medications Current Medications Acetaminophen (Tylenol Tab) 650 mg Q4H PRN PO PAIN AND OR ELEVATED TEMP Last administered on 11/26/16 10:25; Admin Dose 650 MG; Start 11/15/16 at 16:00 Paroxetine HCl (Paxil) 30 mg DAILY PO Last administered on 11/30/16 08:01; Admin Dose 30 MG; Start 11/16/16 at 09:00 Diagnostic Test (Pha) (Accu-Chek) 1 ea 02 XX ; Start 11/16/16 at 02:00 Miscellaneous Information 1 ea NOTE XX ; Start 11/15/16 at 16:30 Glucose (Glutose) 15 gm Q15M PRN PO DECREASED GLUCOSE; Start 11/15/16 at 16:30 Glucose (Glutose) 22.5 gm Q15M PRN PO DECREASED GLUCOSE; Start 11/15/16 at 16:30 Dextrose (D50w Syringe) 25 ml Q15M PRN IV DECREASED GLUCOSE; Start 11/15/16 at 16:30 Dextrose (D50w Syringe) 50 ml Q15M PRN IV DECREASED GLUCOSE; Start 11/15/16 at 16:30 Glucagon (Glucagen) 1 mg Q15M PRN IM DECREASED GLUCOSE; Start 11/15/16 at 16:30 Glucose (Glutose) 15 gm Q15M PRN BUCCAL DECREASED GLUCOSE; Start 11/15/16 at 16: 30 Aspirin (Aspirin) 81 mg DAILY PO Last administered on 11/30/16 08:01; Admin Dose 81 MG; Start 11/16/16 at 09:00 Hydrochlorothiazide (Hydrochlorothiazide) 25 mg DAILY PO Last administered on 08:02; Admin Dose 25 MG; Start 11/16/16 at 09:00 Pantoprazole (Protonix Tab) 40 mg BID@,18 PO Last administered on 11/30/16 06:00; Admin Dose 40 MG; Start 11/15/16 at 18:00 Ondansetron HCl (Zofran Inj) 4 mg Q6H PRN IV NAUSEA AND/OR VOMITING Last administered on 11/29/16 12:59; Admin Dose 4 MG; Start 11/16/16 at 09:30 Ibuprofen (Motrin) 600 mg Q8H PRN PO PAIN LEVEL 4-7; Start 11/16/16 at 19:00 Valsartan (Diovan) 160 mg BID PO Last administered on 11/30/16 08:01; Admin Dose 160 MG; Start 11/16/16 at 21:00 Alprazolam (Xanax) 0.5 mg Q6H PRN PO ANXIETY Last administered on 11/29/16 21: 57; Admin Dose 0.5 MG; Start 11/18/16 at 11:00 Meclizine HCl (Antivert) 25 mg TID PO Last administered on 11/30/16 12:02; Admin Dose 25 MG; Start 11/18/16 at 21:00 Atorvastatin Calcium (Lipitor) 40 mg HS PO Last administered on 11/29/16 21:56 ; Admin Dose 40 MG; Start 11/19/16 at 21:00 Phenyleph/Shark Oil/Min Oil/Petrol (Formulation R Oint) 1 applic BID [place] Last administered on 11/30/16 08:02; Admin Dose 1 APPLIC; Start 11/20/16 at 13:30 Vancomycin HCl (Vancomycin Oral Syringe) 250 mg Q6 PO Last administered on 11/30 12:02; Admin Dose 250 MG; Start 11/21/16 at 12:00 Assessment/Plan Chief Complaint/Hosp Course ASSESSMENT: 1. Neck and upper back pain. Mostly myofascial with upper back trigger points. There may be some degenerative joint disease. Imporoved with trigger point injections. 2. Osteoarthritis. 3. Diabetes. 4. Hypertension. 5. C difficile colitis recently on treatment. 6. Malaise. Unclear etiology. PLAN: 1. C spine x rays 2. Physical therapy to upper back and neck if X ray acceptable 3. Ice pack Problems: HAILEY NINO MD Nov 30, 2016 13:36
[2016-11-30 14:00] VITALS: BP 108/54; RESP 20
--- NOTE | 2016-11-30 15:52 | PN ---
Date/Time of Note Date/Time of Note DATE: 11/30/16 TIME: 15:50 Assessment/Plan VTE Prophylaxis VTE Prophylaxis Intervention: SCD's Lines/Catheters IV [facility]from [facility] Urinary Cath still in place: No Assessment/Plan Chief Complaint/Hosp Course Patient denies having diarrhea, continues to be anxious at times, states that she feels better however no specific symptoms. Continue physical therapy, acute rehab evaluation. Assessment/Plan -Acute stroke ruled out. -Neck pain and upper back pain, Dr. Gutierrez is following in rheumatology consultation, status post trigger point injection. -Dizziness and headache due to occipital neuralgia, Dr. Billings, neurology consult is appreciated -Diarrhea with C. difficile colitis, continue p.o. vancomycin, Dr. Rosales is following infection disease. -Rule out acute coronary syndrome, cardiac enzymes every 8 hours 3. -Hypertension, continue hydrochlorothiazide and Diovan -Diabetes mellitus, continue metformin and NovoLog per mild algorithm sliding scale. -Osteoarthritis, patient was able to ambulate using walker -Obesity with BMI of 35.5. Further recommendations based on clinical course. Plan of care discussed with Dr. Justin Problems: Exam/Review of Systems Vital Signs Vitals Vital Signs Date Time Temp Pulse Resp B/P Pulse Ox O2 Delivery O2 Flow Rate FiO2 11/30/16 02:46 97.5 83 16 149/63 93 11/28/16 14:00 Room Air Intake and Output 11/29/16 11/29/16 11/30/16 15:00 23:00 07:00 Intake Total 1020 ml 0 ml Output Total 1100 ml Balance -80 ml 0 ml Exam Constitutional: alert, oriented Respiratory: normal air movement Cardiovascular: nl pulses Gastrointestinal: non-tender, soft Extremities: normal pulses Neurological: nl mental status Results Result Diagram: 11/30/16 0522 11/30/16 0523 Results 24 hrs Laboratory Tests Test 11/29/16 17:40 11/29/16 22:02 11/30/16 05:22 11/30/16 05:23 Bedside Glucose 118 123 White Blood Count 17.8 H Red Blood Count 4.55 Hemoglobin 12.3 Hematocrit 38.1 Mean Corpuscular Volume 83.7 Mean Corpuscular Hemoglobin 27.0 L Mean Corpuscular Hemoglobin Concent 32.3 Red Cell Distribution Width 15.4 H Platelet Count 392 Mean Platelet Volume 9.9 Neutrophils % 67.7 Lymphocytes % 22.0 Monocytes % 5.3 Eosinophils % 1.2 Basophils % 0.8 Nucleated Red Blood Cells % 0.0 Neutrophils # (Manual) 12 H Lymphocytes # 3.9 H Monocytes # 1.0 H Eosinophils # 0.2 Basophils # 0.1 Nucleated Red Blood Cells # 0.0 Sodium Level 139 Potassium Level 3.4 L Chloride Level 98 Carbon Dioxide Level 30 Anion Gap 14 Blood Urea Nitrogen 19 Creatinine 0.69 Glucose Level 101 Calcium Level 8.9 Test 11/30/16 07:59 11/30/16 11:55 Bedside Glucose 95 120 Medications Medications Current Medications Acetaminophen (Tylenol Tab) 650 mg Q4H PRN PO PAIN AND OR ELEVATED TEMP Last administered on 11/26/16 10:25; Admin Dose 650 MG; Start 11/15/16 at 16:00 Paroxetine HCl (Paxil) 30 mg DAILY PO Last administered on 11/30/16 08:01; Admin Dose 30 MG; Start 11/16/16 at 09:00 Diagnostic Test (Pha) (Accu-Chek) 1 ea 02 XX ; Start 11/16/16 at 02:00 Miscellaneous Information 1 ea NOTE XX ; Start 11/15/16 at 16:30 Glucose (Glutose) 15 gm Q15M PRN PO DECREASED GLUCOSE; Start 11/15/16 at 16:30 Glucose (Glutose) 22.5 gm Q15M PRN PO DECREASED GLUCOSE; Start 11/15/16 at 16:30 Dextrose (D50w Syringe) 25 ml Q15M PRN IV DECREASED GLUCOSE; Start 11/15/16 at 16:30 Dextrose (D50w Syringe) 50 ml Q15M PRN IV DECREASED GLUCOSE; Start 11/15/16 at 16:30 Glucagon (Glucagen) 1 mg Q15M PRN IM DECREASED GLUCOSE; Start 11/15/16 at 16:30 Glucose (Glutose) 15 gm Q15M PRN BUCCAL DECREASED GLUCOSE; Start 11/15/16 at 16: 30 Aspirin (Aspirin) 81 mg DAILY PO Last administered on 11/30/16 08:01; Admin Dose 81 MG; Start 11/16/16 at 09:00 Hydrochlorothiazide (Hydrochlorothiazide) 25 mg DAILY PO Last administered on 08:02; Admin Dose 25 MG; Start 11/16/16 at 09:00 Pantoprazole (Protonix Tab) 40 mg BID@,18 PO Last administered on 11/30/16 06:00; Admin Dose 40 MG; Start 11/15/16 at 18:00 Ondansetron HCl (Zofran Inj) 4 mg Q6H PRN IV NAUSEA AND/OR VOMITING Last administered on 11/29/16 12:59; Admin Dose 4 MG; Start 11/16/16 at 09:30 Ibuprofen (Motrin) 600 mg Q8H PRN PO PAIN LEVEL 4-7; Start 11/16/16 at 19:00 Valsartan (Diovan) 160 mg BID PO Last administered on 11/30/16 08:01; Admin Dose 160 MG; Start 11/16/16 at 21:00 Alprazolam (Xanax) 0.5 mg Q6H PRN PO ANXIETY Last administered on 11/29/16 21: 57; Admin Dose 0.5 MG; Start 11/18/16 at 11:00 Meclizine HCl (Antivert) 25 mg TID PO Last administered on 11/30/16 12:02; Admin Dose 25 MG; Start 11/18/16 at 21:00 Atorvastatin Calcium (Lipitor) 40 mg HS PO Last administered on 11/29/16 21:56 ; Admin Dose 40 MG; Start 11/19/16 at 21:00 Phenyleph/Shark Oil/Min Oil/Petrol (Formulation R Oint) 1 applic BID [place] Last administered on 11/30/16 08:02; Admin Dose 1 APPLIC; Start 11/20/16 at 13:30 Vancomycin HCl (Vancomycin Oral Syringe) 250 mg Q6 PO Last administered on 11/30 12:02; Admin Dose 250 MG; Start 11/21/16 at 12:00 THAI DELACRUZ Nov 30, 2016 15:52
[2016-11-30] MEDS ORDERED: POTASSIUM CHLORIDE 20 MEQ POWDER FOR ORAL SOLN PO ONE (16:00)
--- NOTE | 2016-11-30 16:03 | CONS ---
Date/Time of Note Date/Time of Note DATE: 11/30/16 TIME: 16:02 Assessment/Plan Assessment/Plan Chief Complaint/Hosp Course SUBJECTIVE: No events overnight. Alert, no fevers, no diarrhea, nad ANTIMICROBIALS: Oral vancomycin PHYSICAL EXAMINATION: GENERAL: This is a fragile, well-developed, elderly woman who is awake, in no distress. HEENT: Head atraumatic, normocephalic. Sclerae anicteric. Buccal mucosa dry. NECK: Supple. CHEST: Rise symmetrical. Breath sounds clear bilaterally. HEART: S1, S2. ABDOMEN: Soft. Mild tenderness on palpation. Bowel sounds present. EXTREMITIES: Without cyanosis. ASSESSMENT: 1. Systemic inflammatory response syndrome. 2. Clostridium difficile colitis. 3. Diabetes and hypertension. 4. History of bilateral total knee replacement. 5. Leukocytosis, s/p steroid injection PLAN: Patient remains stable, diarrhea resolved, continue PO [facility] staff Problems: Consultation Date/Type/Reason Admit Date/Time Nov 15, 2016 at 11:01 Initial Consult Date 11/22/16 Type of Consultation: id Referring Provider: THAI DELACRUZ Exam/Review of Systems Vital Signs Vitals Vital Signs Date Time Temp Pulse Resp B/P Pulse Ox O2 Delivery O2 Flow Rate FiO2 11/30/16 14:00 98.4 88 20 108/54 96 11/28/16 14:00 Room Air Intake and Output 11/29/16 11/29/16 11/30/16 15:00 23:00 07:00 Intake Total 1020 ml 0 ml Output Total 1100 ml Balance -80 ml 0 ml Results Result Diagram: 11/30/16 0522 11/30/16 0523 Results 24 hrs Laboratory Tests Test 11/29/16 17:40 11/29/16 22:02 11/30/16 05:22 11/30/16 05:23 Bedside Glucose 118 123 White Blood Count 17.8 H Red Blood Count 4.55 Hemoglobin 12.3 Hematocrit 38.1 Mean Corpuscular Volume 83.7 Mean Corpuscular Hemoglobin 27.0 L Mean Corpuscular Hemoglobin Concent 32.3 Red Cell Distribution Width 15.4 H Platelet Count 392 Mean Platelet Volume 9.9 Neutrophils % 67.7 Lymphocytes % 22.0 Monocytes % 5.3 Eosinophils % 1.2 Basophils % 0.8 Nucleated Red Blood Cells % 0.0 Neutrophils # (Manual) 12 H Lymphocytes # 3.9 H Monocytes # 1.0 H Eosinophils # 0.2 Basophils # 0.1 Nucleated Red Blood Cells # 0.0 Sodium Level 139 Potassium Level 3.4 L Chloride Level 98 Carbon Dioxide Level 30 Anion Gap 14 Blood Urea Nitrogen 19 Creatinine 0.69 Glucose Level 101 Calcium Level 8.9 Test 11/30/16 07:59 11/30/16 11:55 Bedside Glucose 95 120 Medications Medications Current Medications Acetaminophen (Tylenol Tab) 650 mg Q4H PRN PO PAIN AND OR ELEVATED TEMP Last administered on 11/26/16 10:25; Admin Dose 650 MG; Start 11/15/16 at 16:00 Paroxetine HCl (Paxil) 30 mg DAILY PO Last administered on 11/30/16 08:01; Admin Dose 30 MG; Start 11/16/16 at 09:00 Diagnostic Test (Pha) (Accu-Chek) 1 ea 02 XX ; Start 11/16/16 at 02:00 Miscellaneous Information 1 ea NOTE XX ; Start 11/15/16 at 16:30 Glucose (Glutose) 15 gm Q15M PRN PO DECREASED GLUCOSE; Start 11/15/16 at 16:30 Glucose (Glutose) 22.5 gm Q15M PRN PO DECREASED GLUCOSE; Start 11/15/16 at 16:30 Dextrose (D50w Syringe) 25 ml Q15M PRN IV DECREASED GLUCOSE; Start 11/15/16 at 16:30 Dextrose (D50w Syringe) 50 ml Q15M PRN IV DECREASED GLUCOSE; Start 11/15/16 at 16:30 Glucagon (Glucagen) 1 mg Q15M PRN IM DECREASED GLUCOSE; Start 11/15/16 at 16:30 Glucose (Glutose) 15 gm Q15M PRN BUCCAL DECREASED GLUCOSE; Start 11/15/16 at 16: 30 Aspirin (Aspirin) 81 mg DAILY PO Last administered on 11/30/16 08:01; Admin Dose 81 MG; Start 11/16/16 at 09:00 Hydrochlorothiazide (Hydrochlorothiazide) 25 mg DAILY PO Last administered on 08:02; Admin Dose 25 MG; Start 11/16/16 at 09:00 Pantoprazole (Protonix Tab) 40 mg BID@18 PO Last administered on 11/30/16 06:00; Admin Dose 40 MG; Start 11/15/16 at 18:00 Ondansetron HCl (Zofran Inj) 4 mg Q6H PRN IV NAUSEA AND/OR VOMITING Last administered on 11/29/16 12:59; Admin Dose 4 MG; Start 11/16/16 at 09:30 Ibuprofen (Motrin) 600 mg Q8H PRN PO PAIN LEVEL 4-7; Start 11/16/16 at 19:00 Valsartan (Diovan) 160 mg BID PO Last administered on 11/30/16 08:01; Admin Dose 160 MG; Start 11/16/16 at 21:00 Alprazolam (Xanax) 0.5 mg Q6H PRN PO ANXIETY Last administered on 11/29/16 21: 57; Admin Dose 0.5 MG; Start 11/18/16 at 11:00 Meclizine HCl (Antivert) 25 mg TID PO Last administered on 11/30/16 12:02; Admin Dose 25 MG; Start 11/18/16 at 21:00 Atorvastatin Calcium (Lipitor) 40 mg HS PO Last administered on 11/29/16 21:56 ; Admin Dose 40 MG; Start 11/19/16 at 21:00 Phenyleph/Shark Oil/Min Oil/Petrol (Formulation R Oint) 1 applic BID [place] Last administered on 11/30/16 08:02; Admin Dose 1 APPLIC; Start 11/20/16 at 13:30 Vancomycin HCl (Vancomycin Oral Syringe) 250 mg Q6 PO Last administered on 11/30 12:02; Admin Dose 250 MG; Start 11/21/16 at 12:00 EDILMA LIMA NP Nov 30, 2016 16:03
[2016-11-30 19:28] VITALS: BP 117/67; RESP 18
[2016-11-30] MEDS: ATORVASTATIN 40 MG TAB PO SCH (20:27)
[2016-11-30] MEDS: ALPRAZOLAM 0.25 MG TAB PO PRN (22:08)
--- NOTE | 2016-11-30 22:49 | RADRPT ---
PROCEDURE: XR Cervical Spine. CLINICAL INDICATION: Neck pain. TECHNIQUE: Three views of the cervical spine were performed. Frontal, lateral, and AP open-mouth o dontoid. The images were reviewed on a PACS workstation. COMPARISON: None. FINDINGS: There is normal stature and alignment of the vertebrae. There is no fracture. There is no lytic or blastic lesion. There are degenerative changes of the lower cervical spine with disk space narrowing and osteophytes at C5-6 and C6-7. Surgical clips are present in the right ovary to the region. IMPRESSION: 1. Prior surgery. 2. Degenerative changes at C5-6 and C6-7. 3. Otherwise unremarkable images of the cervical spine. RPTAT: QQ .Brenden Lehman MD, MD Date Time Electronically viewed and signed by .Brenden Lehman MD, on 11/30/2016 22:49 .R/
[2016-12-01] MEDS: VANCOMYCIN HCL 250 MG/5ML POSYG PO SCH ×4 (00:05→17:37)
[2016-12-01 01:55] VITALS: BP 119/60; RESP 20
[2016-12-01] MEDS: ACCU-CHEK XX SCH (02:00)
[2016-12-01] MEDS: PANTOPRAZOLE (EC) 40 MG TAB PO SCH ×2 (05:15→17:37)
[2016-12-01 05:33] LABS: BASOPHIL # 0.1 10^3/ul (0.0-0.1); BASOPHILS % 0.7 % (0.0-2.0); EOSINOPHILS # 0.2 10^3/ul (0.0-0.5); HEMATOCRIT 39.4 % (37.0-47.0); HEMOGLOBIN 12.6 g/dl (12.0-16.0); LYMPHOCYTES # 4.6 10^3/ul (0.8-2.9); LYMPHOCYTES % 23.2 % (15.0-51.0); MEAN CORPUSCULAR VOLUME 84.5 fl (82.0-101.0); MEAN PLATELET VOLUME 9.9 fl (7.4-10.4); MONOCYTE # 0.9 10^3/ul (0.3-0.9); MONOCYTES % 4.6 % (0.0-11.0); NEUTROPHILS % 68.2 % (39.0-77.0); PLATELET COUNT 395 10^3/UL (140-415); RED BLOOD COUNT 4.66 10^6/ul (4.20-5.40); RED CELL DISTRIBUTION WIDTH 15.2 % (11.5-14.5); WHITE BLOOD COUNT 19.6 10^3/ul (4.8-10.8)
[2016-12-01 05:52] LABS: CREATININE 0.77 mg/dl (0.44-1.00); POTASSIUM 3.9 mmol/L (3.5-5.1)
[2016-12-01 07:50] VITALS: BP 147/70; RESP 18
[2016-12-01] MEDS: INSULIN ASPART [NOVOLOG] 3 ML PEN SC SCH ×4 (08:00→20:30)
[2016-12-01] MEDS: PAROXETINE 10 MG TAB PO SCH (08:19)
[2016-12-01] MEDS: VALSARTAN 160 MG TAB PO SCH ×2 (08:20→20:30)
[2016-12-01] MEDS: ASPIRIN 81 MG TAB PO SCH (08:20)
[2016-12-01] MEDS: HYDROCHLOROTHIAZIDE 25 MG TAB PO SCH (08:20)
[2016-12-01] MEDS: MECLIZINE 25 MG TAB PO SCH ×3 (08:20→20:30)
[2016-12-01] MEDS: metFORMIN 850 MG TAB PO SCH ×2 (08:20→17:37)
--- NOTE | 2016-12-01 11:08 | PN ---
Date/Time of Note Date/Time of Note DATE: 12/01/16 TIME: 11:05 Assessment/Plan VTE Prophylaxis VTE Prophylaxis Intervention: SCD's Lines/Catheters IV Catheter Type (from Nrs): Saline Lock Urinary Cath still in place: No Assessment/Plan Assessment/Plan -Acute stroke ruled out. -Neck pain and upper back pain, Dr. Gutierrez is following in rheumatology consultation, status post trigger point injection. -Dizziness and headache due to occipital neuralgia, Dr. Billings, neurology consult is appreciated -Diarrhea with C. difficile colitis, continue p.o. vancomycin, Dr. Rosales is following infection disease. -Rule out acute coronary syndrome, cardiac enzymes every 8 hours 3. -Hypertension, continue hydrochlorothiazide and Diovan -Diabetes mellitus, continue metformin and NovoLog per mild algorithm sliding scale. -Osteoarthritis, patient was able to ambulate using walker -Obesity with BMI of 35.5. Further recommendations based on clinical course. Plan of care discussed with Dr. Justin Subjective 24 Hr Interval Summary Free Text/Dictation nad. no reported diarrhea, feels better Continue physical therapy, acute rehab evaluation pending. dw staff- no new issues reported overnight. ENT: no complaints Respiratory: no complaints Cardiovascular: no complaints Gastrointestinal: no complaints Genitourinary: no complaints Musculoskeletal: no complaints Exam/Review of Systems Vital Signs Vitals Vital Signs Date Time Temp Pulse Resp B/P Pulse Ox O2 Delivery O2 Flow Rate FiO2 12/01/16 07:50 98.5 73 18 147/70 96 11/28/16 14:00 Room Air Intake and Output 11/30/16 11/30/16 12/01/16 15:00 23:00 07:00 Intake Total 960 ml 500 ml Output Total 900 ml 700 ml Balance 60 ml -200 ml Results Result Diagram: 12/01/16 0454 12/01/16 0454 Results 24 hrs Laboratory Tests Test 11/30/16 11:55 11/30/16 17:21 11/30/16 20:24 12/01/16 04:54 Bedside Glucose 120 95 119 White Blood Count 19.6 H Red Blood Count 4.66 Hemoglobin 12.6 Hematocrit 39.4 Mean Corpuscular Volume 84.5 Mean Corpuscular Hemoglobin 27.0 L Mean Corpuscular Hemoglobin Concent 32.0 Red Cell Distribution Width 15.2 H Platelet Count 395 Mean Platelet Volume 9.9 Neutrophils % 68.2 Lymphocytes % 23.2 Monocytes % 4.6 Eosinophils % 1.0 Basophils % 0.7 Nucleated Red Blood Cells % 0.0 Neutrophils # (Manual) 13 H Lymphocytes # 4.6 H Monocytes # 0.9 Eosinophils # 0.2 Basophils # 0.1 Nucleated Red Blood Cells # 0.0 Sodium Level 139 Potassium Level 3.9 Chloride Level 96 L Carbon Dioxide Level 34 H Anion Gap 13 Blood Urea Nitrogen 18 Creatinine 0.77 Glucose Level 100 Calcium Level 9.0 Test 12/01/16 08:18 Bedside Glucose 93 Medications Medications Current Medications Acetaminophen (Tylenol Tab) 650 mg Q4H PRN PO PAIN AND OR ELEVATED TEMP Last administered on 11/26/16 10:25; Admin Dose 650 MG; Start 11/15/16 at 16:00 Paroxetine HCl (Paxil) 30 mg DAILY PO Last administered on 12/01/16 08:19; Admin Dose 30 MG; Start 11/16/16 at 09:00 Diagnostic Test (Pha) (Accu-Chek) 1 ea 02 XX ; Start 11/16/16 at 02:00 Miscellaneous Information 1 ea NOTE XX ; Start 11/15/16 at 16:30 Glucose (Glutose) 15 gm Q15M PRN PO DECREASED GLUCOSE; Start 11/15/16 at 16:30 Glucose (Glutose) 22.5 gm Q15M PRN PO DECREASED GLUCOSE; Start 11/15/16 at 16:30 Dextrose (D50w Syringe) 25 ml Q15M PRN IV DECREASED GLUCOSE; Start 11/15/16 at 16:30 Dextrose (D50w Syringe) 50 ml Q15M PRN IV DECREASED GLUCOSE; Start 11/15/16 at 16:30 Glucagon (Glucagen) 1 mg Q15M PRN IM DECREASED GLUCOSE; Start 11/15/16 at 16:30 Glucose (Glutose) 15 gm Q15M PRN BUCCAL DECREASED GLUCOSE; Start 11/15/16 at 16: 30 Aspirin (Aspirin) 81 mg DAILY PO Last administered on 12/01/16 08:20; Admin Dose 81 MG; Start 11/16/16 at 09:00 Hydrochlorothiazide (Hydrochlorothiazide) 25 mg DAILY PO Last administered on 08:20; Admin Dose 25 MG; Start 11/16/16 at 09:00 Pantoprazole (Protonix Tab) 40 mg BID@06,18 PO Last administered on 12/01/16 05:15; Admin Dose 40 MG; Start 11/15/16 at 18:00 Ondansetron HCl (Zofran Inj) 4 mg Q6H PRN IV NAUSEA AND/OR VOMITING Last administered on 11/29/16 12:59; Admin Dose 4 MG; Start 11/16/16 at 09:30 Ibuprofen (Motrin) 600 mg Q8H PRN PO PAIN LEVEL 4-7; Start 11/16/16 at 19:00 Valsartan (Diovan) 160 mg BID PO Last administered on 12/01/16 08:20; Admin Dose 160 MG; Start 11/16/16 at 21:00 Alprazolam (Xanax) 0.5 mg Q6H PRN PO ANXIETY Last administered on 11/30/16 22: 08; Admin Dose 0.5 MG; Start 11/18/16 at 11:00 Meclizine HCl (Antivert) 25 mg TID PO Last administered on 12/01/16 08:20; Admin Dose 25 MG; Start 11/18/16 at 21:00 Atorvastatin Calcium (Lipitor) 40 mg HS PO Last administered on 11/30/16 20:27 ; Admin Dose 40 MG; Start 11/19/16 at 21:00 Phenyleph/Shark Oil/Min Oil/Petrol (Formulation R Oint) 1 applic BID [place] Last administered on 11/30/16 20:28; Admin Dose 1 APPLIC; Start 11/20/16 at 13:30 Vancomycin HCl (Vancomycin Oral Syringe) 250 mg Q6 PO Last administered on 12/01 05:15; Admin Dose 250 MG; Start 11/21/16 at 12:00 AHMET BOURNE Dec 01, 2016 11:08
[2016-12-01] MEDS: ACETAMINOPHEN 325 MG TAB PO PRN (11:54)
[2016-12-01] MEDS: PE/SHARK OIL/MO/PETROL 30 GM OINT PR SCH ×2 (11:56→20:31)
--- NOTE | 2016-12-01 13:18 | CONS ---
Date/Time of Note Date/Time of Note DATE: 12/01/16 TIME: 13:14 Consult Date/Type/Reason Admit Date/Time Nov 15, 2016 at 11:01 Initial Consult Date 11/22/16 Type of Consultation: Rheum Ordering Provider: THAI DELACRUZ Subjective Less ache but still with some at the left neck/upper back. No new other complaints. Objective Vital Signs Date Time Temp Pulse Resp B/P Pulse Ox O2 Delivery O2 Flow Rate FiO2 12/01/16 07:50 98.5 73 18 147/70 96 11/28/16 14:00 Room Air Intake and Output 11/30/16 11/30/16 12/01/16 15:00 23:00 07:00 Intake Total 960 ml 500 ml Output Total 900 ml 700 ml Balance 60 ml -200 ml Exam GENERAL: No acute distress. Alert, oriented x3. SKIN: Without acute lesions. HEENT: Without acute oral or ocular lesions. No temporal artery tenderness noted. NECK: Without lymphadenopathy. CHEST: Clear to auscultation. HEART: Regular rhythm. ABDOMEN: Soft, without masses or tenderness. MUSCULOSKELETAL EXAM: Less tenderness at upper back and neck but still present at left. Rest without change. NEUROLOGIC EXAM: Grossly intact. Results/Medications Result Diagram: 12/01/16 0454 12/01/16 0454 Results 24 hrs Laboratory Tests Test 11/30/16 17:21 11/30/16 20:24 12/01/16 04:54 12/01/16 08:18 Bedside Glucose 95 119 93 White Blood Count 19.6 H Red Blood Count 4.66 Hemoglobin 12.6 Hematocrit 39.4 Mean Corpuscular Volume 84.5 Mean Corpuscular Hemoglobin 27.0 L Mean Corpuscular Hemoglobin Concent 32.0 Red Cell Distribution Width 15.2 H Platelet Count 395 Mean Platelet Volume 9.9 Neutrophils % 68.2 Lymphocytes % 23.2 Monocytes % 4.6 Eosinophils % 1.0 Basophils % 0.7 Nucleated Red Blood Cells % 0.0 Neutrophils # (Manual) 13 H Lymphocytes # 4.6 H Monocytes # 0.9 Eosinophils # 0.2 Basophils # 0.1 Nucleated Red Blood Cells # 0.0 Sodium Level 139 Potassium Level 3.9 Chloride Level 96 L Carbon Dioxide Level 34 H Anion Gap 13 Blood Urea Nitrogen 18 Creatinine 0.77 Glucose Level 100 Calcium Level 9.0 Test 12/01/16 11:59 Bedside Glucose 109 Medications Current Medications Acetaminophen (Tylenol Tab) 650 mg Q4H PRN PO PAIN AND OR ELEVATED TEMP Last administered on 12/01/16 11:54; Admin Dose 650 MG; Start 11/15/16 at 16:00 Paroxetine HCl (Paxil) 30 mg DAILY PO Last administered on 12/01/16 08:19; Admin Dose 30 MG; Start 11/16/16 at 09:00 Diagnostic Test (Pha) (Accu-Chek) 1 ea 02 XX ; Start 11/16/16 at 02:00 Miscellaneous Information 1 ea NOTE XX ; Start 11/15/16 at 16:30 Glucose (Glutose) 15 gm Q15M PRN PO DECREASED GLUCOSE; Start 11/15/16 at 16:30 Glucose (Glutose) 22.5 gm Q15M PRN PO DECREASED GLUCOSE; Start 11/15/16 at 16:30 Dextrose (D50w Syringe) 25 ml Q15M PRN IV DECREASED GLUCOSE; Start 11/15/16 at 16:30 Dextrose (D50w Syringe) 50 ml Q15M PRN IV DECREASED GLUCOSE; Start 11/15/16 at 16:30 Glucagon (Glucagen) 1 mg Q15M PRN IM DECREASED GLUCOSE; Start 11/15/16 at 16:30 Glucose (Glutose) 15 gm Q15M PRN BUCCAL DECREASED GLUCOSE; Start 11/15/16 at 16: 30 Aspirin (Aspirin) 81 mg DAILY PO Last administered on 12/01/16 08:20; Admin Dose 81 MG; Start 11/16/16 at 09:00 Hydrochlorothiazide (Hydrochlorothiazide) 25 mg DAILY PO Last administered on 08:20; Admin Dose 25 MG; Start 11/16/16 at 09:00 Pantoprazole (Protonix Tab) 40 mg BID@,18 PO Last administered on 12/01/16 05:15; Admin Dose 40 MG; Start 11/15/16 at 18:00 Ondansetron HCl (Zofran Inj) 4 mg Q6H PRN IV NAUSEA AND/OR VOMITING Last administered on 11/29/16 12:59; Admin Dose 4 MG; Start 11/16/16 at 09:30 Ibuprofen (Motrin) 600 mg Q8H PRN PO PAIN LEVEL 4-7; Start 11/16/16 at 19:00 Valsartan (Diovan) 160 mg BID PO Last administered on 12/01/16 08:20; Admin Dose 160 MG; Start 11/16/16 at 21:00 Alprazolam (Xanax) 0.5 mg Q6H PRN PO ANXIETY Last administered on 11/30/16 22: 08; Admin Dose 0.5 MG; Start 11/18/16 at 11:00 Meclizine HCl (Antivert) 25 mg TID PO Last administered on 12/01/16 12:01; Admin Dose 25 MG; Start 11/18/16 at 21:00 Atorvastatin Calcium (Lipitor) 40 mg HS PO Last administered on 11/30/16 20:27 ; Admin Dose 40 MG; Start 11/19/16 at 21:00 Phenyleph/Shark Oil/Min Oil/Petrol (Formulation R Oint) 1 applic BID [place] Last administered on 12/01/16 11:56; Admin Dose 1 APPLIC; Start 11/20/16 at 13:30 Vancomycin HCl (Vancomycin Oral Syringe) 250 mg Q6 PO Last administered on 12/01 11:55; Admin Dose 250 MG; Start 11/21/16 at 12:00 Assessment/Plan Chief Complaint/Hosp Course ASSESSMENT: 1. Neck and upper back pain. Mostly myofascial with upper back trigger points. . Improved some with trigger point injections. X rays wit DDD lower levels but good vertebral alignment 2. Osteoarthritis 3. Diabetes. 4. Hypertension. 5. C difficile colitis recently on treatment. PLAN: 1. Physical therapy to upper back and neck 2. Ice pack Problems: HAILEY NINO MD Dec 01, 2016 13:18
--- NOTE | 2016-12-01 13:57 | CONS ---
Date/Time of Note Date/Time of Note DATE: 12/01/16 TIME: 13:53 Assessment/Plan Assessment/Plan Chief Complaint/Hosp Course SUBJECTIVE: No events overnight. Sleeping, no fevers, over night, looks comfortable ANTIMICROBIALS: Oral vancomycin PHYSICAL EXAMINATION: GENERAL: This is a fragile, well-developed, elderly woman who is awake, in no distress. HEENT: Head atraumatic, normocephalic. Sclerae anicteric. Buccal mucosa dry. NECK: Supple. CHEST: Rise symmetrical. Breath sounds clear bilaterally. HEART: S1, S2. ABDOMEN: Soft. Mild tenderness on palpation. Bowel sounds present. EXTREMITIES: Without cyanosis. ASSESSMENT: 1. Systemic inflammatory response syndrome. 2. Clostridium difficile colitis. 3. Diabetes and hypertension. 4. History of bilateral total knee replacement. 5. Leukocytosis, s/p trigger point steroid injection PLAN: Patient remains stable, diarrhea resolved, wbc increased s/p steroid injection, will order cxr and urine cx, continue PO Marta GEORGE staff Problems: Consultation Date/Type/Reason Admit Date/Time Nov 15, 2016 at 11:01 Initial Consult Date 11/22/16 Type of Consultation: id Referring Provider: THAI DELACRUZ Exam/Review of Systems Vital Signs Vitals Vital Signs Date Time Temp Pulse Resp B/P Pulse Ox O2 Delivery O2 Flow Rate FiO2 12/01/16 07:50 98.5 73 18 147/70 96 11/28/16 14:00 Room Air Intake and Output 11/30/16 11/30/16 12/01/16 15:00 23:00 07:00 Intake Total 960 ml 500 ml Output Total 900 ml 700 ml Balance 60 ml -200 ml Results Result Diagram: 12/01/16 0454 12/01/16 0454 Results 24 hrs Laboratory Tests Test 11/30/16 17:21 11/30/16 20:24 12/01/16 04:54 12/01/16 08:18 Bedside Glucose 95 119 93 White Blood Count 19.6 H Red Blood Count 4.66 Hemoglobin 12.6 Hematocrit 39.4 Mean Corpuscular Volume 84.5 Mean Corpuscular Hemoglobin 27.0 L Mean Corpuscular Hemoglobin Concent 32.0 Red Cell Distribution Width 15.2 H Platelet Count 395 Mean Platelet Volume 9.9 Neutrophils % 68.2 Lymphocytes % 23.2 Monocytes % 4.6 Eosinophils % 1.0 Basophils % 0.7 Nucleated Red Blood Cells % 0.0 Neutrophils # (Manual) 13 H Lymphocytes # 4.6 H Monocytes # 0.9 Eosinophils # 0.2 Basophils # 0.1 Nucleated Red Blood Cells # 0.0 Sodium Level 139 Potassium Level 3.9 Chloride Level 96 L Carbon Dioxide Level 34 H Anion Gap 13 Blood Urea Nitrogen 18 Creatinine 0.77 Glucose Level 100 Calcium Level 9.0 Test 12/01/16 11:59 Bedside Glucose 109 Medications Medications Current Medications Acetaminophen (Tylenol Tab) 650 mg Q4H PRN PO PAIN AND OR ELEVATED TEMP Last administered on 12/01/16 11:54; Admin Dose 650 MG; Start 11/15/16 at 16:00 Paroxetine HCl (Paxil) 30 mg DAILY PO Last administered on 12/01/16 08:19; Admin Dose 30 MG; Start 11/16/16 at 09:00 Diagnostic Test (Pha) (Accu-Chek) 1 ea 02 XX ; Start 11/16/16 at 02:00 Miscellaneous Information 1 ea NOTE XX ; Start 11/15/16 at 16:30 Glucose (Glutose) 15 gm Q15M PRN PO DECREASED GLUCOSE; Start 11/15/16 at 16:30 Glucose (Glutose) 22.5 gm Q15M PRN PO DECREASED GLUCOSE; Start 11/15/16 at 16:30 Dextrose (D50w Syringe) 25 ml Q15M PRN IV DECREASED GLUCOSE; Start 11/15/16 at 16:30 Dextrose (D50w Syringe) 50 ml Q15M PRN IV DECREASED GLUCOSE; Start 11/15/16 at 16:30 Glucagon (Glucagen) 1 mg Q15M PRN IM DECREASED GLUCOSE; Start 11/15/16 at 16:30 Glucose (Glutose) 15 gm Q15M PRN BUCCAL DECREASED GLUCOSE; Start 11/15/16 at 16: 30 Aspirin (Aspirin) 81 mg DAILY PO Last administered on 12/01/16 08:20; Admin Dose 81 MG; Start 11/16/16 at 09:00 Hydrochlorothiazide (Hydrochlorothiazide) 25 mg DAILY PO Last administered on 08:20; Admin Dose 25 MG; Start 11/16/16 at 09:00 Pantoprazole (Protonix Tab) 40 mg BID@06,18 PO Last administered on 12/01/16 05:15; Admin Dose 40 MG; Start 11/15/16 at 18:00 Ondansetron HCl (Zofran Inj) 4 mg Q6H PRN IV NAUSEA AND/OR VOMITING Last administered on 11/29/16 12:59; Admin Dose 4 MG; Start 11/16/16 at 09:30 Ibuprofen (Motrin) 600 mg Q8H PRN PO PAIN LEVEL 4-7; Start 11/16/16 at 19:00 Valsartan (Diovan) 160 mg BID PO Last administered on 12/01/16 08:20; Admin Dose 160 MG; Start 11/16/16 at 21:00 Alprazolam (Xanax) 0.5 mg Q6H PRN PO ANXIETY Last administered on 11/30/16 22: 08; Admin Dose 0.5 MG; Start 11/18/16 at 11:00 Meclizine HCl (Antivert) 25 mg TID PO Last administered on 12/01/16 12:01; Admin Dose 25 MG; Start 11/18/16 at 21:00 Atorvastatin Calcium (Lipitor) 40 mg HS PO Last administered on 11/30/16 20:27 ; Admin Dose 40 MG; Start 11/19/16 at 21:00 Phenyleph/Shark Oil/Min Oil/Petrol (Formulation R Oint) 1 applic BID [place] Last administered on 12/01/16 11:56; Admin Dose 1 APPLIC; Start 11/20/16 at 13:30 Vancomycin HCl (Vancomycin Oral Syringe) 250 mg Q6 PO Last administered on 12/01 11:55; Admin Dose 250 MG; Start 11/21/16 at 12:00 EDILMA LIMA NP Dec 01, 2016 13:57
[2016-12-01 14:10] VITALS: BP 128/51; RESP 16
--- NOTE | 2016-12-01 16:56 | RADRPT ---
PROCEDURE: XR Chest. CLINICAL INDICATION: Shortness of breath. TECHNIQUE: Single frontal view. COMPARISON: 11/21/2016. FINDINGS: There is mild elevation of the right hemidiaphragm, unchanged. The lungs are otherwise clear. The heart size is normal. There is no pleural effusion. There is no pneumothorax. IMPRESSION: 1. Mild elevation of the right hemidiaphragm. 2. Otherwise normal chest x-ray. RPTAT: QQ .Brenden Lehman MD, MD Date Time Electronically viewed and signed by .Brenden Lehman MD, MD on 12/01/2016 16:56 .R/
[2016-12-01] MEDS: ATORVASTATIN 40 MG TAB PO SCH (20:30)
[2016-12-01 20:53] VITALS: BP 119/72; RESP 17
[2016-12-01 21:40] VITALS: BP 113/68; PULSE 80
[2016-12-01] MEDS: ALPRAZOLAM 0.25 MG TAB PO PRN (22:03)
[2016-12-02] MEDS: VANCOMYCIN HCL 250 MG/5ML POSYG PO SCH ×4 (00:15→17:36)
[2016-12-02] MEDS: ACCU-CHEK XX SCH (01:24)
[2016-12-02 02:00] VITALS: BP 139/69; RESP 17
[2016-12-02] MEDS: PANTOPRAZOLE (EC) 40 MG TAB PO SCH ×2 (05:38→17:36)
[2016-12-02 06:04] LABS: BASOPHIL # 0.2 10^3/ul (0.0-0.1); BASOPHILS % 0.8 % (0.0-2.0); EOSINOPHILS # 0.2 10^3/ul (0.0-0.5); EOSINOPHILS % 0.8 % (0.0-7.0); HEMOGLOBIN 12.8 g/dl (12.0-16.0); LYMPHOCYTES # 4.4 10^3/ul (0.8-2.9); LYMPHOCYTES % 22.8 % (15.0-51.0); MEAN CORPUSCULAR VOLUME 84.4 fl (82.0-101.0); MEAN PLATELET VOLUME 10.1 fl (7.4-10.4); MONOCYTE # 0.9 10^3/ul (0.3-0.9); MONOCYTES % 4.6 % (0.0-11.0); NEUTROPHILS % 69.2 % (39.0-77.0); PLATELET COUNT 376 10^3/UL (140-415); RED BLOOD COUNT 4.74 10^6/ul (4.20-5.40); RED CELL DISTRIBUTION WIDTH 15.1 % (11.5-14.5); WHITE BLOOD COUNT 19.4 10^3/ul (4.8-10.8)
[2016-12-02 06:38] LABS: CALCIUM 9.2 mg/dl (8.4-10.2); CREATININE 0.63 mg/dl (0.44-1.00); POTASSIUM 3.5 mmol/L (3.5-5.1)
[2016-12-02 07:45] VITALS: BP 159/72; RESP 18
[2016-12-02] MEDS: INSULIN ASPART [NOVOLOG] 3 ML PEN SC SCH ×4 (08:00→21:00)
[2016-12-02] MEDS: metFORMIN 850 MG TAB PO SCH ×2 (08:09→17:36)
[2016-12-02] MEDS: ASPIRIN 81 MG TAB PO SCH (08:10)
[2016-12-02] MEDS: PAROXETINE 10 MG TAB PO SCH (08:11)
[2016-12-02] MEDS: VALSARTAN 160 MG TAB PO SCH ×2 (08:11→20:38)
[2016-12-02] MEDS: HYDROCHLOROTHIAZIDE 25 MG TAB PO SCH (08:11)
[2016-12-02] MEDS: MECLIZINE 25 MG TAB PO SCH ×3 (08:12→20:37)
[2016-12-02] MEDS: PE/SHARK OIL/MO/PETROL 30 GM OINT PR SCH ×2 (08:12→20:39)
[2016-12-02] MEDS: CEFTRIAXONE 1 GM/50 ML (PMX) 50 ML IVPB SCH (11:31)
--- NOTE | 2016-12-02 13:21 | CONS ---
Date/Time of Note Date/Time of Note DATE: 12/02/16 TIME: 13:18 Consult Date/Type/Reason Admit Date/Time Nov 15, 2016 at 11:01 Initial Consult Date 11/22/16 Type of Consultation: Rheum Ordering Provider: THAI DELACRUZ Subjective Still with some left upper back and neck ache. No new complaints. Objective Vital Signs Date Time Temp Pulse Resp B/P Pulse Ox O2 Delivery O2 Flow Rate FiO2 12/02/16 07:45 98.0 75 18 159/72 94 11/28/16 14:00 Room Air Intake and Output 12/01/16 12/01/16 12/02/16 15:00 23:00 07:00 Intake Total 480 ml Balance 480 ml Exam GENERAL: No acute distress. Alert, oriented x3. SKIN: Without acute lesions. HEENT: Without acute oral or ocular lesions. No temporal artery tenderness noted. NECK: Without lymphadenopathy. CHEST: Clear to auscultation. HEART: Regular rhythm. ABDOMEN: Soft, without masses or tenderness. MUSCULOSKELETAL EXAM: Less tenderness at upper back and neck but still present at left. Rest without change. NEUROLOGIC EXAM: Grossly intact. Results/Medications Result Diagram: 12/02/16 0501 12/02/16 0501 Results 24 hrs Laboratory Tests Test 12/01/16 17:36 12/02/16 05:01 12/02/16 08:06 12/02/16 11:45 Bedside Glucose 107 88 112 White Blood Count 19.4 H Red Blood Count 4.74 Hemoglobin 12.8 Hematocrit 40.0 Mean Corpuscular Volume 84.4 Mean Corpuscular Hemoglobin 27.0 L Mean Corpuscular Hemoglobin Concent 32.0 Red Cell Distribution Width 15.1 H Platelet Count 376 Mean Platelet Volume 10.1 Neutrophils % 69.2 Lymphocytes % 22.8 Monocytes % 4.6 Eosinophils % 0.8 Basophils % 0.8 Nucleated Red Blood Cells % 0.0 Neutrophils # (Manual) 13.5 H Lymphocytes # 4.4 H Monocytes # 0.9 Eosinophils # 0.2 Basophils # 0.2 H Nucleated Red Blood Cells # 0.0 Sodium Level 139 Potassium Level 3.5 Chloride Level 95 L Carbon Dioxide Level 31 Anion Gap 17 H Blood Urea Nitrogen 17 Creatinine 0.63 Glucose Level 93 Calcium Level 9.2 Medications Current Medications Acetaminophen (Tylenol Tab) 650 mg Q4H PRN PO PAIN AND OR ELEVATED TEMP Last administered on 12/01/16 11:54; Admin Dose 650 MG; Start 11/15/16 at 16:00 Paroxetine HCl (Paxil) 30 mg DAILY PO Last administered on 12/02/16 08:11; Admin Dose 30 MG; Start 11/16/16 at 09:00 Diagnostic Test (Pha) (Accu-Chek) 1 ea 02 XX ; Start 11/16/16 at 02:00 Miscellaneous Information 1 ea NOTE XX ; Start 11/15/16 at 16:30 Glucose (Glutose) 15 gm Q15M PRN PO DECREASED GLUCOSE; Start 11/15/16 at 16:30 Glucose (Glutose) 22.5 gm Q15M PRN PO DECREASED GLUCOSE; Start 11/15/16 at 16:30 Dextrose (D50w Syringe) 25 ml Q15M PRN IV DECREASED GLUCOSE; Start 11/15/16 at 16:30 Dextrose (D50w Syringe) 50 ml Q15M PRN IV DECREASED GLUCOSE; Start 11/15/16 at 16:30 Glucagon (Glucagen) 1 mg Q15M PRN IM DECREASED GLUCOSE; Start 11/15/16 at 16:30 Glucose (Glutose) 15 gm Q15M PRN BUCCAL DECREASED GLUCOSE; Start 11/15/16 at 16: 30 Aspirin (Aspirin) 81 mg DAILY PO Last administered on 12/02/16 08:10; Admin Dose 81 MG; Start 11/16/16 at 09:00 Hydrochlorothiazide (Hydrochlorothiazide) 25 mg DAILY PO Last administered on 08:11; Admin Dose 25 MG; Start 11/16/16 at 09:00 Pantoprazole (Protonix Tab) 40 mg BID@06,18 PO Last administered on 12/02/16 05:38; Admin Dose 40 MG; Start 11/15/16 at 18:00 Ondansetron HCl (Zofran Inj) 4 mg Q6H PRN IV NAUSEA AND/OR VOMITING Last administered on 11/29/16 12:59; Admin Dose 4 MG; Start 11/16/16 at 09:30 Ibuprofen (Motrin) 600 mg Q8H PRN PO PAIN LEVEL 4-7; Start 11/16/16 at 19:00 Valsartan (Diovan) 160 mg BID PO Last administered on 12/02/16 08:11; Admin Dose 160 MG; Start 11/16/16 at 21:00 Alprazolam (Xanax) 0.5 mg Q6H PRN PO ANXIETY Last administered on 12/01/16 22: 03; Admin Dose 0.5 MG; Start 11/18/16 at 11:00 Meclizine HCl (Antivert) 25 mg TID PO Last administered on 12/02/16 08:12; Admin Dose 25 MG; Start 11/18/16 at 21:00 Atorvastatin Calcium (Lipitor) 40 mg HS PO Last administered on 12/01/16 20:30 ; Admin Dose 40 MG; Start 11/19/16 at 21:00 Phenyleph/Shark Oil/Min Oil/Petrol (Formulation R Oint) 1 applic BID [place] Last administered on 12/02/16 08:12; Admin Dose 1 APPLIC; Start 11/20/16 at 13:30 Vancomycin HCl 250 mg 250 mg Q6 PO Last administered on 12/02/16 11:41; Admin Dose 250 MG; Start 11/21/16 at 12:00 Ceftriaxone Sodium (Rocephin) 50 ml @ 100 mls/hr Q24H IVPB Last administered on 12/02/16 11:31; Admin Dose 100 MLS/HR; Start 12/02/16 at 11:00 Assessment/Plan Chief Complaint/Hosp Course ASSESSMENT: 1. Neck and upper back pain. Mostly myofascial with upper back trigger points. . Improved some with trigger point injections. X rays wit DDD lower levels but good vertebral alignment 2. Osteoarthritis 3. Diabetes. 4. Hypertension. 5. C difficile colitis recently on treatment. 6. Leukocytosis. Probably due to UTI. Steroid injections may have increased WBC as well. PLAN: 1. Physical therapy to upper back and neck 2. Ice pack 3. Increase sitting and ambulation. Problems: HAILEY NINO MD Dec 02, 2016 13:21
[2016-12-02 14:29] VITALS: BP 126/61; RESP 16
--- NOTE | 2016-12-02 17:12 | PN ---
Date/Time of Note Date/Time of Note DATE: 12/02/16 TIME: 17:10 Assessment/Plan VTE Prophylaxis VTE Prophylaxis Intervention: SCD's Lines/Catheters IV Catheter Type (from Nrs): Peripheral IV Urinary Cath still in place: No Assessment/Plan Chief Complaint/Hosp Course Patient was increased leukocytosis, urinary tract infection, started on ceftriaxone. Assessment/Plan -Acute stroke ruled out. -Neck pain and upper back pain, Dr. Gutierrez is following in rheumatology consultation, status post trigger point injection. -Dizziness and headache due to occipital neuralgia, Dr. Billings, neurology consult is appreciated -Diarrhea with C. difficile colitis, continue p.o. vancomycin, Dr. Rosales is following infection disease. -Gram-negative rods UTI, continue ceftriaxone -Rule out acute coronary syndrome, cardiac enzymes every 8 hours 3. -Hypertension, continue hydrochlorothiazide and Diovan -Diabetes mellitus, continue metformin and NovoLog per mild algorithm sliding scale. -Osteoarthritis, patient was able to ambulate using walker -Obesity with BMI of 35.5. Further recommendations based on clinical course. Plan of care discussed with Dr. Justin Problems: Exam/Review of Systems Vital Signs Vitals Vital Signs Date Time Temp Pulse Resp B/P Pulse Ox O2 Delivery O2 Flow Rate FiO2 12/02/16 14:29 98.7 89 16 126/61 93 11/28/16 14:00 Room Air Intake and Output 12/01/16 12/01/16 12/02/16 15:00 23:00 07:00 Intake Total 480 ml Balance 480 ml Exam Constitutional: alert, oriented Respiratory: normal air movement Cardiovascular: nl pulses Gastrointestinal: non-tender, soft Extremities: normal pulses Neurological: nl mental status Results Result Diagram: 12/02/16 0501 12/02/16 0501 Results 24 hrs Laboratory Tests Test 12/01/16 17:36 12/02/16 05:01 12/02/16 08:06 12/02/16 11:45 Bedside Glucose 107 88 112 White Blood Count 19.4 H Red Blood Count 4.74 Hemoglobin 12.8 Hematocrit 40.0 Mean Corpuscular Volume 84.4 Mean Corpuscular Hemoglobin 27.0 L Mean Corpuscular Hemoglobin Concent 32.0 Red Cell Distribution Width 15.1 H Platelet Count 376 Mean Platelet Volume 10.1 Neutrophils % 69.2 Lymphocytes % 22.8 Monocytes % 4.6 Eosinophils % 0.8 Basophils % 0.8 Nucleated Red Blood Cells % 0.0 Neutrophils # (Manual) 13.5 H Lymphocytes # 4.4 H Monocytes # 0.9 Eosinophils # 0.2 Basophils # 0.2 H Nucleated Red Blood Cells # 0.0 Sodium Level 139 Potassium Level 3.5 Chloride Level 95 L Carbon Dioxide Level 31 Anion Gap 17 H Blood Urea Nitrogen 17 Creatinine 0.63 Glucose Level 93 Calcium Level 9.2 Medications Medications Current Medications Acetaminophen (Tylenol Tab) 650 mg Q4H PRN PO PAIN AND OR ELEVATED TEMP Last administered on 12/01/16 11:54; Admin Dose 650 MG; Start 11/15/16 at 16:00 Paroxetine HCl (Paxil) 30 mg DAILY PO Last administered on 12/02/16 08:11; Admin Dose 30 MG; Start 11/16/16 at 09:00 Diagnostic Test (Pha) (Accu-Chek) 1 ea 02 XX ; Start 11/16/16 at 02:00 Miscellaneous Information 1 ea NOTE XX ; Start 11/15/16 at 16:30 Glucose (Glutose) 15 gm Q15M PRN PO DECREASED GLUCOSE; Start 11/15/16 at 16:30 Glucose (Glutose) 22.5 gm Q15M PRN PO DECREASED GLUCOSE; Start 11/15/16 at 16:30 Dextrose (D50w Syringe) 25 ml Q15M PRN IV DECREASED GLUCOSE; Start 11/15/16 at 16:30 Dextrose (D50w Syringe) 50 ml Q15M PRN IV DECREASED GLUCOSE; Start 11/15/16 at 16:30 Glucagon (Glucagen) 1 mg Q15M PRN IM DECREASED GLUCOSE; Start 11/15/16 at 16:30 Glucose (Glutose) 15 gm Q15M PRN BUCCAL DECREASED GLUCOSE; Start 11/15/16 at 16: 30 Aspirin (Aspirin) 81 mg DAILY PO Last administered on 12/02/16 08:10; Admin Dose 81 MG; Start 11/16/16 at 09:00 Hydrochlorothiazide (Hydrochlorothiazide) 25 mg DAILY PO Last administered on 08:11; Admin Dose 25 MG; Start 11/16/16 at 09:00 Pantoprazole (Protonix Tab) 40 mg BID@06,18 PO Last administered on 12/02/16 05:38; Admin Dose 40 MG; Start 11/15/16 at 18:00 Ondansetron HCl (Zofran Inj) 4 mg Q6H PRN IV NAUSEA AND/OR VOMITING Last administered on 11/29/16 12:59; Admin Dose 4 MG; Start 11/16/16 at 09:30 Ibuprofen (Motrin) 600 mg Q8H PRN PO PAIN LEVEL 4-7; Start 11/16/16 at 19:00 Valsartan (Diovan) 160 mg BID PO Last administered on 12/02/16 08:11; Admin Dose 160 MG; Start 11/16/16 at 21:00 Alprazolam (Xanax) 0.5 mg Q6H PRN PO ANXIETY Last administered on 12/01/16 22: 03; Admin Dose 0.5 MG; Start 11/18/16 at 11:00 Meclizine HCl (Antivert) 25 mg TID PO Last administered on 12/02/16 13:47; Admin Dose 25 MG; Start 11/18/16 at 21:00 Atorvastatin Calcium (Lipitor) 40 mg HS PO Last administered on 12/01/16 20:30 ; Admin Dose 40 MG; Start 11/19/16 at 21:00 Phenyleph/Shark Oil/Min Oil/Petrol (Formulation R Oint) 1 applic BID [place] Last administered on 12/02/16 08:12; Admin Dose 1 APPLIC; Start 11/20/16 at 13:30 Vancomycin HCl 250 mg 250 mg Q6 PO Last administered on 12/02/16 11:41; Admin Dose 250 MG; Start 11/21/16 at 12:00 Ceftriaxone Sodium (Rocephin) 50 ml @ 100 mls/hr Q24H IVPB Last administered on 12/02/16 11:31; Admin Dose 100 MLS/HR; Start 12/02/16 at 11:00 THAI DELACRUZ Dec 02, 2016 17:12
[2016-12-02] MEDS: ATORVASTATIN 40 MG TAB PO SCH (20:39)
[2016-12-02 20:40] VITALS: BP 117/63; RESP 18
[2016-12-03 02:00] VITALS: BP 131/60; PULSE 79; RESP 18
[2016-12-03] MEDS: ACCU-CHEK XX SCH (02:00)
--- NOTE | 2016-12-03 04:25 | PN ---
DATE: 12/02/2016 SUBJECTIVE DATA: No events overnight. The patient is alert, feels good, looks comfortable. Denies pain, discomfort. No fevers. No dysuria. OBJECTIVE DATA: VITAL SIGNS: Temperature 98.7, pulse 89, respirations 16, blood pressure 126/61, saturation 93 percent on room air. LABORATORY AND DIAGNOSTIC DATA: WBC 19.4, platelets 376, no shift, no bands. BUN 17, creatinine 0.63. Chest x-ray from yesterday revealed clear lung renner. MICROBIOLOGY: Urine culture from yesterday is positive for gram- negative rods. ANTIMICROBIALS: The patient was started on Rocephin this morning. She is also on oral vancomycin. PHYSICAL EXAMINATION: GENERAL: Fragile, obese, very pleasant, elderly woman, who is alert, in no distress. HEENT: Head atraumatic, normocephalic. Sclerae anicteric. Buccal mucosa pink. NECK: Supple. LUNGS: Chest rise symmetrical. Breath sounds clear. HEART: S1, S2. ABDOMEN: Soft, bowel sounds present. EXTREMITIES: Without cyanosis. ASSESSMENT: 1. Resolving Clostridium difficile colitis. 2. Urinary tract infection. 3. Persistent leukocytosis, possibly secondary to steroid injection for osteoarthritis. 4. Diabetes. 5. Hypertension. 6. History of bilateral total knee replacement. PLAN: The patient remains stable. We will give her a short course of antibiotics for UTI, continue oral vancomycin. Follow Rheumatology recommendations. Consider increased activity and ambulation. Dictated By: Priscilla Wood NP /bebeto/dereck /Document#: [id number]
[2016-12-03 06:17] LABS: BASOPHIL # 0.1 10^3/ul (0.0-0.1); BASOPHILS % 0.6 % (0.0-2.0); EOSINOPHILS # 0.2 10^3/ul (0.0-0.5); EOSINOPHILS % 1.2 % (0.0-7.0); HEMATOCRIT 38.7 % (37.0-47.0); HEMOGLOBIN 12.2 g/dl (12.0-16.0); LYMPHOCYTES # 4.8 10^3/ul (0.8-2.9); LYMPHOCYTES % 25.4 % (15.0-51.0); MEAN CORPUSCULAR HEMOGLOBIN 26.8 pg (29.0-33.0); MEAN CORPUSCULAR HGB CONC 31.5 g/dl (32.0-37.0); MEAN CORPUSCULAR VOLUME 84.9 fl (82.0-101.0); MONOCYTE # 0.9 10^3/ul (0.3-0.9); MONOCYTES % 4.5 % (0.0-11.0); NEUTROPHILS % 66.9 % (39.0-77.0); PLATELET COUNT 371 10^3/UL (140-415); RED BLOOD COUNT 4.56 10^6/ul (4.20-5.40); RED CELL DISTRIBUTION WIDTH 15.7 % (11.5-14.5)
[2016-12-03] MEDS: PANTOPRAZOLE (EC) 40 MG TAB PO SCH ×2 (06:36→17:33)
[2016-12-03] MEDS: VANCOMYCIN HCL 250 MG/5ML POSYG PO SCH ×4 (06:37→17:33)
[2016-12-03 06:53] LABS: CALCIUM 9.5 mg/dl (8.4-10.2); CREATININE 0.7 mg/dl (0.44-1.00)
[2016-12-03] MEDS: INSULIN ASPART [NOVOLOG] 3 ML PEN SC SCH ×4 (08:00→21:00)
[2016-12-03] MEDS: ALPRAZOLAM 0.25 MG TAB PO PRN ×2 (08:17→21:33)
[2016-12-03 08:28] VITALS: BP 124/62; RESP 18
[2016-12-03] MEDS: PAROXETINE 10 MG TAB PO SCH (08:28)
[2016-12-03] MEDS: MECLIZINE 25 MG TAB PO SCH ×3 (08:28→21:31)
[2016-12-03] MEDS: ASPIRIN 81 MG TAB PO SCH (08:28)
[2016-12-03] MEDS: HYDROCHLOROTHIAZIDE 25 MG TAB PO SCH (08:29)
[2016-12-03] MEDS: VALSARTAN 160 MG TAB PO SCH ×2 (08:29→21:33)
[2016-12-03] MEDS: metFORMIN 850 MG TAB PO SCH ×3 (08:33→18:46)
[2016-12-03] MEDS: PE/SHARK OIL/MO/PETROL 30 GM OINT PR SCH ×2 (08:35→21:34)
[2016-12-03] MEDS: CEFTRIAXONE 1 GM/50 ML (PMX) 50 ML IVPB SCH (11:43)
--- NOTE | 2016-12-03 12:25 | PN ---
Date/Time of Note Date/Time of Note DATE: 12/03/16 TIME: 12:23 Assessment/Plan VTE Prophylaxis VTE Prophylaxis Intervention: other Lines/Catheters IV Catheter Type (from Nrs): Peripheral IV Urinary Cath still in place: No Assessment/Plan Assessment/Plan -Acute stroke ruled out. -Neck pain and upper back pain, Dr. Gutierrez is following in rheumatology consultation, status post trigger point injection. -Dizziness and headache due to occipital neuralgia, Dr. Billings, neurology consult is appreciated -Diarrhea with C. difficile colitis, continue p.o. vancomycin, Dr. Rosales is following infection disease. -Gram-negative rods UTI, continue ceftriaxone -Rule out acute coronary syndrome, cardiac enzymes every 8 hours 3. -Hypertension, continue hydrochlorothiazide and Diovan -Diabetes mellitus, continue metformin and NovoLog per mild algorithm sliding scale. -Osteoarthritis, patient was able to ambulate using walker -Obesity with BMI of 35.5. Further recommendations based on clinical course. Plan of care discussed with Dr. Justin Subjective 24 Hr Interval Summary Free Text/Dictation afebrile, leukocytosis sec to urinary tract infection, cont on ceftriaxone. cont PT. [facility] staff. Cardiovascular: no complaints Gastrointestinal: no complaints Genitourinary: no complaints Musculoskeletal: no complaints Skin: no complaints Neurologic: no complaints Exam/Review of Systems Vital Signs Vitals Vital Signs Date Time Temp Pulse Resp B/P Pulse Ox O2 Delivery O2 Flow Rate FiO2 12/03/16 08:28 98.2 76 18 124/62 94 12/03/16 02:00 Room Air Intake and Output 12/02/16 12/02/16 12/03/16 15:00 23:00 07:00 Intake Total 50 ml 900 ml 440 ml Balance 50 ml 900 ml 440 ml Exam Constitutional: alert, oriented, well developed Respiratory: clear to auscultation, normal air movement Cardiovascular: nl pulses, regular rate and rhythm Gastrointestinal: non-tender, soft Musculoskeletal: nl extremities to inspection Neurological: nl mental status, nl speech Results Result Diagram: 12/03/16 0505 12/03/16 0505 Results 24 hrs Laboratory Tests Test 12/02/16 17:33 12/02/16 20:36 12/03/16 05:05 12/03/16 11:43 Bedside Glucose 102 115 81 White Blood Count 19.0 H Red Blood Count 4.56 Hemoglobin 12.2 Hematocrit 38.7 Mean Corpuscular Volume 84.9 Mean Corpuscular Hemoglobin 26.8 L Mean Corpuscular Hemoglobin Concent 31.5 L Red Cell Distribution Width 15.7 H Platelet Count 371 Mean Platelet Volume 10.0 Neutrophils % 66.9 Lymphocytes % 25.4 Monocytes % 4.5 Eosinophils % 1.2 Basophils % 0.6 Nucleated Red Blood Cells % 0.0 Neutrophils # (Manual) 12.8 H Lymphocytes # 4.8 H Monocytes # 0.9 Eosinophils # 0.2 Basophils # 0.1 Nucleated Red Blood Cells # 0.0 Sodium Level 140 Potassium Level 4.0 Chloride Level 95 L Carbon Dioxide Level 32 H Anion Gap 17 H Blood Urea Nitrogen 17 Creatinine 0.70 Glucose Level 92 Calcium Level 9.5 Medications Medications Current Medications Acetaminophen (Tylenol Tab) 650 mg Q4H PRN PO PAIN AND OR ELEVATED TEMP Last administered on 12/01/16 11:54; Admin Dose 650 MG; Start 11/15/16 at 16:00 Paroxetine HCl (Paxil) 30 mg DAILY PO Last administered on 12/03/16 08:28; Admin Dose 30 MG; Start 11/16/16 at 09:00 Diagnostic Test (Pha) (Accu-Chek) 1 ea 02 XX ; Start 11/16/16 at 02:00 Miscellaneous Information 1 ea NOTE XX ; Start 11/15/16 at 16:30 Glucose (Glutose) 15 gm Q15M PRN PO DECREASED GLUCOSE; Start 11/15/16 at 16:30 Glucose (Glutose) 22.5 gm Q15M PRN PO DECREASED GLUCOSE; Start 11/15/16 at 16:30 Dextrose (D50w Syringe) 25 ml Q15M PRN IV DECREASED GLUCOSE; Start 11/15/16 at 16:30 Dextrose (D50w Syringe) 50 ml Q15M PRN IV DECREASED GLUCOSE; Start 11/15/16 at 16:30 Glucagon (Glucagen) 1 mg Q15M PRN IM DECREASED GLUCOSE; Start 11/15/16 at 16:30 Glucose (Glutose) 15 gm Q15M PRN BUCCAL DECREASED GLUCOSE; Start 11/15/16 at 16: 30 Aspirin (Aspirin) 81 mg DAILY PO Last administered on 12/03/16 08:28; Admin Dose 81 MG; Start 11/16/16 at 09:00 Hydrochlorothiazide (Hydrochlorothiazide) 25 mg DAILY PO Last administered on 08:29; Admin Dose 25 MG; Start 11/16/16 at 09:00 Pantoprazole (Protonix Tab) 40 mg BID@06,18 PO Last administered on 12/03/16 06:36; Admin Dose 40 MG; Start 11/15/16 at 18:00 Ondansetron HCl (Zofran Inj) 4 mg Q6H PRN IV NAUSEA AND/OR VOMITING Last administered on 11/29/16 12:59; Admin Dose 4 MG; Start 11/16/16 at 09:30 Ibuprofen (Motrin) 600 mg Q8H PRN PO PAIN LEVEL 4-7; Start 11/16/16 at 19:00 Valsartan (Diovan) 160 mg BID PO Last administered on 12/03/16 08:29; Admin Dose 160 MG; Start 11/16/16 at 21:00 Alprazolam (Xanax) 0.5 mg Q6H PRN PO ANXIETY Last administered on 12/03/16 08: 17; Admin Dose 0.5 MG; Start 11/18/16 at 11:00 Meclizine HCl (Antivert) 25 mg TID PO Last administered on 12/03/16 08:28; Admin Dose 25 MG; Start 11/18/16 at 21:00 Atorvastatin Calcium (Lipitor) 40 mg HS PO Last administered on 12/02/16 20:39 ; Admin Dose 40 MG; Start 11/19/16 at 21:00 Phenyleph/Shark Oil/Min Oil/Petrol (Formulation R Oint) 1 applic BID HI Last administered on 12/03/16 08:35; Admin Dose 1 APPLIC; Start 11/20/16 at 13:30 Vancomycin HCl 250 mg 250 mg Q6 PO Last administered on 12/03/16 06:37; Admin Dose 250 MG; Start 11/21/16 at 12:00 Ceftriaxone Sodium (Rocephin) 50 ml @ 100 mls/hr Q24H IVPB Last administered on 12/03/16 11:43; Admin Dose 100 MLS/HR; Start 12/02/16 at 11:00 AHMET BOURNE Dec 03, 2016 12:25
[2016-12-03 14:22] VITALS: BP 106/55; RESP 16
--- NOTE | 2016-12-03 18:28 | CONS ---
Date/Time of Note Date/Time of Note DATE: 12/03/16 TIME: 18:28 Assessment/Plan Assessment/Plan Chief Complaint/Hosp Course ID PROGRESS NOTE CURRENT ABX: Vanco PO + * SUBJECTIVE: Awake, alert, responsive, tells me diarrhea improving, feeling better * WBC still elevated -- UTI pathogens not sensitive to Ceftriaxone * OBJECTIVE: URINE CULTURE Preliminary Organism 1 CITROBACTER AMALONATICUS COLONY COUNT 50,000 - 60,000 CFU/ml Organism 2 PSEUDOMONAS AERUGINOSA COLONY COUNT 50,000 - 60,000 CFU/ml C AMALONAT P.AERUG M.I.C. RX M.I.C. RX --------- --- --------- --- AMIKACIN <=2 S AZTREONAM I CEFEPIME <=1 S CEFOTAXIME S CEFTAZIDIME 4 S CIPROFLOXACIN <=0.25 S >=4 R GENTAMICIN <=1 S >=16 R LEVOFLOXACIN <=0.12 S >=8 R NITROFURANTOIN 64 I TOBRAMYCIN <=1 S 8 I TRIMETHOPRIM/SULFAMETHOXAZOLE <=20 S PIPERACILLIN/TAZOBACTAM 8 S GENERAL: 81 yo elder F in no distress. NO fevers HEENT:Unremarkable NECK: Supple, trachea midline. CHEST: Chest rise is symmetrical. EXTREMITIES: Warm (+)FC clear yellow urine ID ASSESSMENT 81 yo F admit with: 1. Resolving Clostridium difficile colitis. 2. GNR Urinary tract infection. 3. Persistent leukocytosis=> WBC still elevated -- UTI pathogens not sensitive to Ceftriaxone 4. Diabetes. 5. Hypertension. 6. History of bilateral total knee replacement. CURRENT ABX: Vanco PO + Ceftriaxone ID PLAN Continue ABXDC Ceftriaxone -> Start Cefepime to cover polyGNR UTI pathogens are resistant to Ceftriaxone . Problems: Consultation Date/Type/Reason Admit Date/Time Nov 15, 2016 at 11:01 Initial Consult Date 11/22/16 Type of Consultation: ID Referring Provider: RADCHENKO,THAI Exam/Review of Systems Vital Signs Vitals Vital Signs Date Time Temp Pulse Resp B/P Pulse Ox O2 Delivery O2 Flow Rate FiO2 12/03/16 14:22 98.1 92 16 106/55 95 12/03/16 02:00 Room Air Intake and Output 12/02/16 12/02/16 12/03/16 15:00 23:00 07:00 Intake Total 50 ml 900 ml 440 ml Balance 50 ml 900 ml 440 ml Results Result Diagram: 12/03/16 0505 12/03/16 0505 Results 24 hrs Laboratory Tests Test 12/02/16 20:36 12/03/16 05:05 12/03/16 08:25 12/03/16 11:43 Bedside Glucose 115 120 81 White Blood Count 19.0 H Red Blood Count 4.56 Hemoglobin 12.2 Hematocrit 38.7 Mean Corpuscular Volume 84.9 Mean Corpuscular Hemoglobin 26.8 L Mean Corpuscular Hemoglobin Concent 31.5 L Red Cell Distribution Width 15.7 H Platelet Count 371 Mean Platelet Volume 10.0 Neutrophils % 66.9 Lymphocytes % 25.4 Monocytes % 4.5 Eosinophils % 1.2 Basophils % 0.6 Nucleated Red Blood Cells % 0.0 Neutrophils # (Manual) 12.8 H Lymphocytes # 4.8 H Monocytes # 0.9 Eosinophils # 0.2 Basophils # 0.1 Nucleated Red Blood Cells # 0.0 Sodium Level 140 Potassium Level 4.0 Chloride Level 95 L Carbon Dioxide Level 32 H Anion Gap 17 H Blood Urea Nitrogen 17 Creatinine 0.70 Glucose Level 92 Calcium Level 9.5 Test 12/03/16 17:36 Bedside Glucose 93 Medications Medications Current Medications Acetaminophen (Tylenol Tab) 650 mg Q4H PRN PO PAIN AND OR ELEVATED TEMP Last administered on 12/01/16 11:54; Admin Dose 650 MG; Start 11/15/16 at 16:00 Paroxetine HCl (Paxil) 30 mg DAILY PO Last administered on 12/03/16 08:28; Admin Dose 30 MG; Start 11/16/16 at 09:00 Diagnostic Test (Pha) (Accu-Chek) 1 ea 02 XX ; Start 11/16/16 at 02:00 Miscellaneous Information 1 ea NOTE XX ; Start 11/15/16 at 16:30 Glucose (Glutose) 15 gm Q15M PRN PO DECREASED GLUCOSE; Start 11/15/16 at 16:30 Glucose (Glutose) 22.5 gm Q15M PRN PO DECREASED GLUCOSE; Start 11/15/16 at 16:30 Dextrose (D50w Syringe) 25 ml Q15M PRN IV DECREASED GLUCOSE; Start 11/15/16 at 16:30 Dextrose (D50w Syringe) 50 ml Q15M PRN IV DECREASED GLUCOSE; Start 11/15/16 at 16:30 Glucagon (Glucagen) 1 mg Q15M PRN IM DECREASED GLUCOSE; Start 11/15/16 at 16:30 Glucose (Glutose) 15 gm Q15M PRN BUCCAL DECREASED GLUCOSE; Start 11/15/16 at 16: 30 Aspirin (Aspirin) 81 mg DAILY PO Last administered on 12/03/16 08:28; Admin Dose 81 MG; Start 11/16/16 at 09:00 Hydrochlorothiazide (Hydrochlorothiazide) 25 mg DAILY PO Last administered on 08:29; Admin Dose 25 MG; Start 11/16/16 at 09:00 Pantoprazole (Protonix Tab) 40 mg BID@,18 PO Last administered on 12/03/16 17:33; Admin Dose 40 MG; Start 11/15/16 at 18:00 Ondansetron HCl (Zofran Inj) 4 mg Q6H PRN IV NAUSEA AND/OR VOMITING Last administered on 11/29/16 12:59; Admin Dose 4 MG; Start 11/16/16 at 09:30 Ibuprofen (Motrin) 600 mg Q8H PRN PO PAIN LEVEL 4-7; Start 11/16/16 at 19:00 Valsartan (Diovan) 160 mg BID PO Last administered on 12/03/16 08:29; Admin Dose 160 MG; Start 11/16/16 at 21:00 Alprazolam (Xanax) 0.5 mg Q6H PRN PO ANXIETY Last administered on 12/03/16 08: 17; Admin Dose 0.5 MG; Start 11/18/16 at 11:00 Meclizine HCl (Antivert) 25 mg TID PO Last administered on 12/03/16 12:24; Admin Dose 25 MG; Start 11/18/16 at 21:00 Atorvastatin Calcium (Lipitor) 40 mg HS PO Last administered on 12/02/16 20:39 ; Admin Dose 40 MG; Start 11/19/16 at 21:00 Phenyleph/Shark Oil/Min Oil/Petrol (Formulation R Oint) 1 applic BID [place] Last administered on 12/03/16 08:35; Admin Dose 1 APPLIC; Start 11/20/16 at 13:30 Vancomycin HCl 250 mg 250 mg Q6 PO Last administered on 12/03/16 17:33; Admin Dose 250 MG; Start 11/21/16 at 12:00 Ceftriaxone Sodium (Rocephin) 50 ml @ 100 mls/hr Q24H IVPB Last administered on 12/03/16 11:43; Admin Dose 100 MLS/HR; Start 12/02/16 at 11:00 SERGIO PERSON NP Dec 03, 2016 18:28
[2016-12-03 20:00] VITALS: BP 138/65; RESP 19
[2016-12-03] MEDS: CEFEPIME 2GM/50 ML (PMX) 50 ML IVPB SCH (21:31)
[2016-12-03] MEDS: ATORVASTATIN 40 MG TAB PO SCH (21:31)
[2016-12-04] MEDS: VANCOMYCIN HCL 250 MG/5ML POSYG PO SCH ×5 (00:51→23:28)
[2016-12-04 02:00] VITALS: BP 133/61; RESP 18
[2016-12-04] MEDS: ACCU-CHEK XX SCH (02:00)
[2016-12-04] MEDS: PANTOPRAZOLE (EC) 40 MG TAB PO SCH ×2 (06:19→17:26)
[2016-12-04 06:22] LABS: BASOPHIL # 0.1 10^3/ul (0.0-0.1); BASOPHILS % 0.7 % (0.0-2.0); EOSINOPHILS # 0.3 10^3/ul (0.0-0.5); EOSINOPHILS % 1.4 % (0.0-7.0); HEMATOCRIT 38.4 % (37.0-47.0); HEMOGLOBIN 12.1 g/dl (12.0-16.0); LYMPHOCYTES # 4.5 10^3/ul (0.8-2.9); LYMPHOCYTES % 25.3 % (15.0-51.0); MEAN CORPUSCULAR HEMOGLOBIN 26.4 pg (29.0-33.0); MEAN CORPUSCULAR HGB CONC 31.5 g/dl (32.0-37.0); MEAN CORPUSCULAR VOLUME 83.8 fl (82.0-101.0); MEAN PLATELET VOLUME 10.1 fl (7.4-10.4); MONOCYTE # 0.8 10^3/ul (0.3-0.9); MONOCYTES % 4.7 % (0.0-11.0); NEUTROPHILS % 66.7 % (39.0-77.0); PLATELET COUNT 393 10^3/UL (140-415); RED BLOOD COUNT 4.58 10^6/ul (4.20-5.40); RED CELL DISTRIBUTION WIDTH 15.8 % (11.5-14.5); WHITE BLOOD COUNT 17.9 10^3/ul (4.8-10.8)
[2016-12-04 07:00] LABS: ALBUMIN 3.5 g/dl (3.3-4.9); ALBUMIN/GLOBULIN RATIO 0.97; BILIRUBIN,INDIRECT 0.2 mg/dl (0-1.1); BILIRUBIN,TOTAL 0.2 mg/dl (0.2-1.3); CALCIUM 9.4 mg/dl (8.4-10.2); CREATININE 0.64 mg/dl (0.44-1.00); POTASSIUM 3.2 mmol/L (3.5-5.1); TOTAL PROTEIN 7.1 g/dl (6.1-8.1)
[2016-12-04] MEDS: INSULIN ASPART [NOVOLOG] 3 ML PEN SC SCH ×4 (08:00→20:41)
[2016-12-04 08:04] VITALS: BP 116/64; RESP 17
[2016-12-04] MEDS: metFORMIN 850 MG TAB PO SCH ×2 (08:25→17:26)
[2016-12-04] MEDS: VALSARTAN 160 MG TAB PO SCH ×2 (08:26→20:40)
[2016-12-04] MEDS: ASPIRIN 81 MG TAB PO SCH (08:26)
[2016-12-04] MEDS: PAROXETINE 10 MG TAB PO SCH (08:26)
[2016-12-04] MEDS: HYDROCHLOROTHIAZIDE 25 MG TAB PO SCH (08:26)
[2016-12-04] MEDS: PE/SHARK OIL/MO/PETROL 30 GM OINT PR SCH ×2 (09:23→20:41)
[2016-12-04] MEDS: MECLIZINE 25 MG TAB PO SCH ×3 (09:24→20:39)
[2016-12-04] MEDS ORDERED: POTASSIUM CHLORIDE (SR) 20 MEQ TAB PO STA (13:35)
--- NOTE | 2016-12-04 13:40 | PN ---
Date/Time of Note Date/Time of Note DATE: 12/04/16 TIME: 13:40 Assessment/Plan VTE Prophylaxis VTE Prophylaxis Intervention: other Lines/Catheters IV Catheter Type (from Nrsg): Saline Lock Urinary Cath still in place: No Assessment/Plan Assessment/Plan - Hypokalemia- replet K, am BMP -Acute stroke ruled out. -Neck pain and upper back pain, Dr. Gutierrez is following in rheumatology consultation, status post trigger point injection. -Dizziness and headache due to occipital neuralgia, Dr. Billings, neurology consult is appreciated -Diarrhea with C. difficile colitis, continue p.o. vancomycin, Dr. Rosales is following infection disease. -Gram-negative rods UTI, continue ceftriaxone -Rule out acute coronary syndrome, cardiac enzymes every 8 hours 3. -Hypertension, continue hydrochlorothiazide and Diovan -Diabetes mellitus, continue metformin and NovoLog per mild algorithm sliding scale. -Osteoarthritis, patient was able to ambulate using walker -Obesity with BMI of 35.5. Further recommendations based on clinical course. Plan of care discussed with Dr. Justin Exam/Review of Systems Vital Signs Vitals Vital Signs Date Time Temp Pulse Resp B/P Pulse Ox O2 Delivery O2 Flow Rate FiO2 12/04/16 08:04 98.7 85 17 116/64 95 12/03/16 02:00 Room Air Intake and Output 12/03/16 12/03/16 12/04/16 15:00 23:00 07:00 Intake Total 50 ml 1050 ml 600 ml Balance 50 ml 1050 ml 600 ml Results Result Diagram: 12/04/16 0434 12/04/16 0434 Results 24 hrs Laboratory Tests Test 12/03/16 17:36 12/03/16 21:26 12/04/16 04:34 12/04/16 08:24 Bedside Glucose 93 89 90 White Blood Count 17.9 H Red Blood Count 4.58 Hemoglobin 12.1 Hematocrit 38.4 Mean Corpuscular Volume 83.8 Mean Corpuscular Hemoglobin 26.4 L Mean Corpuscular Hemoglobin Concent 31.5 L Red Cell Distribution Width 15.8 H Platelet Count 393 Mean Platelet Volume 10.1 Neutrophils % 66.7 Lymphocytes % 25.3 Monocytes % 4.7 Eosinophils % 1.4 Basophils % 0.7 Nucleated Red Blood Cells % 0.0 Neutrophils # (Manual) 11.9 H Lymphocytes # 4.5 H Monocytes # 0.8 Eosinophils # 0.3 Basophils # 0.1 Nucleated Red Blood Cells # 0.0 Sodium Level 141 Potassium Level 3.2 L Chloride Level 97 Carbon Dioxide Level 31 Anion Gap 16 Blood Urea Nitrogen 14 Creatinine 0.64 Glucose Level 89 Calcium Level 9.4 Total Bilirubin 0.2 Direct Bilirubin 0.00 Indirect Bilirubin 0.2 Aspartate Amino Transf (AST/SGOT) 21 Alanine Aminotransferase (ALT/SGPT) 23 Alkaline Phosphatase 68 Total Protein 7.1 Albumin 3.5 Globulin 3.60 H Albumin/Globulin Ratio 0.97 Test 12/04/16 12:45 Bedside Glucose 88 Medications Medications Current Medications Acetaminophen (Tylenol Tab) 650 mg Q4H PRN PO PAIN AND OR ELEVATED TEMP Last administered on 12/01/16 11:54; Admin Dose 650 MG; Start 11/15/16 at 16:00 Paroxetine HCl (Paxil) 30 mg DAILY PO Last administered on 12/04/16 08:26; Admin Dose 30 MG; Start 11/16/16 at 09:00 Diagnostic Test (Pha) (Accu-Chek) 1 ea 02 XX ; Start 11/16/16 at 02:00 Miscellaneous Information 1 ea NOTE XX ; Start 11/15/16 at 16:30 Glucose (Glutose) 15 gm Q15M PRN PO DECREASED GLUCOSE; Start 11/15/16 at 16:30 Glucose (Glutose) 22.5 gm Q15M PRN PO DECREASED GLUCOSE; Start 11/15/16 at 16:30 Dextrose (D50w Syringe) 25 ml Q15M PRN IV DECREASED GLUCOSE; Start 11/15/16 at 16:30 Dextrose (D50w Syringe) 50 ml Q15M PRN IV DECREASED GLUCOSE; Start 11/15/16 at 16:30 Glucagon (Glucagen) 1 mg Q15M PRN IM DECREASED GLUCOSE; Start 11/15/16 at 16:30 Glucose (Glutose) 15 gm Q15M PRN BUCCAL DECREASED GLUCOSE; Start 11/15/16 at 16: 30 Aspirin (Aspirin) 81 mg DAILY PO Last administered on 12/04/16 08:26; Admin Dose 81 MG; Start 11/16/16 at 09:00 Hydrochlorothiazide (Hydrochlorothiazide) 25 mg DAILY PO Last administered on 08:26; Admin Dose 25 MG; Start 11/16/16 at 09:00 Pantoprazole (Protonix Tab) 40 mg BID@06,18 PO Last administered on 12/04/16 06:19; Admin Dose 40 MG; Start 11/15/16 at 18:00 Ondansetron HCl (Zofran Inj) 4 mg Q6H PRN IV NAUSEA AND/OR VOMITING Last administered on 11/29/16 12:59; Admin Dose 4 MG; Start 11/16/16 at 09:30 Ibuprofen (Motrin) 600 mg Q8H PRN PO PAIN LEVEL 4-7; Start 11/16/16 at 19:00 Valsartan (Diovan) 160 mg BID PO Last administered on 12/04/16 08:26; Admin Dose 160 MG; Start 11/16/16 at 21:00 Alprazolam (Xanax) 0.5 mg Q6H PRN PO ANXIETY Last administered on 12/03/16 21: 33; Admin Dose 0.5 MG; Start 11/18/16 at 11:00 Meclizine HCl (Antivert) 25 mg TID PO Last administered on 12/04/16 12:51; Admin Dose 25 MG; Start 11/18/16 at 21:00 Atorvastatin Calcium (Lipitor) 40 mg HS PO Last administered on 12/03/16 21:31 ; Admin Dose 40 MG; Start 11/19/16 at 21:00 Phenyleph/Shark Oil/Min Oil/Petrol (Formulation R Oint) 1 applic BID [place] Last administered on 12/04/16 09:23; Admin Dose 1 APPLIC; Start 11/20/16 at 13:30 Vancomycin HCl 250 mg 250 mg Q6 PO Last administered on 12/04/16 12:47; Admin Dose 250 MG; Start 11/21/16 at 12:00 Cefepime HCl (Maxipime 2gm/50 ml (Pmx)) 50 ml @ 100 mls/hr Q24H IVPB Last administered on 12/03/16 21:31; Admin Dose 100 MLS/HR; Start 12/03/16 at 21:00 AHMET BOURNE Dec 04, 2016 13:40
--- NOTE | 2016-12-04 14:24 | CONS ---
Date/Time of Note Date/Time of Note DATE: 12/04/16 TIME: 14:18 Assessment/Plan Assessment/Plan Chief Complaint/Hosp Course Assessment/Plan Chief Complaint/Hosp Course ID PROGRESS NOTE CURRENT ABX: Vanco PO + * SUBJECTIVE: Awake. Alert. Responsive. No Acute Distress. * OBJECTIVE: URINE CULTURE Preliminary Organism 1 CITROBACTER AMALONATICUS COLONY COUNT 50,000 - 60,000 CFU/ml Organism 2 PSEUDOMONAS AERUGINOSA COLONY COUNT 50,000 - 60,000 CFU/ml C AMALONAT P.AERUG M.I.C. RX M.I.C. RX --------- --- --------- --- AMIKACIN <=2 S AZTREONAM I CEFEPIME <=1 S CEFOTAXIME S CEFTAZIDIME 4 S CIPROFLOXACIN <=0.25 S >=4 R GENTAMICIN <=1 S >=16 R LEVOFLOXACIN <=0.12 S >=8 R NITROFURANTOIN 64 I TOBRAMYCIN <=1 S 8 I TRIMETHOPRIM/SULFAMETHOXAZOLE <=20 S PIPERACILLIN/TAZOBACTAM 8 S GENERAL: 81 yo elder F in no distress. NO fevers HEENT:Unremarkable NECK: Supple, trachea midline. CHEST: Chest rise is symmetrical. EXTREMITIES: Warm (+)FC clear yellow urine ID ASSESSMENT 81 yo F admit with: 1. Resolving Clostridium difficile colitis. 2. GNR Urinary tract infection. 3. Persistent leukocytosis=> WBC still elevated -- UTI pathogens not sensitive to Ceftriaxone 4. Diabetes. 5. Hypertension. 6. History of bilateral total knee replacement. CURRENT ABX: Vanco PO + Ceftriaxone ID PLAN 1. Continue ABX DC Ceftriaxone -> Start Cefepime to cover polyGNR UTI pathogens are resistant to Ceftriaxone 2. Monitor Labs. Problems: Consultation Date/Type/Reason Admit Date/Time Nov 15, 2016 at 11:01 Initial Consult Date 11/22/16 Type of Consultation: ID Referring Provider: THAI DELACRUZ Exam/Review of Systems Vital Signs Vitals Vital Signs Date Time Temp Pulse Resp B/P Pulse Ox O2 Delivery O2 Flow Rate FiO2 12/04/16 08:04 98.7 85 17 116/64 95 12/03/16 02:00 Room Air Intake and Output 12/03/16 12/03/16 12/04/16 15:00 23:00 07:00 Intake Total 50 ml 1050 ml 600 ml Balance 50 ml 1050 ml 600 ml Results Result Diagram: 12/04/16 0434 12/04/16 0434 Results 24 hrs Laboratory Tests Test 12/03/16 17:36 12/03/16 21:26 12/04/16 04:34 12/04/16 08:24 Bedside Glucose 93 89 90 White Blood Count 17.9 H Red Blood Count 4.58 Hemoglobin 12.1 Hematocrit 38.4 Mean Corpuscular Volume 83.8 Mean Corpuscular Hemoglobin 26.4 L Mean Corpuscular Hemoglobin Concent 31.5 L Red Cell Distribution Width 15.8 H Platelet Count 393 Mean Platelet Volume 10.1 Neutrophils % 66.7 Lymphocytes % 25.3 Monocytes % 4.7 Eosinophils % 1.4 Basophils % 0.7 Nucleated Red Blood Cells % 0.0 Neutrophils # (Manual) 11.9 H Lymphocytes # 4.5 H Monocytes # 0.8 Eosinophils # 0.3 Basophils # 0.1 Nucleated Red Blood Cells # 0.0 Sodium Level 141 Potassium Level 3.2 L Chloride Level 97 Carbon Dioxide Level 31 Anion Gap 16 Blood Urea Nitrogen 14 Creatinine 0.64 Glucose Level 89 Calcium Level 9.4 Total Bilirubin 0.2 Direct Bilirubin 0.00 Indirect Bilirubin 0.2 Aspartate Amino Transf (AST/SGOT) 21 Alanine Aminotransferase (ALT/SGPT) 23 Alkaline Phosphatase 68 Total Protein 7.1 Albumin 3.5 Globulin 3.60 H Albumin/Globulin Ratio 0.97 Test 12/04/16 12:45 Bedside Glucose 88 Medications Medications Current Medications Acetaminophen (Tylenol Tab) 650 mg Q4H PRN PO PAIN AND OR ELEVATED TEMP Last administered on 12/01/16 11:54; Admin Dose 650 MG; Start 11/15/16 at 16:00 Paroxetine HCl (Paxil) 30 mg DAILY PO Last administered on 12/04/16 08:26; Admin Dose 30 MG; Start 11/16/16 at 09:00 Diagnostic Test (Pha) (Accu-Chek) XX ; Start 11/16/16 at 02:00 Miscellaneous Information 1 ea NOTE XX ; Start 11/15/16 at 16:30 Glucose (Glutose) 15 gm Q15M PRN PO DECREASED GLUCOSE; Start 11/15/16 at 16:30 Glucose (Glutose) 22.5 gm Q15M PRN PO DECREASED GLUCOSE; Start 11/15/16 at 16:30 Dextrose (D50w Syringe) 25 ml Q15M PRN IV DECREASED GLUCOSE; Start 11/15/16 at 16:30 Dextrose (D50w Syringe) 50 ml Q15M PRN IV DECREASED GLUCOSE; Start 11/15/16 at 16:30 Glucagon (Glucagen) 1 mg Q15M PRN IM DECREASED GLUCOSE; Start 11/15/16 at 16:30 Glucose (Glutose) 15 gm Q15M PRN BUCCAL DECREASED GLUCOSE; Start 11/15/16 at 16: 30 Aspirin (Aspirin) 81 mg DAILY PO Last administered on 12/04/16 08:26; Admin Dose 81 MG; Start 11/16/16 at 09:00 Hydrochlorothiazide (Hydrochlorothiazide) 25 mg DAILY PO Last administered on 08:26; Admin Dose 25 MG; Start 11/16/16 at 09:00 Pantoprazole (Protonix Tab) 40 mg BID@,18 PO Last administered on 12/04/16 06:19; Admin Dose 40 MG; Start 11/15/16 at 18:00 Ondansetron HCl (Zofran Inj) 4 mg Q6H PRN IV NAUSEA AND/OR VOMITING Last administered on 11/29/16 12:59; Admin Dose 4 MG; Start 11/16/16 at 09:30 Ibuprofen (Motrin) 600 mg Q8H PRN PO PAIN LEVEL 4-7; Start 11/16/16 at 19:00 Valsartan (Diovan) 160 mg BID PO Last administered on 12/04/16 08:26; Admin Dose 160 MG; Start 11/16/16 at 21:00 Alprazolam (Xanax) 0.5 mg Q6H PRN PO ANXIETY Last administered on 12/03/16 21: 33; Admin Dose 0.5 MG; Start 11/18/16 at 11:00 Meclizine HCl (Antivert) 25 mg TID PO Last administered on 12/04/16 12:51; Admin Dose 25 MG; Start 11/18/16 at 21:00 Atorvastatin Calcium (Lipitor) 40 mg HS PO Last administered on 12/03/16 21:31 ; Admin Dose 40 MG; Start 11/19/16 at 21:00 Phenyleph/Shark Oil/Min Oil/Petrol (Formulation R Oint) 1 applic BID [place] Last administered on 12/04/16 09:23; Admin Dose 1 APPLIC; Start 11/20/16 at 13:30 Vancomycin HCl 250 mg 250 mg Q6 PO Last administered on 12/04/16 12:47; Admin Dose 250 MG; Start 11/21/16 at 12:00 Cefepime HCl (Maxipime 2gm/50 ml (Pmx)) 50 ml @ 100 mls/hr Q24H IVPB Last administered on 12/03/16 21:31; Admin Dose 100 MLS/HR; Start 12/03/16 at 21:00 AJ FALK NP Dec 04, 2016 14:24
[2016-12-04 15:47] VITALS: BP 120/68; RESP 18
[2016-12-04] MEDS: ONDANSETRON 4 MG INJ IV PRN (17:28)
[2016-12-04 20:00] VITALS: BP 108/59; RESP 20
[2016-12-04] MEDS: ATORVASTATIN 40 MG TAB PO SCH (20:39)
[2016-12-04] MEDS: CEFEPIME 2GM/50 ML (PMX) 50 ML IVPB SCH (20:39)
[2016-12-04 21:54] VITALS: BP 110/61; PULSE 88
[2016-12-04] MEDS: ALPRAZOLAM 0.25 MG TAB PO PRN (21:57)
[2016-12-05 02:00] VITALS: BP 100/56; RESP 20
[2016-12-05] MEDS: ACCU-CHEK XX SCH (02:00)
[2016-12-05] MEDS ORDERED: ALPRAZOLAM 0.25 MG TAB PO ONE (02:30)
[2016-12-05] MEDS: PANTOPRAZOLE (EC) 40 MG TAB PO SCH ×2 (06:01→17:54)
[2016-12-05] MEDS: VANCOMYCIN HCL 250 MG/5ML POSYG PO SCH ×3 (06:01→18:24)
[2016-12-05 07:19] LABS: BASOPHIL # 0.1 10^3/ul (0.0-0.1); BASOPHILS % 0.6 % (0.0-2.0); EOSINOPHILS # 0.3 10^3/ul (0.0-0.5); EOSINOPHILS % 2.1 % (0.0-7.0); HEMATOCRIT 38.7 % (37.0-47.0); HEMOGLOBIN 12.2 g/dl (12.0-16.0); LYMPHOCYTES # 3.7 10^3/ul (0.8-2.9); LYMPHOCYTES % 23.5 % (15.0-51.0); MEAN CORPUSCULAR HEMOGLOBIN 26.7 pg (29.0-33.0); MEAN CORPUSCULAR HGB CONC 31.5 g/dl (32.0-37.0); MEAN CORPUSCULAR VOLUME 84.7 fl (82.0-101.0); MEAN PLATELET VOLUME 10.3 fl (7.4-10.4); MONOCYTES % 6.1 % (0.0-11.0); NEUTROPHILS % 66.5 % (39.0-77.0); PLATELET COUNT 364 10^3/UL (140-415); RED BLOOD COUNT 4.57 10^6/ul (4.20-5.40); RED CELL DISTRIBUTION WIDTH 15.9 % (11.5-14.5); WHITE BLOOD COUNT 15.9 10^3/ul (4.8-10.8)
[2016-12-05 07:40] LABS: CALCIUM 9.1 mg/dl (8.4-10.2); CREATININE 0.72 mg/dl (0.44-1.00); POTASSIUM 3.1 mmol/L (3.5-5.1)
[2016-12-05] MEDS: INSULIN ASPART [NOVOLOG] 3 ML PEN SC SCH ×4 (07:59→20:18)
[2016-12-05 09:03] VITALS: BP 147/67; RESP 18
[2016-12-05] MEDS: MECLIZINE 25 MG TAB PO SCH ×3 (10:26→20:13)
[2016-12-05] MEDS: ASPIRIN 81 MG TAB PO SCH (10:26)
[2016-12-05] MEDS: HYDROCHLOROTHIAZIDE 25 MG TAB PO SCH (10:26)
[2016-12-05] MEDS: VALSARTAN 160 MG TAB PO SCH ×2 (10:27→20:13)
[2016-12-05] MEDS: metFORMIN 850 MG TAB PO SCH ×2 (10:27→17:54)
[2016-12-05] MEDS: PAROXETINE 10 MG TAB PO SCH (10:27)
[2016-12-05] MEDS: PE/SHARK OIL/MO/PETROL 30 GM OINT PR SCH ×2 (10:29→20:18)
[2016-12-05 15:01] VITALS: BP 136/60; RESP 18
[2016-12-05] MEDS: ACETAMINOPHEN 325 MG TAB PO PRN (15:06)
--- NOTE | 2016-12-05 17:52 | CONS ---
Date/Time of Note Date/Time of Note DATE: 12/05/16 TIME: 17:50 Assessment/Plan Assessment/Plan Chief Complaint/Hosp Course SUBJECTIVE DATA: No events overnight. The patient is alert, feels good, looks comfortable. Denies pain, discomfort. No fevers. No dysuria. MICROBIOLOGY: Urine culture growing MDRO ANTIMICROBIALS: Cefepime, PO Vanco PHYSICAL EXAMINATION: GENERAL: Fragile, obese, very pleasant, elderly woman, who is alert, in no distress. HEENT: Head atraumatic, normocephalic. Sclerae anicteric. Buccal mucosa pink. NECK: Supple. LUNGS: Chest rise symmetrical. Breath sounds clear. HEART: S1, S2. ABDOMEN: Soft, bowel sounds present. EXTREMITIES: Without cyanosis. ASSESSMENT: 1. Resolving Clostridium difficile colitis. 2. Urinary tract infection. 3. Persistent leukocytosis, possibly secondary to steroid injection for osteoarthritis. 4. Diabetes. 5. Hypertension. 6. History of bilateral total knee replacement. PLAN: The patient remains stable. Will add Amikacin, continue Cefepime and PO Vanco, f/u rheumatology rec-s, continue PT [facility] staff Problems: Consultation Date/Type/Reason Admit Date/Time Nov 15, 2016 at 11:01 Initial Consult Date 11/22/16 Type of Consultation: ID Referring Provider: THAI DELACRUZ Exam/Review of Systems Vital Signs Vitals Vital Signs Date Time Temp Pulse Resp B/P Pulse Ox O2 Delivery O2 Flow Rate FiO2 12/05/16 15:01 98.0 90 18 136/60 97 12/03/16 02:00 Room Air Intake and Output 12/04/16 12/04/16 12/05/16 15:00 23:00 07:00 Intake Total 790 ml 450 ml Balance 790 ml 450 ml Results Result Diagram: 12/05/16 0520 12/05/16 0520 Results 24 hrs Laboratory Tests Test 12/04/16 20:38 12/05/16 05:20 12/05/16 07:58 12/05/16 11:54 Bedside Glucose 105 104 143 White Blood Count 15.9 H Red Blood Count 4.57 Hemoglobin 12.2 Hematocrit 38.7 Mean Corpuscular Volume 84.7 Mean Corpuscular Hemoglobin 26.7 L Mean Corpuscular Hemoglobin Concent 31.5 L Red Cell Distribution Width 15.9 H Platelet Count 364 Mean Platelet Volume 10.3 Neutrophils % 66.5 Lymphocytes % 23.5 Monocytes % 6.1 Eosinophils % 2.1 Basophils % 0.6 Nucleated Red Blood Cells % 0.0 Neutrophils # (Manual) 10.6 H Lymphocytes # 3.7 H Monocytes # 1.0 H Eosinophils # 0.3 Basophils # 0.1 Nucleated Red Blood Cells # 0.0 Sodium Level 139 Potassium Level 3.1 L Chloride Level 96 L Carbon Dioxide Level 31 Anion Gap 15 Blood Urea Nitrogen 19 Creatinine 0.72 Glucose Level 87 Calcium Level 9.1 Medications Medications Current Medications Acetaminophen (Tylenol Tab) 650 mg Q4H PRN PO PAIN AND OR ELEVATED TEMP Last administered on 12/05/16 15:06; Admin Dose 650 MG; Start 11/15/16 at 16:00 Paroxetine HCl (Paxil) 30 mg DAILY PO Last administered on 12/05/16 10:27; Admin Dose 30 MG; Start 11/16/16 at 09:00 Diagnostic Test (Pha) (Accu-Chek) 1 ea 02 XX ; Start 11/16/16 at 02:00 Miscellaneous Information 1 ea NOTE XX ; Start 11/15/16 at 16:30 Glucose (Glutose) 15 gm Q15M PRN PO DECREASED GLUCOSE; Start 11/15/16 at 16:30 Glucose (Glutose) 22.5 gm Q15M PRN PO DECREASED GLUCOSE; Start 11/15/16 at 16:30 Dextrose (D50w Syringe) 25 ml Q15M PRN IV DECREASED GLUCOSE; Start 11/15/16 at 16:30 Dextrose (D50w Syringe) 50 ml Q15M PRN IV DECREASED GLUCOSE; Start 11/15/16 at 16:30 Glucagon (Glucagen) 1 mg Q15M PRN IM DECREASED GLUCOSE; Start 11/15/16 at 16:30 Glucose (Glutose) 15 gm Q15M PRN BUCCAL DECREASED GLUCOSE; Start 11/15/16 at 16: 30 Aspirin (Aspirin) 81 mg DAILY PO Last administered on 12/05/16 10:26; Admin Dose 81 MG; Start 11/16/16 at 09:00 Hydrochlorothiazide (Hydrochlorothiazide) 25 mg DAILY PO Last administered on 10:26; Admin Dose 25 MG; Start 11/16/16 at 09:00 Pantoprazole (Protonix Tab) 40 mg BID@06,18 PO Last administered on 12/05/16 06:01; Admin Dose 40 MG; Start 11/15/16 at 18:00 Ondansetron HCl (Zofran Inj) 4 mg Q6H PRN IV NAUSEA AND/OR VOMITING Last administered on 12/04/16 17:28; Admin Dose 4 MG; Start 11/16/16 at 09:30 Ibuprofen (Motrin) 600 mg Q8H PRN PO PAIN LEVEL 4-7; Start 11/16/16 at 19:00 Valsartan (Diovan) 160 mg BID PO Last administered on 12/05/16 10:27; Admin Dose 160 MG; Start 11/16/16 at 21:00 Alprazolam (Xanax) 0.5 mg Q6H PRN PO ANXIETY Last administered on 12/04/16 21: 57; Admin Dose 0.5 MG; Start 11/18/16 at 11:00 Meclizine HCl (Antivert) 25 mg TID PO Last administered on 12/05/16 14:45; Admin Dose 25 MG; Start 11/18/16 at 21:00 Atorvastatin Calcium (Lipitor) 40 mg HS PO Last administered on 12/04/16 20:39 ; Admin Dose 40 MG; Start 11/19/16 at 21:00 Phenyleph/Shark Oil/Min Oil/Petrol (Formulation R Oint) 1 applic BID [place] Last administered on 12/05/16 10:29; Admin Dose 1 APPLIC; Start 11/20/16 at 13:30 Vancomycin HCl 250 mg 250 mg Q6 PO Last administered on 12/05/16 12:00; Admin Dose 250 MG; Start 11/21/16 at 12:00 Cefepime HCl (Maxipime 2gm/50 ml (Pmx)) 50 ml @ 100 mls/hr Q24H IVPB Last administered on 12/04/16 20:39; Admin Dose 100 MLS/HR; Start 12/03/16 at 21:00 EDILMA LIMA NP Dec 05, 2016 17:52
[2016-12-05] MEDS ORDERED: POTASSIUM CHLORIDE (SR) 20 MEQ TAB PO STA (17:57)
[2016-12-05] MEDS ORDERED: AMIKACIN IV PER PHARMACY XX SCH (18:00)
--- NOTE | 2016-12-05 19:38 | PN ---
Date/Time of Note Date/Time of Note DATE: 12/05/16 TIME: 19:35 Assessment/Plan VTE Prophylaxis VTE Prophylaxis Intervention: SCD's Lines/Catheters IV [facility]ter Type [facility]from [facility] Urinary Cath still in place: No Assessment/Plan Chief Complaint/Hosp Course Patient's continues to complaints of neck pain, was able to walk with physical therapy. K replaced Assessment/Plan -Acute stroke ruled out. -Neck pain and upper back pain, Dr. Gutierrez is following in rheumatology consultation, status post trigger point injection. -Dizziness and headache due to occipital neuralgia, Dr. Billings, neurology consult is appreciated -Diarrhea with C. difficile colitis, continue p.o. vancomycin, Dr. Rosales is following infection disease. - UTI, continue antibiotics per ID. -Rule out acute coronary syndrome, cardiac enzymes every 8 hours 3. -Hypertension, continue hydrochlorothiazide and Diovan -Diabetes mellitus, continue metformin and NovoLog per mild algorithm sliding scale. -Osteoarthritis -Obesity with BMI of 35.5. Further recommendations based on clinical course. Plan of care discussed with Dr. Justin Problems: Exam/Review of Systems Vital Signs Vitals Vital Signs Date Time Temp Pulse Resp B/P Pulse Ox O2 Delivery O2 Flow Rate FiO2 12/05/16 15:01 98.0 90 18 136/60 97 12/03/16 02:00 Room Air Intake and Output 12/04/16 12/04/16 12/05/16 15:00 23:00 07:00 Intake Total 790 ml 450 ml Balance 790 ml 450 ml Exam Constitutional: alert, oriented Respiratory: normal air movement Cardiovascular: nl pulses Gastrointestinal: non-tender, soft Extremities: normal pulses Neurological: nl mental status Results Result Diagram: 12/05/16 0520 12/05/16 0520 Results 24 hrs Laboratory Tests Test 12/04/16 20:38 12/05/16 05:20 12/05/16 07:58 12/05/16 11:54 Bedside Glucose 105 104 143 White Blood Count 15.9 H Red Blood Count 4.57 Hemoglobin 12.2 Hematocrit 38.7 Mean Corpuscular Volume 84.7 Mean Corpuscular Hemoglobin 26.7 L Mean Corpuscular Hemoglobin Concent 31.5 L Red Cell Distribution Width 15.9 H Platelet Count 364 Mean Platelet Volume 10.3 Neutrophils % 66.5 Lymphocytes % 23.5 Monocytes % 6.1 Eosinophils % 2.1 Basophils % 0.6 Nucleated Red Blood Cells % 0.0 Neutrophils # (Manual) 10.6 H Lymphocytes # 3.7 H Monocytes # 1.0 H Eosinophils # 0.3 Basophils # 0.1 Nucleated Red Blood Cells # 0.0 Sodium Level 139 Potassium Level 3.1 L Chloride Level 96 L Carbon Dioxide Level 31 Anion Gap 15 Blood Urea Nitrogen 19 Creatinine 0.72 Glucose Level 87 Calcium Level 9.1 Test 12/05/16 17:55 Bedside Glucose 111 Medications Medications Current Medications Acetaminophen (Tylenol Tab) 650 mg Q4H PRN PO PAIN AND OR ELEVATED TEMP Last administered on 12/05/16 15:06; Admin Dose 650 MG; Start 11/15/16 at 16:00 Paroxetine HCl (Paxil) 30 mg DAILY PO Last administered on 12/05/16 10:27; Admin Dose 30 MG; Start 11/16/16 at 09:00 Diagnostic Test (Pha) (Accu-Chek) 1 ea 02 XX ; Start 11/16/16 at 02:00 Miscellaneous Information 1 ea NOTE XX ; Start 11/15/16 at 16:30 Glucose (Glutose) 15 gm Q15M PRN PO DECREASED GLUCOSE; Start 11/15/16 at 16:30 Glucose (Glutose) 22.5 gm Q15M PRN PO DECREASED GLUCOSE; Start 11/15/16 at 16:30 Dextrose (D50w Syringe) 25 ml Q15M PRN IV DECREASED GLUCOSE; Start 11/15/16 at 16:30 Dextrose (D50w Syringe) 50 ml Q15M PRN IV DECREASED GLUCOSE; Start 11/15/16 at 16:30 Glucagon (Glucagen) 1 mg Q15M PRN IM DECREASED GLUCOSE; Start 11/15/16 at 16:30 Glucose (Glutose) 15 gm Q15M PRN BUCCAL DECREASED GLUCOSE; Start 11/15/16 at 16: 30 Aspirin (Aspirin) 81 mg DAILY PO Last administered on 12/05/16 10:26; Admin Dose 81 MG; Start 11/16/16 at 09:00 Hydrochlorothiazide (Hydrochlorothiazide) 25 mg DAILY PO Last administered on 10:26; Admin Dose 25 MG; Start 11/16/16 at 09:00 Pantoprazole (Protonix Tab) 40 mg BID@06,18 PO Last administered on 12/05/16 17:54; Admin Dose 40 MG; Start 11/15/16 at 18:00 Ondansetron HCl (Zofran Inj) 4 mg Q6H PRN IV NAUSEA AND/OR VOMITING Last administered on 12/04/16 17:28; Admin Dose 4 MG; Start 11/16/16 at 09:30 Ibuprofen (Motrin) 600 mg Q8H PRN PO PAIN LEVEL 4-7; Start 11/16/16 at 19:00 Valsartan (Diovan) 160 mg BID PO Last administered on 12/05/16 10:27; Admin Dose 160 MG; Start 11/16/16 at 21:00 Alprazolam (Xanax) 0.5 mg Q6H PRN PO ANXIETY Last administered on 12/04/16 21: 57; Admin Dose 0.5 MG; Start 11/18/16 at 11:00 Meclizine HCl (Antivert) 25 mg TID PO Last administered on 12/05/16 14:45; Admin Dose 25 MG; Start 11/18/16 at 21:00 Atorvastatin Calcium (Lipitor) 40 mg HS PO Last administered on 12/04/16 20:39 ; Admin Dose 40 MG; Start 11/19/16 at 21:00 Phenyleph/Shark Oil/Min Oil/Petrol (Formulation R Oint) 1 applic BID [place] Last administered on 12/05/16 10:29; Admin Dose 1 APPLIC; Start 11/20/16 at 13:30 Vancomycin HCl 250 mg 250 mg Q6 PO Last administered on 12/05/16 18:24; Admin Dose 250 MG; Start 11/21/16 at 12:00 Cefepime HCl (Maxipime 2gm/50 ml (Pmx)) 50 ml @ 100 mls/hr Q24H IVPB Last administered on 12/04/16 20:39; Admin Dose 100 MLS/HR; Start 12/03/16 at 21:00 Amikacin Sulfate AMIKACIN PER PHARMACY NOTE XX ; Start 12/05/16 at 18:00 Amikacin Sulfate/ Sodium Chloride (Amikacin/NS) 101.2 ml @ 102 mls/hr Q24H IVPB ; Start 12/05/16 at 19:00 THAI DELACRUZ Dec 05, 2016 19:38
[2016-12-05 20:00] VITALS: BP 126/62; RESP 19
[2016-12-05] MEDS: AMIKACIN 300 MG in SOD CHLORIDE 0.9% 100 ML IVPB SCH (20:12)
[2016-12-05] MEDS: ATORVASTATIN 40 MG TAB PO SCH (20:13)
[2016-12-05] MEDS: CEFEPIME 2GM/50 ML (PMX) 50 ML IVPB SCH (22:08)
[2016-12-05] MEDS: ALPRAZOLAM 0.25 MG TAB PO PRN (23:06)
[2016-12-06] MEDS: VANCOMYCIN HCL 250 MG/5ML POSYG PO SCH ×4 (00:33→17:03)
[2016-12-06] MEDS: ACCU-CHEK XX SCH (02:00)
[2016-12-06] MEDS: PANTOPRAZOLE (EC) 40 MG TAB PO SCH ×2 (05:24→17:03)
[2016-12-06 05:35] LABS: BASOPHIL # 0.1 10^3/ul (0.0-0.1); BASOPHILS % 0.7 % (0.0-2.0); EOSINOPHILS # 0.4 10^3/ul (0.0-0.5); EOSINOPHILS % 2.7 % (0.0-7.0); HEMATOCRIT 38.6 % (37.0-47.0); HEMOGLOBIN 12.4 g/dl (12.0-16.0); LYMPHOCYTES # 3.7 10^3/ul (0.8-2.9); LYMPHOCYTES % 25.8 % (15.0-51.0); MEAN CORPUSCULAR HEMOGLOBIN 27.4 pg (29.0-33.0); MEAN CORPUSCULAR HGB CONC 32.1 g/dl (32.0-37.0); MEAN CORPUSCULAR VOLUME 85.2 fl (82.0-101.0); MONOCYTES % 7.2 % (0.0-11.0); NEUTROPHILS % 62.6 % (39.0-77.0); PLATELET COUNT 335 10^3/UL (140-415); RED BLOOD COUNT 4.53 10^6/ul (4.20-5.40); RED CELL DISTRIBUTION WIDTH 15.7 % (11.5-14.5); WHITE BLOOD COUNT 14.4 10^3/ul (4.8-10.8)
[2016-12-06 05:52] LABS: CREATININE 0.76 mg/dl (0.44-1.00); POTASSIUM 3.3 mmol/L (3.5-5.1)
[2016-12-06] MEDS: INSULIN ASPART [NOVOLOG] 3 ML PEN SC SCH ×4 (08:00→21:00)
[2016-12-06 08:30] VITALS: BP 132/62; RESP 19
[2016-12-06] MEDS: metFORMIN 850 MG TAB PO SCH ×2 (08:40→17:03)
[2016-12-06] MEDS: VALSARTAN 160 MG TAB PO SCH ×2 (08:40→21:08)
[2016-12-06] MEDS: PAROXETINE 10 MG TAB PO SCH (08:40)
[2016-12-06] MEDS: HYDROCHLOROTHIAZIDE 25 MG TAB PO SCH (08:41)
[2016-12-06] MEDS: ASPIRIN 81 MG TAB PO SCH (08:41)
[2016-12-06] MEDS: MECLIZINE 25 MG TAB PO SCH ×3 (08:41→21:55)
--- NOTE | 2016-12-06 13:46 | CONS ---
Date/Time of Note Date/Time of Note DATE: 12/06/16 TIME: 13:44 Assessment/Plan Assessment/Plan Chief Complaint/Hosp Course SUBJECTIVE DATA: No events overnight. The patient is sleeping, no fevers over night MICROBIOLOGY: Urine culture growing MDRO ANTIMICROBIALS: Cefepime, Amikacin PO Vanco PHYSICAL EXAMINATION: GENERAL: Fragile, elderly woman, who is in no distress. HEENT: Head atraumatic, normocephalic. Sclerae anicteric. Buccal mucosa pink. NECK: Supple. LUNGS: Chest rise symmetrical. Breath sounds clear. HEART: S1, S2. ABDOMEN: Soft, bowel sounds present. EXTREMITIES: Without cyanosis. ASSESSMENT: 1. Resolving Clostridium difficile colitis. 2. Urinary tract infection. 3. Persistent leukocytosis, possibly secondary to steroid injection for osteoarthritis. 4. Diabetes. 5. Hypertension. 6. History of bilateral total knee replacement. PLAN: The patient remains stable. Continue short course of abx for UTI, consider PT with increased activity, f/u rheumatology rec-s DORIS RN Problems: Consultation Date/Type/Reason Admit Date/Time Nov 15, 2016 at 11:01 Initial Consult Date 11/22/16 Type of Consultation: ID Referring Provider: THAI DELACRUZ Exam/Review of Systems Vital Signs Vitals Vital Signs Date Time Temp Pulse Resp B/P Pulse Ox O2 Delivery O2 Flow Rate FiO2 12/06/16 08:30 98.3 92 19 132/62 94 12/03/16 02:00 Room Air Intake and Output 12/05/16 12/05/16 12/06/16 15:00 23:00 07:00 Intake Total 591.2 ml 400 ml Output Total 700 ml Balance -108.8 ml 400 ml Results Result Diagram: 12/06/16 0438 12/06/16 0438 Results 24 hrs Laboratory Tests Test 12/05/16 17:55 12/05/16 20:16 12/06/16 04:38 12/06/16 08:38 Bedside Glucose 111 116 93 White Blood Count 14.4 H Red Blood Count 4.53 Hemoglobin 12.4 Hematocrit 38.6 Mean Corpuscular Volume 85.2 Mean Corpuscular Hemoglobin 27.4 L Mean Corpuscular Hemoglobin Concent 32.1 Red Cell Distribution Width 15.7 H Platelet Count 335 Mean Platelet Volume 10.0 Neutrophils % 62.6 Lymphocytes % 25.8 Monocytes % 7.2 Eosinophils % 2.7 Basophils % 0.7 Nucleated Red Blood Cells % 0.0 Neutrophils # (Manual) 9.0 H Lymphocytes # 3.7 H Monocytes # 1.0 H Eosinophils # 0.4 Basophils # 0.1 Nucleated Red Blood Cells # 0.0 Sodium Level 144 Potassium Level 3.3 L Chloride Level 102 Carbon Dioxide Level 27 Anion Gap 18 H Blood Urea Nitrogen 20 Creatinine 0.76 Glucose Level 102 Calcium Level 9.0 Test 12/06/16 12:06 Bedside Glucose 141 Medications Medications Current Medications Acetaminophen (Tylenol Tab) 650 mg Q4H PRN PO PAIN AND OR ELEVATED TEMP Last administered on 12/05/16 15:06; Admin Dose 650 MG; Start 11/15/16 at 16:00 Paroxetine HCl (Paxil) 30 mg DAILY PO Last administered on 12/06/16 08:40; Admin Dose 30 MG; Start 11/16/16 at 09:00 Diagnostic Test (Pha) (Accu-Chek) 1 ea 02 XX ; Start 11/16/16 at 02:00 Miscellaneous Information 1 ea NOTE XX ; Start 11/15/16 at 16:30 Glucose (Glutose) 15 gm Q15M PRN PO DECREASED GLUCOSE; Start 11/15/16 at 16:30 Glucose (Glutose) 22.5 gm Q15M PRN PO DECREASED GLUCOSE; Start 11/15/16 at 16:30 Dextrose (D50w Syringe) 25 ml Q15M PRN IV DECREASED GLUCOSE; Start 11/15/16 at 16:30 Dextrose (D50w Syringe) 50 ml Q15M PRN IV DECREASED GLUCOSE; Start 11/15/16 at 16:30 Glucagon (Glucagen) 1 mg Q15M PRN IM DECREASED GLUCOSE; Start 11/15/16 at 16:30 Glucose (Glutose) 15 gm Q15M PRN BUCCAL DECREASED GLUCOSE; Start 11/15/16 at 16: 30 Aspirin (Aspirin) 81 mg DAILY PO Last administered on 12/06/16 08:41; Admin Dose 81 MG; Start 11/16/16 at 09:00 Hydrochlorothiazide (Hydrochlorothiazide) 25 mg DAILY PO Last administered on 08:41; Admin Dose 25 MG; Start 11/16/16 at 09:00 Pantoprazole (Protonix Tab) 40 mg BID@06,18 PO Last administered on 12/06/16 05:24; Admin Dose 40 MG; Start 11/15/16 at 18:00 Ondansetron HCl (Zofran Inj) 4 mg Q6H PRN IV NAUSEA AND/OR VOMITING Last administered on 12/04/16 17:28; Admin Dose 4 MG; Start 11/16/16 at 09:30 Ibuprofen (Motrin) 600 mg Q8H PRN PO PAIN LEVEL 4-7; Start 11/16/16 at 19:00 Valsartan (Diovan) 160 mg BID PO Last administered on 12/06/16 08:40; Admin Dose 160 MG; Start 11/16/16 at 21:00 Alprazolam (Xanax) 0.5 mg Q6H PRN PO ANXIETY Last administered on 12/05/16 23: 06; Admin Dose 0.5 MG; Start 11/18/16 at 11:00 Meclizine HCl (Antivert) 25 mg TID PO Last administered on 12/06/16 12:14; Admin Dose 25 MG; Start 11/18/16 at 21:00 Atorvastatin Calcium (Lipitor) 40 mg HS PO Last administered on 12/05/16 20:13 ; Admin Dose 40 MG; Start 11/19/16 at 21:00 Phenyleph/Shark Oil/Min Oil/Petrol (Formulation R Oint) 1 applic BID [place] Last administered on 12/05/16 20:18; Admin Dose 1 APPLIC; Start 11/20/16 at 13:30 Vancomycin HCl 250 mg 250 mg Q6 PO Last administered on 12/06/16 12:09; Admin Dose 250 MG; Start 11/21/16 at 12:00 Cefepime HCl (Maxipime 2gm/50 ml (Pmx)) 50 ml @ 100 mls/hr Q24H IVPB Last administered on 12/05/16 22:08; Admin Dose 100 MLS/HR; Start 12/03/16 at 21:00 Amikacin Sulfate AMIKACIN PER PHARMACY NOTE XX ; Start 12/05/16 at 18:00 Amikacin Sulfate/ Sodium Chloride (Amikacin/NS) 101.2 ml @ 102 mls/hr Q24H IVPB Last administered on 12/05/16 20:12; Admin Dose 102 MLS/HR; Start at 19:00 EDILMA LIMA NP Dec 06, 2016 13:46
[2016-12-06] MEDS: PE/SHARK OIL/MO/PETROL 30 GM OINT PR SCH ×2 (13:50→21:09)
[2016-12-06 15:00] VITALS: BP 115/55; RESP 19
--- NOTE | 2016-12-06 18:18 | PN ---
Date/Time of Note Date/Time of Note DATE: 12/06/16 TIME: 18:14 Assessment/Plan VTE Prophylaxis VTE Prophylaxis Intervention: SCD's Lines/Catheters IV [facility]from [facility] Saline Lock Urinary Cath still in place: No Assessment/Plan Chief Complaint/Hosp Course Patient remains hemodynamically stable, complains of hot flashes. Continue physical therapy. Assessment/Plan -Acute stroke ruled out. -Neck pain and upper back pain, Dr. Gutierrez is following in rheumatology consultation, status post trigger point injection. -Dizziness and headache due to occipital neuralgia, Dr. Billings, neurology consult is appreciated -Diarrhea with C. difficile colitis, continue p.o. vancomycin, Dr. Rosales is following infection disease. - UTI, continue antibiotics per ID. -Rule out acute coronary syndrome, cardiac enzymes every 8 hours 3. -Hypertension, continue hydrochlorothiazide and Diovan -Diabetes mellitus, continue metformin and NovoLog per mild algorithm sliding scale. -Osteoarthritis -Obesity with BMI of 35.5. Further recommendations based on clinical course. Plan of care discussed with Dr. Justin Problems: Exam/Review of Systems Vital Signs Vitals Vital Signs Date Time Temp Pulse Resp B/P Pulse Ox O2 Delivery O2 Flow Rate FiO2 12/06/16 15:00 98.5 94 19 115/55 94 12/03/16 02:00 Room Air Intake and Output 12/05/16 12/05/16 12/06/16 15:00 23:00 07:00 Intake Total 591.2 ml 400 ml Output Total 700 ml Balance -108.8 ml 400 ml Exam Constitutional: alert, oriented Respiratory: normal air movement Cardiovascular: nl pulses Gastrointestinal: non-tender, soft Extremities: normal pulses Neurological: nl mental status Results Result Diagram: 12/06/16 0438 12/06/16 0438 Results 24 hrs Laboratory Tests Test 12/05/16 20:16 12/06/16 04:38 12/06/16 08:38 12/06/16 12:06 Bedside Glucose 116 93 141 White Blood Count 14.4 H Red Blood Count 4.53 Hemoglobin 12.4 Hematocrit 38.6 Mean Corpuscular Volume 85.2 Mean Corpuscular Hemoglobin 27.4 L Mean Corpuscular Hemoglobin Concent 32.1 Red Cell Distribution Width 15.7 H Platelet Count 335 Mean Platelet Volume 10.0 Neutrophils % 62.6 Lymphocytes % 25.8 Monocytes % 7.2 Eosinophils % 2.7 Basophils % 0.7 Nucleated Red Blood Cells % 0.0 Neutrophils # (Manual) 9.0 H Lymphocytes # 3.7 H Monocytes # 1.0 H Eosinophils # 0.4 Basophils # 0.1 Nucleated Red Blood Cells # 0.0 Sodium Level 144 Potassium Level 3.3 L Chloride Level 102 Carbon Dioxide Level 27 Anion Gap 18 H Blood Urea Nitrogen 20 Creatinine 0.76 Glucose Level 102 Calcium Level 9.0 Test 12/06/16 17:01 Bedside Glucose 98 Medications Medications Current Medications Acetaminophen (Tylenol Tab) 650 mg Q4H PRN PO PAIN AND OR ELEVATED TEMP Last administered on 12/05/16 15:06; Admin Dose 650 MG; Start 11/15/16 at 16:00 Paroxetine HCl (Paxil) 30 mg DAILY PO Last administered on 12/06/16 08:40; Admin Dose 30 MG; Start 11/16/16 at 09:00 Diagnostic Test (Pha) (Accu-Chek) 1 ea 02 XX ; Start 11/16/16 at 02:00 Miscellaneous Information 1 ea NOTE XX ; Start 11/15/16 at 16:30 Glucose (Glutose) 15 gm Q15M PRN PO DECREASED GLUCOSE; Start 11/15/16 at 16:30 Glucose (Glutose) 22.5 gm Q15M PRN PO DECREASED GLUCOSE; Start 11/15/16 at 16:30 Dextrose (D50w Syringe) 25 ml Q15M PRN IV DECREASED GLUCOSE; Start 11/15/16 at 16:30 Dextrose (D50w Syringe) 50 ml Q15M PRN IV DECREASED GLUCOSE; Start 11/15/16 at 16:30 Glucagon (Glucagen) 1 mg Q15M PRN IM DECREASED GLUCOSE; Start 11/15/16 at 16:30 Glucose (Glutose) 15 gm Q15M PRN BUCCAL DECREASED GLUCOSE; Start 11/15/16 at 16: 30 Aspirin (Aspirin) 81 mg DAILY PO Last administered on 12/06/16 08:41; Admin Dose 81 MG; Start 11/16/16 at 09:00 Hydrochlorothiazide (Hydrochlorothiazide) 25 mg DAILY PO Last administered on 08:41; Admin Dose 25 MG; Start 11/16/16 at 09:00 Pantoprazole (Protonix Tab) 40 mg BID@06,18 PO Last administered on 12/06/16 17:03; Admin Dose 40 MG; Start 11/15/16 at 18:00 Ondansetron HCl (Zofran Inj) 4 mg Q6H PRN IV NAUSEA AND/OR VOMITING Last administered on 12/04/16 17:28; Admin Dose 4 MG; Start 11/16/16 at 09:30 Ibuprofen (Motrin) 600 mg Q8H PRN PO PAIN LEVEL 4-7; Start 11/16/16 at 19:00 Valsartan (Diovan) 160 mg BID PO Last administered on 12/06/16 08:40; Admin Dose 160 MG; Start 11/16/16 at 21:00 Alprazolam (Xanax) 0.5 mg Q6H PRN PO ANXIETY Last administered on 12/05/16 23: 06; Admin Dose 0.5 MG; Start 11/18/16 at 11:00 Meclizine HCl (Antivert) 25 mg TID PO Last administered on 12/06/16 12:14; Admin Dose 25 MG; Start 11/18/16 at 21:00 Atorvastatin Calcium (Lipitor) 40 mg HS PO Last administered on 12/05/16 20:13 ; Admin Dose 40 MG; Start 11/19/16 at 21:00 Phenyleph/Shark Oil/Min Oil/Petrol (Formulation R Oint) 1 applic BID [place] Last administered on 12/06/16 13:50; Admin Dose 1 APPLIC; Start 11/20/16 at 13:30 Vancomycin HCl 250 mg 250 mg Q6 PO Last administered on 12/06/16 17:03; Admin Dose 250 MG; Start 11/21/16 at 12:00 Cefepime HCl (Maxipime 2gm/50 ml (Pmx)) 50 ml @ 100 mls/hr Q24H IVPB Last administered on 12/05/16 22:08; Admin Dose 100 MLS/HR; Start 12/03/16 at 21:00 Amikacin Sulfate AMIKACIN PER PHARMACY NOTE XX ; Start 12/05/16 at 18:00 Amikacin Sulfate/ Sodium Chloride (Amikacin/NS) 101.2 ml @ 102 mls/hr Q24H IVPB Last administered on 12/05/16 20:12; Admin Dose 102 MLS/HR; Start at 19:00 THAI DELACRUZ Dec 06, 2016 18:18
[2016-12-06] MEDS ORDERED: POTASSIUM CHLORIDE 20 MEQ POWDER FOR ORAL SOLN PO ONE (18:30)
[2016-12-06] MEDS: AMIKACIN 300 MG in SOD CHLORIDE 0.9% 100 ML IVPB SCH (19:00)
[2016-12-06 20:15] VITALS: BP 113/57; RESP 18
[2016-12-06] MEDS: ATORVASTATIN 40 MG TAB PO SCH (21:03)
[2016-12-06] MEDS: ALPRAZOLAM 0.25 MG TAB PO PRN (21:03)
[2016-12-06] MEDS: CEFEPIME 2GM/50 ML (PMX) 50 ML IVPB SCH (21:17)
[2016-12-07] MEDS: VANCOMYCIN HCL 250 MG/5ML POSYG PO SCH ×4 (00:29→17:25)
[2016-12-07] MEDS: ACCU-CHEK XX SCH (01:51)
[2016-12-07 02:14] VITALS: BP 121/56; RESP 17
[2016-12-07] MEDS: PANTOPRAZOLE (EC) 40 MG TAB PO SCH ×2 (05:37→17:25)
[2016-12-07 05:45] LABS: BASOPHIL # 0.1 10^3/ul (0.0-0.1); BASOPHILS % 0.8 % (0.0-2.0); EOSINOPHILS # 0.4 10^3/ul (0.0-0.5); EOSINOPHILS % 3.4 % (0.0-7.0); HEMATOCRIT 37.7 % (37.0-47.0); LYMPHOCYTES # 3.6 10^3/ul (0.8-2.9); LYMPHOCYTES % 27.8 % (15.0-51.0); MEAN CORPUSCULAR HEMOGLOBIN 27.1 pg (29.0-33.0); MEAN CORPUSCULAR HGB CONC 31.8 g/dl (32.0-37.0); MEAN CORPUSCULAR VOLUME 85.3 fl (82.0-101.0); MEAN PLATELET VOLUME 9.9 fl (7.4-10.4); MONOCYTE # 0.9 10^3/ul (0.3-0.9); NEUTROPHILS % 60.2 % (39.0-77.0); PLATELET COUNT 307 10^3/UL (140-415); RED BLOOD COUNT 4.42 10^6/ul (4.20-5.40); RED CELL DISTRIBUTION WIDTH 15.7 % (11.5-14.5); WHITE BLOOD COUNT 13.1 10^3/ul (4.8-10.8)
[2016-12-07 06:35] LABS: CALCIUM 9.2 mg/dl (8.4-10.2); CREATININE 0.73 mg/dl (0.44-1.00); POTASSIUM 3.2 mmol/L (3.5-5.1)
[2016-12-07 08:00] VITALS: BP 155/77; RESP 18
[2016-12-07] MEDS: INSULIN ASPART [NOVOLOG] 3 ML PEN SC SCH ×4 (08:00→21:00)
[2016-12-07] MEDS: metFORMIN 850 MG TAB PO SCH ×2 (08:03→17:25)
[2016-12-07] MEDS: PAROXETINE 10 MG TAB PO SCH (08:24)
[2016-12-07] MEDS: VALSARTAN 160 MG TAB PO SCH ×2 (08:25→21:51)
[2016-12-07] MEDS: MECLIZINE 25 MG TAB PO SCH ×3 (08:25→21:49)
[2016-12-07] MEDS: ASPIRIN 81 MG TAB PO SCH (08:25)
[2016-12-07] MEDS: HYDROCHLOROTHIAZIDE 25 MG TAB PO SCH (08:25)
[2016-12-07] MEDS: PE/SHARK OIL/MO/PETROL 30 GM OINT PR SCH ×2 (08:25→21:53)
[2016-12-07 09:38] VITALS: BP 138/68; PULSE 80
[2016-12-07] MEDS ORDERED: POTASSIUM CHLORIDE (SR) 20 MEQ TAB PO STA (13:35)
[2016-12-07 14:00] VITALS: BP 118/64; RESP 18
--- NOTE | 2016-12-07 18:17 | PN ---
Date/Time of Note Date/Time of Note DATE: 12/07/16 TIME: 18:15 Assessment/Plan VTE Prophylaxis VTE Prophylaxis Intervention: SCD's Lines/Catheters IV [facility] Type (from [facility]): Saline Lock Urinary Cath still in place: No Assessment/Plan Chief Complaint/Hosp Course Patient's continues to complain of generalized weakness and hot flashes, potassium replaced, and antibiotics per ID. Assessment/Plan -Acute stroke ruled out. -Neck pain and upper back pain, Dr. Gutierrez is following in rheumatology consultation, status post trigger point injection. -Dizziness and headache due to occipital neuralgia, Dr. Billings, neurology consult is appreciated -Diarrhea with C. difficile colitis, continue p.o. vancomycin, Dr. Rosales is following infection disease. - UTI, continue antibiotics per ID. -Rule out acute coronary syndrome, cardiac enzymes every 8 hours 3. -Hypertension, continue hydrochlorothiazide and Diovan -Diabetes mellitus, continue metformin and NovoLog per mild algorithm sliding scale. -Osteoarthritis -Obesity with BMI of 35.5. Further recommendations based on clinical course. Plan of care discussed with Dr. Justin Problems: Exam/Review of Systems Vital Signs Vitals Vital Signs Date Time Temp Pulse Resp B/P Pulse Ox O2 Delivery O2 Flow Rate FiO2 12/07/16 14:00 98.6 84 18 118/64 96 Intake and Output 12/06/16 12/06/16 12/07/16 15:00 23:00 07:00 Intake Total 626.2 ml 480 ml Balance 626.2 ml 480 ml Exam Constitutional: alert, oriented Respiratory: normal air movement Cardiovascular: nl pulses Gastrointestinal: non-tender, soft Extremities: normal pulses Neurological: nl mental status Results Result Diagram: 12/07/16 0451 12/07/16 0451 Results 24 hrs Laboratory Tests Test 12/06/16 21:00 12/07/16 04:51 12/07/16 08:01 12/07/16 12:04 Bedside Glucose 98 90 114 White Blood Count 13.1 H Red Blood Count 4.42 Hemoglobin 12.0 Hematocrit 37.7 Mean Corpuscular Volume 85.3 Mean Corpuscular Hemoglobin 27.1 L Mean Corpuscular Hemoglobin Concent 31.8 L Red Cell Distribution Width 15.7 H Platelet Count 307 Mean Platelet Volume 9.9 Neutrophils % 60.2 Lymphocytes % 27.8 Monocytes % 7.0 Eosinophils % 3.4 Basophils % 0.8 Nucleated Red Blood Cells % 0.0 Neutrophils # (Manual) 7.9 H Lymphocytes # 3.6 H Monocytes # 0.9 Eosinophils # 0.4 Basophils # 0.1 Nucleated Red Blood Cells # 0.0 Sodium Level 143 Potassium Level 3.2 L Chloride Level 99 Carbon Dioxide Level 31 Anion Gap 16 Blood Urea Nitrogen 16 Creatinine 0.73 Glucose Level 91 Calcium Level 9.2 Test 12/07/16 17:20 Bedside Glucose 93 Medications Medications Current Medications Acetaminophen (Tylenol Tab) 650 mg Q4H PRN PO PAIN AND OR ELEVATED TEMP Last administered on 12/05/16 15:06; Admin Dose 650 MG; Start 11/15/16 at 16:00 Paroxetine HCl (Paxil) 30 mg DAILY PO Last administered on 12/07/16 08:24; Admin Dose 30 MG; Start 11/16/16 at 09:00 Diagnostic Test (Pha) (Accu-Chek) 1 ea 02 XX ; Start 11/16/16 at 02:00 Miscellaneous Information 1 ea NOTE XX ; Start 11/15/16 at 16:30 Glucose (Glutose) 15 gm Q15M PRN PO DECREASED GLUCOSE; Start 11/15/16 at 16:30 Glucose (Glutose) 22.5 gm Q15M PRN PO DECREASED GLUCOSE; Start 11/15/16 at 16:30 Dextrose (D50w Syringe) 25 ml Q15M PRN IV DECREASED GLUCOSE; Start 11/15/16 at 16:30 Dextrose (D50w Syringe) 50 ml Q15M PRN IV DECREASED GLUCOSE; Start 11/15/16 at 16:30 Glucagon (Glucagen) 1 mg Q15M PRN IM DECREASED GLUCOSE; Start 11/15/16 at 16:30 Glucose (Glutose) 15 gm Q15M PRN BUCCAL DECREASED GLUCOSE; Start 11/15/16 at 16: 30 Aspirin (Aspirin) 81 mg DAILY PO Last administered on 12/07/16 08:25; Admin Dose 81 MG; Start 11/16/16 at 09:00 Hydrochlorothiazide (Hydrochlorothiazide) 25 mg DAILY PO Last administered on 08:25; Admin Dose 25 MG; Start 11/16/16 at 09:00 Pantoprazole (Protonix Tab) 40 mg BID@,18 PO Last administered on 12/07/16 17:25; Admin Dose 40 MG; Start 11/15/16 at 18:00 Ondansetron HCl (Zofran Inj) 4 mg Q6H PRN IV NAUSEA AND/OR VOMITING Last administered on 12/04/16 17:28; Admin Dose 4 MG; Start 11/16/16 at 09:30 Ibuprofen (Motrin) 600 mg Q8H PRN PO PAIN LEVEL 4-7; Start 11/16/16 at 19:00 Valsartan (Diovan) 160 mg BID PO Last administered on 12/07/16 08:25; Admin Dose 160 MG; Start 11/16/16 at 21:00 Alprazolam (Xanax) 0.5 mg Q6H PRN PO ANXIETY Last administered on 12/06/16 21: 03; Admin Dose 0.5 MG; Start 11/18/16 at 11:00 Meclizine HCl (Antivert) 25 mg TID PO Last administered on 12/07/16 12:56; Admin Dose 25 MG; Start 11/18/16 at 21:00 Atorvastatin Calcium (Lipitor) 40 mg HS PO Last administered on 12/06/16 21:03 ; Admin Dose 40 MG; Start 11/19/16 at 21:00 Phenyleph/Shark Oil/Min Oil/Petrol (Formulation R Oint) 1 applic BID [place] Last administered on 12/07/16 08:25; Admin Dose 1 APPLIC; Start 11/20/16 at 13:30 Vancomycin HCl 250 mg 250 mg Q6 PO Last administered on 12/07/16 17:25; Admin Dose 250 MG; Start 11/21/16 at 12:00 Cefepime HCl (Maxipime 2gm/50 ml (Pmx)) 50 ml @ 100 mls/hr Q24H IVPB Last administered on 12/06/16 21:17; Admin Dose 100 MLS/HR; Start 12/03/16 at 21:00 Amikacin Sulfate AMIKACIN PER PHARMACY NOTE XX ; Start 12/05/16 at 18:00 Amikacin Sulfate/ Sodium Chloride (Amikacin/NS) 101.2 ml @ 102 mls/hr Q24H IVPB Last administered on 12/06/16 19:00; Admin Dose 102 MLS/HR; Start at 19:00 Miscellaneous Information (*Rx Drug Level Order Reminder*) AMIKACIN TROUGH AT 1... ONCE XX ; Start 12/07/16 at 18:00; Stop 12/07/16 at 21:00 THAI DELACRUZ Dec 07, 2016 18:17
[2016-12-07] MEDS: AMIKACIN 300 MG in SOD CHLORIDE 0.9% 100 ML IVPB SCH (18:47)
[2016-12-07 20:18] VITALS: BP 109/76; RESP 18
[2016-12-07] MEDS: ATORVASTATIN 40 MG TAB PO SCH (21:49)
[2016-12-07] MEDS: ALPRAZOLAM 0.25 MG TAB PO PRN (21:49)
[2016-12-07] MEDS: CEFEPIME 2GM/50 ML (PMX) 50 ML IVPB SCH (21:49)
[2016-12-08] MEDS: VANCOMYCIN HCL 250 MG/5ML POSYG PO SCH ×4 (00:33→17:43)
[2016-12-08] MEDS: ACCU-CHEK XX SCH (02:00)
[2016-12-08 02:18] VITALS: BP 115/68; RESP 17
--- NOTE | 2016-12-08 03:48 | PN ---
DATE: 12/07/2016 SUBJECTIVE DATA: No events overnight. The patient is alert, eating lunch. Denies pain, looks comfortable. No fevers. LABORATORY AND DIAGNOSTIC DATA: WBC 13.1, platelets 307, no shift, no bands. BUN 16, creatinine 0.73. MICROBIOLOGY: Urine culture on December 01 grew citrobacter, proteus and Pseudomonas aeruginosa. ANTIMICROBIALS: Patient is on amikacin day #3; cefepime day #5. She is on oral vancomycin. OBJECTIVE DATA: GENERAL: This is a fragile, elderly woman, who is alert, in no distress. HEENT: Head atraumatic, normocephalic. Sclerae anicteric. Buccal mucosa pink. NECK: Supple. RESPIRATORY: Chest rise symmetrical. Breath sounds clear. HEART: S1, S2. ABDOMEN: Soft, bowel sounds present. EXTREMITIES: Without cyanosis. ASSESSMENT: 1. Status post systemic inflammatory response syndrome. 2. Persistent leukocytosis, stable, possibly secondary to trigger-point injections with steroids. 3. Resolving Clostridium difficile colitis and resolving urinary tract infection. 4. Diabetes. 5. Hypertension. PLAN: The patient remains stable. We are going to keep her on antibiotics for a couple of more days. Continue physical therapy. Increase activity. Dictated By: Priscilla Wood NP /bebeto/dereck /Document#: [id number]
[2016-12-08 06:41] LABS: BASOPHIL # 0.1 10^3/ul (0.0-0.1); BASOPHILS % 0.7 % (0.0-2.0); EOSINOPHILS # 0.3 10^3/ul (0.0-0.5); EOSINOPHILS % 2.4 % (0.0-7.0); HEMATOCRIT 36.8 % (37.0-47.0); HEMOGLOBIN 11.8 g/dl (12.0-16.0); LYMPHOCYTES % 30.2 % (15.0-51.0); MEAN CORPUSCULAR HEMOGLOBIN 27.2 pg (29.0-33.0); MEAN CORPUSCULAR HGB CONC 32.1 g/dl (32.0-37.0); MEAN CORPUSCULAR VOLUME 84.8 fl (82.0-101.0); MEAN PLATELET VOLUME 10.3 fl (7.4-10.4); MONOCYTES % 7.6 % (0.0-11.0); NEUTROPHILS % 58.4 % (39.0-77.0); PLATELET COUNT 285 10^3/UL (140-415); RED BLOOD COUNT 4.34 10^6/ul (4.20-5.40); WHITE BLOOD COUNT 13.4 10^3/ul (4.8-10.8)
[2016-12-08] MEDS: PANTOPRAZOLE (EC) 40 MG TAB PO SCH ×2 (06:58→18:29)
[2016-12-08 07:25] LABS: CALCIUM 9.1 mg/dl (8.4-10.2); CREATININE 0.68 mg/dl (0.44-1.00); POTASSIUM 3.1 mmol/L (3.5-5.1)
[2016-12-08 08:00] VITALS: BP 146/64; RESP 18
[2016-12-08] MEDS: INSULIN ASPART [NOVOLOG] 3 ML PEN SC SCH ×3 (08:00→17:42)
[2016-12-08] MEDS: metFORMIN 850 MG TAB PO SCH ×2 (08:04→17:43)
[2016-12-08] MEDS: PAROXETINE 10 MG TAB PO SCH (10:16)
[2016-12-08] MEDS: ASPIRIN 81 MG TAB PO SCH (10:16)
[2016-12-08] MEDS: HYDROCHLOROTHIAZIDE 25 MG TAB PO SCH (10:16)
[2016-12-08] MEDS: VALSARTAN 160 MG TAB PO SCH ×2 (10:16→20:58)
[2016-12-08] MEDS: MECLIZINE 25 MG TAB PO SCH ×2 (10:17→13:36)
[2016-12-08] MEDS: PE/SHARK OIL/MO/PETROL 30 GM OINT PR SCH ×2 (10:18→20:58)
[2016-12-08] MEDS ORDERED: POTASSIUM CHLORIDE (SR) 20 MEQ TAB PO STA ×2 (11:02→12:39)
--- NOTE | 2016-12-08 11:03 | PN ---
Date/Time of Note Date/Time of Note DATE: 12/08/16 TIME: 10:58 Assessment/Plan VTE Prophylaxis VTE Prophylaxis Intervention: other Lines/Catheters IV Catheter Type (from [facility]rs[facility]): Saline Lock Urinary Cath still in place: No Assessment/Plan Assessment/Plan -Hypokalemia- replce K. BMP am -Acute stroke ruled out. -Neck pain and upper back pain, Dr. Gutierrez is following in rheumatology consultation, status post trigger point injection. -Dizziness and headache due to occipital neuralgia, Dr. Billings, neurology consult is appreciated -Diarrhea with C. difficile colitis, continue p.o. vancomycin, Dr. Rosales is following infection disease. - UTI, continue antibiotics per ID. -Rule out acute coronary syndrome, cardiac enzymes every 8 hours 3. -Hypertension, continue hydrochlorothiazide and Diovan -Diabetes mellitus, continue metformin and NovoLog per mild algorithm sliding scale. -Osteoarthritis -Obesity with BMI of 35.5. Further recommendations based on clinical course. Plan of care discussed with Dr. Justin Subjective 24 Hr Interval Summary Respiratory: no complaints Cardiovascular: no complaints Gastrointestinal: no complaints Genitourinary: no complaints Musculoskeletal: no complaints Exam/Review of Systems Vital Signs Vitals Vital Signs Date Time Temp Pulse Resp B/P Pulse Ox O2 Delivery O2 Flow Rate FiO2 12/08/16 08:00 98.8 84 18 146/64 96 Intake and Output 12/07/16 12/07/16 12/08/16 15:00 23:00 07:00 Intake Total 1351.2 ml 240 ml Balance 1351.2 ml 240 ml Exam Constitutional: alert, oriented, well developed Respiratory: clear to auscultation, normal air movement Cardiovascular: nl pulses, regular rate and rhythm Gastrointestinal: soft Musculoskeletal: nl extremities to inspection Neurological: nl mental status, nl speech Results Result Diagram: 12/08/16 0456 12/08/16 0456 Results 24 hrs Laboratory Tests Test 12/07/16 12:04 12/07/16 17:20 12/07/16 21:34 12/08/16 04:56 Bedside Glucose 114 93 98 White Blood Count 13.4 H Red Blood Count 4.34 Hemoglobin 11.8 L Hematocrit 36.8 L Mean Corpuscular Volume 84.8 Mean Corpuscular Hemoglobin 27.2 L Mean Corpuscular Hemoglobin Concent 32.1 Red Cell Distribution Width 16.0 H Platelet Count 285 Mean Platelet Volume 10.3 Neutrophils % 58.4 Lymphocytes % 30.2 Monocytes % 7.6 Eosinophils % 2.4 Basophils % 0.7 Nucleated Red Blood Cells % 0.0 Neutrophils # (Manual) 7.8 H Lymphocytes # 4.0 H Monocytes # 1.0 H Eosinophils # 0.3 Basophils # 0.1 Nucleated Red Blood Cells # 0.0 Sodium Level 142 Potassium Level 3.1 L Chloride Level 98 Carbon Dioxide Level 30 Anion Gap 17 H Blood Urea Nitrogen 13 Creatinine 0.68 Glucose Level 85 Calcium Level 9.1 Test 12/08/16 08:02 12/08/16 09:21 12/08/16 10:21 Bedside Glucose 92 Lab Scanned Report REFERENCE LAB REFERENCE LAB Medications Medications Current Medications Acetaminophen (Tylenol Tab) 650 mg Q4H PRN PO PAIN AND OR ELEVATED TEMP Last administered on 12/05/16 15:06; Admin Dose 650 MG; Start 11/15/16 at 16:00 Paroxetine HCl (Paxil) 30 mg DAILY PO Last administered on 12/08/16 10:16; Admin Dose 30 MG; Start 11/16/16 at 09:00 Diagnostic Test (Pha) (Accu-Chek) 1 ea 02 XX ; Start 11/16/16 at 02:00 Miscellaneous Information 1 ea NOTE XX ; Start 11/15/16 at 16:30 Glucose (Glutose) 15 gm Q15M PRN PO DECREASED GLUCOSE; Start 11/15/16 at 16:30 Glucose (Glutose) 22.5 gm Q15M PRN PO DECREASED GLUCOSE; Start 11/15/16 at 16:30 Dextrose (D50w Syringe) 25 ml Q15M PRN IV DECREASED GLUCOSE; Start 11/15/16 at 16:30 Dextrose (D50w Syringe) 50 ml Q15M PRN IV DECREASED GLUCOSE; Start 11/15/16 at 16:30 Glucagon (Glucagen) 1 mg Q15M PRN IM DECREASED GLUCOSE; Start 11/15/16 at 16:30 Glucose (Glutose) 15 gm Q15M PRN BUCCAL DECREASED GLUCOSE; Start 11/15/16 at 16: 30 Aspirin (Aspirin) 81 mg DAILY PO Last administered on 12/08/16 10:16; Admin Dose 81 MG; Start 11/16/16 at 09:00 Hydrochlorothiazide (Hydrochlorothiazide) 25 mg DAILY PO Last administered on 10:16; Admin Dose 25 MG; Start 11/16/16 at 09:00 Pantoprazole (Protonix Tab) 40 mg BID@06,18 PO Last administered on 12/08/16 06:58; Admin Dose 40 MG; Start 11/15/16 at 18:00 Ondansetron HCl (Zofran Inj) 4 mg Q6H PRN IV NAUSEA AND/OR VOMITING Last administered on 12/04/16 17:28; Admin Dose 4 MG; Start 11/16/16 at 09:30 Ibuprofen (Motrin) 600 mg Q8H PRN PO PAIN LEVEL 4-7; Start 11/16/16 at 19:00 Valsartan (Diovan) 160 mg BID PO Last administered on 12/08/16 10:16; Admin Dose 160 MG; Start 11/16/16 at 21:00 Alprazolam (Xanax) 0.5 mg Q6H PRN PO ANXIETY Last administered on 12/07/16 21: 49; Admin Dose 0.5 MG; Start 11/18/16 at 11:00 Meclizine HCl (Antivert) 25 mg TID PO Last administered on 12/08/16 10:17; Admin Dose 25 MG; Start 11/18/16 at 21:00 Atorvastatin Calcium (Lipitor) 40 mg HS PO Last administered on 12/07/16 21:49 ; Admin Dose 40 MG; Start 11/19/16 at 21:00 Phenyleph/Shark Oil/Min Oil/Petrol (Formulation R Oint) 1 applic BID [place] Last administered on 12/08/16 10:18; Admin Dose 1 APPLIC; Start 11/20/16 at 13:30 Vancomycin HCl 250 mg 250 mg Q6 PO Last administered on 12/08/16 06:58; Admin Dose 250 MG; Start 11/21/16 at 12:00 Cefepime HCl (Maxipime 2gm/50 ml (Pmx)) 50 ml @ 100 mls/hr Q24H IVPB Last administered on 12/07/16 21:49; Admin Dose 100 MLS/HR; Start 12/03/16 at 21:00 Amikacin Sulfate AMIKACIN PER PHARMACY NOTE XX ; Start 12/05/16 at 18:00 Amikacin Sulfate/ Sodium Chloride (Amikacin/NS) 101.2 ml @ 102 mls/hr Q24H IVPB Last administered on 12/07/16t 18:47; Admin Dose 102 MLS/HR; Start at 19:00 AHMET BOURNE Dec 08, 2016 11:03
[2016-12-08] MEDS: ONDANSETRON 4 MG INJ IV PRN (12:33)
--- NOTE | 2016-12-08 15:10 | CONS ---
Date/Time of Note Date/Time of Note DATE: 12/08/16 TIME: 15:08 Assessment/Plan Assessment/Plan Chief Complaint/Hosp Course SUBJECTIVE DATA: Awake, looks comfortable, no fever, no n/v/d, no dysuria MICROBIOLOGY: Urine culture growing MDRO ANTIMICROBIALS: Cefepime, Amikacin PO Vanco PHYSICAL EXAMINATION: GENERAL: Fragile, elderly woman, who is in no distress. HEENT: Head atraumatic, normocephalic. Sclerae anicteric. Buccal mucosa pink. NECK: Supple. LUNGS: Chest rise symmetrical. Breath sounds clear. HEART: S1, S2. ABDOMEN: Soft, bowel sounds present. EXTREMITIES: Without cyanosis. ASSESSMENT: 1. Resolving Clostridium difficile colitis. 2. Urinary tract infection. 3. Persistent leukocytosis, possibly secondary to steroid injection for osteoarthritis. 4. Diabetes. 5. Hypertension. 6. History of bilateral total knee replacement. PLAN: The patient remains stable. Will dc abx in am, continue PO Vanco for 5 more days, continue PT DW pt Problems: Consultation Date/Type/Reason Admit Date/Time Nov 15, 2016 at 11:01 Initial Consult Date 11/22/16 Type of Consultation: ID Referring Provider: THAI DELACRUZ Exam/Review of Systems Vital Signs Vitals Vital Signs Date Time Temp Pulse Resp B/P Pulse Ox O2 Delivery O2 Flow Rate FiO2 12/08/16 08:00 98.8 84 18 146/64 96 Intake and Output 12/07/16 12/07/16 12/08/16 15:00 23:00 07:00 Intake Total 1351.2 ml 240 ml Balance 1351.2 ml 240 ml Results Result Diagram: 12/08/16 0456 12/08/16 0456 Results 24 hrs Laboratory Tests Test 12/07/16 17:20 12/07/16 21:34 12/08/16 04:56 12/08/16 08:02 Bedside Glucose 93 98 92 White Blood Count 13.4 H Red Blood Count 4.34 Hemoglobin 11.8 L Hematocrit 36.8 L Mean Corpuscular Volume 84.8 Mean Corpuscular Hemoglobin 27.2 L Mean Corpuscular Hemoglobin Concent 32.1 Red Cell Distribution Width 16.0 H Platelet Count 285 Mean Platelet Volume 10.3 Neutrophils % 58.4 Lymphocytes % 30.2 Monocytes % 7.6 Eosinophils % 2.4 Basophils % 0.7 Nucleated Red Blood Cells % 0.0 Neutrophils # (Manual) 7.8 H Lymphocytes # 4.0 H Monocytes # 1.0 H Eosinophils # 0.3 Basophils # 0.1 Nucleated Red Blood Cells # 0.0 Sodium Level 142 Potassium Level 3.1 L Chloride Level 98 Carbon Dioxide Level 30 Anion Gap 17 H Blood Urea Nitrogen 13 Creatinine 0.68 Glucose Level 85 Calcium Level 9.1 Test 12/08/16 09:21 12/08/16 10:21 12/08/16 12:23 12/08/16 12:47 Lab Scanned Report REFERENCE LAB REFERENCE LAB Bedside Glucose 68 L 84 Test 12/08/16 13:34 Bedside Glucose 127 Medications Medications Current Medications Acetaminophen (Tylenol Tab) 650 mg Q4H PRN PO PAIN AND OR ELEVATED TEMP Last administered on 12/05/16 15:06; Admin Dose 650 MG; Start 11/15/16 at 16:00 Paroxetine HCl (Paxil) 30 mg DAILY PO Last administered on 12/08/16 10:16; Admin Dose 30 MG; Start 11/16/16 at 09:00 Diagnostic Test (Pha) (Accu-Chek) 1 ea 02 XX ; Start 11/16/16 at 02:00 Miscellaneous Information 1 ea NOTE XX ; Start 11/15/16 at 16:30 Glucose (Glutose) 15 gm Q15M PRN PO DECREASED GLUCOSE; Start 11/15/16 at 16:30 Glucose (Glutose) 22.5 gm Q15M PRN PO DECREASED GLUCOSE; Start 11/15/16 at 16:30 Dextrose (D50w Syringe) 25 ml Q15M PRN IV DECREASED GLUCOSE; Start 11/15/16 at 16:30 Dextrose (D50w Syringe) 50 ml Q15M PRN IV DECREASED GLUCOSE; Start 11/15/16 at 16:30 Glucagon (Glucagen) 1 mg Q15M PRN IM DECREASED GLUCOSE; Start 11/15/16 at 16:30 Glucose (Glutose) 15 gm Q15M PRN BUCCAL DECREASED GLUCOSE; Start 11/15/16 at 16: 30 Aspirin (Aspirin) 81 mg DAILY PO Last administered on 12/08/16 10:16; Admin Dose 81 MG; Start 11/16/16 at 09:00 Hydrochlorothiazide (Hydrochlorothiazide) 25 mg DAILY PO Last administered on 10:16; Admin Dose 25 MG; Start 11/16/16 at 09:00 Pantoprazole (Protonix Tab) 40 mg BID@06,18 PO Last administered on 12/08/16 06:58; Admin Dose 40 MG; Start 11/15/16 at 18:00 Ondansetron HCl (Zofran Inj) 4 mg Q6H PRN IV NAUSEA AND/OR VOMITING Last administered on 12/08/16 12:33; Admin Dose 4 MG; Start 11/16/16 at 09:30 Ibuprofen (Motrin) 600 mg Q8H PRN PO PAIN LEVEL 4-7; Start 11/16/16 at 19:00 Valsartan (Diovan) 160 mg BID PO Last administered on 12/08/16 10:16; Admin Dose 160 MG; Start 11/16/16 at 21:00 Alprazolam (Xanax) 0.5 mg Q6H PRN PO ANXIETY Last administered on 12/07/16 21: 49; Admin Dose 0.5 MG; Start 11/18/16 at 11:00 Meclizine HCl (Antivert) 25 mg TID PO Last administered on 12/08/16 13:36; Admin Dose 25 MG; Start 11/18/16 at 21:00 Atorvastatin Calcium (Lipitor) 40 mg HS PO Last administered on 12/07/16 21:49 ; Admin Dose 40 MG; Start 11/19/16 at 21:00 Phenyleph/Shark Oil/Min Oil/Petrol (Formulation R Oint) 1 applic BID [place] Last administered on 12/08/16 10:18; Admin Dose 1 APPLIC; Start 11/20/16 at 13:30 Vancomycin HCl 250 mg 250 mg Q6 PO Last administered on 12/08/16 12:28; Admin Dose 250 MG; Start 11/21/16 at 12:00 Cefepime HCl (Maxipime 2gm/50 ml (Pmx)) 50 ml @ 100 mls/hr Q24H IVPB Last administered on 12/07/16 21:49; Admin Dose 100 MLS/HR; Start 12/03/16 at 21:00 Amikacin Sulfate AMIKACIN PER PHARMACY NOTE XX ; Start 12/05/16 at 18:00 Amikacin Sulfate/ Sodium Chloride (Amikacin/NS) 101.2 ml @ 102 mls/hr Q24H IVPB Last administered on 12/07/16t 18:47; Admin Dose 102 MLS/HR; Start at 19:00 EDILMA LIMA NP Dec 08, 2016 15:10
[2016-12-08 15:37] VITALS: BP 122/64; RESP 20
[2016-12-08] MEDS: AMIKACIN 300 MG in SOD CHLORIDE 0.9% 100 ML IVPB SCH (18:29)
[2016-12-08] MEDS ORDERED: MECLIZINE 25 MG TAB PO PRN (19:00)
[2016-12-08 20:00] VITALS: BP 103/58; RESP 19
[2016-12-08] MEDS: CEFEPIME 2GM/50 ML (PMX) 50 ML IVPB SCH (20:55)
[2016-12-08] MEDS: ATORVASTATIN 40 MG TAB PO SCH (20:55)
[2016-12-08] MEDS: ALPRAZOLAM 0.25 MG TAB PO PRN (21:01)
[2016-12-08 21:09] VITALS: BP 127/76; PULSE 94
[2016-12-09] MEDS: VANCOMYCIN HCL 250 MG/5ML POSYG PO SCH ×5 (00:50→23:41)
[2016-12-09 02:00] VITALS: BP 109/54; RESP 20
[2016-12-09] MEDS: ACCU-CHEK XX SCH (02:00)
[2016-12-09] MEDS: PANTOPRAZOLE (EC) 40 MG TAB PO SCH ×2 (05:57→18:20)
[2016-12-09 07:14] LABS: BASOPHIL # 0.1 10^3/ul (0.0-0.1); BASOPHILS % 0.6 % (0.0-2.0); EOSINOPHILS # 0.4 10^3/ul (0.0-0.5); HEMATOCRIT 36.8 % (37.0-47.0); HEMOGLOBIN 11.6 g/dl (12.0-16.0); LYMPHOCYTES # 4.2 10^3/ul (0.8-2.9); LYMPHOCYTES % 33.8 % (15.0-51.0); MEAN CORPUSCULAR HEMOGLOBIN 26.6 pg (29.0-33.0); MEAN CORPUSCULAR HGB CONC 31.5 g/dl (32.0-37.0); MEAN CORPUSCULAR VOLUME 84.4 fl (82.0-101.0); MEAN PLATELET VOLUME 10.4 fl (7.4-10.4); MONOCYTE # 0.8 10^3/ul (0.3-0.9); MONOCYTES % 6.8 % (0.0-11.0); NEUTROPHILS % 55.1 % (39.0-77.0); PLATELET COUNT 261 10^3/UL (140-415); RED BLOOD COUNT 4.36 10^6/ul (4.20-5.40); RED CELL DISTRIBUTION WIDTH 15.9 % (11.5-14.5); WHITE BLOOD COUNT 12.3 10^3/ul (4.8-10.8)
[2016-12-09 07:29] LABS: CREATININE 0.69 mg/dl (0.44-1.00); POTASSIUM 3.2 mmol/L (3.5-5.1)
[2016-12-09 09:00] VITALS: BP 142/74; RESP 18
[2016-12-09] MEDS: PE/SHARK OIL/MO/PETROL 30 GM OINT PR SCH ×2 (09:00→21:14)
[2016-12-09] MEDS: VALSARTAN 160 MG TAB PO SCH ×2 (09:14→21:14)
[2016-12-09] MEDS: metFORMIN 850 MG TAB PO SCH ×2 (09:14→18:21)
[2016-12-09] MEDS: PAROXETINE 10 MG TAB PO SCH (09:14)
[2016-12-09] MEDS: HYDROCHLOROTHIAZIDE 25 MG TAB PO SCH (09:15)
[2016-12-09] MEDS: ASPIRIN 81 MG TAB PO SCH (09:15)
--- NOTE | 2016-12-09 13:00 | CONS ---
Date/Time of Note Date/Time of Note DATE: 12/09/16 TIME: 12:59 Assessment/Plan Assessment/Plan Chief Complaint/Hosp Course SUBJECTIVE DATA: Awake, looks comfortable, reports lose stool today, no fevers ANTIMICROBIALS: PO Vanco PHYSICAL EXAMINATION: GENERAL: Fragile, elderly woman, who is in no distress. HEENT: Head atraumatic, normocephalic. Sclerae anicteric. Buccal mucosa pink. NECK: Supple. LUNGS: Chest rise symmetrical. Breath sounds clear. HEART: S1, S2. ABDOMEN: Soft, bowel sounds present. EXTREMITIES: Without cyanosis. ASSESSMENT: 1. Resolving Clostridium difficile colitis. 2. Urinary tract infection==> treated. 3. Persistent leukocytosis, possibly secondary to steroid injection for osteoarthritis. 4. Diabetes. 5. Hypertension. 6. History of bilateral total knee replacement. PLAN: The patient remains stable. Continue PO Vanco, continue PT DW pt Problems: Consultation Date/Type/Reason Admit Date/Time Nov 15, 2016 at 11:01 Initial Consult Date 11/22/16 Type of Consultation: ID Referring Provider: THAI DELACRUZ Exam/Review of Systems Vital Signs Vitals Vital Signs Date Time Temp Pulse Resp B/P Pulse Ox O2 Delivery O2 Flow Rate FiO2 12/09/16 09:00 98.6 84 18 142/74 96 Intake and Output 12/08/16 12/08/16 12/09/16 15:00 23:00 07:00 Intake Total 1351.2 ml 340 ml Balance 1351.2 ml 340 ml Results Result Diagram: 12/09/16 0547 12/09/16 0547 Results 24 hrs Laboratory Tests Test 12/08/16 13:34 12/08/16 15:56 12/08/16 17:41 12/09/16 05:47 Bedside Glucose 127 101 93 White Blood Count 12.3 H Red Blood Count 4.36 Hemoglobin 11.6 L Hematocrit 36.8 L Mean Corpuscular Volume 84.4 Mean Corpuscular Hemoglobin 26.6 L Mean Corpuscular Hemoglobin Concent 31.5 L Red Cell Distribution Width 15.9 H Platelet Count 261 Mean Platelet Volume 10.4 Neutrophils % 55.1 Lymphocytes % 33.8 Monocytes % 6.8 Eosinophils % 3.0 Basophils % 0.6 Nucleated Red Blood Cells % 0.0 Neutrophils # (Manual) 6.8 Lymphocytes # 4.2 H Monocytes # 0.8 Eosinophils # 0.4 Basophils # 0.1 Nucleated Red Blood Cells # 0.0 Sodium Level 140 Potassium Level 3.2 L Chloride Level 101 Carbon Dioxide Level 31 Anion Gap 11 Blood Urea Nitrogen 13 Creatinine 0.69 Glucose Level 88 Calcium Level 9.0 Test 12/09/16 08:03 Bedside Glucose 93 Medications Medications Current Medications Acetaminophen (Tylenol Tab) 650 mg Q4H PRN PO PAIN AND OR ELEVATED TEMP Last administered on 12/05/16 15:06; Admin Dose 650 MG; Start 11/15/16 at 16:00 Paroxetine HCl (Paxil) 30 mg DAILY PO Last administered on 12/09/16 09:14; Admin Dose 30 MG; Start 11/16/16 at 09:00 Diagnostic Test (Pha) (Accu-Chek) 1 ea 02 XX ; Start 11/16/16 at 02:00 Miscellaneous Information 1 ea NOTE XX ; Start 11/15/16 at 16:30 Glucose (Glutose) 15 gm Q15M PRN PO DECREASED GLUCOSE; Start 11/15/16 at 16:30 Glucose (Glutose) 22.5 gm Q15M PRN PO DECREASED GLUCOSE; Start 11/15/16 at 16:30 Dextrose (D50w Syringe) 25 ml Q15M PRN IV DECREASED GLUCOSE; Start 11/15/16 at 16:30 Dextrose (D50w Syringe) 50 ml Q15M PRN IV DECREASED GLUCOSE; Start 11/15/16 at 16:30 Glucagon (Glucagen) 1 mg Q15M PRN IM DECREASED GLUCOSE; Start 11/15/16 at 16:30 Glucose (Glutose) 15 gm Q15M PRN BUCCAL DECREASED GLUCOSE; Start 11/15/16 at 16: 30 Aspirin (Aspirin) 81 mg DAILY PO Last administered on 12/09/16 09:15; Admin Dose 81 MG; Start 11/16/16 at 09:00 Hydrochlorothiazide (Hydrochlorothiazide) 25 mg DAILY PO Last administered on 09:15; Admin Dose 25 MG; Start 11/16/16 at 09:00 Pantoprazole (Protonix Tab) 40 mg BID@06,18 PO Last administered on 12/09/16 05 :57; Admin Dose 40 MG; Start 11/15/16 at 18:00 Ondansetron HCl (Zofran Inj) 4 mg Q6H PRN IV NAUSEA AND/OR VOMITING Last administered on 12/08/16 12:33; Admin Dose 4 MG; Start 11/16/16 at 09:30 Ibuprofen (Motrin) 600 mg Q8H PRN PO PAIN LEVEL 4-7; Start 11/16/16 at 19:00 Valsartan (Diovan) 160 mg BID PO Last administered on 12/09/16 09:14; Admin Dose 160 MG; Start 11/16/16 at 21:00 Alprazolam (Xanax) 0.5 mg Q6H PRN PO ANXIETY Last administered on 12/08/16 21: 01; Admin Dose 0.5 MG; Start 11/18/16 at 11:00 Atorvastatin Calcium (Lipitor) 40 mg HS PO Last administered on 12/08/16 20:55 ; Admin Dose 40 MG; Start 11/19/16 at 21:00 Phenyleph/Shark Oil/Min Oil/Petrol (Formulation R Oint) 1 applic BID CA Last administered on 12/08/16 10:18; Admin Dose 1 APPLIC; Start 11/20/16 at 13:30 Vancomycin HCl (Vancomycin Oral Syringe) 250 mg Q6 PO Last administered on 12:27; Admin Dose 250 MG; Start 11/21/16 at 12:00 Meclizine HCl (Antivert) 25 mg TID PRN PO dizzy; Start 12/08/16 at 19:00 EDILMA LIMA NP Dec 09, 2016 13:00
[2016-12-09 14:00] VITALS: BP 106/55; RESP 17
[2016-12-09] MEDS ORDERED: POTASSIUM CHLORIDE 250 ML IVPB ONE (18:00)
--- NOTE | 2016-12-09 18:02 | PN ---
Date/Time of Note Date/Time of Note DATE: 12/09/16 TIME: 17:58 Assessment/Plan VTE Prophylaxis VTE Prophylaxis Intervention: other Lines/Catheters [facility] Saline Lock Urinary Cath still in place: No Assessment/Plan Assessment/Plan -Persistent Hypokalemia- replce K. BMP am - IVF- D5 1/2 NS at 60 cc/hr -Acute stroke ruled out. -Neck pain and upper back pain, Dr. Gutierrez is following in rheumatology consultation, status post trigger point injection. -Dizziness and headache due to occipital neuralgia, Dr. Billings, neurology consult is appreciated -Diarrhea with C. difficile colitis, continue p.o. vancomycin, Dr. Rosales is following infection disease. - UTI, continue antibiotics per ID. -Rule out acute coronary syndrome, cardiac enzymes every 8 hours 3. -Hypertension, continue hydrochlorothiazide and Diovan -Diabetes mellitus, continue metformin and NovoLog per mild algorithm sliding scale. -Osteoarthritis -Obesity with BMI of 35.5. Further recommendations based on clinical course. Plan of care discussed with Dr. Justin Subjective 24 Hr Interval Summary Respiratory: no complaints Cardiovascular: no complaints Gastrointestinal: no complaints Genitourinary: no complaints Musculoskeletal: no complaints Skin: no complaints Exam/Review of Systems Vital Signs Vitals Vital Signs Date Time Temp Pulse Resp B/P Pulse Ox O2 Delivery O2 Flow Rate FiO2 12/09/16 14:00 97.6 92 17 106/55 94 Intake and Output 12/08/16 12/08/16 12/09/16 15:00 23:00 07:00 Intake Total 1351.2 ml 340 ml Balance 1351.2 ml 340 ml Exam Constitutional: alert, oriented, well developed Respiratory: clear to auscultation, normal air movement Cardiovascular: nl pulses, regular rate and rhythm Musculoskeletal: nl extremities to inspection Extremities: normal pulses Neurological: nl mental status, nl speech Results Result Diagram: 12/09/16 0547 12/09/16 0547 Results 24 hrs Laboratory Tests Test 12/09/16 05:47 12/09/16 08:03 White Blood Count 12.3 H Red Blood Count 4.36 Hemoglobin 11.6 L Hematocrit 36.8 L Mean Corpuscular Volume 84.4 Mean Corpuscular Hemoglobin 26.6 L Mean Corpuscular Hemoglobin Concent 31.5 L Red Cell Distribution Width 15.9 H Platelet Count 261 Mean Platelet Volume 10.4 Neutrophils % 55.1 Lymphocytes % 33.8 Monocytes % 6.8 Eosinophils % 3.0 Basophils % 0.6 Nucleated Red Blood Cells % 0.0 Neutrophils # (Manual) 6.8 Lymphocytes # 4.2 H Monocytes # 0.8 Eosinophils # 0.4 Basophils # 0.1 Nucleated Red Blood Cells # 0.0 Sodium Level 140 Potassium Level 3.2 L Chloride Level 101 Carbon Dioxide Level 31 Anion Gap 11 Blood Urea Nitrogen 13 Creatinine 0.69 Glucose Level 88 Calcium Level 9.0 Bedside Glucose 93 Medications Medications Current Medications Acetaminophen (Tylenol Tab) 650 mg Q4H PRN PO PAIN AND OR ELEVATED TEMP Last administered on 12/05/16 15:06; Admin Dose 650 MG; Start 11/15/16 at 16:00 Paroxetine HCl (Paxil) 30 mg DAILY PO Last administered on 12/09/16 09:14; Admin Dose 30 MG; Start 11/16/16 at 09:00 Diagnostic Test (Pha) (Accu-Chek) 1 ea 02 XX ; Start 11/16/16 at 02:00 Miscellaneous Information 1 ea NOTE XX ; Start 11/15/16 at 16:30 Glucose (Glutose) 15 gm Q15M PRN PO DECREASED GLUCOSE; Start 11/15/16 at 16:30 Glucose (Glutose) 22.5 gm Q15M PRN PO DECREASED GLUCOSE; Start 11/15/16 at 16:30 Dextrose (D50w Syringe) 25 ml Q15M PRN IV DECREASED GLUCOSE; Start 11/15/16 at 16:30 Dextrose (D50w Syringe) 50 ml Q15M PRN IV DECREASED GLUCOSE; Start 11/15/16 at 16:30 Glucagon (Glucagen) 1 mg Q15M PRN IM DECREASED GLUCOSE; Start 11/15/16 at 16:30 Glucose (Glutose) 15 gm Q15M PRN BUCCAL DECREASED GLUCOSE; Start 11/15/16 at 16: 30 Aspirin (Aspirin) 81 mg DAILY PO Last administered on 12/09/16 09:15; Admin Dose 81 MG; Start 11/16/16 at 09:00 Hydrochlorothiazide (Hydrochlorothiazide) 25 mg DAILY PO Last administered on 09:15; Admin Dose 25 MG; Start 11/16/16 at 09:00 Pantoprazole (Protonix Tab) 40 mg BID@06,18 PO Last administered on 12/09/16 05 :57; Admin Dose 40 MG; Start 11/15/16 at 18:00 Ondansetron HCl (Zofran Inj) 4 mg Q6H PRN IV NAUSEA AND/OR VOMITING Last administered on 12/08/16 12:33; Admin Dose 4 MG; Start 11/16/16 at 09:30 Ibuprofen (Motrin) 600 mg Q8H PRN PO PAIN LEVEL 4-7; Start 11/16/16 at 19:00 Valsartan (Diovan) 160 mg BID PO Last administered on 12/09/16 09:14; Admin Dose 160 MG; Start 11/16/16 at 21:00 Alprazolam (Xanax) 0.5 mg Q6H PRN PO ANXIETY Last administered on 12/08/16 21: 01; Admin Dose 0.5 MG; Start 11/18/16 at 11:00 Atorvastatin Calcium (Lipitor) 40 mg HS PO Last administered on 12/08/16 20:55 ; Admin Dose 40 MG; Start 11/19/16 at 21:00 Phenyleph/Shark Oil/Min Oil/Petrol (Formulation R Oint) 1 applic BID [place] Last administered on 12/08/16 10:18; Admin Dose 1 APPLIC; Start 11/20/16 at 13:30 Vancomycin HCl (Vancomycin Oral Syringe) 250 mg Q6 PO Last administered on 12:27; Admin Dose 250 MG; Start 11/21/16 at 12:00 Meclizine HCl 25 mg 25 mg TID PRN PO dizzy; Start 12/08/16 at 19:00 Potassium Chloride (KCl 40 MEQ/250 ML NS) 250 ml @ 62.5 mls/hr ONCE ONCE IVPB ; Start 12/09/16 at 18:00; Stop 12/09/16 at 21:59 AHMET BORUNE Dec 09, 2016 18:02
[2016-12-09] MEDS: D5W-0.45 NACL + KCL 20 MEQ 1,000 ML IV SCH (18:20)
[2016-12-09 20:37] VITALS: BP 125/59; RESP 18
[2016-12-09] MEDS: ATORVASTATIN 40 MG TAB PO SCH (21:14)
[2016-12-09] MEDS: ALPRAZOLAM 0.25 MG TAB PO PRN (23:10)
[2016-12-10] MEDS: ACCU-CHEK XX SCH (02:00)
[2016-12-10 02:57] VITALS: BP 130/59; RESP 18
[2016-12-10 05:19] LABS: BASOPHIL # 0.1 10^3/ul (0.0-0.1); BASOPHILS % 0.7 % (0.0-2.0); EOSINOPHILS # 0.3 10^3/ul (0.0-0.5); EOSINOPHILS % 2.5 % (0.0-7.0); HEMATOCRIT 36.4 % (37.0-47.0); HEMOGLOBIN 11.5 g/dl (12.0-16.0); LYMPHOCYTES # 3.8 10^3/ul (0.8-2.9); LYMPHOCYTES % 30.3 % (15.0-51.0); MEAN CORPUSCULAR HEMOGLOBIN 26.5 pg (29.0-33.0); MEAN CORPUSCULAR HGB CONC 31.6 g/dl (32.0-37.0); MEAN CORPUSCULAR VOLUME 83.9 fl (82.0-101.0); MEAN PLATELET VOLUME 10.2 fl (7.4-10.4); MONOCYTE # 0.8 10^3/ul (0.3-0.9); MONOCYTES % 6.4 % (0.0-11.0); NEUTROPHILS % 59.3 % (39.0-77.0); PLATELET COUNT 262 10^3/UL (140-415); RED BLOOD COUNT 4.34 10^6/ul (4.20-5.40); RED CELL DISTRIBUTION WIDTH 15.9 % (11.5-14.5); WHITE BLOOD COUNT 12.4 10^3/ul (4.8-10.8)
[2016-12-10] MEDS: VANCOMYCIN HCL 250 MG/5ML POSYG PO SCH ×3 (05:47→17:46)
[2016-12-10] MEDS: PANTOPRAZOLE (EC) 40 MG TAB PO SCH ×2 (05:47→17:47)
[2016-12-10 06:06] LABS: CALCIUM 9.1 mg/dl (8.4-10.2); CREATININE 0.67 mg/dl (0.44-1.00); POTASSIUM 3.5 mmol/L (3.5-5.1)
[2016-12-10 08:02] VITALS: BP 149/70; RESP 16
[2016-12-10] MEDS: HYDROCHLOROTHIAZIDE 25 MG TAB PO SCH (10:07)
[2016-12-10] MEDS: VALSARTAN 160 MG TAB PO SCH ×2 (10:08→20:44)
[2016-12-10] MEDS: ASPIRIN 81 MG TAB PO SCH (10:08)
[2016-12-10] MEDS: PAROXETINE 10 MG TAB PO SCH (10:08)
[2016-12-10] MEDS: D5W-0.45 NACL + KCL 20 MEQ 1,000 ML IV SCH (10:19)
[2016-12-10] MEDS: PE/SHARK OIL/MO/PETROL 30 GM OINT PR SCH ×2 (10:19→20:44)
--- NOTE | 2016-12-10 11:45 | PN ---
Date/Time of Note Date/Time of Note DATE: 12/10/16 TIME: 11:45 Assessment/Plan VTE Prophylaxis VTE Prophylaxis Intervention: other Lines/Catheters IV Catheter Type (from Nrs): Saline Lock Urinary Cath still in place: No Assessment/Plan Chief Complaint/Hosp Course -Persistent Hypokalemia- replce KGurwinder BMP am - IVF- D5 1/2 NS at 60 cc/hr -Acute stroke ruled out. -Neck pain and upper back pain, Dr. Gutierrez is following in rheumatology consultation, status post trigger point injection. -Dizziness and headache due to occipital neuralgia, Dr. Billings, neurology consult is appreciated -Diarrhea with C. difficile colitis, continue p.o. vancomycin, Dr. Rosales is following infection disease. - UTI, continue antibiotics per ID. -Rule out acute coronary syndrome, cardiac enzymes every 8 hours 3. -Hypertension, continue hydrochlorothiazide and Diovan -Diabetes mellitus, continue metformin and NovoLog per mild algorithm sliding scale. -Osteoarthritis -Obesity with BMI of 35.5. Problems: Subjective 24 Hr Interval Summary Free Text/Dictation Patient feels dizzy and nauseous Exam/Review of Systems Vital Signs Vitals Vital Signs Date Time Temp Pulse Resp B/P Pulse Ox O2 Delivery O2 Flow Rate FiO2 12/10/16 08:02 98.3 87 16 149/70 95 Intake and Output 12/09/16 12/09/16 12/10/16 15:00 23:00 07:00 Intake Total 1080 ml 500 ml Balance 1080 ml 500 ml Exam Constitutional: well developed Head: atraumatic, normocephalic Neck: supple Respiratory: clear to auscultation Cardiovascular: regular rate and rhythm Gastrointestinal: non-tender, soft Extremities: normal pulses Results Result Diagram: 12/10/16 0444 12/10/16 0444 Results 24 hrs Laboratory Tests Test 12/10/16 02:28 12/10/16 04:44 Bedside Glucose 96 White Blood Count 12.4 H Red Blood Count 4.34 Hemoglobin 11.5 L Hematocrit 36.4 L Mean Corpuscular Volume 83.9 Mean Corpuscular Hemoglobin 26.5 L Mean Corpuscular Hemoglobin Concent 31.6 L Red Cell Distribution Width 15.9 H Platelet Count 262 Mean Platelet Volume 10.2 Neutrophils % 59.3 Lymphocytes % 30.3 Monocytes % 6.4 Eosinophils % 2.5 Basophils % 0.7 Nucleated Red Blood Cells % 0.0 Neutrophils # (Manual) 7.4 Lymphocytes # 3.8 H Monocytes # 0.8 Eosinophils # 0.3 Basophils # 0.1 Nucleated Red Blood Cells # 0.0 Sodium Level 142 Potassium Level 3.5 Chloride Level 102 Carbon Dioxide Level 30 Anion Gap 14 Blood Urea Nitrogen 15 Creatinine 0.67 Glucose Level 92 Calcium Level 9.1 Medications Medications Current Medications Acetaminophen (Tylenol Tab) 650 mg Q4H PRN PO PAIN AND OR ELEVATED TEMP Last administered on 12/05/16 15:06; Admin Dose 650 MG; Start 11/15/16 at 16:00 Paroxetine HCl (Paxil) 30 mg DAILY PO Last administered on 12/10/16 10:08; Admin Dose 30 MG; Start 11/16/16 at 09:00 Diagnostic Test (Pha) (Accu-Chek) 1 ea 02 XX ; Start 11/16/16 at 02:00 Miscellaneous Information 1 ea NOTE XX ; Start 11/15/16 at 16:30 Glucose (Glutose) 15 gm Q15M PRN PO DECREASED GLUCOSE; Start 11/15/16 at 16:30 Glucose (Glutose) 22.5 gm Q15M PRN PO DECREASED GLUCOSE; Start 11/15/16 at 16:30 Dextrose (D50w Syringe) 25 ml Q15M PRN IV DECREASED GLUCOSE; Start 11/15/16 at 16:30 Dextrose (D50w Syringe) 50 ml Q15M PRN IV DECREASED GLUCOSE; Start 11/15/16 at 16:30 Glucagon (Glucagen) 1 mg Q15M PRN IM DECREASED GLUCOSE; Start 11/15/16 at 16:30 Glucose (Glutose) 15 gm Q15M PRN BUCCAL DECREASED GLUCOSE; Start 11/15/16 at 16: 30 Aspirin (Aspirin) 81 mg DAILY PO Last administered on 12/10/16 10:08; Admin Dose 81 MG; Start 11/16/16 at 09:00 Hydrochlorothiazide (Hydrochlorothiazide) 25 mg DAILY PO Last administered on 10:07; Admin Dose 25 MG; Start 11/16/16 at 09:00 Pantoprazole (Protonix Tab) 40 mg BID@,18 PO Last administered on 12/10/16 05 :47; Admin Dose 40 MG; Start 11/15/16 at 18:00 Ondansetron HCl (Zofran Inj) 4 mg Q6H PRN IV NAUSEA AND/OR VOMITING Last administered on 12/08/16 12:33; Admin Dose 4 MG; Start 11/16/16 at 09:30 Ibuprofen (Motrin) 600 mg Q8H PRN PO PAIN LEVEL 4-7; Start 11/16/16 at 19:00 Valsartan (Diovan) 160 mg BID PO Last administered on 12/10/16 10:08; Admin Dose 160 MG; Start 11/16/16 at 21:00 Alprazolam (Xanax) 0.5 mg Q6H PRN PO ANXIETY Last administered on 12/09/16 23: 10; Admin Dose 0.5 MG; Start 11/18/16 at 11:00 Atorvastatin Calcium (Lipitor) 40 mg HS PO Last administered on 12/09/16 21:14 ; Admin Dose 40 MG; Start 11/19/16 at 21:00 Phenyleph/Shark Oil/Min Oil/Petrol (Formulation R Oint) 1 applic BID SD Last administered on 12/10/16 10:19; Admin Dose 1 APPLIC; Start 11/20/16 at 13:30 Vancomycin HCl (Vancomycin Oral Syringe) 250 mg Q6 PO Last administered on 05:47; Admin Dose 250 MG; Start 11/21/16 at 12:00 Meclizine HCl 25 mg 25 mg TID PRN PO dizzy; Start 12/08/16 at 19:00 Potassium Chloride/Dextrose/ Sod Cl (D5-1/2ns + KCl 20 Meq) 1,000 ml @ 70 mls/ hr [id number] IV Last administered on 12/10/16 10:19; Admin Dose 70 MLS/HR; Start 12/09/16 at 18:00 MAHENDRA RUVALCABA Dec 10, 2016 11:45
[2016-12-10] MEDS: ONDANSETRON 4 MG INJ IV PRN (11:55)
[2016-12-10] MEDS: metFORMIN 850 MG TAB PO SCH ×2 (12:19→17:46)
[2016-12-10 14:30] VITALS: BP 110/58; RESP 18
[2016-12-10] MEDS: BENZOCAINE 20% MM SCH ×2 (17:46→20:44)
--- NOTE | 2016-12-10 19:40 | CONS ---
Date/Time of Note Date/Time of Note DATE: 12/10/16 TIME: 19:37 Assessment/Plan Assessment/Plan Chief Complaint/Hosp Course ID PROGRESS NOTE CURRENT ABX: Vanco PO + * Awake, alert, responsive, tells me diarrhea improving, feeling better GENERAL: 81 yo elder F in no distress. NO fevers HEENT:Unremarkable NECK: Supple, trachea midline. CHEST: Chest rise is symmetrical. EXTREMITIES: Warm (+)FC clear yellow urine ID ASSESSMENT 81 yo F admit with: 1. Resolving Clostridium difficile colitis. 2. GNR Urinary tract infection. 3. Persistent leukocytosis=> resolving 4. Diabetes. 5. Hypertension. 6. History of bilateral total knee replacement. CURRENT ABX: Vanco PO s/p Ceftriaxone s/p Cefepime/Amikacin ID PLAN Continue Vanco PO Anticipate DC on Vanco po x 7 days . . Problems: Consultation Date/Type/Reason Admit Date/Time Nov 15, 2016 at 11:01 Initial Consult Date 11/22/16 Type of Consultation: ID Referring Provider: THAI DELACRUZ Exam/Review of Systems Vital Signs Vitals Vital Signs Date Time Temp Pulse Resp B/P Pulse Ox O2 Delivery O2 Flow Rate FiO2 12/10/16 14:30 98.1 84 18 110/58 92 Intake and Output 12/09/16 12/09/16 12/10/16 15:00 23:00 07:00 Intake Total 1080 ml 500 ml Balance 1080 ml 500 ml Results Result Diagram: 12/10/16 0444 12/10/16 0444 Results 24 hrs Laboratory Tests Test 12/10/16 02:28 12/10/16 04:44 12/10/16 11:54 Bedside Glucose 96 125 White Blood Count 12.4 H Red Blood Count 4.34 Hemoglobin 11.5 L Hematocrit 36.4 L Mean Corpuscular Volume 83.9 Mean Corpuscular Hemoglobin 26.5 L Mean Corpuscular Hemoglobin Concent 31.6 L Red Cell Distribution Width 15.9 H Platelet Count 262 Mean Platelet Volume 10.2 Neutrophils % 59.3 Lymphocytes % 30.3 Monocytes % 6.4 Eosinophils % 2.5 Basophils % 0.7 Nucleated Red Blood Cells % 0.0 Neutrophils # (Manual) 7.4 Lymphocytes # 3.8 H Monocytes # 0.8 Eosinophils # 0.3 Basophils # 0.1 Nucleated Red Blood Cells # 0.0 Sodium Level 142 Potassium Level 3.5 Chloride Level 102 Carbon Dioxide Level 30 Anion Gap 14 Blood Urea Nitrogen 15 Creatinine 0.67 Glucose Level 92 Calcium Level 9.1 Medications Medications Current Medications Acetaminophen (Tylenol Tab) 650 mg Q4H PRN PO PAIN AND OR ELEVATED TEMP Last administered on 12/05/16 15:06; Admin Dose 650 MG; Start 11/15/16 at 16:00 Paroxetine HCl (Paxil) 30 mg DAILY PO Last administered on 12/10/16 10:08; Admin Dose 30 MG; Start 11/16/16 at 09:00 Diagnostic Test (Pha) (Accu-Chek) 1 ea 02 XX ; Start 11/16/16 at 02:00 Miscellaneous Information 1 ea NOTE XX ; Start 11/15/16 at 16:30 Glucose (Glutose) 15 gm Q15M PRN PO DECREASED GLUCOSE; Start 11/15/16 at 16:30 Glucose (Glutose) 22.5 gm Q15M PRN PO DECREASED GLUCOSE; Start 11/15/16 at 16:30 Dextrose (D50w Syringe) 25 ml Q15M PRN IV DECREASED GLUCOSE; Start 11/15/16 at 16:30 Dextrose (D50w Syringe) 50 ml Q15M PRN IV DECREASED GLUCOSE; Start 11/15/16 at 16:30 Glucagon (Glucagen) 1 mg Q15M PRN IM DECREASED GLUCOSE; Start 11/15/16 at 16:30 Glucose (Glutose) 15 gm Q15M PRN BUCCAL DECREASED GLUCOSE; Start 11/15/16 at 16: 30 Aspirin (Aspirin) 81 mg DAILY PO Last administered on 12/10/16 10:08; Admin Dose 81 MG; Start 11/16/16 at 09:00 Hydrochlorothiazide (Hydrochlorothiazide) 25 mg DAILY PO Last administered on 10:07; Admin Dose 25 MG; Start 11/16/16 at 09:00 Pantoprazole (Protonix Tab) 40 mg BID@,18 PO Last administered on 12/10/16 17 :47; Admin Dose 40 MG; Start 11/15/16 at 18:00 Ondansetron HCl (Zofran Inj) 4 mg Q6H PRN IV NAUSEA AND/OR VOMITING Last administered on 12/10/16 11:55; Admin Dose 4 MG; Start 11/16/16 at 09:30 Ibuprofen (Motrin) 600 mg Q8H PRN PO PAIN LEVEL 4-7; Start 11/16/16 at 19:00 Valsartan (Diovan) 160 mg BID PO Last administered on 12/10/16 10:08; Admin Dose 160 MG; Start 11/16/16 at 21:00 Alprazolam (Xanax) 0.5 mg Q6H PRN PO ANXIETY Last administered on 12/09/16 23: 10; Admin Dose 0.5 MG; Start 11/18/16 at 11:00 Atorvastatin Calcium (Lipitor) 40 mg HS PO Last administered on 12/09/16 21:14 ; Admin Dose 40 MG; Start 11/19/16 at 21:00 Phenyleph/Shark Oil/Min Oil/Petrol (Formulation R Oint) 1 applic BID HI Last administered on 12/10/16 10:19; Admin Dose 1 APPLIC; Start 11/20/16 at 13:30 Vancomycin HCl (Vancomycin Oral Syringe) 250 mg Q6 PO Last administered on 17:46; Admin Dose 250 MG; Start 11/21/16 at 12:00 Meclizine HCl 25 mg 25 mg TID PRN PO dizzy; Start 12/08/16 at 19:00 Potassium Chloride/Dextrose/ Sod Cl (D5-1/2ns + KCl 20 Meq) 1,000 ml @ 70 mls/ hr [id number] IV Last administered on 12/10/16 10:19; Admin Dose 70 MLS/HR; Start 12/09/16 at 18:00 Benzocaine (Orajel Maximum) 1 applic TID MM Last administered on 12/10/16 17:46 ; Admin Dose 1 APPLIC; Start 12/10/16 at 14:00 SERGIO PERSON NP Dec 10, 2016 19:40
[2016-12-10] MEDS: ATORVASTATIN 40 MG TAB PO SCH (20:43)
[2016-12-10 20:46] VITALS: BP 124/58; RESP 18
[2016-12-10] MEDS: ALPRAZOLAM 0.25 MG TAB PO PRN (22:09)
[2016-12-11] MEDS: D5W-0.45 NACL + KCL 20 MEQ 1,000 ML IV SCH ×2 (00:24→13:32)
[2016-12-11] MEDS: VANCOMYCIN HCL 250 MG/5ML POSYG PO SCH ×5 (00:24→23:44)
[2016-12-11] MEDS: ACCU-CHEK XX SCH (02:00)
[2016-12-11 03:44] VITALS: BP 125/65; RESP 18
[2016-12-11] MEDS: PANTOPRAZOLE (EC) 40 MG TAB PO SCH ×2 (05:30→17:31)
[2016-12-11 08:03] VITALS: BP 138/65; RESP 16
[2016-12-11] MEDS: ASPIRIN 81 MG TAB PO SCH (08:59)
[2016-12-11] MEDS: VALSARTAN 160 MG TAB PO SCH ×2 (09:00→20:44)
[2016-12-11] MEDS: HYDROCHLOROTHIAZIDE 25 MG TAB PO SCH (09:00)
[2016-12-11] MEDS: PAROXETINE 10 MG TAB PO SCH (09:00)
[2016-12-11] MEDS: PE/SHARK OIL/MO/PETROL 30 GM OINT PR SCH ×2 (09:03→20:45)
[2016-12-11] MEDS: BENZOCAINE 20% MM SCH ×3 (09:03→20:44)
[2016-12-11] MEDS: metFORMIN 850 MG TAB PO SCH ×2 (12:21→17:31)
--- NOTE | 2016-12-11 12:28 | PN ---
Date/Time of Note Date/Time of Note DATE: 12/11/16 TIME: 12:27 Assessment/Plan VTE Prophylaxis VTE Prophylaxis Intervention: other Lines/Catheters IV Catheter Type (from Nrs): Peripheral IV Urinary Cath still in place: No Assessment/Plan Chief Complaint/Hosp Course -Persistent Hypokalemia- replce K. BMP am - IVF- D5 1/2 NS at 60 cc/hr -Acute stroke ruled out. -Neck pain and upper back pain, Dr. Gutierrez is following in rheumatology consultation, status post trigger point injection. -Dizziness and headache due to occipital neuralgia, Dr. Billings, neurology consult is appreciated -Diarrhea with C. difficile colitis, continue p.o. vancomycin, Dr. Rosales is following infection disease. - UTI, continue antibiotics per ID. -Rule out acute coronary syndrome, cardiac enzymes every 8 hours 3. -Hypertension, continue hydrochlorothiazide and Diovan -Diabetes mellitus, continue metformin and NovoLog per mild algorithm sliding scale. -Osteoarthritis -Obesity with BMI of 35.5. Problems: Subjective 24 Hr Interval Summary Free Text/Dictation Patient remain dizzy Exam/Review of Systems Vital Signs Vitals Vital Signs Date Time Temp Pulse Resp B/P Pulse Ox O2 Delivery O2 Flow Rate FiO2 12/11/16 08:03 97.9 78 16 138/65 94 Intake and Output 12/10/16 12/10/16 12/11/16 15:00 23:00 07:00 Intake Total 490 ml 1315 ml Balance 490 ml 1315 ml Exam Constitutional: well developed Head: atraumatic, normocephalic Neck: supple Respiratory: clear to auscultation Cardiovascular: regular rate and rhythm Gastrointestinal: non-tender, soft Extremities: normal pulses Results Result Diagram: 12/10/16 0444 12/10/16 0444 Medications Medications Current Medications Acetaminophen (Tylenol Tab) 650 mg Q4H PRN PO PAIN AND OR ELEVATED TEMP Last administered on 12/05/16 15:06; Admin Dose 650 MG; Start 11/15/16 at 16:00 Paroxetine HCl (Paxil) 30 mg DAILY PO Last administered on 12/11/16 09:00; Admin Dose 30 MG; Start 11/16/16 at 09:00 Diagnostic Test (Pha) (Accu-Chek) 1 ea 02 XX ; Start 11/16/16 at 02:00 Miscellaneous Information 1 ea NOTE XX ; Start 11/15/16 at 16:30 Glucose (Glutose) 15 gm Q15M PRN PO DECREASED GLUCOSE; Start 11/15/16 at 16:30 Glucose (Glutose) 22.5 gm Q15M PRN PO DECREASED GLUCOSE; Start 11/15/16 at 16:30 Dextrose (D50w Syringe) 25 ml Q15M PRN IV DECREASED GLUCOSE; Start 11/15/16 at 16:30 Dextrose (D50w Syringe) 50 ml Q15M PRN IV DECREASED GLUCOSE; Start 11/15/16 at 16:30 Glucagon (Glucagen) 1 mg Q15M PRN IM DECREASED GLUCOSE; Start 11/15/16 at 16:30 Glucose (Glutose) 15 gm Q15M PRN BUCCAL DECREASED GLUCOSE; Start 11/15/16 at 16: 30 Aspirin (Aspirin) 81 mg DAILY PO Last administered on 12/11/16 08:59; Admin Dose 81 MG; Start 11/16/16 at 09:00 Hydrochlorothiazide (Hydrochlorothiazide) 25 mg DAILY PO Last administered on 09:00; Admin Dose 25 MG; Start 11/16/16 at 09:00 Pantoprazole (Protonix Tab) 40 mg BID@06,18 PO Last administered on 12/11/16 05 :30; Admin Dose 40 MG; Start 11/15/16 at 18:00 Ondansetron HCl (Zofran Inj) 4 mg Q6H PRN IV NAUSEA AND/OR VOMITING Last administered on 12/10/16 11:55; Admin Dose 4 MG; Start 11/16/16 at 09:30 Ibuprofen (Motrin) 600 mg Q8H PRN PO PAIN LEVEL 4-7; Start 11/16/16 at 19:00 Valsartan (Diovan) 160 mg BID PO Last administered on 12/11/16 09:00; Admin Dose 160 MG; Start 11/16/16 at 21:00 Alprazolam (Xanax) 0.5 mg Q6H PRN PO ANXIETY Last administered on 12/10/16 22: 09; Admin Dose 0.5 MG; Start 11/18/16 at 11:00 Atorvastatin Calcium (Lipitor) 40 mg HS PO Last administered on 12/10/16 20:43 ; Admin Dose 40 MG; Start 11/19/16 at 21:00 Phenyleph/Shark Oil/Min Oil/Petrol (Formulation R Oint) 1 applic BID HI Last administered on 12/11/16 09:03; Admin Dose 1 APPLIC; Start 11/20/16 at 13:30 Vancomycin HCl (Vancomycin Oral Syringe) 250 mg Q6 PO Last administered on 12:21; Admin Dose 250 MG; Start 11/21/16 at 12:00 Meclizine HCl 25 mg 25 mg TID PRN PO dizzy; Start 12/08/16 at 19:00 Potassium Chloride/Dextrose/ Sod Cl (D5-1/2ns + KCl 20 Meq) 1,000 ml @ 70 mls/ hr [id number] IV Last administered on 12/11/16 00:24; Admin Dose 70 MLS/HR; Start 12/09/16 at 18:00 Benzocaine (Orajel Maximum) 1 applic TID MM Last administered on 12/11/16 09:03 ; Admin Dose 1 APPLIC; Start 12/10/16 at 14:00 MAHENDRA RUVALCABA Dec 11, 2016 12:28
[2016-12-11 14:23] VITALS: BP 126/60; RESP 20
--- NOTE | 2016-12-11 15:22 | CONS ---
Date/Time of Note Date/Time of Note DATE: 12/11/16 TIME: 15:21 Assessment/Plan Assessment/Plan Chief Complaint/Hosp Course ID PROGRESS NOTE CURRENT ABX: Vanco PO + * She still c/p dizziness -> Brain imaging revealed:The mastoid air cells and middle ear cavities are normally aerated. * Awake, alert, responsive, tells me diarrhea improving, feeling better GENERAL: 81 yo elder F in no distress. NO fevers HEENT:Unremarkable NECK: Supple, trachea midline. CHEST: Chest rise is symmetrical. EXTREMITIES: Warm (+)FC clear yellow urine ID ASSESSMENT 81 yo F admit with: 1. Resolving Clostridium difficile colitis. 2. s/p GNR Urinary tract infection. 3. Persistent leukocytosis=> resolving 4. Diabetes. 5. Hypertension. 6. History of bilateral total knee replacement. 7. Persistent "Dizzy" w/ MRI findings: The mastoid air cells and middle ear cavities are normally aerated. CURRENT ABX: Vanco PO s/p Ceftriaxone s/p Cefepime/Amikacin ID PLAN Continue Vanco PO Anticipate DC on Vanco po x 7 days . . Problems: Consultation Date/Type/Reason Admit Date/Time Nov 15, 2016 at 11:01 Initial Consult Date 11/22/16 Type of Consultation: ID Referring Provider: THAI DELACRUZ Exam/Review of Systems Vital Signs Vitals Vital Signs Date Time Temp Pulse Resp B/P Pulse Ox O2 Delivery O2 Flow Rate FiO2 12/11/16 14:23 98.1 90 20 126/60 92 Intake and Output 12/10/16 12/10/16 12/11/16 15:00 23:00 07:00 Intake Total 490 ml 1315 ml Balance 490 ml 1315 ml Results Result Diagram: 12/10/16 0444 12/10/16 0444 Medications Medications Current Medications Acetaminophen (Tylenol Tab) 650 mg Q4H PRN PO PAIN AND OR ELEVATED TEMP Last administered on 12/05/16t 15:06; Admin Dose 650 MG; Start 11/15/16 at 16:00 Paroxetine HCl (Paxil) 30 mg DAILY PO Last administered on 12/11/16 09:00; Admin Dose 30 MG; Start 11/16/16 at 09:00 Diagnostic Test (Pha) (Accu-Chek) 1 ea 02 XX ; Start 11/16/16 at 02:00 Miscellaneous Information 1 ea NOTE XX ; Start 11/15/16 at 16:30 Glucose (Glutose) 15 gm Q15M PRN PO DECREASED GLUCOSE; Start 11/15/16 at 16:30 Glucose (Glutose) 22.5 gm Q15M PRN PO DECREASED GLUCOSE; Start 11/15/16 at 16:30 Dextrose (D50w Syringe) 25 ml Q15M PRN IV DECREASED GLUCOSE; Start 11/15/16 at 16:30 Dextrose (D50w Syringe) 50 ml Q15M PRN IV DECREASED GLUCOSE; Start 11/15/16 at 16:30 Glucagon (Glucagen) 1 mg Q15M PRN IM DECREASED GLUCOSE; Start 11/15/16 at 16:30 Glucose (Glutose) 15 gm Q15M PRN BUCCAL DECREASED GLUCOSE; Start 11/15/16 at 16: 30 Aspirin (Aspirin) 81 mg DAILY PO Last administered on 12/11/16 08:59; Admin Dose 81 MG; Start 11/16/16 at 09:00 Hydrochlorothiazide (Hydrochlorothiazide) 25 mg DAILY PO Last administered on 09:00; Admin Dose 25 MG; Start 11/16/16 at 09:00 Pantoprazole (Protonix Tab) 40 mg BID@,18 PO Last administered on 12/11/16 05 :30; Admin Dose 40 MG; Start 11/15/16 at 18:00 Ondansetron HCl (Zofran Inj) 4 mg Q6H PRN IV NAUSEA AND/OR VOMITING Last administered on 12/10/16 11:55; Admin Dose 4 MG; Start 11/16/16 at 09:30 Ibuprofen (Motrin) 600 mg Q8H PRN PO PAIN LEVEL 4-7; Start 11/16/16 at 19:00 Valsartan (Diovan) 160 mg BID PO Last administered on 12/11/16 09:00; Admin Dose 160 MG; Start 11/16/16 at 21:00 Alprazolam (Xanax) 0.5 mg Q6H PRN PO ANXIETY Last administered on 12/10/16 22: 09; Admin Dose 0.5 MG; Start 11/18/16 at 11:00 Atorvastatin Calcium (Lipitor) 40 mg HS PO Last administered on 12/10/16 20:43 ; Admin Dose 40 MG; Start 11/19/16 at 21:00 Phenyleph/Shark Oil/Min Oil/Petrol (Formulation R Oint) 1 applic BID NV Last administered on 12/11/16 09:03; Admin Dose 1 APPLIC; Start 11/20/16 at 13:30 Vancomycin HCl (Vancomycin Oral Syringe) 250 mg Q6 PO Last administered on 12:21; Admin Dose 250 MG; Start 11/21/16 at 12:00 Meclizine HCl 25 mg 25 mg TID PRN PO dizzy; Start 12/08/16 at 19:00 Potassium Chloride/Dextrose/ Sod Cl (D5-1/2ns + KCl 20 Meq) 1,000 ml @ 70 mls/ hr [id number] IV Last administered on 12/11/16 13:32; Admin Dose 70 MLS/HR; Start 12/09/16 at 18:00 Benzocaine (Orajel Maximum) 1 applic TID MM Last administered on 12/11/16 13:32 ; Admin Dose 1 APPLIC; Start 12/10/16 at 14:00 SERGIO PERSON NP Dec 11, 2016 15:22
[2016-12-11] MEDS: ATORVASTATIN 40 MG TAB PO SCH (20:44)
[2016-12-11 21:02] VITALS: BP_SYST 144; BP_SYST 155; BP_DIAS 66; RESP 16; RESP 18
[2016-12-11] MEDS: ALPRAZOLAM 0.25 MG TAB PO PRN (22:52)
[2016-12-12] MEDS: ACCU-CHEK XX SCH (02:00)
[2016-12-12 03:19] VITALS: BP 146/65; RESP 18
[2016-12-12] MEDS: D5W-0.45 NACL + KCL 20 MEQ 1,000 ML IV SCH ×2 (04:41→17:56)
[2016-12-12] MEDS: VANCOMYCIN HCL 250 MG/5ML POSYG PO SCH ×4 (05:13→21:10)
[2016-12-12] MEDS: PANTOPRAZOLE (EC) 40 MG TAB PO SCH ×2 (05:13→17:56)
[2016-12-12 05:58] LABS: BASOPHIL # 0.1 10^3/ul (0.0-0.1); BASOPHILS % 0.7 % (0.0-2.0); EOSINOPHILS # 0.3 10^3/ul (0.0-0.5); EOSINOPHILS % 2.4 % (0.0-7.0); HEMATOCRIT 33.6 % (37.0-47.0); HEMOGLOBIN 10.8 g/dl (12.0-16.0); LYMPHOCYTES # 3.7 10^3/ul (0.8-2.9); LYMPHOCYTES % 35.6 % (15.0-51.0); MEAN CORPUSCULAR HEMOGLOBIN 27.3 pg (29.0-33.0); MEAN CORPUSCULAR HGB CONC 32.1 g/dl (32.0-37.0); MEAN CORPUSCULAR VOLUME 85.1 fl (82.0-101.0); MEAN PLATELET VOLUME 10.2 fl (7.4-10.4); MONOCYTE # 0.8 10^3/ul (0.3-0.9); MONOCYTES % 7.4 % (0.0-11.0); NEUTROPHILS % 53.2 % (39.0-77.0); PLATELET COUNT 232 10^3/UL (140-415); RED BLOOD COUNT 3.95 10^6/ul (4.20-5.40); RED CELL DISTRIBUTION WIDTH 15.5 % (11.5-14.5); WHITE BLOOD COUNT 10.5 10^3/ul (4.8-10.8)
[2016-12-12 06:25] LABS: CALCIUM 8.6 mg/dl (8.4-10.2); CREATININE 0.6 mg/dl (0.44-1.00); POTASSIUM 3.1 mmol/L (3.5-5.1)
[2016-12-12 08:00] VITALS: BP 160/73; RESP 19
[2016-12-12] MEDS: ASPIRIN 81 MG TAB PO SCH (08:26)
[2016-12-12] MEDS: PAROXETINE 10 MG TAB PO SCH (08:26)
[2016-12-12] MEDS: metFORMIN 850 MG TAB PO SCH ×2 (08:26→17:53)
[2016-12-12] MEDS: PE/SHARK OIL/MO/PETROL 30 GM OINT PR SCH ×2 (08:28→21:12)
[2016-12-12] MEDS: HYDROCHLOROTHIAZIDE 25 MG TAB PO SCH (09:02)
[2016-12-12] MEDS: VALSARTAN 160 MG TAB PO SCH ×2 (09:02→21:10)
[2016-12-12] MEDS: BENZOCAINE 20% MM SCH ×3 (09:03→21:11)
[2016-12-12] MEDS ORDERED: POTASSIUM CHLORIDE (SR) 20 MEQ TAB PO STA (11:39)
--- NOTE | 2016-12-12 11:40 | PN ---
Date/Time of Note Date/Time of Note DATE: 12/12/16 TIME: 11:40 Assessment/Plan VTE Prophylaxis VTE Prophylaxis Intervention: other Lines/Catheters IV Catheter Type (from Nrs): Peripheral IV Urinary Cath still in place: No Assessment/Plan Chief Complaint/Hosp Course -Persistent Hypokalemia- replthea Elizabeth BMP am - IVF- D5 1/2 NS at 60 cc/hr -Acute stroke ruled out. -Neck pain and upper back pain, Dr. Gutierrez is following in rheumatology consultation, status post trigger point injection. -Dizziness and headache due to occipital neuralgia, Dr. Billings, neurology consult is appreciated -Diarrhea with C. difficile colitis, continue p.o. vancomycin, Dr. Rosales is following infection disease. - UTI, continue antibiotics per ID. -Rule out acute coronary syndrome, cardiac enzymes every 8 hours 3. -Hypertension, continue hydrochlorothiazide and Diovan -Diabetes mellitus, continue metformin and NovoLog per mild algorithm sliding scale. -Osteoarthritis -Obesity with BMI of 35.5. Problems: Subjective 24 Hr Interval Summary Free Text/Dictation Patient continues to have dizziness and headache Exam/Review of Systems Vital Signs Vitals Vital Signs Date Time Temp Pulse Resp B/P Pulse Ox O2 Delivery O2 Flow Rate FiO2 12/12/16 08:00 98.1 77 19 160/73 92 Intake and Output 12/11/16 12/11/16 12/12/16 15:00 23:00 07:00 Intake Total 835 ml 1400 ml 1055 ml Balance 835 ml 1400 ml 1055 ml Exam Constitutional: well developed Head: atraumatic, normocephalic Neck: supple Respiratory: clear to auscultation Cardiovascular: regular rate and rhythm Gastrointestinal: non-tender, soft Extremities: normal pulses Results Result Diagram: 12/12/16 0451 12/12/16 045 Results 24 hrs Laboratory Tests Test 12/12/16 04:51 12/12/16 08:22 White Blood Count 10.5 Red Blood Count 3.95 L Hemoglobin 10.8 L Hematocrit 33.6 L Mean Corpuscular Volume 85.1 Mean Corpuscular Hemoglobin 27.3 L Mean Corpuscular Hemoglobin Concent 32.1 Red Cell Distribution Width 15.5 H Platelet Count 232 Mean Platelet Volume 10.2 Neutrophils % 53.2 Lymphocytes % 35.6 Monocytes % 7.4 Eosinophils % 2.4 Basophils % 0.7 Nucleated Red Blood Cells % 0.0 Neutrophils # (Manual) 5.6 Lymphocytes # 3.7 H Monocytes # 0.8 Eosinophils # 0.3 Basophils # 0.1 Nucleated Red Blood Cells # 0.0 Sodium Level 140 Potassium Level 3.1 L Chloride Level 99 Carbon Dioxide Level 33 H Anion Gap 11 Blood Urea Nitrogen 7 Creatinine 0.60 Glucose Level 84 Calcium Level 8.6 Bedside Glucose 90 Medications Medications Current Medications Acetaminophen (Tylenol Tab) 650 mg Q4H PRN PO PAIN AND OR ELEVATED TEMP Last administered on 12/05/16 15:06; Admin Dose 650 MG; Start 11/15/16 at 16:00 Paroxetine HCl (Paxil) 30 mg DAILY PO Last administered on 12/12/16 08:26; Admin Dose 30 MG; Start 11/16/16 at 09:00 Diagnostic Test (Pha) (Accu-Chek) 1 ea 02 XX ; Start 11/16/16 at 02:00 Miscellaneous Information 1 ea NOTE XX ; Start 11/15/16 at 16:30 Glucose (Glutose) 15 gm Q15M PRN PO DECREASED GLUCOSE; Start 11/15/16 at 16:30 Glucose (Glutose) 22.5 gm Q15M PRN PO DECREASED GLUCOSE; Start 11/15/16 at 16:30 Dextrose (D50w Syringe) 25 ml Q15M PRN IV DECREASED GLUCOSE; Start 11/15/16 at 16:30 Dextrose (D50w Syringe) 50 ml Q15M PRN IV DECREASED GLUCOSE; Start 11/15/16 at 16:30 Glucagon (Glucagen) 1 mg Q15M PRN IM DECREASED GLUCOSE; Start 11/15/16 at 16:30 Glucose (Glutose) 15 gm Q15M PRN BUCCAL DECREASED GLUCOSE; Start 11/15/16 at 16: 30 Aspirin (Aspirin) 81 mg DAILY PO Last administered on 12/12/16 08:26; Admin Dose 81 MG; Start 11/16/16 at 09:00 Hydrochlorothiazide (Hydrochlorothiazide) 25 mg DAILY PO Last administered on 09:02; Admin Dose 25 MG; Start 11/16/16 at 09:00 Pantoprazole (Protonix Tab) 40 mg BID@06,18 PO Last administered on 12/12/16 05 :13; Admin Dose 40 MG; Start 11/15/16 at 18:00 Ondansetron HCl (Zofran Inj) 4 mg Q6H PRN IV NAUSEA AND/OR VOMITING Last administered on 12/10/16 11:55; Admin Dose 4 MG; Start 11/16/16 at 09:30 Ibuprofen (Motrin) 600 mg Q8H PRN PO PAIN LEVEL 4-7; Start 11/16/16 at 19:00 Valsartan (Diovan) 160 mg BID PO Last administered on 12/12/16 09:02; Admin Dose 160 MG; Start 11/16/16 at 21:00 Alprazolam (Xanax) 0.5 mg Q6H PRN PO ANXIETY Last administered on 12/11/16 22: 52; Admin Dose 0.5 MG; Start 11/18/16 at 11:00 Atorvastatin Calcium (Lipitor) 40 mg HS PO Last administered on 12/11/16 20:44 ; Admin Dose 40 MG; Start 11/19/16 at 21:00 Phenyleph/Shark Oil/Min Oil/Petrol (Formulation R Oint) 1 applic BID SC Last administered on 12/12/16 08:28; Admin Dose 1 APPLIC; Start 11/20/16 at 13:30 Vancomycin HCl (Vancomycin Oral Syringe) 250 mg Q6 PO Last administered on 05:13; Admin Dose 250 MG; Start 11/21/16 at 12:00 Meclizine HCl 25 mg 25 mg TID PRN PO dizzy; Start 12/08/16 at 19:00 Potassium Chloride/Dextrose/ Sod Cl (D5-1/2ns + KCl 20 Meq) 1,000 ml @ 70 mls/ hr [id number] IV Last administered on 12/12/16 04:41; Admin Dose 70 MLS/HR; Start 12/09/16 at 18:00 Benzocaine (Orajel Maximum) 1 applic TID MM Last administered on 12/12/16 09:03 ; Admin Dose 1 APPLIC; Start 12/10/16 at 14:00 MAEHNDRA RUVALCABA Dec 12, 2016 11:40
[2016-12-12 14:00] VITALS: BP 103/47; RESP 19
[2016-12-12] MEDS: ONDANSETRON 4 MG INJ IV PRN (14:18)
--- NOTE | 2016-12-12 18:55 | CONS ---
Date/Time of Note Date/Time of Note DATE: 12/12/16 TIME: 18:51 Assessment/Plan Assessment/Plan Chief Complaint/Hosp Course ID PROGRESS NOTE CURRENT ABX: Vanco PO #21 * DC planning in process -- no C.Diff isolation beds available * WBC normalized * No new issues -- she c/o dizziness -> Brain imaging revealed:The mastoid air cells and middle ear cavities are normally aerated. GENERAL: 81 yo elder F in no distress. NO fevers HEENT:Unremarkable NECK: Supple, trachea midline. CHEST: Chest rise is symmetrical. EXTREMITIES: Warm (+)FC clear yellow urine ID ASSESSMENT 81 yo F admit with: 1. Resolving Clostridium difficile colitis. 2. s/p GNR Urinary tract infection. 3. Persistent leukocytosis=> resolving 4. Diabetes. 5. Hypertension. 6. History of bilateral total knee replacement. 7. Persistent "Dizzy" w/ MRI findings: The mastoid air cells and middle ear cavities are normally aerated. CURRENT ABX: Vanco PO #21 s/p Ceftriaxone s/p Cefepime/Amikacin ID PLAN Still having loose stools -> Taper Vanco po down to 125mg po QID x 7 days Anticipate DC on Vanco po x 7 days . . Problems: Consultation Date/Type/Reason Admit Date/Time Nov 15, 2016 at 11:01 Initial Consult Date 11/22/16 Type of Consultation: ID Referring Provider: THAI DELACRUZ Exam/Review of Systems Vital Signs Vitals Vital Signs Date Time Temp Pulse Resp B/P Pulse Ox O2 Delivery O2 Flow Rate FiO2 12/12/16 14:00 98.0 95 19 103/47 94 Intake and Output 12/11/16 12/11/16 12/12/16 15:00 23:00 07:00 Intake Total 835 ml 1400 ml 1055 ml Balance 835 ml 1400 ml 1055 ml Results Result Diagram: 12/12/16 0451 12/12/16 0451 Results 24 hrs Laboratory Tests Test 12/12/16 04:51 12/12/16 08:22 12/12/16 12:13 12/12/16 17:52 White Blood Count 10.5 Red Blood Count 3.95 L Hemoglobin 10.8 L Hematocrit 33.6 L Mean Corpuscular Volume 85.1 Mean Corpuscular Hemoglobin 27.3 L Mean Corpuscular Hemoglobin Concent 32.1 Red Cell Distribution Width 15.5 H Platelet Count 232 Mean Platelet Volume 10.2 Neutrophils % 53.2 Lymphocytes % 35.6 Monocytes % 7.4 Eosinophils % 2.4 Basophils % 0.7 Nucleated Red Blood Cells % 0.0 Neutrophils # (Manual) 5.6 Lymphocytes # 3.7 H Monocytes # 0.8 Eosinophils # 0.3 Basophils # 0.1 Nucleated Red Blood Cells # 0.0 Sodium Level 140 Potassium Level 3.1 L Chloride Level 99 Carbon Dioxide Level 33 H Anion Gap 11 Blood Urea Nitrogen 7 Creatinine 0.60 Glucose Level 84 Calcium Level 8.6 Bedside Glucose 90 89 112 Medications Medications Current Medications Acetaminophen (Tylenol Tab) 650 mg Q4H PRN PO PAIN AND OR ELEVATED TEMP Last administered on 12/05/16 15:06; Admin Dose 650 MG; Start 11/15/16 at 16:00 Paroxetine HCl (Paxil) 30 mg DAILY PO Last administered on 12/12/16 08:26; Admin Dose 30 MG; Start 11/16/16 at 09:00 Diagnostic Test (Pha) (Accu-Chek) 1 ea 02 XX ; Start 11/16/16 at 02:00 Miscellaneous Information 1 ea NOTE XX ; Start 11/15/16 at 16:30 Glucose (Glutose) 15 gm Q15M PRN PO DECREASED GLUCOSE; Start 11/15/16 at 16:30 Glucose (Glutose) 22.5 gm Q15M PRN PO DECREASED GLUCOSE; Start 11/15/16 at 16:30 Dextrose (D50w Syringe) 25 ml Q15M PRN IV DECREASED GLUCOSE; Start 11/15/16 at 16:30 Dextrose (D50w Syringe) 50 ml Q15M PRN IV DECREASED GLUCOSE; Start 11/15/16 at 16:30 Glucagon (Glucagen) 1 mg Q15M PRN IM DECREASED GLUCOSE; Start 11/15/16 at 16:30 Glucose (Glutose) 15 gm Q15M PRN BUCCAL DECREASED GLUCOSE; Start 11/15/16 at 16: 30 Aspirin (Aspirin) 81 mg DAILY PO Last administered on 12/12/16 08:26; Admin Dose 81 MG; Start 11/16/16 at 09:00 Hydrochlorothiazide (Hydrochlorothiazide) 25 mg DAILY PO Last administered on 09:02; Admin Dose 25 MG; Start 11/16/16 at 09:00 Pantoprazole (Protonix Tab) 40 mg BID@06,18 PO Last administered on 12/12/16 17 :56; Admin Dose 40 MG; Start 11/15/16 at 18:00 Ondansetron HCl (Zofran Inj) 4 mg Q6H PRN IV NAUSEA AND/OR VOMITING Last administered on 12/12/16 14:18; Admin Dose 4 MG; Start 11/16/16 at 09:30 Ibuprofen (Motrin) 600 mg Q8H PRN PO PAIN LEVEL 4-7; Start 11/16/16 at 19:00 Valsartan (Diovan) 160 mg BID PO Last administered on 12/12/16 09:02; Admin Dose 160 MG; Start 11/16/16 at 21:00 Alprazolam (Xanax) 0.5 mg Q6H PRN PO ANXIETY Last administered on 12/11/16 22: 52; Admin Dose 0.5 MG; Start 11/18/16 at 11:00 Atorvastatin Calcium (Lipitor) 40 mg HS PO Last administered on 12/11/16 20:44 ; Admin Dose 40 MG; Start 11/19/16 at 21:00 Phenyleph/Shark Oil/Min Oil/Petrol (Formulation R Oint) 1 applic BID OR Last administered on 12/12/16 08:28; Admin Dose 1 APPLIC; Start 11/20/16 at 13:30 Vancomycin HCl (Vancomycin Oral Syringe) 250 mg Q6 PO Last administered on 17:53; Admin Dose 250 MG; Start 11/21/16 at 12:00 Meclizine HCl 25 mg 25 mg TID PRN PO dizzy; Start 12/08/16 at 19:00 Potassium Chloride/Dextrose/ Sod Cl (D5-1/2ns + KCl 20 Meq) 1,000 ml @ 70 mls/ hr [id number] IV Last administered on 12/12/16 17:56; Admin Dose 70 MLS/HR; Start 12/09/16 at 18:00 Benzocaine (Orajel Maximum) 1 applic TID MM Last administered on 12/12/16t 12:46 ; Admin Dose 1 APPLIC; Start 12/10/16 at 14:00 SERGIO PERSON NP Dec 12, 2016 18:55
[2016-12-12 20:04] VITALS: BP 136/61; RESP 20
[2016-12-12] MEDS: ATORVASTATIN 40 MG TAB PO SCH (21:11)
[2016-12-12] MEDS: ACETAMINOPHEN 325 MG TAB PO PRN (21:14)
[2016-12-12] MEDS: ALPRAZOLAM 0.25 MG TAB PO PRN (22:13)
[2016-12-13] MEDS: VANCOMYCIN HCL 250 MG/5ML POSYG PO SCH ×3 (01:59→12:59)
[2016-12-13] MEDS: ACCU-CHEK XX SCH (02:00)
[2016-12-13 02:43] VITALS: BP 147/67; RESP 21
[2016-12-13] MEDS: PANTOPRAZOLE (EC) 40 MG TAB PO SCH (05:49)
[2016-12-13] MEDS: D5W-0.45 NACL + KCL 20 MEQ 1,000 ML IV SCH ×2 (07:48→14:22)
[2016-12-13 08:29] VITALS: BP 151/74; RESP 20
[2016-12-13] MEDS: HYDROCHLOROTHIAZIDE 25 MG TAB PO SCH (09:44)
[2016-12-13] MEDS: VALSARTAN 160 MG TAB PO SCH (09:44)
[2016-12-13] MEDS: ASPIRIN 81 MG TAB PO SCH (09:44)
[2016-12-13] MEDS: PAROXETINE 10 MG TAB PO SCH (09:45)
[2016-12-13] MEDS: BENZOCAINE 20% MM SCH ×2 (09:45→12:52)
[2016-12-13] MEDS: metFORMIN 850 MG TAB PO SCH (09:45)
[2016-12-13] MEDS: PE/SHARK OIL/MO/PETROL 30 GM OINT PR SCH (09:46)
--- NOTE | 2016-12-13 12:57 | DS ---
Date/Time of Note Date/Time of Note DATE: 12/13/16 TIME: 12:54 Discharge Summary Admission/Discharge Info Admit Date/Time Nov 15, 2016 at 11:01 Discharge Date/Time Patient Condition: Stable Hx of Present Illness k- 3.1, will do stat BMP before dc. The patient is an 81-year-old female with history of hypertension, diabetes, obesity, history of proctitis, osteoarthritis, status post bilateral total knee replacement, as well as anxiety and depression. Patient presented to the emergency room with complaints of dizziness. Patient's complains of headache and elevated blood pressure. Patient was sent to emergency room by primary care physician. Patient denies any fever chills denies any vomiting however stated that she feels nauseous. Patient underwent CT of the head in the emergency room which was negative for any acute intracranial hemorrhage, transcortical infarction or mass effect. Patient also underwent chest x-ray which was unremarkable. Patient will be admitted for further evaluation and management to telemetry floor. Hospital Course ID PROGRESS NOTE CURRENT ABX: Vanco PO #21 * DC planning in process -- no C.Diff isolation beds available * WBC normalized * No new issues -- she c/o dizziness -> Brain imaging revealed:The mastoid air cells and middle ear cavities are normally aerated. GENERAL: 81 yo elder F in no distress. NO fevers HEENT:Unremarkable NECK: Supple, trachea midline. CHEST: Chest rise is symmetrical. EXTREMITIES: Warm (+)FC clear yellow urine ID ASSESSMENT 81 yo F admit with: 1. Resolving Clostridium difficile colitis. 2. s/p GNR Urinary tract infection. 3. Persistent leukocytosis=> resolving 4. Diabetes. 5. Hypertension. 6. History of bilateral total knee replacement. 7. Persistent "Dizzy" w/ MRI findings: The mastoid air cells and middle ear cavities are normally aerated. CURRENT ABX: Vanco PO #21 s/p Ceftriaxone s/p Cefepime/Amikacin ID PLAN Still having loose stools -> Taper Vanco po down to 125mg po QID x 7 days Anticipate DC on Vanco po x 7 days . . Home Meds Active Scripts Ibuprofen* (Motrin*) 600 Mg Tab, 600 MG PO Q8, #30 TAB Prov:FLORECITA FOSTER MD 11/13/16 Reported Medications Aspirin* (Aspirin* Chew) 81 Mg Tab.chew, 81 MG PO DAILY, TAB.CHEW 11/15/16 Valsartan* (Diovan*) 160 Mg Tablet, 160 MG PO DAILY, TAB 08/22/16 Atorvastatin Calcium* (Atorvastatin Calcium*) 20 Mg Tablet, 20 MG PO QHS, #30 TAB 08/22/16 Hydrochlorothiazide* (Hydrochlorothiazide*) 25 Mg Tab, 25 MG PO DAILY, #30 TAB 08/22/16 Potassium Chloride* (K-Dur*) 10 Meq Tab.prt.sr, 20 MEQ PO BID, TAB 08/22/16 Metformin Hcl* (Metformin Hcl*) 850 Mg Tablet, 850 MG PO WITH BREAKFAST DINNE, # 30 TAB 08/22/16 Alprazolam* (Xanax*) 1 Mg Tab, 1 MG PO QHS Y for SLEEP, TAB 08/22/16 Paroxetine Hcl* (Paxil*) 10 Mg Tablet, 10 MG PO DAILY, TAB 03/18/14 Pantoprazole* (Protonix*) 40 Mg Tablet.dr, 40 MG PO BID, TAB 03/18/14 Primary Care Provider Jermaine Justin MD Time spent on discharge: < 30 minutes Pending Labs Laboratory Tests Test 12/12/16 17:52 12/13/16 09:40 Bedside Glucose 112mg/dL (70-220) 126mg/dL (70-220) AHMET BOURNE Dec 13, 2016 12:57
--- NOTE | 2016-12-13 13:01 | PDOCDIS ---
Discharge Instructions CONDITION Patient Condition: Stable HOME CARE INSTRUCTIONS: Special Diet: 2 gram sodium ACTIVITY: Activity Restrictions: Slowly Increase Activity Rest between Activity Avoid heavy lifting Do not operate Machinery Do not operate Power Tool Avoid Heavy Housework No Weight Bearing AHMET BOURNE Dec 13, 2016 13:01
[2016-12-13 14:03] VITALS: BP 119/59; RESP 18
[2016-12-13 16:41] LABS: CALCIUM 8.9 mg/dl (8.4-10.2); CREATININE 0.66 mg/dl (0.44-1.00); POTASSIUM 3.6 mmol/L (3.5-5.1)
--- NOTE | 2016-12-13 18:56 | CONS ---
Date/Time of Note Date/Time of Note DATE: 12/13/16 TIME: 18:55 Assessment/Plan Assessment/Plan Chief Complaint/Hosp Course SUBJECTIVE DATA: Awake, looks comfortable, no fevers, still with loose stools ANTIMICROBIALS: PO Vanco PHYSICAL EXAMINATION: GENERAL: Fragile, elderly woman, who is in no distress. HEENT: Head atraumatic, normocephalic. Sclerae anicteric. Buccal mucosa pink. NECK: Supple. LUNGS: Chest rise symmetrical. Breath sounds clear. HEART: S1, S2. ABDOMEN: Soft, bowel sounds present. EXTREMITIES: Without cyanosis. ASSESSMENT: 1. Resolving Clostridium difficile colitis. 2. Urinary tract infection==> treated. 3. S/p leukocytosis, possibly secondary to steroid injection for osteoarthritis. 4. Diabetes. 5. Hypertension. 6. History of bilateral total knee replacement. PLAN: The patient remains stable. Continue PO Vanco, pending dc DW pt Problems: Consultation Date/Type/Reason Admit Date/Time Nov 15, 2016 at 11:01 Initial Consult Date 11/22/16 Type of Consultation: ID Referring Provider: THAI DELACRUZ Exam/Review of Systems Vital Signs Vitals Vital Signs Date Time Temp Pulse Resp B/P Pulse Ox O2 Delivery O2 Flow Rate FiO2 12/13/16 14:03 98.0 99 18 119/59 96 Intake and Output 12/12/16 12/12/16 12/13/16 15:00 23:00 07:00 Intake Total 1920 ml 480 ml Balance 1920 ml 480 ml Results Result Diagram: 12/12/16 0451 12/13/16 1556 Results 24 hrs Laboratory Tests Test 12/13/16 09:40 12/13/16 12:44 12/13/16 15:56 Bedside Glucose 126 114 Sodium Level 141 Potassium Level 3.6 Chloride Level 101 Carbon Dioxide Level 31 Anion Gap 13 Blood Urea Nitrogen 6 L Creatinine 0.66 Glucose Level 85 Calcium Level 8.9 EDILMA LIMA NP Dec 13, 2016 18:56
== END 2016-12-13 17:24 | DRG 552 ==
LOC: E/R 10:39 → MS4 10:53 → OBSVTOIN 11:01 → PP2 11-19 15:56
PROVIDERS: ADMIT Internal Medicine; ATTEND Internal Medicine
PROC: 3E0233Z Introduction of Anti-inflammatory into Muscle, Percutaneous Approach (ICD-10-PCS; principal; 2016-11-15)
PROC: 3E023BZ Introduction of Anesthetic Agent into Muscle, Percutaneous Approach (ICD-10-PCS; 2016-11-15)
DX: M54.81 Occipital neuralgia (principal); A04.7 Enterocolitis due to Clostridium difficile; R65.10 Systemic inflammatory response syndrome (SIRS) of non-infectious origin without acute organ dysfunction; E87.1 Hypo-osmolality and hyponatremia; N39.0 Urinary tract infection, site not specified; B96.89 Other specified bacterial agents as the cause of diseases classified elsewhere; I10 Essential (primary) hypertension; E11.9 Type 2 diabetes mellitus without complications; E66.9 Obesity, unspecified; E78.5 Hyperlipidemia, unspecified; E87.6 Hypokalemia; F41.8 Other specified anxiety disorders; R42 Dizziness and giddiness; R51 Headache; R19.7 Diarrhea, unspecified; M54.2 Cervicalgia; M19.90 Unspecified osteoarthritis, unspecified site; M47.899 Other spondylosis, site unspecified; M79.1 Myalgia; M54.89 Other dorsalgia; D72.828 Other elevated white blood cell count; Z87.19 Personal history of other diseases of the digestive system; Z96.653 Presence of artificial knee joint, bilateral; Z68.35 Body mass index [BMI] 35.0-35.9, adult
CPT/HCPCS: 70450; 70540; 70545; 70551; 71010; 72040; 80048; 80053; 80061; 80150; 80307; 81003; 82550; 82553; 82962; 83036; 84484; 85025; 85610; 85651; 85730; 87075; 87081; 87086; 92610; 93005; 93880; 96374; 96375; 97110; 97116; 97162; 97530; 99217; G0378; J0278; J0692; J0696; J1030; J1650; J1815; J2060; J2405; J3480

== ENCOUNTER 2017-05-08 05:02 | Emergency (ER) | END 2017-05-08 11:34 | disposition home or self-care (01) ==

== ENCOUNTER 2017-05-11 16:32 | Inpatient (IN) | END 2017-05-20 15:03 | DRG 309 ==

== ENCOUNTER 2017-07-04 06:42 | Inpatient (IN) | END 2017-07-07 22:10 | DRG 913 ==

== ENCOUNTER 2017-07-25 18:58 | Emergency (ER) | END 2017-07-26 00:34 | disposition home or self-care (01) ==

== ENCOUNTER 2017-08-05 16:35 | Emergency (ER) | END 2017-08-05 21:44 | disposition home or self-care (01) ==